=== PATIENT | female | born 1955 | race Caucasian/White ===

== ENCOUNTER 2020-01-17 07:21 | Inpatient (IN) | payer OTHER, SELFPAY ==
[2020-01-17] VITALS (7 sets, daily range): BP systolic 110–123; BP diastolic 58–89; PULSE 70–112; RESP 14–20; TEMP 36.2–37.1; O2SAT 94–98; BMI 43.1
--- NOTE | ~2020-01-17 | CT_ITS ---
EXAMINATION: CT guide absc cath placement DATE: 01/18/2020 14:06 INDICATION: Liver abscess TECHNIQUE: The procedure including the risks and benefits was discussed with the patient. Risks discu ssed included bleeding and infection. The patient understood the risks and benefits and agreed to pro ceed. The patient was confirmed to be receiving appropriate antibiotic coverage. The skin overlying the right upper quadrant was prepped and draped in usual sterile fashion. Anesthetic was administere d with 1% lidocaine subcutaneously. Conscious sedation was also provided by the department of anesthe myah. An 18-gauge trocar needle was inserted through the more anterior abscess cavity and into the mor e posterior abscess cavity utilizing CT guidance. The inner needle was removed and milliliter of callaway foul smelling purulent fluid was aspirated. A J-wire was advanced into the abscess cavity with positi oning confirmed by CT. Utilizing Seldinger technique the outer needle was exchanged over the wire for serial dilators to 12 Jamaican and a 12 Jamaican drain was placed with position confirmed by CT. The cat heter loop was formed, the pigtail tip was locked and the catheter stitched to the skin with suture. Antibiotic appointment and a sterile dressing were applied. There were no immediate complications. An additional 40 mL purulent fluid was aspirated and sent to the lab for cytology, Gram stain and aerob ic and anaerobic cultures. The catheter was then attached to suction drainage and was draining additi onal fluid at the conclusion of the procedure. The mA was adjusted to patient size and iterative daryl nstruction technique was utilized. The dose-length product was 659.41 mGy-cm. FINDINGS: CT images demonstrate the catheter within the fluid collection. 40 mL fluid was aspirated f or testing. IMPRESSION: 1. Successful CT-guided hepatic abscess drainage. 2. 40 mL fluid was sent for aerobic and anaerobic cultures. 3. The catheter will be managed by Dr. Levine. Reviewed, dictated and finalized at location A.
--- NOTE | ~2020-01-17 | US_ITS ---
EXAMINATION: US renal BI DATE: 01/25/2020 14:05 INDICATION: Left hydronephrosis. TECHNIQUE: Multiple ultrasound grayscale images of the kidneys were obtained. COMPARISON: CT abdomen and pelvis 01/24/2020, 01/21/2020 FINDINGS: The right kidney measures 11.8 x 5.1 x 6.0 cm. The left kidney measures 10.9 x 6.1 x 4.8 cm. The kidn eys demonstrate normal parenchymal echogenicity. There is mild left hydronephrosis. The bladder is no rmal. IMPRESSION: 1. Stable mild left hydronephrosis. Reviewed, dictated and finalized at location A.
--- NOTE | ~2020-01-17 | XR_ITS ---
EXAMINATION: XR chest 1V portable DATE: 01/28/2020 06:08 INDICATION: Right pleural effusion. TECHNIQUE: A single frontal view of the chest was obtained. COMPARISON: Chest single view 01/27/2020 FINDINGS: There is a moderate-sized right pleural effusion with pigtail chest tube in expected positi on. There are airspace opacities in right mid and lower lung zones and at left lung base. No pneumoth orax. The heart size is normal. Two pigtail drains overlie the liver. There are screws in proximal le ft humerus. IMPRESSION: 1. Stable moderate-sized right pleural effusion with pigtail chest tube in expected position. 2. Stable airspace opacities in right mid and lower lung zones and left lower lung zone, consistent w ith atelectasis versus pneumonia. Reviewed, dictated and finalized at location A. IMPRESSION: 1. Stable moderate-sized right pleural effusion with pigtail chest tube in expe cted position. 2. Stable airspace opacities in right mid and lower lung zones and left lower l rober zone, consistent with atelectasis versus pneumonia.
--- NOTE | ~2020-01-17 | CT_ITS ---
EXAMINATION: CT chest abdomen pelvis wo con DATE: 01/31/2020 12:05 INDICATION: Right empyema. Liver abscesses. TECHNIQUE: Computed tomography (CT) of the chest, abdomen, and pelvis was performed without intraveno us contrast. Automated exposure control and iterative reconstruction technique were employed. The dos e-length product was 1712.25 mGy-cm. COMPARISON: CT studies dated 01/25/2020 and 01/24/2020 FINDINGS: CHEST CT: Slight decrease in size of a still small to moderate loculated right pleural effusion. Chest tube and small amount of gas is seen within the posterior pocket of the effusion at the right lung base. Ther e is compressive atelectasis in the right lung predominantly along the dependent aspects of the right upper, middle and lower lobes. No evident pneumonia or pulmonary edema within the aerated portions o f the lungs. Heart size is normal. No significant change in a tiny pericardial effusion. Calcified mojica bcarinal lymph node consistent with old granulomatous disease. No pathologically enlarged thoracic ly mphadenopathy. Severe thoracic spondylosis. ABDOMEN/PELVIS CT: Again seen are a pair of hepatic abscess drains, one extending from anterior to posterior across segm ent 4A and 2 segment 8 of the liver and the second extending from posterior to anterior into segment 7 of the liver. No significant interval change in a residual small gas and fluid pocket at the cephal ad margin of the anterior drainage catheter located at the junctions of segments 4A and 8 which measu res approximately 4 x 2.7 x 2.0 cm. There is heterogeneous attenuation in segment 7 and 8 of the live r with a few small low-attenuation likely fluid pockets with intervening liver tissue versus thick in ternal septations located around the coiled tip of the more posterior percutaneous hepatic abscess dr agustin. These pockets are approximately 3.4 x 1.6 cm, 2.4 x 1.8 cm, 2.0 x 1.6 cm and 1.8 x 1.6 cm. No ne w fluid collections identified. Gallbladder, spleen, pancreas, bilateral adrenal glands and right kid marta are normal. Mild left greater nephrosis which extends to a region of phlegmonous change and gas i n the presacral space likely resulting from perforated sigmoid diverticulitis. This appears without s ignificant interval change with no development of a drainable fluid collection. No bowel obstruction. Normal appendix. Bladder and anteverted uterus are unremarkable. No free intraperitoneal gas or flui d. No pathologically enlarged abdominal or pelvic lymphadenopathy. Severe lumbar spondylosis. IMPRESSION: 1. Mild decrease in size of a small to moderate likely multiloculated right pleural effusion with sma ll amount of gas within a pocket situated around the tip of a right thoracostomy tube. 2. No interval change in position of a couple hepatic abscess drains with a few small persistent hepa tic abscess cavities which do not appear directly contact the abscess drains. 3. Persistent region of phlegmonous change and extraluminal gas in the presacral space likely related to perforated sigmoid diverticulitis. 4. Unchanged mild left hydroureteronephrosis which appears to result from at least partial obstructio n at the level of the region of phlegmonous change. Reviewed, dictated and finalized at location A. IMPRESSION: 1. Mild decrease in size of a small to moderate likely multiloculated right ple ural effusion with small amount of gas within a pocket situated around the tip of a right thoracostomy tube. 2. No interval change in position of a couple hepatic abscess drains with a few small persistent hepatic abscess cavities which do not appear directly contact the abscess drains. 3. Persistent region of phlegmonous change and extraluminal gas in the presacra l space likely related to perforated sigmoid
--- NOTE | ~2020-01-17 | XR_ITS ---
EXAMINATION: XR chest 1V portable DATE: 01/27/2020 06:37 INDICATION: Right pleural effusion. TECHNIQUE: A single frontal view of the chest was obtained. COMPARISON: Chest single view 01/26/2020 FINDINGS: There is a moderate-sized right pleural effusion. There are airspace opacities in right mid and lower lung zones and left lower lung zone. No pneumothorax. The heart size is normal. There is a right-sided pigtail chest tube in expected position. There are 2 pigtail drains in the liver. There are 2 screws in proximal left humerus. IMPRESSION: 1. Moderate-sized right pleural effusion with interval improvement with pigtail chest tube in expecte d position. 2. Stable airspace opacities in right mid and lower lung zones and left lower lung zone, consistent w ith atelectasis versus pneumonia. Reviewed, dictated and finalized at location A. IMPRESSION: 1. Moderate-sized right pleural effusion with interval improvement with pigtail chest tube in expected position. 2. Stable airspace opacities in right mid and lower lung zones and left lower l rober zone, consistent with atelectasis versus pneumonia.
--- NOTE | ~2020-01-17 | XR_ITS ---
EXAMINATION: XR chest 1V portable DATE: 01/17/2020 08:02 INDICATION: Dyspnea. TECHNIQUE: A single frontal view of the chest was obtained. COMPARISON: CT abdomen and pelvis 10/08/2017 FINDINGS: There are mild airspace opacities in right lower lung zone. No pleural effusion or pneumoth orax. The heart size is normal. There is an old healed fracture of proximal left humerus with interna l fixation. IMPRESSION: 1. Mild airspace opacities in right lower lung zone, consistent with atelectasis versus pneumonia. Reviewed, dictated and finalized at location B. IMPRESSION: 1. Mild airspace opacities in right lower lung zone, consistent with atelectasi s versus pneumonia.
--- NOTE | ~2020-01-17 | XR_ITS ---
EXAMINATION: XR chest 1V portable DATE: 01/24/2020 06:39 INDICATION: Shortness of breath. TECHNIQUE: A single frontal view of the chest was obtained. COMPARISON: Chest single view 01/17/2020, CT abdomen and pelvis 01/21/2020 FINDINGS: There is a small right pleural effusion. There are airspace opacities in right mid and lowe r lung zones and left lower lung zone. No pneumothorax. The heart size is normal. There are 2 percuta neous drains in the liver. There are 2 screws in proximal left humerus. IMPRESSION: 1. Worsened airspace opacities in right mid and lower lung zones and left lower lung zone, consistent with atelectasis versus pneumonia. 2. Worsened small right pleural effusion. Reviewed, dictated and finalized at location A.
--- NOTE | ~2020-01-17 | CT_ITS ---
EXAMINATION: CT abdomen pelvis wo con EXAM DATE: 01/24/2020 15:48 INDICATION: Diverticulitis complicated with liver abscess. TECHNIQUE: Spiral CT of the abdomen and pelvis was performed without contrast. Axial, coronal and s agittal images were reviewed. The dose-length product (DLP) for this examination was 1623.11 mGy-cm. The exposure was tailored according to patient size (auto mA exposure control), and iterative recon struction (ASIR) was used as additional dose reduction technique. Comparison is made to prior examina tion from 01/21/2020. FINDINGS: Heterogeneous liver measuring up to 7 x 8 cm region, again with a pigtail catheter entering this area from anteriorly. There is been interval insertion of another posterior approach pigtail ca theter. Suspected there are multiple loculations, septations within this region. A few small foci of gas remaining. On prior study there was small right pleural effusion. There is now moderate right ple ural effusion or empyema with loculation suspected. There is multi segmental right basilar atelectasi s. Again there is moderate sigmoid diverticulosis, with regions of gas anterior to the upper aspect of t he sacrum, suspicious for an contained air from perforated diverticulitis. No drainable abscess in th is location. The spleen, adrenal glands and pancreas are unremarkable. Gallbladder is unremarkable. No biliary ob struction. Limitations in evaluating the pelvis due to right hip replacement but the imaged portio n of the uterus appears unremarkable. The bladder is not distended or well visualized. There is no retroperitoneal or pelvic lymphadenopathy. The appendix is normal. The stomach and small bowel are unremarkable. No free intraperitoneal gas. Advanced lumbar spondylosis. IMPRESSION: 1. Development of moderate right pleural empyema or effusion with loculations. Adjacent multisegment al right basilar atelectasis. 2. Persistent sizable heterogeneous right liver lobe abscess with multiple septations. 3. Persistent findings suspicious for extraluminal gas from perforated sigmoid diverticulitis. No gr oss free intraperitoneal gas. 4. Colonic diverticulosis. Reviewed, dictated and finalized at location B. IMPRESSION: 1. Development of moderate right pleural empyema or effusion with loculations. Adjacent multisegmental right basilar atelectasis. 2. Persistent sizable heterogeneous right liver lobe abscess with multiple sep tations. 3. Persistent findings suspicious for extraluminal gas from perforated sigmoid diverticulitis. No gross free intraperitoneal gas. 4. Colonic diverticulosis.
--- NOTE | ~2020-01-17 | XR_ITS ---
EXAMINATION: XR chest 1V portable DATE: 01/26/2020 08:59 INDICATION: Right pleural effusion. TECHNIQUE: A single frontal view of the chest was obtained. COMPARISON: Chest single view 01/24/2020 FINDINGS: There is a moderate-sized right pleural effusion. There is a right-sided pigtail chest tube in expected position. There are airspace opacities at the lung bases. No pneumothorax. The heart siz e is normal. There is screw fixation of proximal left humerus. There are 2 pigtail drains in the live r. IMPRESSION: 1. Moderate-sized right pleural effusion with pigtail chest tube in expected position with worsening of the pleural effusion from 01/24/2020. 2. Airspace opacities at the lung bases, consistent with atelectasis or less likely pneumonia. Reviewed, dictated and finalized at location A. IMPRESSION: 1. Moderate-sized right pleural effusion with pigtail chest tube in expected po sition with worsening of the pleural effusion from 01/24/2020. 2. Airspace opacities at the lung bases, consistent with atelectasis or less li glenn pneumonia.
--- NOTE | ~2020-01-17 | CT_ITS ---
EXAMINATION: CT guide absc cath placement DATE: 01/21/2020 15:34 INDICATION: Hepatic abscess TECHNIQUE: The procedure including the risks and benefits was discussed with the patient. Risks discu ssed included bleeding and infection. The patient understood the risks and benefits and agreed to pro ceed. The patient was confirmed to be receiving appropriate antibiotic coverage. The skin overlying the paraspinal right flank was prepped and draped in usual sterile fashion. Anesthetic was administe red with 1% lidocaine subcutaneously. A 18-gauge trocar needle was inserted into the right hepatic l obe abscess utilizing intermittent CT guidance. The inner needle was removed and there was spontaneou s reflux of purulent appearing fluid. A J-wire was advanced into the fluid collection with positionin g confirmed by CT. Utilizing Seldinger technique the needle was removed over the wire and the tract s erially dilated to 12 Welsh and the outer portion of the tract across the paraspinal musculature dil ated to 14 Welsh. A 12 Welsh drainage catheter was then placed over the wire with position confirme d by CT. The metal stiffener and wire were removed, and the pigtail tip was locked. The catheter was stitched to the skin with suture. Antibiotic ointment and a sterile dressing were applied. There were no immediate complications. The dose-length product was 884.79 mGy-cm. 20 mL of fluid was aspirated and sent to the lab for Gram stain and culture. The catheter was then attached to suction drainage wi th an additional 200 mL of fluid drained into the bag at the conclusion of the procedure. FINDINGS: CT images demonstrate the catheter within the anterior right hepatic lobe abscess. 20 mL of pinkish-callaway purulent appearing foul-smelling fluid was aspirated and sent for Gram stain and culture s. The previously placed hepatic abscess drainage catheter seen in the more anterior and cephalad rig ht hepatic lobe. IMPRESSION: 1. Successful CT-guided right hepatic lobe abscess drainage catheter placement. 2. 20 mL fluid was sent for aerobic and anaerobic cultures. 3. The catheter will be managed by Dr. Levine. Reviewed, dictated and finalized at location A.
--- NOTE | ~2020-01-17 | CT_ITS ---
EXAMINATION: CT abdomen pelvis wo con DATE: 01/17/2020 08:24 INDICATION: Right lower quadrant abdominal pain. TECHNIQUE: Computed tomography (CT) of the abdomen and pelvis was performed without intravenous contr ast. Automated exposure control and iterative reconstruction technique were employed. The dose-length product was 1424.69 mGy-cm. COMPARISON: CT abdomen and pelvis 10/08/2017 FINDINGS: The visualized portions of the lung bases demonstrate mild atelectasis. A calcified left kristopher ng nodule and calcified paraesophageal lymph node are consistent with old granulomatous disease. No p leural effusion. The heart size is normal. No pericardial effusion. There is a small sliding hiatal h ernia. There are new clustered low-attenuation masses in the liver predominantly involving right hepa tic lobe. For example, a mass centered in segment VIII measures 6.1 x 3.7 cm. The gallbladder, spleen , pancreas, adrenal glands, and right kidney are normal. There is mild left hydronephrosis and proxim al hydroureter. There are scattered diverticula in the colon. Sigmoid colon demonstrates wall thicken ing. There are multiple fistulas in the sigmoid colon extending to presacral soft tissue. There is no drainable fluid collection. There are no dilated loops of bowel. The appendix is normal. There are n o pathologically enlarged lymph nodes. There is no free intraperitoneal fluid. There are small suprau mbilical ventral hernias containing fat. There is a right hip arthroplasty. There is severe lumbar sp ondylosis. IMPRESSION: 1. New clustered liver masses, which may be abscesses, metastatic disease, or cholangiocarcinoma. 2. Sigmoid colon wall thickening with perisigmoid soft tissue and multiple fistulas, which may be chr onic diverticulitis or malignancy. 3. Mild left hydronephrosis and proximal hydroureter secondary to the perisigmoid soft tissue. Reviewed, dictated and finalized at location B. IMPRESSION: 1. New clustered liver masses, which may be abscesses, metastatic disease, or c holangiocarcinoma. 2. Sigmoid colon wall thickening with perisigmoid soft tissue and multiple fist ulas, which may be chronic diverticulitis or malignancy. 3. Mild left hydronephrosis and proximal hydroureter secondary to the perisigmo id soft tissue.
--- NOTE | ~2020-01-17 | CT_ITS ---
EXAMINATION: CT abdomen pelvis wo con DATE: 01/21/2020 09:13 INDICATION: Hepatic abscess. Diverticulitis. TECHNIQUE: Computed tomography (CT) of the abdomen and pelvis was performed without intravenous contr ast. Automated exposure control and iterative reconstruction technique were employed. The dose-length product was 1372.97 mGy-cm. COMPARISON: None FINDINGS: Small right pleural effusion. Atelectasis at the bilateral lung bases. Heart size is normal. No peric ardial effusion. Interval placement of a percutaneous hepatic abscess drain. The drain passes through a more anterior abscess which is decreased in size from 6.1 x 4.6 x 4.1 cm to currently measuring 5. 8 x 2.1 x 2.7 cm. There are a few tiny foci of gas within this abscess cavity. The loop of the cathet er is formed within the anterior margin of a second larger more posterior abscess cavity which appear s to demonstrate some internal septations. This cavity has increased in size since the prior study cu rrently measuring 10.2 x 8.2 x 10.1 cm as previously it measured 8.2 x 7.0 x 6.5 cm. Gallbladder, spl een, pancreas, bilateral adrenal glands and right kidney are normal. Persistent mild left hydroureter onephrosis with the dilated left ureter extending to the region of phlegmonous change with multiple f oci of extraluminal gas located within the presacral space along the posterior margin of the sigmoid colon consistent with likely perforated diverticulitis. No contrast abscess in the pelvis. There is m oderate diverticulosis with sigmoid and descending colon predominance. No bowel obstruction. The deep pelvis including the partially decompressed bladder and caudal aspect of the anteverted uterus are o bscured by metallic streak artifact from a right total hip arthroplasty. No pathologically enlarged a bdominal or pelvic lymphadenopathy. Severe lumbar spondylosis and mild to moderate left hip osteoarth ritis. IMPRESSION: 1. Again seen are a pair of hepatic abscesses with interval decrease in size of the more anterior abs cess cavity through which passes a percutaneous hepatic abscess drain. The distal loop of the abscess drain is positioned at the margin of the likely multiloculated posterior abscess cavity with septati ons likely inhibiting further drainage. Would consider placement of a second percutaneous abscess warren in placed from posteriorly. 2. Likely perforated diverticulitis with region of likely retroperitoneal phlegmonous change without discrete abscess in the presacral space along the posterior margin of the sigmoid colon. Where an abs cess to develop at this location it would not be readily accessible to percutaneous drainage. 3. Persistent mild left hydroureteronephrosis likely related to the phlegmonous change associated wit h the diverticulitis. 4. Small right pleural effusion. Reviewed, dictated and finalized at location A. IMPRESSION: 1. Again seen are a pair of hepatic abscesses with interval decrease in size of the more anterior abscess cavity through which passes a percutaneous hepatic a bscess drain. The distal loop of the abscess drain is positioned at the margin of the likely multiloculated posterior abscess cavity with septations likely in hibiting further drainage. Would consider placement of a second percutaneous ab scess drain placed from posteriorly. 2. Likely perforated diverticulitis with region of likely retroperitoneal phleg monous change without discrete abscess in the presacral space along the posteri or margin of the sigmoid colon. Where an abscess to develop at this location it would not be readily accessible to percutaneous drainage. 3. Persistent mild left hydroureteronephrosis likely related to the phlegmonous change associated with the diverticulitis. 4. Small right pleural effusion.
--- NOTE | ~2020-01-17 | CT_ITS ---
EXAMINATION: CT chest tube placement w [facility] [place] DATE: 01/25/2020 15:22 INDICATION: Right pleural effusion. TECHNIQUE: The procedure including the risks, benefits, and alternatives was discussed with the patie nt. Risks discussed included bleeding and infection. The patient understood the risks and benefits an d agreed to proceed. The skin overlying the right chest was prepped and draped in usual sterile fashi on. Anesthetic was administered with 1% lidocaine subcutaneously. An 18 gauge trochar needle was ins erted into the right pleural effusion with CT guidance. The needle was exchanged over a wire for 6 Fr ench, 8 Maldivian, and 10 Maldivian dilators and then for a 10 Maldivian pigtail catheter. The catheter was st itched to the skin, and a sterile dressing was applied. Fluid was aspirated. A one-way valve was robert ched. The mA was adjusted according to patient size. Iterative reconstruction technique was employed. The dose-length product was 168.72 mGy-cm. There were no immediate complications. FINDINGS: CT images demonstrate the catheter within the right pleural effusion. 60 mL serosanguineous fluid was aspirated for testing. IMPRESSION: 1. Successful CT-guided right chest tube placement. 2. 60 mL serosanguineous fluid was sent for aerobic and anaerobic cultures. Reviewed, dictated and finalized at location A.
--- NOTE | 2020-01-17 07:32 | ECG_ITS ---
Measurements Intervals [place] Rate: 100 P: 67 NC: 143 QRS: -3 QRSD: 89 T: 42 QT: 346 QTc: 446 Interpretive Statements SINUS TACHYCARDIA CANNOT RULE OUT SEPTAL INFARCT, AGE INDETERMINATE BORDERLINE ST ABNORMALITY- ANTERIOR LEADS ABNORMAL ECG Electronically Signed On 01-17-2020 8:02:20 CDT by Afshin Ty D.O.
--- NOTE | 2020-01-17 07:34 | ED.ABDPAIN ---
HPI - Abdominal Pain General Chief Complaint: Abdominal Pain Stated Complaint: SICK HELL Time Seen by Provider: 01/17/20 07:32 Source: patient Mode of arrival: ambulatory Limitations: no limitations History of Present Illness HPI narrative: Patient is a 64-year-old female with a history of diverticulitis, hypertension, inguinal hernia repair, 4 sections, presents this morning feeling very unwell. Patient is mostly reporting right lower quadrant abdominal pain over the past several days which has been intermittent in nature. Radiation of the pain to the right flank. Patient denies fever, chills, chest pain, cough, congestion, nausea or vomiting. Patient reports she has a history of pain such as this in the past and was diagnosed with gallstones, but is has not had a cholecystectomy. She reports some hematuria several weeks ago, but no dysuria, frequency or hematuria this week. Patient is denying shortness of breath, but in the exam room, patient does appear quite dyspneic. Related Data Home Medications Medication Instructions Recorded Confirmed celecoxib mg 01/17/20 lisinopril 01/17/20 pantoprazole PO 01/17/20 Allergies Allergy/AdvReac Type Severity Reaction Status Date / Time hydrocodone Allergy Severe DIFFICULTY Verified 01/17/20 07:32 BREATHING, BEHAVIOR CHANGES latex Allergy Severe Anaphylactic Verified 01/17/20 07:32 Shock,RASH shellfish derived Allergy Severe Anaphylactic Verified 01/17/20 07:32 Shock Contrast Media Allergy Severe ANAPHYLAXIS Uncoded 08 07:32 Review of Systems Review of Systems: Narrative: CONSTITUTIONAL: Denies fever, chills, or sweats. EYES: Denies visual changes, redness, or discharge. ENT: Denies rhinorrhea, congestion, sore throat, or otalgia. CARDIOVASCULAR: Denies chest pain, palpitations, or edema. RESPIRATORY: Denies cough or dyspnea. GASTROINTESTINAL: Reports abdominal pain, denies nausea, vomiting GENITOURINARY: Denies current dysuria, reports hematuria several weeks ago, reports this has resolved SKIN: Denies rash or itching. MUSCULOSKELETAL: Reports right flank pain, denies myalgias NEUROLOGIC: Denies headache, numbness, or weakness. PMF Past Medical History Medical History Acid reflux Diverticulitis Hypertension Surgical History Surgical History H/O section H/O inguinal hernia repair H/O shoulder surgery History of bilateral knee replacement History of right hip replacement Social History Social History Gender identity (if verbalized by the patient): Female Exam Narrative: Exam Narrative: GENERAL: Awake, alert, conversant HEAD: Normocephalic, atraumatic. EYES: PERRLA and EOMI. ENT: Nares clear, no rhinorrhea or epistaxis. Mucous membranes moist. NECK: Supple. CHEST: No respiratory distress, patient is mildly dyspneic, able to speak in full sentences, no wheezing, no use of accessory muscles HEART: Tachycardic rate, sinus rhythm ABDOMEN: Obese, non distended, mildly tender in the suprapubic area, right upper quadrant, right lower quadrant, negative Sims sign, negative McBurney's point tenderness, negative psoas sign, nonrigid, nondistended, no rebound EXTREMITIES: Normal range of motion. No edema. SKIN: Warm, dry, no rash. NEURO:No focal deficits. Alert and oriented x3 Course Vital Signs Vital signs: Vital Signs Temperature 36.2 C L 01/17/20 07:22 Pulse Rate 112 H 01/17/20 07:22 Respiratory Rate 17 01/17/20 07:22 Blood Pressure 111/67 01/17/20 07:22 Pulse Oximetry 98 01/17/20 07:22 Temperature 36.2 C L 01/17/20 07:22 Pulse Rate 79 01/17/20 09:33 Respiratory Rate 17 01/17/20 09:33 Blood Pressure 114/64 01/17/20 09:33 Pulse Oximetry 96 01/17/20 09:33 MDM - Abdominal Pain MDM Narrative Medical decision
[2020-01-17] MEDS: ONDANSETRON INJ 4 MG/2 ML VIAL IV PUSH ×2 (07:52→21:21)
[2020-01-17] MEDS: MORPHINE SULFATE 4 MG/ML INJ IV PUSH (07:53)
[2020-01-17] MEDS: SODIUM CHLORIDE 0.9% IV 1,000 ML 999 ML IV CONT (07:54)
[2020-01-17 07:59] LABS: Basophils Absolute Auto 0.1 K/mm3 (0.0-0.1); Basophils Percent Auto 0.4 % (0.2-1.2); Eosinophils Percent Auto 0.1 % (0-4.4); Hematocrit 33.4 % (37.0-47.0); Hemoglobin 10.7 g/dL (12.0-15.0); Immature Granulocyte Absolute 0.35 K/mm3 (0.00-0.031); Immature Granulocyte Percent A 1.3 % (0-0.5); Lymphocytes Absolute Auto 1.21 K/mm3 (0.9-3.2); Lymphocytes Percent Auto 4.5 % (18.3-44.2); Mean Corpuscular Hemoglobin 26.7 pg (26-34); Mean Corpuscular Volume 83.3 fl (80-100); Mean Platelet Volume 10.6 fl (7.4-10.4); Monocytes Absolute Auto 1.8 K/mm3 (0.1-0.6); Monocytes Percent Auto 6.5 % (2.6-8.5); Neutrophils Absolute Auto 23.7 K/mm3 (1.3-6.7); Neutrophils Percent Auto 87.2 % (45.5-73.1); Platelet Count Result 412 k/mm3 (150-375); Red Blood Count 4.01 M/mm3 (4.2-5.4); Red Cell Distribution Width 14.6 % (11.5-14.5); White Blood Count 27.1 K/mm3 (4.5-10.0)
[2020-01-17 08:05] LABS: Add Urine Microscopic? YES; Appearance Urine Clear (Clear); Bilirubin Urine Negative (Negative); Blood Urine 1+ (Negative); Color Urine Yellow (Yellow); Glucose Urine UA 1+ mg/dL (Negative); Ketones Urine Negative (Negative); Leukocyte Esterase Ur Negative LEU/UL (Negative); Mucus Urine Heavy /lpf; Nitrate Urine Negative (Negative); Protein Urine 2+ mg/dL (Negative); Specific Grav Ur 1.019 (1.001-1.035); Squamous Epithelial Cell Urine Moderate /hpf (Few); Urobilinogen Urine Negative mg/dL (<2.0)
[2020-01-17 08:08] LABS: Alanine Aminotransferase 38 U/L (4-35); Albumin Level 3.2 g/dL (3.5-5.1); Alkaline Phosphatase 193 U/L (38-126); Anion Gap 10 mmol/L (8-16); Aspartate Amino Transferase 63 U/L (14-36); Bilirubin,Total 0.7 mg/dL (0.2-1.3); Blood Urea Nitrogen 18 mg/dL (7-17); Calcium 8.7 mg/dL (8.4-10.2); Carbon Dioxide 24 mmol/L (22-30); Chloride 97 mmol/L (98-107); Estimated CRCL calculation 70 ml/min; Estimated Glomerular Filt Rate > 60; Glucose 216 mg/dL (65-105); Lipase 15 U/L (23-300); Sodium 131 mmol/L (137-145)
[2020-01-17 08:09] LABS: INR 1.3; Prothrombin Time 15.4 Seconds (11.1-14.7)
[2020-01-17 08:10] LABS: Partial Thromboplastin Time 28.7 SECONDS (22.3-36.8)
[2020-01-17 08:19] LABS: Troponin I < 0.012 ng/mL (0.000-0.034)
[2020-01-17 08:19] LABS: Lactic Acid Reflex 1.7 mmol/L (0.7-2.1)
--- NOTE | 2020-01-17 09:56 | PM.CNGS ---
Assessment and Plan Assessment and plan (1) Diverticulitis: Code(s): K57.92 - Diverticulitis of intestine, part unspecified, without perforation or abscess without bleeding Status: Acute Assessment and Plan: will need to start broad spectrum abx, get cx c hepatic drain (2) Abscess of liver: Code(s): K75.0 - Abscess of liver Status: Acute Assessment and Plan: setup for perc drainage hepatic abscess, await cx and sensitivity History of Present Illness Consult details Consult date: 01/17/20 Reason for consult: abdominal pain Requesting physician: Rebecca Mark MD Narrative: Pt is a 64 y/o F presenting to ED c/o severe R sided abdominal pain progressively worsening over last few days. Pt reports she has had intermittent sx over last month or so but now is constant. Pt reports assoc nausea, fullness, decreased appetite, weakness. Pt denies any fevers, chills. Pt c h/o known diverticular dz. Review of Systems Constitutional: Constitutional: Denies chills, Reports fatigue, Reports lethargy and Reports weakness Eyes: Eyes: Reports no additional eye complaints ENT: Reports Normal hearing present Cardiovascular: Cardiovascular: Denies chest pain and Denies palpitations Respiratory: Respiratory: Denies dyspnea Gastrointestinal: Gastrointestinal: Reports abdominal pain, Reports bloating, Denies constipation, Reports heartburn, Denies diarrhea, Reports nausea and Denies vomiting Genitourinary: Genitourinary: Denies hematuria and Denies dysuria Musculoskeletal: Musculoskeletal: Reports no additional musculoskeletal complaints Integumentary/Breasts: Skin/Breast: Reports system reviewed and no additional complaints, except as docu Neurologic: Reports system reviewed and no additional complaints, except as documented Psychiatric: Psychiatric: Reports no additional psychiatric complaints [facility] Past Medical History Medical History Acid reflux Diverticulitis Hypertension Surgical History Surgical History H/O section H/O inguinal hernia repair H/O shoulder surgery History of bilateral knee replacement History of right hip replacement Social History Social History Gender identity (if verbalized by the patient): Female Meds Home Medications and Allergies Home Medications Medication Instructions Recorded Confirmed Type celecoxib mg 01/17/20 History lisinopril 01/17/20 History pantoprazole PO 01/17/20 History Allergies Allergy/AdvReac Type Severity Reaction Status Date / Time hydrocodone Allergy Severe DIFFICULTY Verified 01/17/20 07:32 BREATHING, BEHAVIOR CHANGES latex Allergy Severe Anaphylactic Verified 01/17/20 07:32 Shock,RASH shellfish derived Allergy Severe Anaphylactic Verified 01/17/20 07:32 Shock Contrast Media Allergy Severe ANAPHYLAXIS Uncoded 01/17/20 07:32 Vital Signs Vital Signs - 24 hr 01/17/20 07:22 01/17/20 08:52 01/17/20 09:33 Temperature 36.2 C L Pulse Rate 112 H 81 79 Respiratory Rate 17 17 17 Blood Pressure 111/67 110/78 114/64 Pulse Oximetry 98 95 96 Exam Const: General: in distress mild HENMT: Mouth: Yes moist mucous membranes Eyes: Pupils: Equal, round and reactive pupils present EOM: EOMs intact bilaterally Neck: Neck: supple and no JVD Lymphatic: lymphadenopathy not noted Resp: Auscultation: clear to auscultation bilaterally Cardio: Rate: regular rate Rhythm: regular rhythm GI: Inspection: distended GI Palp: Yes Soft to palpation and Yes Tenderness to palpation present (GI) Other: sl dist, mild TTP RUQ, minimal TTP LLQ Skin: General skin exam: normal color and no rashes or lesions noted Neuro: Motor exam (neuro): 5/5 motor strength present throughout Extrem: General: normal to inspection Psych: Menta
--- NOTE | 2020-01-17 10:58 | ADMGEN ---
This patient, Ameena Tanner, was admitted to [address] [facility] Surg Room 310-01. Patient/family oriented to hospital policies and general routines including ID bracelet, bed and alarms, visiting hours, pain management, procedures, bathroom and other care routines, personal items, smoking policy, room service/diet, and visiting hours. Valuables list has been completed. Information on how to activate the Rapid Response Team has been discussed. Patient/Family are encouraged to report perceived risks to care and to ask questions if they do not understand what they are told or what they should do.
[2020-01-17] MEDS: SODIUM CHLORIDE 0.9% IV 1,000 ML 125 ML IV CONT ×2 (12:57→21:20)
--- NOTE | 2020-01-17 16:33 | PM.IMHP ---
H&P: HPI History of Present Illness Date/Time: 01/17/20 16:33 Chief complaint: Diverticulitis with liver abscess/fistula Narrative: Ameena Tanner is a 64 year old female with no significant other than diverticulosis, past medical history presented emergency department with a complaint right-sided upper and lower abdominal patient states the pain is going on for quite some however her symptoms were getting progressively worse for last few days and today was just worse, today patient presented emergency department for further evaluation, patient denies any associated symptoms nausea or vomiting diarrhea fever or chills, denies any dysuria or frequency of urination, emergency department patient had a CT scan of the abdomen which showed:1. New clustered liver masses, which may be abscesses, metastatic disease, or cholangiocarcinoma. 2. Sigmoid colon wall thickening with perisigmoid soft tissue and multiple fistulas, which may be chronic diverticulitis or malignancy. 3. Mild left hydronephrosis and proximal hydroureter secondary to the perisigmoid soft tissue. patient was seen by general surgery and suspect patient has liver abscess recommended consult interventional radiologist to drain the abscess, patient is started on Zosyn will follow-up on culture and further recommendation to follow. Review of Systems Review of Systems: All systems reviewed & are unremarkable except as noted in HPI and below PMFSH Past Medical History Medical History Acid reflux Diverticulitis Hypertension Surgical History Surgical History H/O section H/O inguinal hernia repair H/O shoulder surgery History of bilateral knee replacement History of right hip replacement Family History Family History (Updated 01/17/20 @ 11:12 by Bandar Vaughan, JONATHAN) Father Diabetes mellitus Social History Social History Smoking status: Never smoker Alcohol intake: never Substance use: never Substance use type: does not use Gender identity (if verbalized by the patient): Female Sexual Orientation (if Verbalized by the Patient): Straight or Heterosexual Spiritual care concerns: No Meds Home Medications and Allergies Home Medications Medication Instructions Recorded Confirmed Type aspirin [Adult Low Dose Aspirin] 81 mg PO DAILY 01/17/20 01/17/20 History celecoxib 200 mg PO BID 01/17/20 01/17/20 History fluticasone propionate [Flonase 50 mcg INTRANASAL DAILY PRN 01/17/20 01/17/20 History Allergy Relief] lisinopril 10 mg PO DAILY 01/17/20 01/17/20 History loratadine [Claritin] 10 mg PO DAILY 01/17/20 01/17/20 History pantoprazole 40 mg PO DAILY 01/17/20 01/17/20 History Allergies Allergy/AdvReac Type Severity Reaction Status Date / Time hydrocodone Allergy Severe DIFFICULTY Verified 01/17/20 07:32 BREATHING, BEHAVIOR CHANGES latex Allergy Severe Anaphylactic Verified 01/17/20 07:32 Shock,RASH shellfish derived Allergy Severe Anaphylactic Verified 01/17/20 07:32 Shock Contrast Media Allergy Severe ANAPHYLAXIS Uncoded 01/17/20 07:32 Vital Signs Vital Signs - 24 hr 01/17/20 07:22 01/17/20 08:52 01/17/20 09:33 Temperature 97.2 F L Pulse Rate 112 H 81 79 Respiratory Rate 17 17 17 Blood Pressure 111/67 110/78 114/64 Pulse Oximetry 98 95 96 01/17/20 10:36 01/17/20 11:05 01/17/20 11:06 Temperature 97.1 F L Pulse Rate 77 77 70 Respiratory Rate 14 16 14 Blood Pressure 114/89 118/58 L 116/74 Pulse Oximetry 96 97 95 Exam Narrative: Exam Narrative: morbidly obese Const: General: no acute distress and uncomfortable HENMT: General nose exam: Normal nares present Eyes: General: appearance normal, both eyes and all related structures Sclera: sclerae normal Neck: Neck: supple Resp: Effort & Inspection: normal respiratory effort Au
[2020-01-18 02:44] VITALS: BP 110/55; PULSE 103; RESP 18; TEMP 37.9; O2SAT 93
[2020-01-18 03:24] VITALS: PULSE 101; TEMP 36.7
--- NOTE | 2020-01-18 05:45 | PC.NURSE ---
pt has been NPO since [place] for procedure this am
[2020-01-18 06:00] VITALS: BP 104/44; PULSE 82; RESP 20; TEMP 36.9; O2SAT 97
[2020-01-18 06:13] LABS: Basophils Absolute Auto 0.1 K/mm3 (0.0-0.1); Basophils Percent Auto 0.3 % (0.2-1.2); Eosinophils Absolute Auto 0.1 K/mm3 (0-0.3); Eosinophils Percent Auto 0.3 % (0-4.4); Hematocrit 26.9 % (37.0-47.0); Hemoglobin 8.6 g/dL (12.0-15.0); Immature Granulocyte Absolute 0.31 K/mm3 (0.00-0.031); Immature Granulocyte Percent A 1.5 % (0-0.5); Lymphocytes Percent Auto 4.3 % (18.3-44.2); Mean Corpuscular Hemoglobin 26.4 pg (26-34); Mean Corpuscular Volume 82.5 fl (80-100); Mean Platelet Volume 10.3 fl (7.4-10.4); Monocytes Absolute Auto 1.6 K/mm3 (0.1-0.6); Monocytes Percent Auto 7.6 % (2.6-8.5); Neutrophils Absolute Auto 18.1 K/mm3 (1.3-6.7); Platelet Count Result 315 k/mm3 (150-375); Red Blood Count 3.26 M/mm3 (4.2-5.4); Red Cell Distribution Width 14.6 % (11.5-14.5); White Blood Count 21.1 K/mm3 (4.5-10.0)
[2020-01-18 06:27] LABS: Alanine Aminotransferase 39 U/L (4-35); Albumin Level 2.5 g/dL (3.5-5.1); Alkaline Phosphatase 206 U/L (38-126); Anion Gap 6 mmol/L (8-16); Aspartate Amino Transferase 69 U/L (14-36); Bilirubin,Total 0.5 mg/dL (0.2-1.3); Blood Urea Nitrogen 14 mg/dL (7-17); Calcium 7.9 mg/dL (8.4-10.2); Carbon Dioxide 25 mmol/L (22-30); Chloride 99 mmol/L (98-107); Estimated CRCL calculation 78 ml/min; Estimated Glomerular Filt Rate > 60; Glucose 167 mg/dL (65-105); Potassium 3.8 mmol/L (3.4-5.0); Sodium 130 mmol/L (137-145)
[2020-01-18] MEDS: SODIUM CHLORIDE 0.9% IV 1,000 ML 125 ML IV CONT ×2 (08:53→18:26)
--- NOTE | 2020-01-18 11:30 | WPDANESEPP ---
Anes - Eval Pre Procedure Procedure: C/T Guided Drain Placement Date/Time: 01/18/20 11:30 Pre Op Diagnosis: Diverticulitis with liver abscess/fistula Patient Data Age: 64 Gender: F Height: 1.63 m Weight: 114 kg Last Vital Signs Temp 36.9 C 01/18/20 06:00 Pulse 82 01/18/20 06:00 Resp 20 01/18/20 06:00 BP 104/44 L 01/18/20 06:00 Pulse Ox 97 01/18/20 06:00 Allergies Allergy/AdvReac Type Severity Reaction Status Date / Time hydrocodone Allergy Severe DIFFICULTY Verified 01/17/20 07:32 BREATHING, BEHAVIOR CHANGES latex Allergy Severe Anaphylactic Verified 01/17/20 07:32 Shock,RASH shellfish derived Allergy Severe Anaphylactic Verified 01/17/20 07:32 Shock Contrast Media Allergy Severe ANAPHYLAXIS Uncoded 01/17/20 07:32 Home Medications Medication Instructions Recorded Confirmed Type aspirin [Adult Low Dose Aspirin] 81 mg PO DAILY 01/17/20 01/17/20 History celecoxib 200 mg PO BID 01/17/20 01/17/20 History fluticasone propionate [Flonase 50 mcg INTRANASAL DAILY PRN 01/17/20 01/17/20 History Allergy Relief] lisinopril 10 mg PO DAILY 01/17/20 01/17/20 History loratadine [Claritin] 10 mg PO DAILY 01/17/20 01/17/20 History pantoprazole 40 mg PO DAILY 01/17/20 01/17/20 History Laboratory Tests 01/18/20 01/18/20 05:34 05:34 WBC 21.1 K/mm3 H K/mm3 (4.5-10.0) RBC 3.26 M/mm3 L M/mm3 (4.2-5.4) Hgb 8.6 g/dL L g/dL (12.0-15.0) Hct 26.9 % L % (37.0-47.0) MCV 82.5 fl fl (80-100) MCH 26.4 pg pg (26-34) MCHC 32.0 g/dl g/dl (32-36) RDW 14.6 % H % (11.5-14.5) Plt Count 315 k/mm3 k/mm3 (150-375) MPV 10.3 fl fl (7.4-10.4) Immature Gran % (Auto) 1.5 % H % (0-0.5) Neut % (Auto) 86.0 % H % (45.5-73.1) Lymph % (Auto) 4.3 % L % (18.3-44.2) [place] % (Auto) 7.6 % % (2.6-8.5) Eos % (Auto) 0.3 % % (0-4.4) Baso % (Auto) 0.3 % % (0.2-1.2) Lymph # (Auto) 0.90 K/mm3 K/mm3 (0.9-3.2) [place] # (Auto) 1.6 K/mm3 H K/mm3 (0.1-0.6) Eos # (Auto) 0.1 K/mm3 K/mm3 (0-0.3) Baso # (Auto) 0.1 K/mm3 K/mm3 (0.0-0.1) Abs Immat Gran (auto) 0.31 K/mm3 H K/mm3 (0.00-0.031) Absolute Neuts (auto) 18.1 K/mm3 H K/mm3 (1.3-6.7) Absolute Nucleated RBC 0.0 K/mm3 K/mm3 (0.0-0.012) Nucleated RBC % 0.0 % % (0.0-0.2) Sodium 130 mmol/L L mmol/L (137-145) Potassium 3.8 mmol/L mmol/L (3.4-5.0) Chloride 99 mmol/L mmol/L (98-107) Carbon Dioxide 25 mmol/L mmol/L (22-30) Anion Gap 6 mmol/L L mmol/L (8-16) BUN 14 mg/dL mg/dL (7-17) Creatinine 0.80 mg/dL mg/dL (0.7-1.0) Estim Creat Clear Calc 78 ml/min ml/min Estimated GFR > 60 (59 - ) Glucose 167 mg/dL H mg/dL (65-105) Calcium 7.9 mg/dL L mg/dL (8.4-10.2) Total Bilirubin 0.5 mg/dL mg/dL (0.2-1.3) AST 69 U/L H U/L (14-36) ALT 39 U/L H U/L (4-35) Alkaline Phosphatase 206 U/L H U/L (38-126) Total Protein 6.0 g/dL L g/dL (6.3-8.2) Albumin 2.5 g/dL L g/dL (3.5-5.1) Patient hx anesthesia problems: none Family hx anesthesia problems: none PMFSH Past Medical History Medical History Acid reflux Diverticulitis Hypertension WILBRET (obstructive sleep apnea) Surgical History Surgical History H/O section H/O inguinal hernia repair H/O shoulder surgery History of bilateral knee replacement History of right hip replacement Family History Family History Father Diabetes mellitus Social History Social History Smoking status: Never smoker Alcohol intake: never Substance use: never Substance use
--- NOTE | 2020-01-18 13:32 | WPDPN ---
Objective Data Vital Signs Vital Signs: Vital Signs - 24 hr 01/17/20 22:00 01/18/20 02:44 01/18/20 03:24 Temperature 37.1 C 37.9 C H 36.7 C Pulse Rate 90 103 H 101 H Respiratory Rate 20 18 Blood Pressure 123/64 110/55 L Pulse Oximetry 94 93 01/18/20 06:00 Temperature 36.9 C Pulse Rate 82 Respiratory Rate 20 Blood Pressure 104/44 L Pulse Oximetry 97 Intake/Output Intake/Output: Intake & Output 01/15/20 01/16/20 01/17/20 01/18/20 23:59 23:59 23:59 23:59 Intake Total 2900 1950 Output Total 410 900 Balance 2490 1050 Meds/Results Medications: Active Medications Generic Name Dose Route Start Last Admin Trade Name Freq PRN Reason Stop Dose Admin Vancomycin HCl 1,750 mg in 500 mls @ 250 mls/hr 01/18/20 04:00 01/18/20 05:32 Vancomycin 1,750 Mg/D5w 500 Ml IVPB Infused Q18H VASYL Infusion Sodium Chloride 1,000 mls @ 125 mls/hr 01/17/20 10:00 01/18/20 12:07 Normal Saline Iv IV CONT Not Given .Q8H VASYL Piperacillin/Tazobactam/Dextrose 3.375 gm in 50 mls @ 100 mls/hr 01/17/20 15:00 01/18/20 09:24 Zosyn 3.375 Gm/D5w 50ml Pm IVPB Infused Q6H VASYL Infusion Morphine Sulfate 4 mg 01/17/20 09:56 Morphine Sulfate Inj IV PUSH Q2H PRN Pain Rated 7-10 Ondansetron HCl 4 mg 01/17/20 09:56 01/17/20 21:21 Zofran Inj IV PUSH 4 mg Q4H PRN Administration Nausea Radiology Results: ITS Impressions Chest X-Ray 01/17/20 08:10 IMPRESSION: 1. Mild airspace opacities in right lower lung zone, consistent with atelectasis versus pneumonia. Abdomen/Pelvis CT 01/17/20 08:27 IMPRESSION: 1. New clustered liver masses, which may be abscesses, metastatic disease, or cholangiocarcinoma. 2. Sigmoid colon wall thickening with perisigmoid soft tissue and multiple fistulas, which may be chronic diverticulitis or malignancy. 3. Mild left hydronephrosis and proximal hydroureter secondary to the perisigmoid soft tissue. Labs Labs: Laboratory Results - last 24 hr 01/18/20 01/18/20 05:34 05:34 WBC 21.1 H RBC 3.26 L Hgb 8.6 L Hct 26.9 L MCV 82.5 MCH 26.4 MCHC 32.0 RDW 14.6 H Plt Count 315 MPV 10.3 Immature Gran % (Auto) 1.5 H Neut % (Auto) 86.0 H Lymph % (Auto) 4.3 L [place] % (Auto) 7.6 Eos % (Auto) 0.3 Baso % (Auto) 0.3 Lymph # (Auto) 0.90 [place] # (Auto) 1.6 H Eos # (Auto) 0.1 Baso # (Auto) 0.1 Abs Immat Gran (auto) 0.31 H Absolute Neuts (auto) 18.1 H Absolute Nucleated RBC 0.0 Nucleated RBC % 0.0 Sodium 130 L Potassium 3.8 Chloride 99 Carbon Dioxide 25 Anion Gap 6 L BUN 14 Creatinine 0.80 Estim Creat Clear Calc 78 Estimated GFR > 60 Glucose 167 H Calcium 7.9 L Total Bilirubin 0.5 AST 69 H ALT 39 H Alkaline Phosphatase 206 H Total Protein 6.0 L Albumin 2.5 L Quality VTE Prophylaxis VTE prophylaxis: mechanical ordered
--- NOTE | 2020-01-18 13:42 | PM.IMPN ---
Progress Note: A&P Assessment and Plan (1) Abscess of liver: Code(s): K75.0 - Abscess of liver Status: Acute Assessment and Plan: Patient had a CT scan of the abdomen which showed:1. New clustered liver masses, which may be abscesses, metastatic disease, or cholangiocarcinoma. 2. Sigmoid colon wall thickening with perisigmoid soft tissue and multiple fistulas, which may be chronic diverticulitis or malignancy. 3. Mild left hydronephrosis and proximal hydroureter secondary to the perisigmoid soft tissue. patient was seen by general surgery and suspect patient has liver abscess recommended consult interventional radiologist to drain the abscess, patient is started on Zosyn and tylenol for fever. Bc and UC are pending See findings above Pt has been seen by ID and surgery due to go to IR for drain placement today. (2) Leukocytosis: Qualifiers: Leukocytosis type: unspecified Qualified Code(s): D72.829 - Elevated white blood cell count, unspecified Code(s): D72.829 - Elevated white blood cell count, unspecified Status: Acute Assessment and Plan: Most likely secondary to liver abscess no other source of infection so far. Subjective Date/time seen: 01/18/20 13:42 Interval history: Patient had a CT scan of the abdomen which showed:1. New clustered liver masses, which may be abscesses, metastatic disease, or cholangiocarcinoma. 2. Sigmoid colon wall thickening with perisigmoid soft tissue and multiple fistulas, which may be chronic diverticulitis or malignancy. 3. Mild left hydronephrosis and proximal hydroureter secondary to the perisigmoid soft tissue. patient was seen by general surgery and suspect patient has liver abscess recommended consult interventional radiologist to drain the abscess, patient is started on Zosyn and tylenol for fever. Bc and UC are pending See findings above Pt has been seen by ID and surgery due to go to IR for drain placement today Pt had mild fever yesterday and abdominal pains and feels tired. Review of Systems Review of Systems: All systems reviewed & are unremarkable except as noted in HPI and below Exam Narrative: Exam Narrative: morbidly obese Resp: Effort & Inspection: normal respiratory effort Auscultation: clear to auscultation bilaterally Cardio: Rate: regular rate Rhythm: regular rhythm GI: Auscultation: normal bowel sounds Other: patient is tender in right side of the abdomen Skin: General skin exam: normal color Neuro: Speech: normal speech Sensory Exam: normal sensation Extrem: General: normal to inspection Psych: Affect: Anxious affect present Objective Data Vital Signs Vital Signs: Vital Signs - 24 hr 01/17/20 22:00 01/18/20 02:44 01/18/20 03:24 Temperature 37.1 C 37.9 C H 36.7 C Pulse Rate 90 103 H 101 H Respiratory Rate 20 18 Blood Pressure 123/64 110/55 L Pulse Oximetry 94 93 01/18/20 06:00 Temperature 36.9 C Pulse Rate 82 Respiratory Rate 20 Blood Pressure 104/44 L Pulse Oximetry 97 Intake/Output Intake/Output: Intake & Output 01/15/20 01/16/20 01/17/20 01/18/20 23:59 23:59 23:59 23:59 Intake Total 2900 1950 Output Total 410 900 Balance 2490 1050 Meds/Results Medications: Active Medications Generic Name Dose Route Start Last Admin Trade Name Freq PRN Reason Stop Dose Admin Vancomycin HCl 1,750 mg in 500 mls @ 250 mls/hr 01/18/20 04:00 01/18/20 05:32 Vancomycin 1,750 Mg/D5w 500 Ml IVPB Infused Q18H VASYL Infusion Sodium Chloride 1,000 mls @ 125 mls/hr 01/17/20 10:00 01/18/20 12:07 Normal Saline Iv IV CONT Not Given .Q8H VASYL Piperacillin/Tazobactam/Dextrose 3.375 gm in 50 mls @ 100 mls/hr 01/17/20 15:00 01/18/20 09:24 Zosyn 3.375 Gm/D5w 50ml Pm IVPB Infused Q6H VASYL Infusion Morphine Sulfate 4 mg 01/17/20 09:56 Morphine Sulfate Inj IV PUSH Q2H PRN Pain Rated 7-10 Ondansetron HCl 4 mg 01/17/20 09:56 01/17/20 21:21 Zofran In
[2020-01-18 14:00] VITALS: BP 127/62; PULSE 76; RESP 20; TEMP 36.8; O2SAT 97
--- NOTE | 2020-01-18 14:58 | PM.PNGS ---
Progress Note: A&P Assessment and Plan (1) Diverticulitis: Code(s): K57.92 - Diverticulitis of intestine, part unspecified, without perforation or abscess without bleeding Status: Acute Assessment and Plan: Clinically improving. Percutaneous abscess drain placed today. Awaiting cultures. Continue broad-spectrum IV abx. Continue to monitor labs. (2) Abscess of liver: Code(s): K75.0 - Abscess of liver Status: Acute Assessment and Plan: See plan above. Additional Plan Discussed plan of care with Dr. Levine. Subjective Subjective Date/Time Seen: 01/18/20 14:58 Patient reports: no new complaints, feels better and pain is less Interval history: Patient feeling well today. Reports pain has improved significantly. No nausea or vomiting. No other complaints at this time. Review of Systems Review of Systems: All systems reviewed & are unremarkable except as noted in HPI and below Constitutional: Constitutional: Denies chills Exam Const: General: comfortable, no acute distress, alert and awake GI: Inspection: obesity and other (mildly distended) GI Palp: Yes Soft to palpation, Yes Tenderness to palpation present (GI) (LLQ and RUQ), No Guarding due to palpation present (GI) and No Rebound tenderness present Auscultation: Hypoactive bowel sounds present Other: perc drain in RLQ with purulent bloody drainage in tubing, on suction Skin: General skin exam: normal color Neuro: General: patient oriented x3, moves all extremities and no focal motor deficits Extrem: General: normal to inspection Psych: Mental Status: mental status grossly normal Affect: normal affect Insight: Good insight present (Psych) Judgement: Good judgement present (Psych) Objective Data Vital Signs Vital Signs: Vital Signs - 24 hr 01/17/20 22:00 01/18/20 02:44 01/18/20 03:24 Temperature 98.7 F 100.3 F H 98.0 F Pulse Rate 90 103 H 101 H Respiratory Rate 20 18 Blood Pressure 123/64 110/55 L Pulse Oximetry 94 93 01/18/20 06:00 01/18/20 14:00 Temperature 98.4 F 98.2 F Pulse Rate 82 76 Respiratory Rate 20 20 Blood Pressure 104/44 L 127/62 Pulse Oximetry 97 97 Intake/Output Intake/Output: Intake & Output 01/15/20 01/16/20 01/17/2020 23:59 23:59 23:59 23:59 Intake Total 2900 1950 Output Total 410 900 Balance 2490 1050 Meds/Results Medications: Active Medications Generic Name Dose Route Start Last Admin Trade Name Freq PRN Reason Stop Dose Admin Acetaminophen 650 mg 01/18/20 14:16 Tylenol Tablet PO Q6H PRN Mild Pain (1-3) or Fever Vancomycin HCl 1,750 mg in 500 mls @ 250 mls/hr 01/18/20 04:00 01/18/20 05:32 Vancomycin 1,750 Mg/D5w 500 Ml IVPB Infused Q18H VASYL Infusion Sodium Chloride 1,000 mls @ 125 mls/hr 01/17/20 10:00 01/18/20 12:07 Normal Saline Iv IV CONT Not Given .Q8H VASYL Piperacillin/Tazobactam/Dextrose 3.375 gm in 50 mls @ 100 mls/hr 01/17/20 15:00 01/18/20 09:24 Zosyn 3.375 Gm/D5w 50ml Pm IVPB Infused Q6H VASYL Infusion Morphine Sulfate 4 mg 01/17/20 09:56 Morphine Sulfate Inj IV PUSH Q2H PRN Pain Rated 7-10 Ondansetron HCl 4 mg 01/17/20 09:56 01/17/20 21:21 Zofran Inj IV PUSH 4 mg Q4H PRN Administration Nausea Radiology Results: ITS Impressions Chest X-Ray 01/17/20 08:10 IMPRESSION: 1. Mild airspace opacities in right lower lung zone, consistent with atelectasis versus pneumonia. Abdomen/Pelvis CT 01/17/20 08:27 IMPRESSION: 1. New clustered liver masses, which may be abscesses, metastatic disease, or cholangiocarcinoma. 2. Sigmoid colon wall thickening with perisigmoid soft tissue and multiple fistulas, which may be chronic diverticulitis or malignancy. 3. Mild left hydronephrosis and proximal hydroureter secondary to the perisigmoid soft tissue. Labs Labs: Laboratory Results - last 24 hr 01/18/20 01/18/20 05:34 05:34 WBC 21.1 H RBC 3.26 L
[2020-01-18] MEDS: ACETAMINOPHEN 325 MG TABLET 650 MG PO ×2 (15:12→21:41)
[2020-01-18 22:00] VITALS: BP 127/53; PULSE 89; RESP 16; TEMP 36.7; O2SAT 96
[2020-01-18] MEDS: ONDANSETRON INJ 4 MG/2 ML VIAL IV PUSH (23:54)
[2020-01-18] MEDS: MORPHINE SULFATE 4 MG/ML INJ IV PUSH (23:54)
[2020-01-19] MEDS: ACETAMINOPHEN 325 MG TABLET 650 MG PO ×5 (03:55→23:59)
[2020-01-19] MEDS: SODIUM CHLORIDE 0.9% IV 1,000 ML 125 ML IV CONT ×2 (03:57→14:36)
[2020-01-19 06:00] VITALS: BP 105/60; PULSE 90; RESP 20; TEMP 37.1; O2SAT 93
[2020-01-19 06:07] LABS: Basophils Percent Auto 0.2 % (0.2-1.2); Eosinophils Percent Auto 0.2 % (0-4.4); Hematocrit 25.9 % (37.0-47.0); Hemoglobin 8.2 g/dL (12.0-15.0); Immature Granulocyte Absolute 0.27 K/mm3 (0.00-0.031); Immature Granulocyte Percent A 1.5 % (0-0.5); Lymphocytes Absolute Auto 0.69 K/mm3 (0.9-3.2); Lymphocytes Percent Auto 3.7 % (18.3-44.2); Mean Corpuscular HGB Conc 31.7 g/dl (32-36); Mean Corpuscular Hemoglobin 25.9 pg (26-34); Mean Corpuscular Volume 81.7 fl (80-100); Mean Platelet Volume 10.1 fl (7.4-10.4); Monocytes Absolute Auto 1.3 K/mm3 (0.1-0.6); Monocytes Percent Auto 6.8 % (2.6-8.5); Neutrophils Absolute Auto 16.2 K/mm3 (1.3-6.7); Neutrophils Percent Auto 87.6 % (45.5-73.1); Platelet Count Result 334 k/mm3 (150-375); Red Blood Count 3.17 M/mm3 (4.2-5.4); Red Cell Distribution Width 14.8 % (11.5-14.5); White Blood Count 18.5 K/mm3 (4.5-10.0)
[2020-01-19 06:19] LABS: Alanine Aminotransferase 34 U/L (4-35); Albumin Level 2.4 g/dL (3.5-5.1); Alkaline Phosphatase 186 U/L (38-126); Anion Gap 7 mmol/L (8-16); Aspartate Amino Transferase 44 U/L (14-36); Bilirubin,Total 0.5 mg/dL (0.2-1.3); Blood Urea Nitrogen 11 mg/dL (7-17); Calcium 7.7 mg/dL (8.4-10.2); Carbon Dioxide 25 mmol/L (22-30); Chloride 100 mmol/L (98-107); Estimated CRCL calculation 88 ml/min; Estimated Glomerular Filt Rate > 60; Glucose 131 mg/dL (65-105); Potassium 3.7 mmol/L (3.4-5.0); Sodium 132 mmol/L (137-145)
[2020-01-19] MEDS: ONDANSETRON INJ 4 MG/2 ML VIAL IV PUSH (08:19)
[2020-01-19] MEDS: MORPHINE SULFATE 4 MG/ML INJ IV PUSH (08:19)
--- NOTE | 2020-01-19 11:09 | PM.PNGS ---
Progress Note: A&P Assessment and Plan (1) Abscess of liver: Code(s): K75.0 - Abscess of liver Status: Acute Assessment and Plan: clinical exam benign, cont drainage, abx per ID recs (2) Diverticulitis: Code(s): K57.92 - Diverticulitis of intestine, part unspecified, without perforation or abscess without bleeding Status: Acute Assessment and Plan: exam benign, wang low residue diet, abx Subjective Subjective Date/Time Seen: 01/19/20 11:09 feels much better, pain and discomfort nearly resolved, wang diet s issue Review of Systems Constitutional: Constitutional: Denies chills, Reports fatigue, Reports lethargy and Reports weakness Cardiovascular: Cardiovascular: Denies chest pain Respiratory: Respiratory: Denies dyspnea Gastrointestinal: Gastrointestinal: Denies abdominal pain, Denies constipation, Denies diarrhea, Denies nausea and Denies vomiting Exam Const: General: no acute distress Resp: Auscultation: clear to auscultation bilaterally Cardio: Rate: regular rate Rhythm: regular rhythm GI: Other: obese, soft, sl dist, minimal TTP RUQ Objective Data Vital Signs Vital Signs: Vital Signs - 24 hr 01/18/20 14:00 01/18/20 22:00 01/19/20 06:00 Temperature 36.8 C 36.7 C 37.1 C Pulse Rate 76 89 90 Respiratory Rate 20 16 20 Blood Pressure 127/62 127/53 L 105/60 Pulse Oximetry 97 96 93 Intake/Output Intake/Output: Intake & Output 01/16/20 01/17/20 01/18/20 01/19/20 23:59 23:59 23:59 23:59 Intake Total 2900 3020 1690 Output Total 410 1625 1110 Balance 2490 1395 580 Meds/Results Medications: Active Medications Generic Name Dose Route Start Last Admin Trade Name Freq PRN Reason Stop Dose Admin Acetaminophen 650 mg 01/19/20 09:05 Tylenol Tablet PO Q4HR PRN Mild Pain (1-3) or Fever Vancomycin HCl 1,750 mg in 500 mls @ 250 mls/hr 01/18/20 04:00 01/18/20 23:52 Vancomycin 1,750 Mg/D5w 500 Ml IVPB Infused Q18H VASYL Infusion Sodium Chloride 1,000 mls @ 125 mls/hr 01/17/20 10:00 01/19/20 03:57 Normal Saline Iv IV CONT 125 mls/hr .Q8H VASYL Administration Piperacillin/Tazobactam/Dextrose 3.375 gm in 50 mls @ 100 mls/hr 01/17/20 15:00 01/19/20 08:49 Zosyn 3.375 Gm/D5w 50ml Pm IVPB Infused Q6H VASYL Infusion Morphine Sulfate 4 mg 01/17/20 09:56 01/19/20 08:19 Morphine Sulfate Inj IV PUSH 4 mg Q2H PRN Administration Pain Rated 7-10 Ondansetron HCl 4 mg 01/17/20 09:56 01/19/20 08:19 Zofran Inj IV PUSH 4 mg Q4H PRN Administration Nausea Radiology Results: ITS Impressions Chest X-Ray 01/17/20 08:10 IMPRESSION: 1. Mild airspace opacities in right lower lung zone, consistent with atelectasis versus pneumonia. Abdomen/Pelvis CT 01/17/20 08:27 IMPRESSION: 1. New clustered liver masses, which may be abscesses, metastatic disease, or cholangiocarcinoma. 2. Sigmoid colon wall thickening with perisigmoid soft tissue and multiple fistulas, which may be chronic diverticulitis or malignancy. 3. Mild left hydronephrosis and proximal hydroureter secondary to the perisigmoid soft tissue. Catheter Placement CT 01/18/20 14:46 IMPRESSION: 1. Successful CT-guided hepatic abscess drainage. 2. 40 mL fluid was sent for aerobic and anaerobic cultures. 3. The catheter will be managed by Dr. Levine. Labs Labs: Laboratory Results - last 24 hr 01/19/20 01/19/20 05:34 05:34 WBC 18.5 H RBC 3.17 L Hgb 8.2 L Hct 25.9 L MCV 81.7 MCH 25.9 L MCHC 31.7 L RDW 14.8 H Plt Count 334 MPV 10.1 Immature Gran % (Auto) 1.5 H Neut % (Auto) 87.6 H Lymph % (Auto) 3.7 L [place] % (Auto) 6.8 Eos % (Auto) 0.2 Baso % (Auto) 0.2 Lymph # (Auto) 0.69 L [place] # (Auto) 1.3 H Eos # (Auto) 0.0 Baso # (Auto) 0.0 Abs Immat Gran (auto) 0.27 H Absolute Neuts (auto) 16.2 H Absolute Nucleated RBC 0.0 Nucleated RBC % 0.0 Sodium 132 L Potassium 3.7
[2020-01-19 14:00] VITALS: BP 120/62; PULSE 86; RESP 16; TEMP 36.9; O2SAT 93
--- NOTE | 2020-01-19 14:43 | PM.IMPN ---
Progress Note: A&P Assessment and Plan (1) Abscess of liver: Code(s): K75.0 - Abscess of liver Status: Acute Assessment and Plan: Patient had a CT scan of the abdomen which showed:1. New clustered liver masses, which may be abscesses, metastatic disease, or cholangiocarcinoma. 2. Sigmoid colon wall thickening with perisigmoid soft tissue and multiple fistulas, which may be chronic diverticulitis or malignancy. 3. Mild left hydronephrosis and proximal hydroureter secondary to the perisigmoid soft tissue. patient was seen by general surgery and suspect patient has liver abscess recommended consult interventional radiologist to drain the abscess, patient is started on Zosyn and tylenol for fever. Bc and UC are pending See findings above Pt has been seen by ID and surgery. SP drain placement yesterday. (2) Leukocytosis: Qualifiers: Leukocytosis type: unspecified Qualified Code(s): D72.829 - Elevated white blood cell count, unspecified Code(s): D72.829 - Elevated white blood cell count, unspecified Status: Acute Assessment and Plan: Most likely secondary to liver abscess no other source of infection so far. (3) Diverticulitis: Code(s): K57.92 - Diverticulitis of intestine, part unspecified, without perforation or abscess without bleeding Status: Acute Assessment and Plan: As per CT scan (4) Sepsis: Qualifiers: Sepsis acute organ dysfunction status: without acute organ dysfunction Sepsis type: sepsis due to unspecified organism Qualified Code(s): A41.9 - Sepsis, unspecified organism Code(s): A41.9 - Sepsis, unspecified organism Status: Acute Assessment and Plan: Pt is being treated for this currently. (5) Hydronephrosis: Code(s): N13.30 - Unspecified hydronephrosis Status: Acute Assessment and Plan: I will make urology consult, I think pt will benefit from rpt CT scan prior to discharge Subjective Date/time seen: 01/19/20 14:43 Interval history: Patient had a CT scan of the abdomen which showed:1. New clustered liver masses, which may be abscesses, metastatic disease, or cholangiocarcinoma. 2. Sigmoid colon wall thickening with perisigmoid soft tissue and multiple fistulas, which may be chronic diverticulitis or malignancy. 3. Mild left hydronephrosis and proximal hydroureter secondary to the perisigmoid soft tissue. Patient was seen by general surgery and suspect patient has liver abscess recommended consult interventional radiologist to drain the abscess, patient is started on Zosyn and Vancomycin and tylenol for fever. BC and UC are pending. Wcc still high Pt has been seen by ID and surgery Pt had drain inserted yesterday I had a long discussion with daughter regarding mother medical problems and progress. Review of Systems Review of Systems: Narrative: Abdominal pain, low grade fevers Exam Const: General: no acute distress and uncomfortable Resp: Effort & Inspection: normal respiratory effort Auscultation: clear to auscultation bilaterally Cardio: Rate: regular rate Rhythm: regular rhythm GI: Auscultation: normal bowel sounds Other: patient is tender in right side of the abdomen Skin: General skin exam: normal color Neuro: Speech: normal speech Sensory Exam: normal sensation Extrem: General: normal to inspection Psych: Affect: Anxious affect present Objective Data Vital Signs Vital Signs: Vital Signs - 24 hr 01/18/20 22:00 01/19/20 06:00 Temperature 36.7 C 37.1 C Pulse Rate 89 90 Respiratory Rate 16 20 Blood Pressure 127/53 L 105/60 Pulse Oximetry 96 93 Intake/Output Intake/Output: Intake & Output 01/16/20 01/17/20 01/18/20 01/19/20 23:59 23:59 23:59 23:59 Intake Total 2900 3020 2690 Output Total 410 1625 1110 Balance 2490 1395 1580 Meds/Results Medications: Active Medications Generic Name Dose Route Start Last Admin Trade Name Freq PRN Reason S
--- NOTE | 2020-01-19 15:00 | CONS_ITS ---
DATE OF CONSULTATION: 01/19/2020 REASON FOR CONSULTATION: Liver abscess. HISTORY OF PRESENT ILLNESS: The patient is a 64-year-old female who had colon abscess some 23 years ago though apparently this was not treated with any antibiotics. She had full resolution with symptomatic treatment including Citrucel. She developed pain in the abdomen again about 3 weeks before admission, located in the left lower quadrant, right lower quadrant, and radiation to the right upper quadrant and right flank. She used the same symptomatic therapy without much relief. She also had drenching sweats, though never had a fever that she is aware of and she did check on several occasions. Pain worsened and she presented to the emergency room on the . CT was abnormal. She was taken to the IR suite yesterday and underwent drainage of a foul-smelling bloody fluid collection in the liver. Drain remains in place. She has been on piperacillin tazobactam, now day 3. Consultation requested. No previous antibiotics. No rigors. She has not required any other surgical intervention to the colon or liver in the past. Her abdominal pain has improved. ALLERGIES: NONE PERTINENT. HABITS: No tobacco. No alcohol. PRESENT MEDICATIONS: As above. No immunosuppressants. PAST MEDICAL HISTORY: Right hip replacement, also bilateral knee replacements in the distant past. Previous shoulder surgery, inguinal hernia repair, . She has known WILBERT, hypertension, diverticulitis, and acid reflux. She did have a colonoscopy performed 2-3 years ago by a snack bar cashier in [place], and this was apparently normal other than diverticulosis. REVIEW OF SYSTEMS: 14-point review otherwise negative. FAMILY HISTORY: Not pertinent to present illness. SOCIAL HISTORY: She is . Works at [employer] part-time. Lives locally. No family at the bedside presently. PHYSICAL EXAMINATION: GENERAL: This is a female, who appears older than her actual age, in no acute distress. VITAL SIGNS: T-max early yesterday 37.9 otherwise afebrile, 90, 20, 93%. SKIN: Warm and dry. No rashes. NODES: No cervical adenopathy. EENT: The conjunctivae are normal. Pupils equal, round, and reactive to light. The oropharynx, oral mucosa normal. NECK: No meningismus, mass, or tenderness. LUNGS: Clear to auscultation and percussion. CARDIAC: Regular rate and rhythm without murmur or gallop. No ectopy. ABDOMEN: Morbidly obese, soft, nontender. No mass. EXTREMITIES: No clubbing, cyanosis, or edema. MUSCULOSKELETAL: No active joint inflammation, upper or lower extremities. LABORATORY DATA: Blood cultures, no growth after 2 days incubation. From the aspirate yesterday, Gram stain, many white cells, no organisms seen. Culture is pending. White blood cell count 18.5 today, hemoglobin 8.2, platelets are 334. Her white count was 27.1 on admission. Prothrombin time 15.4. She has hyponatremia on chemistries, glucose 131. AST, ALT are twice normal. INR declining. Albumin 2.4. Urinalysis multiple abnormalities, no particular suggestive of infection. RADIOLOGY: Chest x-ray on admission, right lower lung zone atelectasis. Abdomen and pelvic CT, clustered low-attenuation masses, large in the right lobe of the liver. Also calcified lung nodule, calcified lymph node, hiatal hernia, diverticulosis, wall thickening in the sigmoid colon, fistulas in the sigmoid colon, lumbar spondylosis. ASSESSMENT: 1. Liver masses, I suspect benign rather than malignant, despite her weight loss in recent years of about 95 pounds. I suspect these fluid collections are from diverticulitis via the portal circulation, less likely parasitic infection and less likely as a result of bacteremia. Usual enteric pathogens are likely.
[2020-01-19 15:45] LABS: Vancomycin Trough 9.1 ug/mL (10.0-20.0)
[2020-01-19 22:00] VITALS: BP 136/64; PULSE 106; RESP 18; TEMP 37.5; O2SAT 95
[2020-01-20] MEDS: SODIUM CHLORIDE 0.9% IV 1,000 ML 125 ML IV CONT ×3 (02:45→16:51)
[2020-01-20] MEDS: ACETAMINOPHEN 325 MG TABLET 650 MG PO ×3 (04:03→12:32)
[2020-01-20 06:00] VITALS: BP 134/60; PULSE 87; RESP 18; TEMP 37.3; O2SAT 94
[2020-01-20 06:33] LABS: Basophils Percent Auto 0.2 % (0.2-1.2); Eosinophils Absolute Auto 0.1 K/mm3 (0-0.3); Eosinophils Percent Auto 0.3 % (0-4.4); Hematocrit 28.6 % (37.0-47.0); Hemoglobin 9.1 g/dL (12.0-15.0); Immature Granulocyte Absolute 0.42 K/mm3 (0.00-0.031); Immature Granulocyte Percent A 2.1 % (0-0.5); Lymphocytes Absolute Auto 1.14 K/mm3 (0.9-3.2); Lymphocytes Percent Auto 5.6 % (18.3-44.2); Mean Corpuscular HGB Conc 31.8 g/dl (32-36); Mean Corpuscular Hemoglobin 25.8 pg (26-34); Mean Platelet Volume 9.9 fl (7.4-10.4); Monocytes Absolute Auto 1.7 K/mm3 (0.1-0.6); Monocytes Percent Auto 8.2 % (2.6-8.5); Neutrophils Percent Auto 83.6 % (45.5-73.1); Platelet Count Result 405 k/mm3 (150-375); Red Blood Count 3.53 M/mm3 (4.2-5.4); Red Cell Distribution Width 14.9 % (11.5-14.5); White Blood Count 20.3 K/mm3 (4.5-10.0)
[2020-01-20 06:45] LABS: Alanine Aminotransferase 33 U/L (4-35); Albumin Level 2.6 g/dL (3.5-5.1); Alkaline Phosphatase 230 U/L (38-126); Anion Gap 6 mmol/L (8-16); Aspartate Amino Transferase 44 U/L (14-36); Bilirubin,Total 0.7 mg/dL (0.2-1.3); Blood Urea Nitrogen 10 mg/dL (7-17); Calcium 8.1 mg/dL (8.4-10.2); Carbon Dioxide 25 mmol/L (22-30); Chloride 100 mmol/L (98-107); Estimated CRCL calculation 88 ml/min; Estimated Glomerular Filt Rate > 60; Glucose 162 mg/dL (65-105); Potassium 3.9 mmol/L (3.4-5.0); Sodium 131 mmol/L (137-145)
[2020-01-20] MEDS: ONDANSETRON INJ 4 MG/2 ML VIAL IV PUSH ×2 (08:16→12:29)
[2020-01-20] MEDS: MORPHINE SULFATE 4 MG/ML INJ IV PUSH (13:29)
--- NOTE | 2020-01-20 13:57 | PM.IMPN ---
Progress Note: A&P Assessment and Plan (1) Abscess of liver: Code(s): K75.0 - Abscess of liver Status: Acute Assessment and Plan: Patient had a CT scan of the abdomen which showed:1. New clustered liver masses, which may be abscesses, metastatic disease, or cholangiocarcinoma. 2. Sigmoid colon wall thickening with perisigmoid soft tissue and multiple fistulas, which may be chronic diverticulitis or malignancy. 3. Mild left hydronephrosis and proximal hydroureter secondary to the perisigmoid soft tissue. Pt has been seen by ID and surgery. SP drain placement yesterday. For now follow ID recommendations Zosyn only for 5 days Pt appears nauseated and complaining of abdominal pains, pt had large bilious emesis today (2) Leukocytosis: Qualifiers: Leukocytosis type: unspecified Qualified Code(s): D72.829 - Elevated white blood cell count, unspecified Code(s): D72.829 - Elevated white blood cell count, unspecified Status: Acute Assessment and Plan: Most likely secondary to liver abscess no other source of infection so far. (3) Diverticulitis: Code(s): K57.92 - Diverticulitis of intestine, part unspecified, without perforation or abscess without bleeding Status: Acute Assessment and Plan: As per CT scan (4) Sepsis: Qualifiers: Sepsis acute organ dysfunction status: without acute organ dysfunction Sepsis type: sepsis due to unspecified organism Qualified Code(s): A41.9 - Sepsis, unspecified organism Code(s): A41.9 - Sepsis, unspecified organism Status: Acute Assessment and Plan: Pt is being treated for this currently. (5) Hydronephrosis: Code(s): N13.30 - Unspecified hydronephrosis Status: Acute Assessment and Plan: I will make urology consult, I think pt will benefit from rpt CT scan prior to discharge Subjective Date/time seen: 01/20/20 13:57 Interval history: Patient had a CT scan of the abdomen which showed:1. New clustered liver masses, which may be abscesses, metastatic disease, or cholangiocarcinoma. 2. Sigmoid colon wall thickening with perisigmoid soft tissue and multiple fistulas, which may be chronic diverticulitis or malignancy. 3. Mild left hydronephrosis and proximal hydroureter secondary to the perisigmoid soft tissue. Pt has been seen by ID and surgery Pt had drain inserted yesterday I had a long discussion with daughter regarding mother medical problems and progress. For now follow ID recommendations Zosyn only for 5 days Pt appears nauseated and complaining of abdominal pains, pt had large bilious emesis today Review of Systems Review of Systems: All systems reviewed & are unremarkable except as noted in HPI and below Exam Narrative: Exam Narrative: morbidly obese Const: General: no acute distress and uncomfortable HENMT: General nose exam: Normal nares present Eyes: General: appearance normal, both eyes and all related structures Sclera: sclerae normal Neck: Neck: supple Resp: Effort & Inspection: normal respiratory effort Auscultation: clear to auscultation bilaterally Cardio: Rate: regular rate Rhythm: regular rhythm GI: Auscultation: normal bowel sounds Other: patient is tender in right side of the abdomen Skin: General skin exam: normal color Neuro: Speech: normal speech Sensory Exam: normal sensation Extrem: General: normal to inspection Psych: Affect: Anxious affect present Objective Data Vital Signs Vital Signs: Vital Signs - 24 hr 01/19/20 14:00 01/19/20 22:00 01/20/20 06:00 Temperature 36.9 C 37.5 C 37.3 C Pulse Rate 86 106 H 87 Respiratory Rate 16 18 18 Blood Pressure 120/62 136/64 134/60 Pulse Oximetry 93 95 94 Intake/Output Intake/Output: Intake & Output 01/17/20 01/18/20 01/19/20 01/20/20 23:59 23:59 23:59 23:59 Intake Total 2900 3020 5130 2050 Output Total 410 1625 1980 740 Balance 2490 1395 3150 1310 Meds/Result
[2020-01-20 14:00] VITALS: BP 137/71; PULSE 92; RESP 18; TEMP 37.1; O2SAT 94
--- NOTE | 2020-01-20 16:12 | WPDPN ---
Progress Note: A&P Assessment and Plan (1) Diverticulitis: Code(s): K57.92 - Diverticulitis of intestine, part unspecified, without perforation or abscess without bleeding Status: Acute Assessment and Plan: no lower abd pain, cont low residue diet for now, will repeat CT (2) Abscess of liver: Code(s): K75.0 - Abscess of liver Status: Acute Assessment and Plan: cont drain, abx, will repeat CT given worsening clinical picture and leukocytosis (3) Sepsis: Qualifiers: Sepsis acute organ dysfunction status: without acute organ dysfunction Sepsis type: sepsis due to unspecified organism Qualified Code(s): A41.9 - Sepsis, unspecified organism Code(s): A41.9 - Sepsis, unspecified organism Status: Acute Assessment and Plan: cont abx per ID, repeat CT Review of Systems Constitutional: Constitutional: Denies chills, Reports fatigue, Reports lethargy and Reports weakness Cardiovascular: Cardiovascular: Denies chest pain and Denies palpitations Respiratory: Respiratory: Denies dyspnea Gastrointestinal: Gastrointestinal: Reports abdominal pain, Denies constipation, Denies diarrhea, Reports nausea and Reports vomiting Exam Const: General: uncomfortable Resp: Auscultation: clear to auscultation bilaterally Cardio: Rate: regular rate Rhythm: regular rhythm GI: GI Palp: Yes Soft to palpation Other: sl dist, mod TTP RUQ Objective Data Vital Signs Vital Signs: Vital Signs - 24 hr 01/19/20 22:00 01/20/20 06:00 Temperature 37.5 C 37.3 C Pulse Rate 106 H 87 Respiratory Rate 18 18 Blood Pressure 136/64 134/60 Pulse Oximetry 95 94 Intake/Output Intake/Output: Intake & Output 01/17/20 01/18/20 01/19/20 01/20/20 23:59 23:59 23:59 23:59 Intake Total 2900 3020 5130 2050 Output Total 410 1625 1980 740 Balance 2490 1395 3150 1310 Meds/Results Medications: Active Medications Generic Name Dose Route Start Last Admin Trade Name Freq PRN Reason Stop Dose Admin Acetaminophen 650 mg 01/19/20 09:05 01/20/20 12:32 Tylenol Tablet PO 650 mg Q4HR PRN Administration Mild Pain (1-3) or Fever Sodium Chloride 1,000 mls @ 125 mls/hr 01/17/20 10:00 01/20/20 08:15 Normal Saline Iv IV CONT 125 mls/hr .Q8H VASYL Administration Piperacillin/Tazobactam/Dextrose 3.375 gm in 50 mls @ 100 mls/hr 01/17/20 15:00 01/20/20 09:15 Zosyn 3.375 Gm/D5w 50ml Pm IVPB Infused Q6H VASYL Infusion Morphine Sulfate 4 mg 01/17/20 09:56 01/20/20 13:29 Morphine Sulfate Inj IV PUSH 4 mg Q2H PRN Administration Pain Rated 7-10 Ondansetron HCl 4 mg 01/17/20 09:56 01/20/20 12:29 Zofran Inj IV PUSH 4 mg Q4H PRN Administration Nausea Tramadol HCl 50 mg 01/20/20 14:03 Ultram PO Q6H PRN Pain Rated 4-6 Radiology Results: ITS Impressions Chest X-Ray 01/17/20 08:10 IMPRESSION: 1. Mild airspace opacities in right lower lung zone, consistent with atelectasis versus pneumonia. Abdomen/Pelvis CT 01/17/20 08:27 IMPRESSION: 1. New clustered liver masses, which may be abscesses, metastatic disease, or cholangiocarcinoma. 2. Sigmoid colon wall thickening with perisigmoid soft tissue and multiple fistulas, which may be chronic diverticulitis or malignancy. 3. Mild left hydronephrosis and proximal hydroureter secondary to the perisigmoid soft tissue. Catheter Placement CT 01/18/20 14:46 IMPRESSION: 1. Successful CT-guided hepatic abscess drainage. 2. 40 mL fluid was sent for aerobic and anaerobic cultures. 3. The catheter will be managed by Dr. Levine. Labs Labs: Laboratory Results - last 24 hr 01/20/20 01/20/20 06:05 06:05 WBC 20.3 H RBC 3.53 L Hgb 9.1 L Hct 28.6 L MCV 81.0 MCH 25.8 L MCHC 31.8 L RDW 14.9 H Plt Count 405 H MPV 9.9 Immature Gran % (Auto) 2.1 H Neut % (Auto) 83.6 H Lymph % (Auto) 5.[address] [facility] % (Auto) 8.2 Eos % (Auto) 0.3 Baso
[2020-01-20] MEDS: traMADol HCL 50 MG TABLET PO (16:55)
[2020-01-20 22:00] VITALS: BP 120/55; PULSE 92; RESP 18; TEMP 36.9; O2SAT 95
[2020-01-21] MEDS: SODIUM CHLORIDE 0.9% IV 1,000 ML 125 ML IV CONT ×3 (00:11→07:59)
[2020-01-21] MEDS: traMADol HCL 50 MG TABLET PO ×3 (02:07→19:23)
[2020-01-21 03:17] LABS: Basophils Absolute Auto 0.1 K/mm3 (0.0-0.1); Basophils Percent Auto 0.3 % (0.2-1.2); Eosinophils Percent Auto 0.2 % (0-4.4); Hematocrit 27.5 % (37.0-47.0); Hemoglobin 8.6 g/dL (12.0-15.0); Immature Granulocyte Absolute 0.59 K/mm3 (0.00-0.031); Lymphocytes Absolute Auto 0.95 K/mm3 (0.9-3.2); Lymphocytes Percent Auto 4.9 % (18.3-44.2); Mean Corpuscular HGB Conc 31.3 g/dl (32-36); Mean Corpuscular Hemoglobin 26.1 pg (26-34); Mean Corpuscular Volume 83.3 fl (80-100); Mean Platelet Volume 9.9 fl (7.4-10.4); Monocytes Absolute Auto 1.5 K/mm3 (0.1-0.6); Monocytes Percent Auto 7.5 % (2.6-8.5); Neutrophils Absolute Auto 16.4 K/mm3 (1.3-6.7); Neutrophils Percent Auto 84.1 % (45.5-73.1); Platelet Count Result 403 k/mm3 (150-375); Red Cell Distribution Width 15.1 % (11.5-14.5); White Blood Count 19.5 K/mm3 (4.5-10.0)
[2020-01-21 03:27] LABS: Alanine Aminotransferase 27 U/L (4-35); Albumin Level 2.4 g/dL (3.5-5.1); Alkaline Phosphatase 196 U/L (38-126); Anion Gap 4 mmol/L (8-16); Aspartate Amino Transferase 33 U/L (14-36); Bilirubin,Total 0.6 mg/dL (0.2-1.3); Blood Urea Nitrogen 9 mg/dL (7-17); Calcium 7.9 mg/dL (8.4-10.2); Carbon Dioxide 28 mmol/L (22-30); Chloride 101 mmol/L (98-107); Estimated CRCL calculation 88 ml/min; Estimated Glomerular Filt Rate > 60; Glucose 135 mg/dL (65-105); Potassium 3.7 mmol/L (3.4-5.0); Sodium 133 mmol/L (137-145)
[2020-01-21 06:00] VITALS: BP 145/72; PULSE 93; RESP 18; TEMP 36.5; O2SAT 100
[2020-01-21 08:00] VITALS: PULSE 93; RESP 18; O2SAT 100
--- NOTE | 2020-01-21 11:14 | WPDINFPN2 ---
Progress Note: A&P Assessment and Plan (1) Abscess of liver: Code(s): K75.0 - Abscess of liver Status: Acute Assessment and Plan: 1. Liver abscess, not fully drained 2. Diverticulosis and abn sigmoid on imaging, likely diverticulitis as source of #1 3. Leukocytosis due to #1 REC PipTazo #5, continue. Will not use AmpSulbactam as there could be drug resistant (to AmpSulb while retaining susceptibility to PipTazo) gram negatives in the abscess -- no + micro so far. Will need further drainage, with length of IV therapy afterward depending on her clinical source. Subjective Date/time seen: 01/21/20 11:14 Interval history: no pain n/v Exam Narrative: Exam Narrative: afebrile Const: General: no acute distress Resp: Effort & Inspection: normal respiratory effort Auscultation: clear to auscultation bilaterally Cardio: Rate: regular rate Rhythm: regular rhythm Heart sounds: no gallops and no murmurs GI: Inspection: non-distended GI Palp: Yes Soft to palpation and No Tenderness to palpation present (GI) Objective Data Vital Signs Vital Signs: Vital Signs - 24 hr 01/20/20 14:00 01/20/20 22:00 01/21/20 06:00 Temperature 37.1 C 36.9 C 36.5 C Pulse Rate 92 92 93 Respiratory Rate 18 18 18 Blood Pressure 137/71 120/55 L 145/72 H Pulse Oximetry 94 95 100 01/21/20 08:00 Temperature Pulse Rate 93 Respiratory Rate 18 Blood Pressure Pulse Oximetry 100 Intake/Output Intake/Output: Intake & Output 01/18/20 01/19/20 01/20/20 01/21/20 23:59 23:59 23:59 23:59 Intake Total 3020 5130 4730 3600 Output Total 1625 4091 201 5703 Balance 1395 3150 3990 2597 Meds/Results Medications: Active Medications Generic Name Dose Route Start Last Admin Trade Name Freq PRN Reason Stop Dose Admin Acetaminophen 650 mg 01/19/20 09:05 01/20/20 12:32 Tylenol Tablet PO 650 mg Q4HR PRN Administration Mild Pain (1-3) or Fever Sodium Chloride 1,000 mls @ 125 mls/hr 01/17/20 10:00 01/21/20 07:59 Normal Saline Iv IV CONT 125 mls/hr .Q8H VASYL Administration Piperacillin/Tazobactam/Dextrose 3.375 gm in 50 mls @ 100 mls/hr 01/17/20 15:00 01/21/20 07:59 Zosyn 3.375 Gm/D5w 50ml Pm IVPB 100 mls/hr Q6H AVSYL Administration Morphine Sulfate 4 mg 01/17/20 09:56 01/20/20 13:29 Morphine Sulfate Inj IV PUSH 4 mg Q2H PRN Administration Pain Rated 7-10 Ondansetron HCl 4 mg 01/17/20 09:56 01/20/20 12:29 Zofran Inj IV PUSH 4 mg Q4H PRN Administration Nausea Tramadol HCl 50 mg 01/20/20 14:03 01/21/20 08:00 Ultram PO 50 mg Q6H PRN Administration Pain Rated 4-6 Radiology Results: ITS Impressions Chest X-Ray 01/17/20 08:10 IMPRESSION: 1. Mild airspace opacities in right lower lung zone, consistent with atelectasis versus pneumonia. Catheter Placement CT 01/18/20 14:46 IMPRESSION: 1. Successful CT-guided hepatic abscess drainage. 2. 40 mL fluid was sent for aerobic and anaerobic cultures. 3. The catheter will be managed by Dr. Levine. Abdomen/Pelvis CT 01/21/20 09:15 IMPRESSION: 1. Again seen are a pair of hepatic abscesses with interval decrease in size of the more anterior abscess cavity through which passes a percutaneous hepatic abscess drain. The distal loop of the abscess drain is positioned at the margin of the likely multiloculated posterior abscess cavity with septations likely inhibiting further drainage. Would consider placement of a second percutaneous abscess drain placed from posteriorly. 2. Likely perforated diverticulitis with region of likely retroperitoneal phlegmonous change without discrete abscess in the presacral space along the posterior margin of the sigmoid colon. Where an abscess to develop at this location it would not be readily accessible to percutaneous drainage. 3. Persistent mild left hydroureteronephrosis likely related to the phlegmonous change associated with the diverticulitis. 4. Small right ple
--- NOTE | 2020-01-21 11:19 | PM.PNGS ---
Progress Note: A&P Assessment and Plan (1) Abscess of liver: Code(s): K75.0 - Abscess of liver Status: Acute Assessment and Plan: I reviewed the repeat CT done this morning. Patient appears to have a septated abscess that is not completely drained. Will have repeat CT guided drain placement done today. Patient made NPO but ate a late breakfast after the CT this AM. If radiology unable to do procedure today, could feed patient and make NPO after midnight for procedure tomorrow. Continue antibiotics per ID. (2) Diverticulitis: Code(s): K57.92 - Diverticulitis of intestine, part unspecified, without perforation or abscess without bleeding Status: Acute Subjective Subjective Date/Time Seen: 01/21/20 11:19 Patient feeling a little better today. Repeat CT done this AM. Exam GI: Inspection: Pannus present and obesity GI Palp: Yes Soft to palpation, No Tenderness to palpation present (GI) and No Guarding due to palpation present (GI) Other: midline pigtail drain in place with minimal bloody output Objective Data Vital Signs Vital Signs: Vital Signs - 24 hr 01/20/20 14:00 01/20/20 22:00 01/21/20 06:00 Temperature 37.1 C 36.9 C 36.5 C Pulse Rate 92 92 93 Respiratory Rate 18 18 18 Blood Pressure 137/71 120/55 L 145/72 H Pulse Oximetry 94 95 100 01/21/20 08:00 Temperature Pulse Rate 93 Respiratory Rate 18 Blood Pressure Pulse Oximetry 100 Intake/Output Intake/Output: Intake & Output 01/18/20 01/19/20 01/20/20 01/21/20 23:59 23:59 23:59 23:59 Intake Total 3020 5130 4730 3600 Output Total 1625 3552 891 2754 Balance 1395 3150 3990 1777 Meds/Results Medications: Active Medications Generic Name Dose Route Start Last Admin Trade Name Freq PRN Reason Stop Dose Admin Acetaminophen 650 mg 01/19/20 09:05 01/20/20 12:32 Tylenol Tablet PO 650 mg Q4HR PRN Administration Mild Pain (1-3) or Fever Sodium Chloride 1,000 mls @ 125 mls/hr 01/17/20 10:00 01/21/20 07:59 Normal Saline Iv IV CONT 125 mls/hr .Q8H VASYL Administration Piperacillin/Tazobactam/Dextrose 3.375 gm in 50 mls @ 100 mls/hr 01/17/20 15:00 01/21/20 07:59 Zosyn 3.375 Gm/D5w 50ml Pm IVPB 100 mls/hr Q6H VASYL Administration Morphine Sulfate 4 mg 01/17/20 09:56 01/20/20 13:29 Morphine Sulfate Inj IV PUSH 4 mg Q2H PRN Administration Pain Rated 7-10 Ondansetron HCl 4 mg 01/17/20 09:56 01/20/20 12:29 Zofran Inj IV PUSH 4 mg Q4H PRN Administration Nausea Tramadol HCl 50 mg 01/20/20 14:03 01/21/20 08:00 Ultram PO 50 mg Q6H PRN Administration Pain Rated 4-6 Radiology Results: ITS Impressions Chest X-Ray 01/17/20 08:10 IMPRESSION: 1. Mild airspace opacities in right lower lung zone, consistent with atelectasis versus pneumonia. Catheter Placement CT 01/18/20 14:46 IMPRESSION: 1. Successful CT-guided hepatic abscess drainage. 2. 40 mL fluid was sent for aerobic and anaerobic cultures. 3. The catheter will be managed by Dr. Levine. Abdomen/Pelvis CT 01/21/20 09:15 IMPRESSION: 1. Again seen are a pair of hepatic abscesses with interval decrease in size of the more anterior abscess cavity through which passes a percutaneous hepatic abscess drain. The distal loop of the abscess drain is positioned at the margin of the likely multiloculated posterior abscess cavity with septations likely inhibiting further drainage. Would consider placement of a second percutaneous abscess drain placed from posteriorly. 2. Likely perforated diverticulitis with region of likely retroperitoneal phlegmonous change without discrete abscess in the presacral space along the posterior margin of the sigmoid colon. Where an abscess to develop at this location it would not be readily accessible to percutaneous drainage. 3. Persistent mild left hydroureteronephrosis likely related to the phlegmonous change associated with the diverticulitis. 4. Small right pl
[2020-01-21 14:00] VITALS: BP 137/76; PULSE 87; RESP 18; TEMP 36.7; O2SAT 99
--- NOTE | 2020-01-21 14:20 | PM.IMPN ---
Progress Note: A&P Assessment and Plan (1) Abscess of liver: Code(s): K75.0 - Abscess of liver Status: Acute Assessment and Plan: Patient had a CT scan of the abdomen which showed:1. New clustered liver masses, which may be abscesses, metastatic disease, or cholangiocarcinoma. 2. Sigmoid colon wall thickening with perisigmoid soft tissue and multiple fistulas, which may be chronic diverticulitis or malignancy. 3. Mild left hydronephrosis and proximal hydroureter secondary to the perisigmoid soft tissue. Pt has been seen by ID and surgery. For now follow ID recommendations Zosyn only for 5 days Pt is for procedure tomorrow (2) Leukocytosis: Qualifiers: Leukocytosis type: unspecified Qualified Code(s): D72.829 - Elevated white blood cell count, unspecified Code(s): D72.829 - Elevated white blood cell count, unspecified Status: Acute Assessment and Plan: Most likely secondary to liver abscess, diverticulitis and hydronephrosis (3) Diverticulitis: Code(s): K57.92 - Diverticulitis of intestine, part unspecified, without perforation or abscess without bleeding Status: Acute Assessment and Plan: As per CT scan (4) Sepsis: Qualifiers: Sepsis acute organ dysfunction status: without acute organ dysfunction Sepsis type: sepsis due to unspecified organism Qualified Code(s): A41.9 - Sepsis, unspecified organism Code(s): A41.9 - Sepsis, unspecified organism Status: Acute Assessment and Plan: Pt is being treated for this currently. (5) Hydronephrosis: Code(s): N13.30 - Unspecified hydronephrosis Status: Acute Assessment and Plan: I will make urology consult, for microscopic hematuria and mild hydronephrosis. Subjective Date/time seen: 01/21/20 14:20 Interval history: Patient had a CT scan of the abdomen which showed:1. New clustered liver masses, which may be abscesses, metastatic disease, or cholangiocarcinoma. 2. Sigmoid colon wall thickening with perisigmoid soft tissue and multiple fistulas, which may be chronic diverticulitis or malignancy. 3. Mild left hydronephrosis and proximal hydroureter secondary to the perisigmoid soft tissue. Pt having intermittent abdominal pains. CT today reveals hepatic abscesses, pt is npo for procedure tomorrow Review of Systems Review of Systems: ROS unobtainable: Yes other (no fever, unwell, abdminal pains and nausea ) Exam Narrative: Exam Narrative: morbidly obese Const: General: no acute distress and uncomfortable HENMT: General nose exam: Normal nares present Eyes: General: appearance normal, both eyes and all related structures Sclera: sclerae normal Neck: Neck: supple Resp: Effort & Inspection: normal respiratory effort Auscultation: clear to auscultation bilaterally Cardio: Rate: regular rate Rhythm: regular rhythm GI: Auscultation: normal bowel sounds Other: intermittent tenderness on the right side of the abdomen Skin: General skin exam: normal color Neuro: Speech: normal speech Sensory Exam: normal sensation Extrem: General: normal to inspection Psych: Affect: Anxious affect present Objective Data Vital Signs Vital Signs: Vital Signs - 24 hr 01/20/20 22:00 01/21/20 06:00 01/21/20 08:00 Temperature 36.9 C 36.5 C Pulse Rate 92 93 93 Respiratory Rate 18 18 18 Blood Pressure 120/55 L 145/72 H Pulse Oximetry 95 100 100 Intake/Output Intake/Output: Intake & Output 01/18/20 01/19/20 01/20/20 01/21/20 23:59 23:59 23:59 23:59 Intake Total 3020 5130 4730 3650 Output Total 1625 3626 609 4658 Balance 1395 3150 3990 2647 Meds/Results Medications: Active Medications Generic Name Dose Route Start Last Admin Trade Name Freq PRN Reason Stop Dose Admin Acetaminophen 650 mg 01/19/20 09:05 01/20/20 12:32 Tylenol Tablet PO 650 mg Q4HR PRN Administration Mild Pain (1-3) or Fever Sodium Chloride 1,000 ml
--- NOTE | 2020-01-21 14:39 | WPDANESEFPP ---
Anes - Eval Final PreProcedure Day of Procedure 01/21/20 14:39 Patient weight: morbidly obese Heart: regular rate and rhythm Lungs: decreased breath sounds Airway: Mallampati scale class II Neurological: alert and oriented Last oral intake: 4 hours ASA classification: IV Emergent: no Anesthetic plan: proceed Anesthesia type and monitoring: monitored anesthesia care and standard monitoring Informed Consent: The patient's anesthetic plan and its attendant risks and benefits were discussed with the patient/family/POA. Questions were solicited and answers provided to the satisfaction of the patient/family/POA.
[2020-01-21] MEDS: MORPHINE SULFATE 4 MG/ML INJ IV PUSH (16:25)
[2020-01-21] MEDS: ONDANSETRON INJ 4 MG/2 ML VIAL IV PUSH (17:12)
[2020-01-21 22:00] VITALS: BP 128/69; PULSE 119; RESP 18; TEMP 37.2; O2SAT 93
[2020-01-22] MEDS: ONDANSETRON INJ 4 MG/2 ML VIAL IV PUSH (00:07)
[2020-01-22] MEDS: SODIUM CHLORIDE 0.9% IV 1,000 ML 125 ML IV CONT ×4 (00:11→17:00)
[2020-01-22] MEDS: MORPHINE SULFATE 4 MG/ML INJ IV PUSH (00:13)
[2020-01-22 00:24] VITALS: BP 113/63; PULSE 93; O2SAT 85
[2020-01-22 00:29] VITALS: PULSE 88; O2SAT 95
[2020-01-22] MEDS: traMADol HCL 50 MG TABLET PO ×4 (02:11→21:14)
[2020-01-22 06:00] VITALS: BP 124/69; PULSE 83; RESP 18; TEMP 36.4; O2SAT 95
[2020-01-22 06:37] LABS: Basophils Absolute Auto 0.1 K/mm3 (0.0-0.1); Basophils Percent Auto 0.3 % (0.2-1.2); Eosinophils Percent Auto 0.1 % (0-4.4); Hematocrit 27.2 % (37.0-47.0); Hemoglobin 8.6 g/dL (12.0-15.0); Immature Granulocyte Absolute 0.71 K/mm3 (0.00-0.031); Immature Granulocyte Percent A 2.7 % (0-0.5); Immature Platelet Fraction Pct 2.3 % (0.9-11.2); Lymphocytes Absolute Auto 1.16 K/mm3 (0.9-3.2); Lymphocytes Percent Auto 4.4 % (18.3-44.2); Mean Corpuscular HGB Conc 31.6 g/dl (32-36); Mean Corpuscular Hemoglobin 26.5 pg (26-34); Mean Corpuscular Volume 83.7 fl (80-100); Mean Platelet Volume 10.2 fl (7.4-10.4); Monocytes Absolute Auto 1.2 K/mm3 (0.1-0.6); Monocytes Percent Auto 4.7 % (2.6-8.5); Neutrophils Absolute Auto 23.2 K/mm3 (1.3-6.7); Neutrophils Percent Auto 87.8 % (45.5-73.1); Platelet Count Result 475 k/mm3 (150-375); Red Blood Count 3.25 M/mm3 (4.2-5.4); Red Cell Distribution Width 15.4 % (11.5-14.5); White Blood Count 26.4 K/mm3 (4.5-10.0)
[2020-01-22 06:52] LABS: Alanine Aminotransferase 23 U/L (4-35); Albumin Level 2.5 g/dL (3.5-5.1); Alkaline Phosphatase 185 U/L (38-126); Anion Gap 6 mmol/L (8-16); Aspartate Amino Transferase 24 U/L (14-36); Bilirubin,Total 0.6 mg/dL (0.2-1.3); Blood Urea Nitrogen 12 mg/dL (7-17); Carbon Dioxide 26 mmol/L (22-30); Chloride 101 mmol/L (98-107); Estimated CRCL calculation 88 ml/min; Estimated Glomerular Filt Rate > 60; Glucose 143 mg/dL (65-105); Potassium 3.9 mmol/L (3.4-5.0); Sodium 133 mmol/L (137-145)
[2020-01-22] MEDS: PANTOPRAZOLE SODIUM IV 40 MG VIAL IV PUSH (09:07)
--- NOTE | 2020-01-22 09:24 | PM.PNGS ---
Progress Note: A&P Assessment and Plan (1) Diverticulitis: Code(s): K57.92 - Diverticulitis of intestine, part unspecified, without perforation or abscess without bleeding Status: Acute Assessment and Plan: Patient has CT evidence of sigmoid diverticulitis with some possible stranding in the presacral space. She also has mild dilation of the left ureter without obstruction. There was a residual portion of non-drained liver abscess which was drained yesterday afternoon. (2) Hydronephrosis: Code(s): N13.30 - Unspecified hydronephrosis Status: Acute Assessment and Plan: Mild on the left near the sigmoid colon (3) Sepsis: Qualifiers: Sepsis acute organ dysfunction status: without acute organ dysfunction Sepsis type: sepsis due to unspecified organism Qualified Code(s): A41.9 - Sepsis, unspecified organism Code(s): A41.9 - Sepsis, unspecified organism Status: Acute Assessment and Plan: Blood cultures remain negative. Will repeat blood cultures if patient spikes a fever. (4) Abscess of liver: Code(s): K75.0 - Abscess of liver Status: Acute Assessment and Plan: Residual non drained abscess was successfully drained by percutaneous means through the right lower back or flank yesterday. Following the drainage 250 cc has since come out the drain. C&S pending. Previous C&S studies have not shown a specific bacteria from the previously drained liver abscess more anteriorly. (5) Leukocytosis: Qualifiers: Leukocytosis type: unspecified Qualified Code(s): D72.829 - Elevated white blood cell count, unspecified Code(s): D72.829 - Elevated white blood cell count, unspecified Status: Acute Assessment and Plan: White count still high today will repeat CBC tomorrow and continue IV antibiotics. Appreciate ID consultation and help. Subjective Subjective Date/Time Seen: 01/22/20 09:24 Patient reports: still having pain Interval history: PATIENT HAD 2ND PERCUTANEOUS CT-GUIDED DRAIN PLACED THROUGH THE POSTERIOR RIGHT FLANK INTO A LIVER ABSCESS YESTERDAY AFTERNOON. 250 cc came out of this and another 200 came out the other drain that had previously been placed anteriorly. Drainage seems to be better after this new percutaneous drainage placement. Patient complained of some upper right quadrant and right lower chest pain. Tramadol or Tylenol seems to be covering the pain okay. Patient has not been walking in the hallway. I encouraged her to do this. Review of Systems Review of Systems: All systems reviewed & are unremarkable except as noted in HPI and below Constitutional: Constitutional: Denies chills, Reports fatigue, Reports lethargy and Reports weakness Eyes: Eyes: Reports no additional eye complaints ENT: Reports Normal hearing present Cardiovascular: Cardiovascular: Reports as per HPI and Reports chest pain (Anterior right lower chest region) Respiratory: Respiratory: Denies dyspnea Gastrointestinal: Gastrointestinal: Reports abdominal pain, Denies constipation, Reports heartburn, Denies diarrhea and Denies vomiting Genitourinary: Genitourinary: Denies hematuria and Denies dysuria Musculoskeletal: Musculoskeletal: Reports no additional musculoskeletal complaints Integumentary/Breasts: Skin/Breast: Reports system reviewed and no additional complaints, except as docu Neurologic: Reports system reviewed and no additional complaints, except as documented, Reports Normal hearing present and Reports weakness Psychiatric: Psychiatric: Reports no additional psychiatric complaints Endocrine: Endocrine: Reports fatigue and Denies palpitations Exam Const: General: comfortable, no acute distress, alert, awake, in distress mild and uncomfortable Orientation/consciousness: patient oriented x3 HENMT: Mouth: Yes moist mucous membranes Eyes: Pupils: Equal, round and reactive pupils present EOM: EOMs i
[2020-01-22 14:00] VITALS: BP 130/66; PULSE 98; RESP 18; TEMP 36.7; O2SAT 94
--- NOTE | 2020-01-22 15:14 | PM.IMPN ---
Progress Note: A&P Assessment and Plan (1) Abscess of liver: Code(s): K75.0 - Abscess of liver Status: Acute Assessment and Plan: Patient had a CT scan of the abdomen which showed:1. New clustered liver masses, which may be abscesses, metastatic disease, or cholangiocarcinoma. 2. Sigmoid colon wall thickening with perisigmoid soft tissue and multiple fistulas, which may be chronic diverticulitis or malignancy. 3. Mild left hydronephrosis and proximal hydroureter secondary to the perisigmoid soft tissue. Pt has been seen by ID and surgery. For now follow ID recommendations Zosyn only for 5 days Sp second drain placement, THROUGH THE POSTERIOR RIGHT FLANK- draining well. (2) Leukocytosis: Qualifiers: Leukocytosis type: unspecified Qualified Code(s): D72.829 - Elevated white blood cell count, unspecified Code(s): D72.829 - Elevated white blood cell count, unspecified Status: Acute Assessment and Plan: Most likely secondary to liver abscess, diverticulitis and hydronephrosis (3) Diverticulitis: Code(s): K57.92 - Diverticulitis of intestine, part unspecified, without perforation or abscess without bleeding Status: Acute Assessment and Plan: As per CT scan (4) Sepsis: Qualifiers: Sepsis acute organ dysfunction status: without acute organ dysfunction Sepsis type: sepsis due to unspecified organism Qualified Code(s): A41.9 - Sepsis, unspecified organism Code(s): A41.9 - Sepsis, unspecified organism Status: Acute Assessment and Plan: Pt is being treated for this currently. (5) Hydronephrosis: Code(s): N13.30 - Unspecified hydronephrosis Status: Acute Assessment and Plan: I will make urology consult, for microscopic hematuria and mild hydronephrosis. Subjective Date/time seen: 01/22/20 15:14 Interval history: Patient had a CT scan of the abdomen which showed:1. New clustered liver masses, which may be abscesses, metastatic disease, or cholangiocarcinoma. 2. Sigmoid colon wall thickening with perisigmoid soft tissue and multiple fistulas, which may be chronic diverticulitis or malignancy. 3. Mild left hydronephrosis and proximal hydroureter secondary to the perisigmoid soft tissue. Pt had second drain inserted THROUGH THE POSTERIOR RIGHT FLANK INTO A LIVER ABSCESS draining well. Ptseen by surgery and ID teams. Bc negative to date awaiting full culturereports. pt feels better today no fever mild ruq pain only. No nausea today. Review of Systems Review of Systems: ROS unobtainable: Yes other (no fever, mild abdminal pains but no nausea ) Exam Narrative: Exam Narrative: morbidly obese Const: General: no acute distress and uncomfortable HENMT: General nose exam: Normal nares present Eyes: General: appearance normal, both eyes and all related structures Sclera: sclerae normal Neck: Neck: supple Resp: Effort & Inspection: normal respiratory effort Auscultation: clear to auscultation bilaterally Cardio: Rate: regular rate Rhythm: regular rhythm GI: Auscultation: normal bowel sounds Other: intermittent tenderness on the right side of the abdomen THROUGH THE POSTERIOR RIGHT FLANK Skin: General skin exam: normal color Neuro: Speech: normal speech Sensory Exam: normal sensation Extrem: General: normal to inspection Psych: Affect: Anxious affect present Objective Data Vital Signs Vital Signs: Vital Signs - 24 hr 01/21/20 22:00 01/22/20 00:24 01/22/20 00:29 Temperature 37.2 C Pulse Rate 119 H 93 88 Respiratory Rate 18 Blood Pressure 128/69 113/63 Pulse Oximetry 93 85 L 95 01/22/20 06:00 01/22/20 14:00 Temperature 36.4 C 36.7 C Pulse Rate 83 98 Respiratory Rate 18 18 Blood Pressure 124/69 130/66 Pulse Oximetry 95 94 Intake/Output Intake/Output: Intake & Output 01/19/20 01/20/20 01/21/20 01/22/20 23:59 23:59 23:59 23:59 Intake Total 2611 0300 9816 6149 Output To
[2020-01-22] MEDS: polyethylene glycoL 3350 17 GM POWD.PACK PO (17:00)
[2020-01-22 17:10] LABS: Iron 16 ug/dL (37-170)
[2020-01-22 17:19] LABS: Percent Iron Saturation 9 % (20-50)
[2020-01-22 22:00] VITALS: BP 125/65; PULSE 98; RESP 18; TEMP 36.3; O2SAT 91
[2020-01-23] MEDS: traMADol HCL 50 MG TABLET PO ×4 (03:04→21:26)
[2020-01-23 06:00] VITALS: BP 134/65; PULSE 90; RESP 18; TEMP 36.7; O2SAT 90
[2020-01-23 06:29] LABS: Basophils Percent Auto 0.2 % (0.2-1.2); Eosinophils Absolute Auto 0.1 K/mm3 (0-0.3); Eosinophils Percent Auto 0.4 % (0-4.4); Hematocrit 24.5 % (37.0-47.0); Hemoglobin 7.7 g/dL (12.0-15.0); Immature Granulocyte Absolute 0.87 K/mm3 (0.00-0.031); Immature Granulocyte Percent A 4.4 % (0-0.5); Lymphocytes Absolute Auto 1.04 K/mm3 (0.9-3.2); Lymphocytes Percent Auto 5.3 % (18.3-44.2); Mean Corpuscular HGB Conc 31.4 g/dl (32-36); Mean Corpuscular Hemoglobin 25.8 pg (26-34); Mean Corpuscular Volume 81.9 fl (80-100); Mean Platelet Volume 9.2 fl (7.4-10.4); Monocytes Percent Auto 5.1 % (2.6-8.5); Neutrophils Absolute Auto 16.6 K/mm3 (1.3-6.7); Neutrophils Percent Auto 84.6 % (45.5-73.1); Platelet Count Result 445 k/mm3 (150-375); Red Blood Count 2.99 M/mm3 (4.2-5.4); Red Cell Distribution Width 15.6 % (11.5-14.5); White Blood Count 19.6 K/mm3 (4.5-10.0)
[2020-01-23 06:43] LABS: Alanine Aminotransferase 19 U/L (4-35); Albumin Level 2.4 g/dL (3.5-5.1); Alkaline Phosphatase 187 U/L (38-126); Anion Gap 4 mmol/L (8-16); Aspartate Amino Transferase 27 U/L (14-36); Bilirubin,Total 0.5 mg/dL (0.2-1.3); Blood Urea Nitrogen 14 mg/dL (7-17); Calcium 8.2 mg/dL (8.4-10.2); Carbon Dioxide 26 mmol/L (22-30); Chloride 103 mmol/L (98-107); Estimated CRCL calculation 88 ml/min; Estimated Glomerular Filt Rate > 60; Glucose 145 mg/dL (65-105); Potassium 3.7 mmol/L (3.4-5.0); Sodium 133 mmol/L (137-145)
--- NOTE | 2020-01-23 07:52 | PM.PNGS ---
Progress Note: A&P Assessment and Plan (1) Diverticulitis: Code(s): K57.92 - Diverticulitis of intestine, part unspecified, without perforation or abscess without bleeding Status: Acute Assessment and Plan: Patient has CT evidence of sigmoid diverticulitis with some possible stranding in the presacral space. She also has mild dilation of the left ureter without obstruction. There was a residual portion of non-drained liver abscess which was drained yesterday afternoon. (2) Hydronephrosis: Code(s): N13.30 - Unspecified hydronephrosis Status: Acute Assessment and Plan: Mild on the left near the sigmoid colon (3) Sepsis: Qualifiers: Sepsis acute organ dysfunction status: without acute organ dysfunction Sepsis type: sepsis due to unspecified organism Qualified Code(s): A41.9 - Sepsis, unspecified organism Code(s): A41.9 - Sepsis, unspecified organism Status: Acute Assessment and Plan: Blood cultures remain negative. Will repeat blood cultures if patient spikes a fever. Cultures from the most recent percutaneous drain placement are still pending with Gram stain showing no organisms and lots of wbc's. (4) Abscess of liver: Code(s): K75.0 - Abscess of liver Status: Acute Assessment and Plan: Residual non drained abscess was successfully drained by percutaneous means through the right lower back or flank yesterday. Following the drainage 250 cc has since come out the drain. C&S pending. Previous C&S studies have not shown a specific bacteria from the previously drained liver abscess more anteriorly. Continue presumptive/ and perc antibiotic therapy with Zosyn. (5) Leukocytosis: Qualifiers: Leukocytosis type: unspecified Qualified Code(s): D72.829 - Elevated white blood cell count, unspecified Code(s): D72.829 - Elevated white blood cell count, unspecified Status: Acute Assessment and Plan: White count still high today but down some to 19,000. will repeat CBC tomorrow and continue IV antibiotics. Appreciate ID consultation and help. (6) Anemia: Code(s): D64.9 - Anemia, unspecified Status: Acute Assessment and Plan: Unknown etiology but appears to be iron deficient. See iron studies done yesterday. I started her on ferrous sulfate 3 times a day. Okay for medicine to change this to our they think is the most efficient for to regain iron begin increasing her blood count. Hemoglobin 7.7 today. Will recheck and if gets to below 7.0 consider transfusion during this admission. I discussed this with the patient she believes that she had labs done in September of this year that she was told were all normal. This was done by her primary care physician. (7) Hypertension: Code(s): I10 - Essential (primary) hypertension Status: Acute Assessment and Plan: Continue of medicines,/per hospitalist. Subjective Subjective Date/Time Seen: 01/23/20 07:52 Patient lying in bed comfortable when I entered the room. She states her pain in her back and abdomen are improved compared to yesterday. She did have a small bowel movement this morning. She did try to walk in the hallway some yesterday but complained of foot swelling. I encouraged her to not let this inhibitor that she should continue trying to walk in the [place] but when she is laying in bed or sitting to elevate her feet. We will stop her IV fluids after this bag is done and I encouraged her to drink plenty of liquids. Also discussed with her taking p.o. iron which can cause be constipating so she needs to drink plenty of fluids and we will continue MiraLax at least once a day. Review of Systems Review of Systems: All systems reviewed & are unremarkable except as noted in HPI and below Constitutional: Constitutional: Denies chills, Reports fatigue, Reports lethargy and Reports weakness Eyes: Eyes: Reports no additi
[2020-01-23] MEDS: PANTOPRAZOLE 40 MG TABLET PO (09:01)
[2020-01-23] MEDS: SODIUM CHLORIDE 0.9% IV 1,000 ML 75 ML IV CONT (09:06)
[2020-01-23] MEDS: polyethylene glycoL 3350 17 GM POWD.PACK PO ×2 (09:08→17:05)
[2020-01-23] MEDS: FERROUS SULFATE 324 MG TABLET PO ×3 (10:55→17:05)
[2020-01-23 14:00] VITALS: BP 131/68; PULSE 99; RESP 20; TEMP 36.4; O2SAT 93
--- NOTE | 2020-01-23 16:26 | PM.IMPN ---
Progress Note: A&P Assessment and Plan (1) Abscess of liver: Code(s): K75.0 - Abscess of liver Status: Acute Assessment and Plan: Patient had a CT scan of the abdomen which showed:1. New clustered liver masses, which may be abscesses, metastatic disease, or cholangiocarcinoma. 2. Sigmoid colon wall thickening with perisigmoid soft tissue and multiple fistulas, which may be chronic diverticulitis or malignancy. 3. Mild left hydronephrosis and proximal hydroureter secondary to the perisigmoid soft tissue. Pt has been seen by ID and surgery. For now follow ID recommendations Zosyn only for 5 days Sp second drain placement, THROUGH THE POSTERIOR RIGHT FLANK- draining well. Can stop iv zosyn tomorrow Can stop iv fluids due to swelling in the ankles continue to monitor in hospital (2) Leukocytosis: Qualifiers: Leukocytosis type: unspecified Qualified Code(s): D72.829 - Elevated white blood cell count, unspecified Code(s): D72.829 - Elevated white blood cell count, unspecified Status: Acute Assessment and Plan: Most likely secondary to liver abscess, diverticulitis and hydronephrosis (3) Diverticulitis: Code(s): K57.92 - Diverticulitis of intestine, part unspecified, without perforation or abscess without bleeding Status: Acute Assessment and Plan: As per CT scan (4) Sepsis: Qualifiers: Sepsis acute organ dysfunction status: without acute organ dysfunction Sepsis type: sepsis due to unspecified organism Qualified Code(s): A41.9 - Sepsis, unspecified organism Code(s): A41.9 - Sepsis, unspecified organism Status: Resolved Assessment and Plan: Pt is being treated for this currently. (5) Hydronephrosis: Code(s): N13.30 - Unspecified hydronephrosis Status: Acute Assessment and Plan: I will make urology consult, for microscopic hematuria and mild hydronephrosis. (6) Anemia: Code(s): D64.9 - Anemia, unspecified Status: Acute Assessment and Plan: Likley iron deficiency no history of iron deficiency anaemia before Iron supplements added FOBT not ordered as pt had a recent colonscopy Subjective Date/time seen: 01/23/20 16:26 Interval history: Patient had a CT scan of the abdomen which showed:1. New clustered liver masses, which may be abscesses, metastatic disease, or cholangiocarcinoma. 2. Sigmoid colon wall thickening with perisigmoid soft tissue and multiple fistulas, which may be chronic diverticulitis or malignancy. 3. Mild left hydronephrosis and proximal hydroureter secondary to the perisigmoid soft tissue. Pt had second drain inserted THROUGH THE POSTERIOR RIGHT FLANK INTO A LIVER ABSCESS draining well. Ptseen by surgery and ID teams. Bc negative to date full report. pt feels better today no fever mild ruq pain only. No nausea today. mild ankle swelling. Review of Systems Review of Systems: All systems reviewed & are unremarkable except as noted in HPI and below Gastrointestinal: Gastrointestinal: Denies nausea and Denies vomiting Musculoskeletal: Comments: Edema of ankles Exam Narrative: Exam Narrative: morbidly obese Const: General: no acute distress and uncomfortable HENMT: General nose exam: Normal nares present Eyes: General: appearance normal, both eyes and all related structures Sclera: sclerae normal Neck: Neck: supple Resp: Effort & Inspection: normal respiratory effort Auscultation: clear to auscultation bilaterally Cardio: Rate: regular rate Rhythm: regular rhythm GI: Auscultation: normal bowel sounds Other: intermittent tenderness on the right side of the abdomen THROUGH THE POSTERIOR RIGHT FLANK Skin: General skin exam: normal color Neuro: Speech: normal speech Sensory Exam: normal sensation Extrem: General: pedal edema and other Psych: Affect: Anxious affect present Objective Data Vital Signs Vital Signs: Vital Signs - 24 hr
--- NOTE | 2020-01-23 18:20 | PC.NURSE ---
Received a call back from Dr. Pozo, regarding Dr. Weaver's consult order placed today. Dr. Pozo indicated that he didn't know why he had been consulted after the pt has been hospitalized this length of time. Asked if pt has any pain/discomfort when urinating, retention, or UTI, which she does not. Dr. Pozo stated to bladder scan pt if needed. Pt has had a urine output on this shift of 950, with no complaints of difficulty urinating or difficulties.
[2020-01-23 21:01] VITALS: O2SAT 93
[2020-01-23 22:00] VITALS: BP 132/65; PULSE 96; RESP 20; TEMP 37.1; O2SAT 94
[2020-01-24] VITALS (13 sets, daily range): BP systolic 103–138; BP diastolic 44–89; PULSE 84–154; RESP 18–22; TEMP 35.8–36.9; O2SAT 91–96
[2020-01-24] MEDS: traMADol HCL 50 MG TABLET PO ×3 (03:48→22:24)
[2020-01-24 06:35] LABS: Basophils Absolute Auto 0.1 K/mm3 (0.0-0.1); Basophils Percent Auto 0.3 % (0.2-1.2); Eosinophils Absolute Auto 0.1 K/mm3 (0-0.3); Eosinophils Percent Auto 0.3 % (0-4.4); Hematocrit 30.8 % (37.0-47.0); Hemoglobin 9.6 g/dL (12.0-15.0); Immature Granulocyte Absolute 0.91 K/mm3 (0.00-0.031); Immature Granulocyte Percent A 3.5 % (0-0.5); Lymphocytes Absolute Auto 1.91 K/mm3 (0.9-3.2); Lymphocytes Percent Auto 7.4 % (18.3-44.2); Mean Corpuscular HGB Conc 31.2 g/dl (32-36); Mean Corpuscular Hemoglobin 25.8 pg (26-34); Mean Corpuscular Volume 82.8 fl (80-100); Mean Platelet Volume 9.1 fl (7.4-10.4); Monocytes Absolute Auto 1.2 K/mm3 (0.1-0.6); Monocytes Percent Auto 4.6 % (2.6-8.5); Neutrophils Absolute Auto 21.7 K/mm3 (1.3-6.7); Neutrophils Percent Auto 83.9 % (45.5-73.1); Nucleated Red Blood Cells Perc 0.1 % (0.0-0.2); Platelet Count Result 707 k/mm3 (150-375); Red Blood Count 3.72 M/mm3 (4.2-5.4); Red Cell Distribution Width 15.8 % (11.5-14.5); White Blood Count 25.9 K/mm3 (4.5-10.0)
--- NOTE | 2020-01-24 06:40 | ECG_ITS ---
Measurements Intervals [place] Rate: 147 P: PA: 0 QRS: -11 QRSD: 92 T: 125 QT: 276 QTc: 433 Interpretive Statements ATRIAL FIBRILLATION WITH RAPID VENTRICULAR RESPONSE VOLTAGE CRITERIA FOR LVH ST-T WAVE ABNORMALITY IN HIGH LATERAL LEADS- CONSIDER ISCHEMIA ABNORMAL ECG Electronically Signed On 01-24-2020 7:09:29 CDT by Afshin Ty D.O.
[2020-01-24 06:44] LABS: Alanine Aminotransferase 27 U/L (4-35); Albumin Level 2.9 g/dL (3.5-5.1); Alkaline Phosphatase 267 U/L (38-126); Anion Gap 9 mmol/L (8-16); Aspartate Amino Transferase 36 U/L (14-36); Bilirubin,Total 0.8 mg/dL (0.2-1.3); Blood Urea Nitrogen 13 mg/dL (7-17); Calcium 8.7 mg/dL (8.4-10.2); Carbon Dioxide 26 mmol/L (22-30); Chloride 98 mmol/L (98-107); Estimated CRCL calculation 101 ml/min; Estimated Glomerular Filt Rate > 60; Glucose 177 mg/dL (65-105); Potassium 3.9 mmol/L (3.4-5.0); Sodium 133 mmol/L (137-145)
--- NOTE | 2020-01-24 07:03 | ECHO_ITS ---
Patient Info Name: Ameena Tanner Age: 64 years : 1955 Gender: Female Ht: 64 in Wt: 251 lbs BSA: 2.33 m2 HR: 95 bpm BP: 112 / 89 mmHg Heart Rhythm: Sinus Rhythm Technical Quality: Good Exam Date: 01/24/2020 10:12 AM Exam Location: [facility] Pul[facility] Patient Status: Inpatient Admit Date: 01/17/2020 Staff Ordering Physician: Maximilian Lu MD Security Sales Consultant: Major Heredia RDCS Attending Provider: Branden Talbert MD Referring Physician: Aly VELEZ; Exam Type: CA echo dop color flow w con Study Info Indications I48.0 - Paroxysmal atrial fibrillation Complete two-dimensional, color flow and Doppler transthoracic echocardiogram is performed with contrast to opacify the left ventricle and to improve the deliniation of the left ventricle endocardial borders. Contrast/Agitated Saline Contrast/Ag. Saline: Definity Amount: 2.00 ml Administered By: Bo Wood RN Existing IV Access: Yes History/Risk Factors Paroxysmal Afib; Sepsis, HTN. Summary 1. Left ventricular systolic function is normal, estimated at 55-60%. 2. There is mildly increased left ventricular wall thickness. 3. There is mild to moderate tricuspid valve regurgitation. 4. Moderate pulmonary hypertension, estimated pulmonary arterial systolic pressure is 55 mmHg. 5. There is mild mitral valve regurgitation. Left Ventricle Left ventricular chamber dimension is normal. Left ventricular systolic function is normal, estimated at 55-60%. There is mildly increased left ventricular wall thickness. Left ventricular septal wall motion is abnormal with septal motion related to bundle branch block. The left ventricular diastolic function is grade I diastolic dysfunction. Right Ventricle Right ventricular chamber dimension is normal. Right ventricular systolic function is normal. Left Atria Left atrial chamber dimension is normal. Right Atria Right atrial chamber dimension is normal. Aortic Valve The aortic valve is trileaflet. There is no aortic valve sclerosis. There is no aortic valve stenosis. There is no aortic valve regurgitation. Pulmonic Valve The pulmonic valve is normal. There is no pulmonic valve stenosis. There is no pulmonic regurgitation. Mitral Valve The mitral valve has thickened leaflets. There is no mitral valve stenosis. There is mild mitral valve regurgitation. Tricuspid Valve The tricuspid valve leaflets are normal. There is no significant tricuspid valve stenosis. There is mild to moderate tricuspid valve regurgitation. Moderate pulmonary hypertension, estimated pulmonary arterial systolic pressure is 55 mmHg. Pericardium/Pleural The pericardium appears normal. There is no pericardial effusion. Aorta The aortic root size at the sinus of Valsalva is normal. The prox ascending aorta size is normal. Left Ventricular Outflow Tract Name Value Normal LVOT 2D LVOT Diameter 2.04 cm LVOT Doppler LVOT Peak Gradient 11 mmHg LVOT Mean Gradient 6 mmHg LVOT VTI
--- NOTE | 2020-01-24 07:04 | PM.EVENT ---
Event Note Event Note Event Note: Called to assess this patient by nursing staff secondary to tachycardia. On arrival to bedside the patient denies any palpitations, chest pain, or shortness of breath. EKG was obtained which demonstrated atrial fibrillation w/ RVR. She denies any previous history of atrial fibrillation. The patient was transferred to IMU and started on Cardizem IV for rate control. TSH w/ reflex T4 and Echocadiogram. Cardiology consultation. I discussed the case at length with our daytime Hospitalist as the patient is being treated by General Surgery for a liver abscess and may not be appropriate for anticoagulation at this time.
--- NOTE | 2020-01-24 07:06 | WPDURCON ---
Assessment and Plan Assessment and plan (1) Hydronephrosis: Code(s): N13.30 - Unspecified hydronephrosis Status: Acute Assessment and Plan: Scant left hydronephrosis likely resulting from sigmoid diverticulitis. there is very minimal dilatation of left collecting system ureter and I suspect this is not clinically significant at this time. I will repeat a imaging study (ease renal ultrasound) tomorrow to see if the hydronephrosis is changed. If, at some point, she shows progression in hydronephrosis or fails to respond to treatment for her other infectious processes, we will consider a left ureteral stent placement. If this time, however, I do not believe that is clinically indicated. Urology Consult Note HPI Date Seen: 01/24/20 Requesting Physician: Branden Talbert MD Primary Care Provider: Ivan Benitez, Consult Narrative Narrative: Ameena Tanner is a 64 year old female without prior significant urological history who was admitted with both hepatic and diverticular abscesses. During the course of evaluation, on CT scans done both on 01/20 and 01/23 she has scant left hydronephrosis. This appears to result from inflammation around her diverticular inflammation/abscess. She has a prior CT scan done in 2014 that shows no hydronephrosis at that time. Patient has no prior history of urolithiasis recurring urinary tract infection or other urological problems. Review of Systems Cardiovascular: Cardiovascular: Denies chest pain, Denies lightheadedness, Denies palpitations and Denies dyspnea Respiratory: Respiratory: Denies dyspnea Gastrointestinal: Gastrointestinal: Denies diarrhea, Denies nausea and Denies vomiting Genitourinary: Genitourinary: Denies hematuria and Denies dysuria Endocrine: Endocrine: Denies palpitations FOR[facility]LY [facility] Past Medical History Medical History Acid reflux Diverticulitis Hypertension WILBERT (obstructive sleep apnea) Surgical History Surgical History H/O section H/O inguinal hernia repair H/O shoulder surgery History of bilateral knee replacement History of right hip replacement Family History Family History Father Diabetes mellitus Social History Social History Smoking status: Never smoker Alcohol intake: never Substance use: never Substance use type: does not use Gender identity (if verbalized by the patient): Female Sexual Orientation (if Verbalized by the Patient): Straight or Heterosexual Spiritual care concerns: No Meds Home Medications and Allergies Home Medications Medication Instructions Recorded Confirmed Type aspirin [Adult Low Dose Aspirin] 81 mg PO DAILY 01/17/20 01/17/20 History celecoxib 200 mg PO BID 01/17/20 01/17/20 History fluticasone propionate [Flonase 50 mcg INTRANASAL DAILY PRN 01/17/20 01/17/20 History Allergy Relief] lisinopril 10 mg PO DAILY 01/17/20 01/17/20 History loratadine [Claritin] 10 mg PO DAILY 01/17/20 01/17/20 History pantoprazole 40 mg PO DAILY 01/17/20 01/17/20 History Allergies Allergy/AdvReac Type Severity Reaction Status Date / Time hydrocodone Allergy Severe DIFFICULTY Verified 01/17/20 07:32 BREATHING, BEHAVIOR CHANGES latex Allergy Severe Anaphylactic Verified 01/17/20 07:32 Shock,RASH shellfish derived Allergy Severe Anaphylactic Verified 01/17/20 07:32 Shock Contrast Media Allergy Severe ANAPHYLAXIS Uncoded 01/17/20 07:32 Vital Signs Vital Signs - 24 hr 01/23/20 14:00 01/23/20 21:01 01/23/20 22:00 Temperature 97.6 F 98.8 F Pulse Rate 99 96 Respiratory Rate 20 20 Blood Pressure 131/68 132/65 Pulse Oximetry 93 93 94 01/24/20 06:00 01/24/20 06:24 Temperature 98.0 F Pulse Rate 130 H 138 H Respiratory Rate 18 1
[2020-01-24 07:22] LABS: Platelet Estimate Increased (Adequate)
[2020-01-24 07:23] LABS: Stomatocytes 2+ (NORMAL)
--- NOTE | 2020-01-24 07:23 | PC.NURSE ---
during vitals pt was found to have heart rate of 150-130's, dr hooker notified of v/s and orders received for stat ekg and cxr. [id number] nhung to room explains to patient her heart abnormality and plan of care. pt agreeable. imu calls @[phone] with bed assignment of 211, this rn sent sbar at that time.
--- NOTE | 2020-01-24 07:47 | PC.NURSE ---
This patient, Ameena Tanner, was received from [facility] on 01/24/20 at 0747. Personal belongings list checked and signed. Patient/family oriented to unit policies and routines
[2020-01-24] MEDS: dilTIAZem HCl INJ 25 MG/5 ML VIAL 10 MG IV PUSH (08:05)
[2020-01-24] MEDS: PANTOPRAZOLE 40 MG TABLET PO (08:07)
[2020-01-24] MEDS: FERROUS SULFATE 324 MG TABLET PO ×3 (08:07→17:27)
[2020-01-24] MEDS: ACETAMINOPHEN 325 MG TABLET 650 MG PO (08:10)
[2020-01-24] MEDS: polyethylene glycoL 3350 17 GM POWD.PACK PO ×2 (08:10→17:27)
[2020-01-24 08:20] LABS: INR 1.2; Prothrombin Time 15.1 Seconds (11.1-14.7)
[2020-01-24 08:27] LABS: Magnesium 1.8 mg/dL (1.6-2.3)
--- NOTE | 2020-01-24 08:45 | ECG_ITS ---
Measurements Intervals [place] Rate: 102 P: 50 PA: 120 QRS: -3 QRSD: 101 T: 43 QT: 323 QTc: 421 Interpretive Statements SINUS TACHYCARDIA POSSIBLE LEFT ATRIAL ENLARGEMENT BASELINE ARTIFACT- I, II, AVR, AVL, AVF, V1 ABNORMAL ECG Electronically Signed On 01-24-2020 9:55:35 CDT by Afshin Ty D.O.
--- NOTE | 2020-01-24 09:00 | WPDINFPN2 ---
Progress Note: A&P Assessment and Plan (1) Abscess of liver: Code(s): K75.0 - Abscess of liver Status: Acute Assessment and Plan: 1. Liver abscess, not fully drained 2. Diverticulosis and abn sigmoid on imaging, likely diverticulitis as source of #1 3. Leukocytosis due to #1 4. SVT 5. Mild hydronephrosis REC PipTazo #8 / 14-21 days, continue. Subjective Date/time seen: 01/24/20 09:00 Interval history: tachycardic this morning Exam Narrative: Exam Narrative: afebrile Const: General: no acute distress Resp: Effort & Inspection: normal respiratory effort Auscultation: clear to auscultation bilaterally Cardio: Rate: regular rate Rhythm: regular rhythm GI: Inspection: non-distended GI Palp: Yes Soft to palpation and No Tenderness to palpation present (GI) Skin: General skin exam: no rashes or lesions noted Objective Data Vital Signs Vital Signs: Vital Signs - 24 hr 01/23/20 14:00 01/23/20 21:01 01/23/20 22:00 Temperature 36.4 C 37.1 C Pulse Rate 99 96 Respiratory Rate 20 20 Blood Pressure 131/68 132/65 Pulse Oximetry 93 93 94 01/24/20 06:00 01/24/20 06:24 01/24/20 08:05 Temperature 36.7 C Pulse Rate 130 H 138 H 151 H Respiratory Rate 18 18 Blood Pressure 112/89 114/80 Pulse Oximetry 92 91 01/24/20 08:35 Temperature 36.1 C L Pulse Rate 154 H Respiratory Rate 20 Blood Pressure 114/80 Pulse Oximetry 96 Intake/Output Intake/Output: Intake & Output 01/21/20 01/22/20 01/23/20 01/24/20 23:59 23:59 23:59 23:59 Intake Total 3750 6060 2450 650 Output Total 3003 715 1423 1010 Balance 746 8324 1022 -360 Meds/Results Medications: Active Medications Generic Name Dose Route Start Last Admin Trade Name Freq PRN Reason Stop Dose Admin Acetaminophen 650 mg 01/19/20 09:05 01/24/20 08:10 Tylenol Tablet PO 650 mg Q4HR PRN Administration Mild Pain (1-3) or Fever Bisacodyl 10 mg 08/15/20 09:35 Dulcolax Suppository RECTAL QAM PRN Constipation Diltiazem HCl 30 mg 01/24/20 12:00 Cardizem Tab PO Q6HR VASYL Ferrous Sulfate 324 mg 01/23/20 08:00 01/24/20 08:07 Ferrous Sulfate PO 324 mg TIDWM VASYL Administration Piperacillin/Tazobactam/Dextrose 3.375 gm in 50 mls @ 100 mls/hr 01/17/20 15:00 01/24/20 08:49 Zosyn 3.375 Gm/D5w 50ml Pm IVPB 100 mls/hr Q6H VASYL Administration Diltiazem HCl 100 mg in 100 mls @ 5 mls/hr 01/24/20 07:35 01/24/20 08:05 Cardizem 100 Mg/D5w 100 Ml IV CONT 5 mg/hr .Q20H VASYL 5 mls/hr Administration Protocol 5 MG/HR Morphine Sulfate 4 mg 01/17/20 09:56 01/22/20 00:13 Morphine Sulfate Inj IV PUSH 4 mg Q2H PRN Administration Pain Rated 7-10 Ondansetron HCl 4 mg 01/17/20 09:56 01/22/20 00:07 Zofran Inj IV PUSH 4 mg Q4H PRN Administration Nausea Pantoprazole Sodium 40 mg 01/23/20 09:00 01/24/20 08:07 Protonix PO 40 mg QAM VASYL Administration Polyethylene Glycol 17 gm 01/22/20 17:00 01/24/20 08:10 Miralax PO 17 gm BID VASYL Administration Tramadol HCl 50 mg 01/20/20 14:03 01/24/20 03:48 Ultram PO 50 mg Q6H PRN Administration Pain Rated 4-6 Radiology Results: ITS Impressions Abdomen/Pelvis CT 01/21/20 09:15 IMPRESSION: 1. Again seen are a pair of hepatic abscesses with interval decrease in size of the more anterior abscess cavity through which passes a percutaneous hepatic abscess drain. The distal loop of the abscess drain is positioned at the margin of the likely multiloculated posterior abscess cavity with septations likely inhibiting further drainage. Would consider placement of a second percutaneous abscess drain placed from posteriorly. 2. Likely perforated diverticulitis with region of likely retroperitoneal phlegmonous change without discrete abscess in the presacral space along the posterior margin of the sigmoid colon. Where an abscess to develop at this location it would not be readily
[2020-01-24] MEDS: PERFLUTREN LIPID MICROSPHERES 1.5 ML VIAL DILUTED TO 10 ML TOTAL VOLUME IV PUSH (10:45)
[2020-01-24] MEDS: dilTIAZem HCL 30 MG TABLET PO ×3 (11:48→23:41)
--- NOTE | 2020-01-24 13:16 | PCDIET ---
Weekly nutritional screen. Patient is tolerating current diet with fairly good intake. Patient without c/o or weight loss. No nutritional needs at this time. Patient interested in diet information which was provided. See Nutritional Teaching note for additional details.
--- NOTE | 2020-01-24 13:29 | PM.PNGS ---
Progress Note: A&P Assessment and Plan (1) Diverticulitis: Code(s): K57.92 - Diverticulitis of intestine, part unspecified, without perforation or abscess without bleeding Status: Acute Assessment and Plan: exam benign, wang low residue diet, normal bowel fxn, still c significant leukocytosis, cont Zosyn, will repeat CT (2) Abscess of liver: Code(s): K75.0 - Abscess of liver Status: Acute Assessment and Plan: see above (3) Anemia: Code(s): D64.9 - Anemia, unspecified Status: Acute Assessment and Plan: stable Subjective Subjective Date/Time Seen: 01/24/20 13:29 feels good, reports no issues, wang diet and having normal bowel fxn Review of Systems Constitutional: Constitutional: Denies chills, Reports fatigue and Reports weakness Cardiovascular: Cardiovascular: Denies chest pain and Reports palpitations Respiratory: Respiratory: Denies dyspnea Gastrointestinal: Gastrointestinal: Denies abdominal pain, Denies constipation, Denies diarrhea, Denies nausea and Denies vomiting Exam Const: General: no acute distress Resp: Auscultation: clear to auscultation bilaterally Cardio: Rate: regular rate Rhythm: regular rhythm GI: Other: S, sl dist, NT Objective Data Vital Signs Vital Signs: Vital Signs - 24 hr 01/23/20 14:00 01/23/20 21:01 01/23/20 22:00 Temperature 36.4 C 37.1 C Pulse Rate 99 96 Respiratory Rate 20 20 Blood Pressure 131/68 132/65 Pulse Oximetry 93 93 94 01/24/20 06:00 01/24/20 06:24 01/24/20 08:00 Temperature 36.7 C Pulse Rate 130 H 138 H 143 H Respiratory Rate 18 18 Blood Pressure 112/89 Pulse Oximetry 92 91 01/24/20 08:35 01/24/20 10:12 01/24/20 11:46 Temperature 36.1 C L 35.8 C L Pulse Rate 154 H 96 94 Respiratory Rate 20 18 Blood Pressure 114/80 114/55 L Pulse Oximetry 96 96 01/24/20 12:00 Temperature Pulse Rate 92 Respiratory Rate Blood Pressure Pulse Oximetry Intake/Output Intake/Output: Intake & Output 01/21/20 01/22/20 01/23/20 01/24/20 23:59 23:59 23:59 23:59 Intake Total 3750 6022 2450 1260 Output Total 3003 717 1423 1463 Balance 745 2523 0230 -423 Meds/Results Medications: Active Medications Generic Name Dose Route Start Last Admin Trade Name Freq PRN Reason Stop Dose Admin Acetaminophen 650 mg 01/19/20 09:05 01/24/20 08:10 Tylenol Tablet PO 650 mg Q4HR PRN Administration Mild Pain (1-3) or Fever Bisacodyl 10 mg 01/22/20 09:35 Dulcolax Suppository RECTAL QAM PRN Constipation Diltiazem HCl 30 mg 01/24/20 12:00 01/24/20 11:48 Cardizem Tab PO 30 mg Q6HR VASYL Administration Ferrous Sulfate 324 mg 01/23/20 08:00 01/24/20 11:48 Ferrous Sulfate PO 324 mg TIDWM VASYL Administration Piperacillin/Tazobactam/Dextrose 3.375 gm in 50 mls @ 100 mls/hr 01/17/20 15:00 01/24/20 10:59 Zosyn 3.375 Gm/D5w 50ml Pm IVPB Infused Q6H VASYL Infusion Diltiazem HCl 100 mg in 100 mls @ 5 mls/hr 01/24/20 07:35 01/24/20 11:00 Cardizem 100 Mg/D5w 100 Ml IV CONT Not Given .Q20H VASYL Protocol 5 MG/HR Morphine Sulfate 4 mg 01/17/20 09:56 01/22/20 00:13 Morphine Sulfate Inj IV PUSH 4 mg Q2H PRN Administration Pain Rated 7-10 Ondansetron HCl 4 mg 01/17/20 09:56 01/22/20 00:07 Zofran Inj IV PUSH 4 mg Q4H PRN Administration Nausea Pantoprazole Sodium 40 mg 01/23/20 09:00 01/24/20 08:07 Protonix PO 40 mg QAM VASYL Administration Polyethylene Glycol 17 gm 01/22/20 17:00 01/24/20 08:10 Miralax PO 17 gm BID VASYL Administration Tramadol HCl 50 mg 01/20/20 14:03 01/24/20 03:48 Ultram PO 50 mg Q6H PRN Administration Pain Rated 4-6 Radiology Results: ITS Impressions Abdomen/Pelvis CT 01/21/20 09:15 IMPRESSION: 1. Again seen are a pair of hepatic abscesses with interval decrease in size of the more anterior abscess cavity through which passes a perc
--- NOTE | 2020-01-24 13:33 | PM.CNCAR ---
Assessment and Plan Assessment and plan (1) Paroxysmal atrial fibrillation: Code(s): I48.0 - Paroxysmal atrial fibrillation Status: Acute Assessment and Plan: she converted to sinus rhythm with IV Cardizem, switched then to oral Cardizem, continue with that. Echocardiogram done showed normal left ventricular systolic function but evidence of pulmonary hypertension, she does not need to be on anticoagulation for the time being, especially with possibility of needing intervention or treatment for her liver abscess. She needs to be on full-dose aspirin for the time being, and rate controlled with Cardizem (2) Abscess of liver: Code(s): K75.0 - Abscess of liver Status: Acute (3) Leukocytosis: Qualifiers: Leukocytosis type: unspecified Qualified Code(s): D72.829 - Elevated white blood cell count, unspecified Code(s): D72.829 - Elevated white blood cell count, unspecified Status: Acute (4) Hypertension: Code(s): I10 - Essential (primary) hypertension Status: Acute Assessment and Plan: seems to be better now with Cardizem continue with that along with lisinopril Additional Plan Thank you for allowing me to participate in this patient's care, I will be following up with you. Please do not hesitate to call me for any other inquiry History of Present Illness History of Present Illness Consult date/time: 01/24/20 13:33 64-year-old lady with history of hypertension, was admitted to the hospital due to abdominal pain and noted to have liver abscess, with diverticulitis. She had tachycardia with atrial fibrillation rapid ventricular response with heart rate as high as 150. Initially was started on Cardizem drip but subsequently converted to sinus rhythm and then we switched her to oral Cardizem and she feels better now. She does have history of mild shortness of breath dyspnea exertion, no palpitation no dizziness no syncope. Prior to admission she was having worsening shortness of breath and she was having occasional palpitation but no dizziness no syncope. No known history of arrhythmia according to her. She has [id number] leg swelling, but no known diagnosed congestive heart failure. Since transfer here she is slowly improved as far as shortness of breath and heart rate improved and subsequently converted to sinus rhythm, currently she is in normal sinus rhythm with rate of 90 and she is currently on Cardizem 30 every 6 hours Reason For Visit: Diverticulitis with liver abscess/fistula Review of Systems Constitutional: Constitutional: Reports difficulty sleeping, Reports fatigue and Reports lethargy Cardiovascular: Cardiovascular: Denies chest pain, Reports leg edema and Reports palpitations Gastrointestinal: Gastrointestinal: Reports abdominal pain and Reports nausea PMFSH Past Medical History Medical History Acid reflux Diverticulitis Hypertension WILBERT (obstructive sleep apnea) Surgical History Surgical History H/O section H/O inguinal hernia repair H/O shoulder surgery History of bilateral knee replacement History of right hip replacement Family History Family History Father Diabetes mellitus Social History Social History Smoking status: Never smoker Alcohol intake: never Substance use: never Substance use type: does not use Gender identity (if verbalized by the patient): Female Sexual Orientation (if Verbalized by the Patient): Straight or Heterosexual Spiritual care concerns: No Meds Home Medications and Allergies Home Medications Medication Instructions Recorded Confirmed Type aspirin [Adult Low Dose Aspirin] 81 mg PO DAILY 01/17/20 01/17/20 History celecoxib 200 mg PO BID 01/17/20 01/17/20 His
--- NOTE | 2020-01-24 14:38 | PM.IMPN ---
Progress Note: A&P Assessment and Plan (1) Abscess of liver: Code(s): K75.0 - Abscess of liver Status: Acute Assessment and Plan: 01/24/20 14:[address] scan of the abdomen which showed:1. New clustered liver masses, which may be abscesses, metastatic disease, or cholangiocarcinoma. 2. Sigmoid colon wall thickening with perisigmoid soft tissue and multiple fistulas, which may be chronic diverticulitis or malignancy. 3. Mild left hydronephrosis and proximal hydroureter secondary to the perisigmoid soft tissue. Pt has been seen by ID and surgery. For now follow ID recommendations Zosyn only for 5 days Sp second drain placement, THROUGH THE POSTERIOR RIGHT FLANK- draining well. Can stop iv zosyn tomorrow Can stop iv fluids due to swelling in the ankles continue to monitor in hospital today early this morning Patient went into AFib with RVR patient was given IV diltiazem converted to sinus rhythm seen by college athlete and started the patient on oral diltiazem 30 mg q.6 current patient denies any complaint of chest pain shortness of breath palpitation fever or chills, see denies any abdominal pain, patient is seen by surgery team suggesting CT of abdomen to further evaluate liver abscess however patient has a contrast allergy, however about 3 years ago patient had a cardiac catheterization with contrast and there was no complication for allergy, will recheck to see we can do without contrast, patient is seen by Dr. teixeira recommending to continue IV antibiotics for total of -21 days spoke with the patient's daughter and answered all questions (2) Leukocytosis: Qualifiers: Leukocytosis type: unspecified Qualified Code(s): D72.829 - Elevated white blood cell count, unspecified Code(s): D72.829 - Elevated white blood cell count, unspecified Status: Acute Assessment and Plan: Most likely secondary to liver abscess, diverticulitis and hydronephrosis (3) Diverticulitis: Code(s): K57.92 - Diverticulitis of intestine, part unspecified, without perforation or abscess without bleeding Status: Acute Assessment and Plan: As per CT scan (4) Sepsis: Qualifiers: Sepsis acute organ dysfunction status: without acute organ dysfunction Sepsis type: sepsis due to unspecified organism Qualified Code(s): A41.9 - Sepsis, unspecified organism Code(s): A41.9 - Sepsis, unspecified organism Status: Resolved Assessment and Plan: Pt is being treated for this currently. (5) Hydronephrosis: Code(s): N13.30 - Unspecified hydronephrosis Status: Acute Assessment and Plan: I will make urology consult, for microscopic hematuria and mild hydronephrosis. (6) Anemia: Code(s): D64.9 - Anemia, unspecified Status: Acute Assessment and Plan: Likley iron deficiency no history of iron deficiency anaemia before Iron supplements added FOBT not ordered as pt had a recent colonscopy Subjective Date/time seen: 01/24/20 14:[address] scan of the abdomen which showed:1. New clustered liver masses, which may be abscesses, metastatic disease, or cholangiocarcinoma. 2. Sigmoid colon wall thickening with perisigmoid soft tissue and multiple fistulas, which may be chronic diverticulitis or malignancy. 3. Mild left hydronephrosis and proximal hydroureter secondary to the perisigmoid soft tissue. Pt has been seen by ID and surgery. For now follow ID recommendations Zosyn only for 5 days Sp second drain placement, THROUGH THE POSTERIOR RIGHT FLANK- draining well. Can stop iv zosyn tomorrow Can stop iv fluids due to swelling in the ankles continue to monitor in hospital today early this morning Patient went into AFib with RVR patient was given IV diltiazem converted to sinus rhythm seen by college athlete and started the patient on oral diltiazem 30 mg q.6 current patient denies any complaint of chest pain shortness of joan
[2020-01-25] VITALS (18 sets, daily range): BP systolic 112–164; BP diastolic 60–93; PULSE 90–110; RESP 18–24; TEMP 36.1–36.8; O2SAT 93–100
[2020-01-25 05:13] LABS: Basophils Absolute Auto 0.1 K/mm3 (0.0-0.1); Basophils Percent Auto 0.3 % (0.2-1.2); Eosinophils Percent Auto 0.2 % (0-4.4); Hematocrit 27.5 % (37.0-47.0); Hemoglobin 8.7 g/dL (12.0-15.0); Immature Granulocyte Absolute 0.94 K/mm3 (0.00-0.031); Immature Granulocyte Percent A 3.9 % (0-0.5); Lymphocytes Absolute Auto 1.18 K/mm3 (0.9-3.2); Lymphocytes Percent Auto 4.8 % (18.3-44.2); Mean Corpuscular HGB Conc 31.6 g/dl (32-36); Mean Corpuscular Hemoglobin 26.3 pg (26-34); Mean Corpuscular Volume 83.1 fl (80-100); Monocytes Absolute Auto 1.6 K/mm3 (0.1-0.6); Monocytes Percent Auto 6.4 % (2.6-8.5); Neutrophils Absolute Auto 20.6 K/mm3 (1.3-6.7); Neutrophils Percent Auto 84.4 % (45.5-73.1); Platelet Count Result 585 k/mm3 (150-375); Red Blood Count 3.31 M/mm3 (4.2-5.4); Red Cell Distribution Width 15.4 % (11.5-14.5); White Blood Count 24.4 K/mm3 (4.5-10.0)
[2020-01-25 05:27] LABS: Alanine Aminotransferase 21 U/L (4-35); Albumin Level 2.7 g/dL (3.5-5.1); Alkaline Phosphatase 215 U/L (38-126); Anion Gap 6 mmol/L (8-16); Aspartate Amino Transferase 23 U/L (14-36); Bilirubin,Total 0.7 mg/dL (0.2-1.3); Blood Urea Nitrogen 11 mg/dL (7-17); Calcium 8.5 mg/dL (8.4-10.2); Carbon Dioxide 28 mmol/L (22-30); Chloride 99 mmol/L (98-107); Estimated CRCL calculation 101 ml/min; Estimated Glomerular Filt Rate > 60; Glucose 149 mg/dL (65-105); Magnesium 1.8 mg/dL (1.6-2.3); Sodium 133 mmol/L (137-145)
[2020-01-25 05:43] LABS: Hypochromasia 1+ (NORMAL); Platelet Estimate Adequate (Adequate); Stomatocytes 1+ (NORMAL)
[2020-01-25] MEDS: dilTIAZem HCL 30 MG TABLET PO (06:51)
[2020-01-25] MEDS: FERROUS SULFATE 324 MG TABLET PO ×2 (08:38→18:42)
[2020-01-25] MEDS: ACETAMINOPHEN 325 MG TABLET 650 MG PO (08:39)
[2020-01-25] MEDS: PANTOPRAZOLE 40 MG TABLET PO (08:39)
[2020-01-25] MEDS: polyethylene glycoL 3350 17 GM POWD.PACK PO ×2 (08:43→18:43)
--- NOTE | 2020-01-25 09:06 | PM.PNCARD ---
Progress Note: A&P Assessment and Plan (1) Paroxysmal atrial fibrillation: Code(s): I48.0 - Paroxysmal atrial fibrillation Status: Acute Assessment and Plan: Likely due to underlying infection with liver abscess. she converted to sinus rhythm/sinus tachycardia Continue Cardizem. Will switch to long acting 180 mg daily Echocardiogram done showed normal left ventricular systolic function but evidence of pulmonary hypertension, Will discuss AC in outpatient settings. Currently she is s/p drain placement for liver abscess. Continue ASA (2) Abscess of liver: Code(s): K75.0 - Abscess of liver Status: Acute (3) Leukocytosis: Qualifiers: Leukocytosis type: unspecified Qualified Code(s): D72.829 - Elevated white blood cell count, unspecified Code(s): D72.829 - Elevated white blood cell count, unspecified Status: Acute (4) Hypertension: Code(s): I10 - Essential (primary) hypertension Status: Acute Assessment and Plan: seems to be better now with Cardizem continue with that along with lisinopril Additional Plan Thank you for allowing me to participate in this patient's care, I will be following up with you. Please do not hesitate to call me for any other inquiry Subjective Date/time seen: 01/25/20 09:06 S/p percutaneous drains for liver abscess. Denies chest pain or edema. Her legs are swollen which is unusual for her HR overnight ~90-100. Up to 110 this am when she got to the bathroom. All in sinus tachycardia. no recurrence of afib Review of Systems Constitutional: Constitutional: Reports difficulty sleeping, Reports fatigue and Reports lethargy Cardiovascular: Cardiovascular: Denies chest pain, Reports leg edema and Reports palpitations Gastrointestinal: Gastrointestinal: Reports abdominal pain and Reports nausea Endocrine: Endocrine: Reports fatigue and Reports palpitations Exam Narrative: Exam Narrative: Awake alert oriented x3 not in acute distress Neck is supple no obvious JVD, no carotid bruit Chest: Good air entry bilaterally, lungs are clear to auscultation and percussion bilaterally Cardiovascular: Regular rate and rhythm, 2/6 systolic murmur noted left sternal border Abdomen: Soft nontender bowel sounds positive Extremities: +1 edema has good pulses distally bilaterally Objective Data Vital Signs Vital Signs: Vital Signs - 24 hr 01/24/20 10:12 01/24/20 11:46 01/24/20 12:00 Temperature 35.8 C L Pulse Rate 96 94 92 Respiratory Rate 18 Blood Pressure 114/55 L Pulse Oximetry 96 01/24/20 14:12 01/24/20 16:00 01/24/20 16:51 Temperature 36.7 C Pulse Rate 87 97 101 H Respiratory Rate 20 Blood Pressure 138/60 Pulse Oximetry 93 01/24/20 18:39 01/24/20 20:00 01/25/20 00:00 Temperature 36.9 C 36.8 C Pulse Rate 108 H 84 99 Respiratory Rate 22 H Blood Pressure 103/44 L 133/84 Pulse Oximetry 91 97 01/25/20 08:37 Temperature 36.1 C L Pulse Rate 97 Respiratory Rate 20 Blood Pressure 141/81 H Pulse Oximetry 99 Intake/Output Intake/Output: Intake & Output 01/22/20 01/23/20 01/24/20 01/25/20 23:59 23:59 23:59 23:59 Intake Total 6060 2450 2150 200 Output Total 715 1423 1561 1350 Balance 5345 1027 589 -1150 Meds/Results Medications: Active Medications Generic Name Dose Route Start Last Admin Trade Name Freq PRN Reason Stop Dose Admin Acetaminophen 650 mg 01/19/20 09:05 01/25/20 08:39 Tylenol Tablet PO 650 mg Q4HR PRN Administration Mild Pain (1-3) or Fever Bisacodyl 10 mg 01/22/20 09:35 Dulcolax Suppository RECTAL QAM PRN Constipation Diltiazem HCl 30 mg 01/24/20 12:00 01/25/20 06:51 Cardizem Tab PO 30 mg Q6HR VASYL Administration Ferrous Sulfate 324 mg 01/23/20 08:00 01/25/20 08:38 Ferrous Sulfate PO 324 mg TIDWM VASYL Administration Piperacillin/Tazobactam/Dextrose 3.375 gm in 50 mls @ 100 mls/hr 01/17/20 15:00 0
[2020-01-25] MEDS: dilTIAZem HCL CD 180 MG CAP.ER.24H PO (11:13)
--- NOTE | 2020-01-25 12:05 | PM.PNGS ---
Progress Note: A&P Assessment and Plan (1) Empyema lung: Code(s): J86.9 - Pyothorax without fistula Status: Acute Assessment and Plan: will setup for IR drainage, cont abx (2) Abscess of liver: Code(s): K75.0 - Abscess of liver Status: Acute Assessment and Plan: adequately draining, cont abx per ID (3) Diverticulitis: Code(s): K57.92 - Diverticulitis of intestine, part unspecified, without perforation or abscess without bleeding Status: Acute Assessment and Plan: exam benign, cont abx Subjective Subjective Date/Time Seen: 01/25/20 12:05 feels much better, some R sided pain c deep inspiration, wang diet, +bowel fxn Review of Systems Constitutional: Constitutional: Reports fatigue and Reports weakness Cardiovascular: Cardiovascular: Denies chest pain Respiratory: Respiratory: Reports dyspnea on exertion Gastrointestinal: Gastrointestinal: Denies abdominal pain, Denies constipation, Denies diarrhea, Denies nausea and Denies vomiting Exam Const: General: no acute distress Resp: Auscultation: diminished lung sounds Cardio: Rate: regular rate Rhythm: regular rhythm GI: Other: S, sl dist, NT Objective Data Vital Signs Vital Signs: Vital Signs - 24 hr 01/24/20 14:12 01/24/20 16:00 01/24/20 16:51 Temperature 36.7 C Pulse Rate 87 97 101 H Respiratory Rate 20 Blood Pressure 138/60 Pulse Oximetry 93 01/24/20 18:39 01/24/20 20:00 01/24/20 22:00 Temperature 36.9 C Pulse Rate 108 H 95 98 Respiratory Rate 22 H Blood Pressure 103/44 L Pulse Oximetry 91 01/25/20 00:00 01/25/20 02:00 01/25/20 04:00 Temperature 36.8 C Pulse Rate 95 93 93 Respiratory Rate Blood Pressure 133/84 Pulse Oximetry 97 01/25/20 06:00 01/25/20 08:37 Temperature 36.1 C L Pulse Rate 97 97 Respiratory Rate 20 Blood Pressure 141/81 H Pulse Oximetry 99 Intake/Output Intake/Output: Intake & Output 01/22/20 01/23/20 01/24/20 01/25/20 23:59 23:59 23:59 23:59 Intake Total 6060 2450 2150 680 Output Total 715 1423 1561 1350 Balance 53 0285 508 -211 Meds/Results Medications: Active Medications Generic Name Dose Route Start Last Admin Trade Name Freq PRN Reason Stop Dose Admin Acetaminophen 650 mg 01/19/20 09:05 01/25/20 08:39 Tylenol Tablet PO 650 mg Q4HR PRN Administration Mild Pain (1-3) or Fever Bisacodyl 10 mg 01/22/20 09:35 Dulcolax Suppository RECTAL QAM PRN Constipation Diltiazem HCl 180 mg 01/25/20 10:00 01/25/20 11:13 Cardizem Cd PO 180 mg QAM VASYL Administration Ferrous Sulfate 324 mg 01/23/20 08:00 01/25/20 08:38 Ferrous Sulfate PO 324 mg TIDWM VASYL Administration Piperacillin/Tazobactam/Dextrose 3.375 gm in 50 mls @ 100 mls/hr 01/17/20 15:00 01/25/20 10:45 Zosyn 3.375 Gm/D5w 50ml Pm IVPB 100 mls/hr Q6H VASYL Administration Morphine Sulfate 4 mg 01/17/20 09:56 01/22/20 00:13 Morphine Sulfate Inj IV PUSH 4 mg Q2H PRN Administration Pain Rated 7-10 Ondansetron HCl 4 mg 01/17/20 09:56 01/22/20 00:07 Zofran Inj IV PUSH 4 mg Q4H PRN Administration Nausea Pantoprazole Sodium 40 mg 01/23/20 09:00 01/25/20 08:39 Protonix PO 40 mg QAM VASYL Administration Polyethylene Glycol 17 gm 01/22/20 17:00 01/25/20 08:43 Miralax PO 17 gm BID VASYL Administration Tramadol HCl 50 mg 01/20/20 14:03 01/24/20 22:24 Ultram PO 50 mg Q6H PRN Administration Pain Rated 4-6 Radiology Results: ITS Impressions Catheter Placement CT 01/21/20 16:00 IMPRESSION: 1. Successful CT-guided right hepatic lobe abscess drainage catheter placement. 2. 20 mL fluid was sent for aerobic and anaerobic cultures. 3. The catheter will be managed by Dr. Levine. Chest X-Ray 01/24/20 06:41 IMPRESSION: 1. Worsened airspace opacities in right mid and lower lung zones and left lower lung zone, consistent with atel
[2020-01-25] MEDS: traMADol HCL 50 MG TABLET PO ×2 (12:28→18:41)
--- NOTE | 2020-01-25 12:44 | WPDINFPN2 ---
Progress Note: A&P Assessment and Plan (1) Abscess of liver: Code(s): K75.0 - Abscess of liver Status: Acute Assessment and Plan: 1. Liver abscess, [address] Fusobacterium isolated, beta lactamase negative 2. Diverticulosis and abn sigmoid on imaging, likely diverticulitis as source of #1 3. Leukocytosis due to #1, still high 4. SVT 5. Mild hydronephrosis REC PipTazo #9 / 21 days, continue. Subjective Date/time seen: 01/25/20 12:44 Interval history: no cp abd pain dyspnea Exam Narrative: Exam Narrative: afebrile Const: General: no acute distress Resp: Effort & Inspection: normal respiratory effort Auscultation: clear to auscultation bilaterally Cardio: Rate: regular rate Rhythm: regular rhythm Heart sounds: no murmurs GI: Inspection: distended GI Palp: Yes Soft to palpation, No Tenderness to palpation present (GI) and No Guarding due to palpation present (GI) Objective Data Vital Signs Vital Signs: Vital Signs - 24 hr 01/24/20 14:12 01/24/20 16:00 01/24/20 16:51 Temperature 36.7 C Pulse Rate 87 97 101 H Respiratory Rate 20 Blood Pressure 138/60 Pulse Oximetry 93 01/24/20 18:39 01/24/20 20:00 01/24/20 22:00 Temperature 36.9 C Pulse Rate 108 H 95 98 Respiratory Rate 22 H Blood Pressure 103/44 L Pulse Oximetry 91 01/25/20 00:00 01/25/20 02:00 01/25/20 04:00 Temperature 36.8 C Pulse Rate 95 93 93 Respiratory Rate Blood Pressure 133/84 Pulse Oximetry 97 01/25/20 06:00 01/25/20 08:37 Temperature 36.1 C L Pulse Rate 97 97 Respiratory Rate 20 Blood Pressure 141/81 H Pulse Oximetry 99 Intake/Output Intake/Output: Intake & Output 01/22/20 01/23/20 01/24/20 01/25/20 23:59 23:59 23:59 23:59 Intake Total 6060 2450 2150 730 Output Total 715 1423 1561 1350 Balance 5345 1026 133 -041 Meds/Results Medications: Active Medications Generic Name Dose Route Start Last Admin Trade Name Freq PRN Reason Stop Dose Admin Acetaminophen 650 mg 01/19/20 09:05 01/25/20 08:39 Tylenol Tablet PO 650 mg Q4HR PRN Administration Mild Pain (1-3) or Fever Bisacodyl 10 mg 01/22/20 09:35 Dulcolax Suppository RECTAL QAM PRN Constipation Diltiazem HCl 180 mg 01/25/20 10:00 01/25/20 11:13 Cardizem Cd PO 180 mg QAM VASYL Administration Ferrous Sulfate 324 mg 01/23/20 08:00 01/25/20 08:38 Ferrous Sulfate PO 324 mg TIDWM VASYL Administration Piperacillin/Tazobactam/Dextrose 3.375 gm in 50 mls @ 100 mls/hr 01/17/20 15:00 01/25/20 11:15 Zosyn 3.375 Gm/D5w 50ml Pm IVPB Infused Q6H VASYL Infusion Morphine Sulfate 4 mg 01/17/20 09:56 01/22/20 00:13 Morphine Sulfate Inj IV PUSH 4 mg Q2H PRN Administration Pain Rated 7-10 Ondansetron HCl 4 mg 01/17/20 09:56 01/22/20 00:07 Zofran Inj IV PUSH 4 mg Q4H PRN Administration Nausea Pantoprazole Sodium 40 mg 01/23/20 09:00 01/25/20 08:39 Protonix PO 40 mg QAM VASYL Administration Polyethylene Glycol 17 gm 01/22/20 17:00 01/25/20 08:43 Miralax PO 17 gm BID VASYL Administration Tramadol HCl 50 mg 01/20/20 14:03 01/25/20 12:28 Ultram PO 50 mg Q6H PRN Administration Pain Rated 4-6 Radiology Results: ITS Impressions Catheter Placement CT 01/21/20 16:00 IMPRESSION: 1. Successful CT-guided right hepatic lobe abscess drainage catheter placement. 2. 20 mL fluid was sent for aerobic and anaerobic cultures. 3. The catheter will be managed by Dr. Levine. Chest X-Ray 01/24/20 06:41 IMPRESSION: 1. Worsened airspace opacities in right mid and lower lung zones and left lower lung zone, consistent with atelectasis versus pneumonia. 2. Worsened small right pleural effusion. Abdomen/Pelvis CT 01/24/20 16:01 IMPRESSION: 1. Development of moderate right pleural empyema or effusion with loculations. Adjacent multisegmental right basilar atelectasis. 2. Persistent sizable
--- NOTE | 2020-01-25 14:53 | PC.NURSE ---
1415- To CT dept for CT guided right chest tube placement
--- NOTE | 2020-01-25 15:20 | PM.IMPN ---
Progress Note: A&P Assessment and Plan (1) Abscess of liver: Code(s): K75.0 - Abscess of liver Status: Acute Assessment and Plan: 01/24/20 14:[address] scan of the abdomen which showed:1. New clustered liver masses, which may be abscesses, metastatic disease, or cholangiocarcinoma. 2. Sigmoid colon wall thickening with perisigmoid soft tissue and multiple fistulas, which may be chronic diverticulitis or malignancy. 3. Mild left hydronephrosis and proximal hydroureter secondary to the perisigmoid soft tissue. Pt has been seen by ID and surgery. For now follow ID recommendations Zosyn only for 5 days Sp second drain placement, THROUGH THE POSTERIOR RIGHT FLANK- draining well. Can stop iv zosyn tomorrow Can stop iv fluids due to swelling in the ankles continue to monitor in hospital 01/25/20 15:20 today early this morning Patient went into AFib with RVR patient was given IV diltiazem converted to sinus rhythm seen by high lift operator and started the patient on oral diltiazem 30 mg q.6 current patient denies any complaint of chest pain shortness of breath palpitation fever or chills, see denies any abdominal pain, patient is seen by surgery team suggesting CT of abdomen to further evaluate liver abscess however patient has a contrast allergy, however about 3 years ago patient had a cardiac catheterization with contrast and there was no complication for allergy, will recheck to see we can do without contrast, patient is seen by Dr. teixeira recommending to continue IV antibiotics for total of -21 days on 01/[address] scan which showed; 1. Development of moderate right pleural empyema or effusion with loculations. Adjacent multisegmental right basilar atelectasis. 2. Persistent sizable heterogeneous right liver lobe abscess with multiple septations. 3. Persistent findings suspicious for extraluminal gas from perforated sigmoid diverticulitis. No gross free intraperitoneal gas. 4. Colonic diverticulosis. patient with moderate right pleural empyema patient is seen by surgery team recommending chest tube to drain the empyema and monitor. patient appears clinically stayed denies any chest pain palpitation abdominal pain nausea or vomiting fever or chills, she did have a BM today (2) Leukocytosis: Qualifiers: Leukocytosis type: unspecified Qualified Code(s): D72.829 - Elevated white blood cell count, unspecified Code(s): D72.829 - Elevated white blood cell count, unspecified Status: Acute Assessment and Plan: Most likely secondary to liver abscess, diverticulitis and hydronephrosis (3) Diverticulitis: Code(s): K57.92 - Diverticulitis of intestine, part unspecified, without perforation or abscess without bleeding Status: Acute Assessment and Plan: As per CT scan (4) Sepsis: Qualifiers: Sepsis acute organ dysfunction status: without acute organ dysfunction Sepsis type: sepsis due to unspecified organism Qualified Code(s): A41.9 - Sepsis, unspecified organism Code(s): A41.9 - Sepsis, unspecified organism Status: Resolved Assessment and Plan: Pt is being treated for this currently. (5) Hydronephrosis: Code(s): N13.30 - Unspecified hydronephrosis Status: Acute Assessment and Plan: I will make urology consult, for microscopic hematuria and mild hydronephrosis. (6) Anemia: Code(s): D64.9 - Anemia, unspecified Status: Acute Assessment and Plan: Likley iron deficiency no history of iron deficiency anaemia before Iron supplements added FOBT not ordered as pt had a recent colonscopy (7) Empyema lung: Code(s): J86.9 - Pyothorax without fistula Status: Acute Assessment and Plan: plan is above (8) Paroxysmal atrial fibrillation: Code(s): I48.0 - Paroxysmal atrial fibrillation Status: Acute Assessment and Plan: patient had brief atri
--- NOTE | 2020-01-25 17:23 | WPDUROPN2 ---
Progress Note: A&P Assessment and Plan (1) Hydronephrosis: Code(s): N13.30 - Unspecified hydronephrosis Status: Acute Assessment and Plan: Left hydronephrosis is minimal and looks slightly less pronounced on CT-scan done yesterday afternoon and renal u/s done today. I've wrestled with idea of stent placement but, given very minimal nature of hydro. with normal u/a and jason renal function, don't feel it's currently indicated. Will continue to follow. Subjective Subjective Date/Time Seen: 01/25/20 17:23 Left hydronephrosis - no complaints of flank pain or voiding symptoms. Review of Systems Cardiovascular: Cardiovascular: Denies chest pain, Denies lightheadedness, Denies palpitations and Denies dyspnea Respiratory: Respiratory: Denies dyspnea Gastrointestinal: Gastrointestinal: Denies diarrhea, Denies nausea and Denies vomiting Genitourinary: Genitourinary: Denies hematuria and Denies dysuria Endocrine: Endocrine: Denies palpitations Exam Const: General: no acute distress Resp: Effort & Inspection: normal respiratory effort GI: Inspection: non-distended GI Palp: No abdominal tenderness and No Guarding due to palpation present (GI) Auscultation: normal bowel sounds Objective Data Vital Signs Vital Signs: Vital Signs - 24 hr 01/24/20 18:39 01/24/20 20:00 01/24/20 22:00 Temperature 98.5 F Pulse Rate 108 H 95 98 Respiratory Rate 22 H Blood Pressure 103/44 L Pulse Oximetry 91 01/25/20 00:00 01/25/20 02:00 01/25/20 04:00 Temperature 98.2 F Pulse Rate 95 93 93 Respiratory Rate Blood Pressure 133/84 Pulse Oximetry 97 01/25/20 06:00 01/25/20 08:00 01/25/20 08:37 Temperature 96.9 F L Pulse Rate 97 93 97 Respiratory Rate 20 Blood Pressure 141/81 H Pulse Oximetry 99 01/25/20 10:00 01/25/20 12:00 01/25/20 13:19 Temperature 97.4 F L Pulse Rate 93 92 92 Respiratory Rate 24 H Blood Pressure 136/61 Pulse Oximetry 100 01/25/20 14:00 01/25/20 15:27 01/25/20 15:28 Temperature Pulse Rate 110 H 101 H 92 Respiratory Rate 19 18 Blood Pressure 164/93 H 158/88 H Pulse Oximetry 93 94 01/25/20 17:12 Temperature 97.4 F L Pulse Rate 99 Respiratory Rate 20 Blood Pressure 112/89 Pulse Oximetry 97 Intake/Output Intake/Output: Intake & Output 01/22/20 01/23/20 01/24/20 01/25/20 23:59 23:59 23:59 23:59 Intake Total 6060 2450 2150 1590 Output Total 715 1423 1561 1750 Balance 5345 1027 589 -160 Meds/Results Medications: Active Medications Generic Name Dose Route Start Last Admin Trade Name Freq PRN Reason Stop Dose Admin Acetaminophen 650 mg 01/19/20 09:05 01/25/20 08:39 Tylenol Tablet PO 650 mg Q4HR PRN Administration Mild Pain (1-3) or Fever Bisacodyl 10 mg 01/22/20 09:35 Dulcolax Suppository RECTAL QAM PRN Constipation Diltiazem HCl 180 mg 01/25/20 10:00 01/25/20 11:13 Cardizem Cd PO 180 mg QAM VASYL Administration Ferrous Sulfate 324 mg 01/23/20 08:00 01/25/20 14:18 Ferrous Sulfate PO Not Given TIDWM VASYL Piperacillin/Tazobactam/Dextrose 3.375 gm in 50 mls @ 100 mls/hr 01/17/20 15:00 01/25/20 15:51 Zosyn 3.375 Gm/D5w 50ml Pm IVPB 100 mls/hr Q6H VASYL Administration Morphine Sulfate 4 mg 01/17/20 09:56 01/22/20 00:13 Morphine Sulfate Inj IV PUSH 4 mg Q2H PRN Administration Pain Rated 7-10 Ondansetron HCl 4 mg 01/17/20 09:56 01/22/20 00:07 Zofran Inj IV PUSH 4 mg Q4H PRN Administration Nausea Pantoprazole Sodium 40 mg 01/23/20 09:00 01/25/20 08:39 Protonix PO 40 mg QAM VASYL Administration Polyethylene Glycol 17 gm 01/22/20 17:00 01/25/20 08:43 Miralax PO 17 gm BID VASYL Administration Tramadol HCl 50 mg 01/20/20 14:03 01/25/20 12:28 Ultram PO 50 mg Q6H PRN Administration Pain Rated 4-6 Radiology Results: ITS Impressions Catheter Placement CT 01/21/20 16:00 IMPRESSION
[2020-01-26] VITALS (18 sets, daily range): BP systolic 129–171; BP diastolic 59–84; PULSE 82–152; RESP 20–22; TEMP 36.2–37; O2SAT 93–98
[2020-01-26] MEDS: traMADol HCL 50 MG TABLET PO ×2 (00:46→23:47)
[2020-01-26 04:53] LABS: Basophils Absolute Auto 0.1 K/mm3 (0.0-0.1); Basophils Percent Auto 0.2 % (0.2-1.2); Eosinophils Absolute Auto 0.1 K/mm3 (0-0.3); Eosinophils Percent Auto 0.2 % (0-4.4); Hematocrit 29.6 % (37.0-47.0); Hemoglobin 9.3 g/dL (12.0-15.0); Immature Granulocyte Absolute 0.52 K/mm3 (0.00-0.031); Immature Granulocyte Percent A 2.1 % (0-0.5); Lymphocytes Absolute Auto 1.32 K/mm3 (0.9-3.2); Lymphocytes Percent Auto 5.2 % (18.3-44.2); Mean Corpuscular HGB Conc 31.4 g/dl (32-36); Mean Corpuscular Hemoglobin 25.8 pg (26-34); Mean Platelet Volume 8.9 fl (7.4-10.4); Monocytes Absolute Auto 1.6 K/mm3 (0.1-0.6); Monocytes Percent Auto 6.2 % (2.6-8.5); Neutrophils Absolute Auto 21.7 K/mm3 (1.3-6.7); Neutrophils Percent Auto 86.1 % (45.5-73.1); Platelet Count Result 666 k/mm3 (150-375); Red Blood Count 3.61 M/mm3 (4.2-5.4); Red Cell Distribution Width 15.8 % (11.5-14.5); White Blood Count 25.3 K/mm3 (4.5-10.0)
[2020-01-26 05:09] LABS: Alanine Aminotransferase 17 U/L (4-35); Albumin Level 2.9 g/dL (3.5-5.1); Alkaline Phosphatase 204 U/L (38-126); Anion Gap 8 mmol/L (8-16); Aspartate Amino Transferase 21 U/L (14-36); Bilirubin,Total 0.8 mg/dL (0.2-1.3); Blood Urea Nitrogen 9 mg/dL (7-17); Calcium 8.6 mg/dL (8.4-10.2); Carbon Dioxide 29 mmol/L (22-30); Chloride 95 mmol/L (98-107); Estimated CRCL calculation 111 ml/min; Estimated Glomerular Filt Rate > 60; Glucose 151 mg/dL (65-105); Potassium 4.2 mmol/L (3.4-5.0); Sodium 132 mmol/L (137-145)
[2020-01-26] MEDS: PANTOPRAZOLE 40 MG TABLET PO (08:39)
[2020-01-26] MEDS: dilTIAZem HCL CD 180 MG CAP.ER.24H PO (08:40)
[2020-01-26] MEDS: FERROUS SULFATE 324 MG TABLET PO ×2 (08:40→17:17)
--- NOTE | 2020-01-26 09:49 | PM.PNCARD ---
Progress Note: A&P Assessment and Plan (1) Paroxysmal atrial fibrillation: Code(s): I48.0 - Paroxysmal atrial fibrillation Status: Acute Assessment and Plan: A fib with RVR likely due to underlying infection she converted to sinus rhythm but now back in A fib since 9:00 am this morning with HR ~130-140 She just received Cardizem 180. Will give 5 mg of IV metoprolol and start 25 mg PO daily Echocardiogram showed normal left ventricular systolic function but evidence of pulmonary hypertension, Will discuss AC in outpatient settings. Currently she is s/p drain placement for liver abscess. Continue ASA (2) Abscess of liver: Code(s): K75.0 - Abscess of liver Status: Acute (3) Leukocytosis: Qualifiers: Leukocytosis type: unspecified Qualified Code(s): D72.829 - Elevated white blood cell count, unspecified Code(s): D72.829 - Elevated white blood cell count, unspecified Status: Acute (4) Hypertension: Code(s): I10 - Essential (primary) hypertension Status: Acute Assessment and Plan: On Lisinopril at home. Now started on Cardizem and Metoprolol. Will monitor. Additional Plan Thank you for allowing me to participate in this patient's care, I will be following up with you. Please do not hesitate to call me for any other inquiry Subjective Date/time seen: 01/26/20 09:49 She went back in A fib around 9:00 am with HR ~130-140. She feels okay . Denies chest pain, shortness of breath, palpitations or dizziness. Review of Systems Constitutional: Constitutional: Reports difficulty sleeping, Reports fatigue and Reports lethargy Cardiovascular: Cardiovascular: Denies chest pain, Reports leg edema and Reports palpitations Gastrointestinal: Gastrointestinal: Reports abdominal pain and Reports nausea Endocrine: Endocrine: Reports fatigue and Reports palpitations Exam Narrative: Exam Narrative: Awake alert oriented x3 not in acute distress Neck is supple no obvious JVD, no carotid bruit Chest: Good air entry bilaterally, lungs are clear to auscultation and percussion bilaterally Cardiovascular: Regular rate and rhythm, 2/6 systolic murmur noted left sternal border Abdomen: Soft nontender bowel sounds positive Extremities: +1 edema has good pulses distally bilaterally Objective Data Vital Signs Vital Signs: Vital Signs - 24 hr 01/25/20 10:00 01/25/20 12:00 01/25/20 13:19 Temperature 36.3 C L Pulse Rate 93 92 92 Respiratory Rate 24 H Blood Pressure 136/61 Pulse Oximetry 100 01/25/20 14:00 01/25/20 15:27 01/25/20 15:28 Temperature Pulse Rate 110 H 101 H 92 Respiratory Rate 19 18 Blood Pressure 164/93 H 158/88 H Pulse Oximetry 93 94 01/25/20 16:00 01/25/20 17:12 01/25/20 19:59 Temperature 36.3 C L 36.7 C Pulse Rate 99 99 90 Respiratory Rate 20 20 Blood Pressure 112/89 133/60 Pulse Oximetry 97 96 01/25/20 20:00 01/25/20 22:00 01/25/20 23:35 Temperature 36.7 C Pulse Rate 90 96 107 H Respiratory Rate 20 20 Blood Pressure 155/82 H Pulse Oximetry 96 97 01/26/20 00:00 01/26/20 02:00 01/26/20 04:00 Temperature 36.7 C Pulse Rate 102 H 104 H 105 H Respiratory Rate 20 20 Blood Pressure 171/84 H Pulse Oximetry 97 97 01/26/20 06:00 01/26/20 08:34 Temperature 36.2 C L Pulse Rate 88 101 H Respiratory Rate 20 Blood Pressure 142/72 H Pulse Oximetry 93 Intake/Output Intake/Output: Intake & Output 01/23/20 01/24/20 01/25/20 01/26/20 23:59 23:59 23:59 23:59 Intake Total 2450 2150 1690 350 Output Total 1423 1561 2520 740 Balance [facility]7 589 -830 -390 Meds/Results Medications: Active Medications Generic Name Dose Route Start Last Admin Trade Name Freq PRN Reason Stop Dose Admin Acetaminophen 650 mg 01/19/20 09:05 01/25/20 08:39 Tylenol Tablet PO 650 mg Q4HR PRN Administration Mild Pain (1-3) or Fever Bisacodyl 10 mg 01/22/20 09:35 Dulcolax Suppository REC
[2020-01-26] MEDS: METOPROLOL TARTRATE INJ 5 MG/5 ML VIAL IV PUSH (10:39)
[2020-01-26] MEDS: METOPROLOL SUCCINATE EXT REL 25 MG TABCR PO (10:40)
[2020-01-26] MEDS: ACETAMINOPHEN 325 MG TABLET 650 MG PO ×3 (10:47→21:17)
--- NOTE | 2020-01-26 11:06 | WPDINFPN2 ---
Progress Note: A&P Assessment and Plan (1) Abscess of liver: Code(s): K75.0 - Abscess of liver Status: Acute Assessment and Plan: 1. Liver abscess, [address] Fusobacterium isolated, beta lactamase negative 2. Diverticulosis and abn sigmoid on imaging, likely diverticulitis as source of #1 3. Pleural effusion, drained 4. Leukocytosis due to #1, #2 and perhaps #3, still high, due to incomplete source control 5. SVT 6. Mild hydronephrosis REC PipTazo #10 / 21 days, continue. Will need repeat imaging in the coming days to investigate for undrained infected fluid. F/U on pleural fluid results, no gram stain yet available Subjective Date/time seen: 01/26/20 11:06 Interval history: loose bms no true diarrhea Exam Narrative: Exam Narrative: afebrile Const: General: no acute distress Resp: Effort & Inspection: normal respiratory effort Auscultation: clear to auscultation bilaterally Cardio: Rate: regular rate Rhythm: regular rhythm Heart sounds: no murmurs GI: Inspection: distended GI Palp: Yes Soft to palpation, No Tenderness to palpation present (GI) and No Guarding due to palpation present (GI) Skin: General skin exam: normal color and no rashes or lesions noted Objective Data Vital Signs Vital Signs: Vital Signs - 24 hr 01/25/20 12:00 01/25/20 13:19 01/25/20 14:00 Temperature 36.3 C L Pulse Rate 92 92 110 H Respiratory Rate 24 H Blood Pressure 136/61 Pulse Oximetry 100 01/25/20 15:27 01/25/20 15:28 01/25/20 16:00 Temperature Pulse Rate 101 H 92 99 Respiratory Rate 19 18 Blood Pressure 164/93 H 158/88 H Pulse Oximetry 93 94 01/25/20 17:12 01/25/20 19:59 01/25/20 20:00 Temperature 36.3 C L 36.7 C Pulse Rate 99 90 90 Respiratory Rate 20 20 20 Blood Pressure 112/89 133/60 Pulse Oximetry 97 96 96 01/25/20 22:00 01/25/20 23:35 01/26/20 00:00 Temperature 36.7 C Pulse Rate 96 107 H 102 H Respiratory Rate 20 20 Blood Pressure 155/82 H Pulse Oximetry 97 97 01/26/20 02:00 01/26/20 04:00 01/26/20 06:00 Temperature 36.7 C Pulse Rate 104 H 105 H 88 Respiratory Rate 20 Blood Pressure 171/84 H Pulse Oximetry 97 01/26/20 08:34 01/26/20 10:39 01/26/20 10:40 Temperature 36.2 C L Pulse Rate 101 H 152 H 152 H Respiratory Rate 20 Blood Pressure 142/72 H Pulse Oximetry 93 Intake/Output Intake/Output: Intake & Output 01/23/20 01/24/20 01/25/20 01/26/20 23:59 23:59 23:59 23:59 Intake Total 2450 2150 1690 760 Output Total 1423 1561 2520 740 Balance 1027 589 -830 20 Meds/Results Medications: Active Medications Generic Name Dose Route Start Last Admin Trade Name Freq PRN Reason Stop Dose Admin Acetaminophen 650 mg 01/19/20 09:05 01/26/20 10:47 Tylenol Tablet PO 650 mg Q4HR PRN Administration Mild Pain (1-3) or Fever Bisacodyl 10 mg 01/22/20 09:35 Dulcolax Suppository RECTAL QAM PRN Constipation Diltiazem HCl 180 mg 01/25/20 10:00 01/26/20 08:40 Cardizem Cd PO 180 mg QAM VASYL Administration Ferrous Sulfate 324 mg 01/23/20 08:00 01/26/20 08:40 Ferrous Sulfate PO 324 mg TIDWM VASYL Administration Piperacillin/Tazobactam/Dextrose 3.375 gm in 50 mls @ 100 mls/hr 01/17/20 15:00 01/26/20 09:09 Zosyn 3.375 Gm/D5w 50ml Pm IVPB Infused Q6H VASYL Infusion Metoprolol Succinate 25 mg 01/26/20 10:10 01/26/20 10:40 Toprol Xl PO 25 mg QAM VASYL Administration Morphine Sulfate 4 mg 01/17/20 09:56 01/22/20 00:13 Morphine Sulfate Inj IV PUSH 4 mg Q2H PRN Administration Pain Rated 7-10 Ondansetron HCl 4 mg 01/17/20 09:56 01/22/20 00:07 Zofran Inj IV PUSH 4 mg Q4H PRN Administration Nausea Pantoprazole Sodium 40 mg 01/23/20 09:00 01/26/20 08:39 Protonix PO 40 mg QAM VASYL Administration Polyethylene Glycol 17 gm 01/22/20 17:00 01/26/20 10:34 Miralax PO Not Given BID VASYL Tramadol HCl 50 mg
--- NOTE | 2020-01-26 11:36 | PM.PNGS ---
Progress Note: A&P Assessment and Plan (1) Empyema lung: Code(s): J86.9 - Pyothorax without fistula Status: Acute Assessment and Plan: Pigtail drain in chest placed to -20cm H2O suction this AM after reviewing CXR. Will see if this helps drainage, may consider increasing suction if necessary. Will repeat CXR in AM. Continue IV antibiotics per ID (2) Abscess of liver: Code(s): K75.0 - Abscess of liver Status: Acute Assessment and Plan: Monitor drain output, removal of drains once having minimal output and WBC and other signs of infection are improved (3) Diverticulitis: Code(s): K57.92 - Diverticulitis of intestine, part unspecified, without perforation or abscess without bleeding Status: Acute (4) Leukocytosis: Qualifiers: Leukocytosis type: unspecified Qualified Code(s): D72.829 - Elevated white blood cell count, unspecified Code(s): D72.829 - Elevated white blood cell count, unspecified Status: Acute Subjective Subjective Date/Time Seen: 01/26/20 11:36 Patient feeling ok. No fevers. No abdominal pain. Breathing is stable. CXR this AM was done with Pleurovac to water seal. Exam Resp: Effort & Inspection: normal respiratory effort Auscultation: clear to auscultation bilaterally Other: Right chest tube in place with mostly serous drainage GI: Inspection: Pannus present and obesity GI Palp: No Tenderness to palpation present (GI) and No Guarding due to palpation present (GI) Other: Pigtail drains in place, scant bloody purulent drainage. Objective Data Vital Signs Vital Signs: Vital Signs - 24 hr 01/25/20 12:00 01/25/20 13:19 01/25/20 14:00 Temperature 36.3 C L Pulse Rate 92 92 110 H Respiratory Rate 24 H Blood Pressure 136/61 Pulse Oximetry 100 01/25/20 15:27 01/25/20 15:28 01/25/20 16:00 Temperature Pulse Rate 101 H 92 99 Respiratory Rate 19 18 Blood Pressure 164/93 H 158/88 H Pulse Oximetry 93 94 01/25/20 17:12 01/25/20 19:59 01/25/20 20:00 Temperature 36.3 C L 36.7 C Pulse Rate 99 90 90 Respiratory Rate 20 20 20 Blood Pressure 112/89 133/60 Pulse Oximetry 97 96 96 01/25/20 22:00 01/25/20 23:35 01/26/20 00:00 Temperature 36.7 C Pulse Rate 96 107 H 102 H Respiratory Rate 20 20 Blood Pressure 155/82 H Pulse Oximetry 97 97 01/26/20 02:00 01/26/20 04:00 01/26/20 06:00 Temperature 36.7 C Pulse Rate 104 H 105 H 88 Respiratory Rate 20 Blood Pressure 171/84 H Pulse Oximetry 97 01/26/20 08:34 01/26/20 10:39 01/26/20 10:40 Temperature 36.2 C L Pulse Rate 101 H 152 H 152 H Respiratory Rate 20 Blood Pressure 142/72 H Pulse Oximetry 93 Intake/Output Intake/Output: Intake & Output 01/23/20 01/24/20 01/25/20 01/26/20 23:59 23:59 23:59 23:59 Intake Total 2450 2150 1690 760 Output Total 1423 1561 2520 740 Balance 1027 589 -830 20 Meds/Results Medications: Active Medications Generic Name Dose Route Start Last Admin Trade Name Freq PRN Reason Stop Dose Admin Acetaminophen 650 mg 01/19/20 09:05 01/26/20 10:47 Tylenol Tablet PO 650 mg Q4HR PRN Administration Mild Pain (1-3) or Fever Bisacodyl 10 mg 01/22/20 09:35 Dulcolax Suppository RECTAL QAM PRN Constipation Diltiazem HCl 180 mg 01/25/20 10:00 01/26/20 08:40 Cardizem Cd PO 180 mg QAM VASYL Administration Ferrous Sulfate 324 mg 01/23/20 08:00 01/26/20 08:40 Ferrous Sulfate PO 324 mg TIDWM VASYL Administration Piperacillin/Tazobactam/Dextrose 3.375 gm in 50 mls @ 100 mls/hr 01/17/20 15:00 01/26/20 09:09 Zosyn 3.375 Gm/D5w 50ml Pm IVPB Infused Q6H VASYL Infusion Metoprolol Succinate 25 mg 01/26/20 10:10 01/26/20 10:40 Toprol Xl PO 25 mg QAM VASYL Administration Morphine Sulfate 4 mg 01/17/20 09:56 01/22/20 00:13 Morphine Sulfate Inj IV PUSH 4 mg Q2H PRN Administration Pain Rated 7-10 Ondansetron HCl 4 mg
--- NOTE | 2020-01-26 16:28 | PM.IMPN ---
Progress Note: A&P Assessment and Plan (1) Abscess of liver: Code(s): K75.0 - Abscess of liver Status: Acute Assessment and Plan: 01/24/20 14:[address] scan of the abdomen which showed:1. New clustered liver masses, which may be abscesses, metastatic disease, or cholangiocarcinoma. 2. Sigmoid colon wall thickening with perisigmoid soft tissue and multiple fistulas, which may be chronic diverticulitis or malignancy. 3. Mild left hydronephrosis and proximal hydroureter secondary to the perisigmoid soft tissue. Pt has been seen by ID and surgery. For now follow ID recommendations Zosyn only for 5 days Sp second drain placement, THROUGH THE POSTERIOR RIGHT FLANK- draining well. Can stop iv zosyn tomorrow Can stop iv fluids due to swelling in the ankles continue to monitor in hospital 01/26/20 16:28 today early this morning Patient went into AFib with RVR patient was given IV diltiazem converted to sinus rhythm seen by bulk system operator and started the patient on oral diltiazem 30 mg q.6 current patient denies any complaint of chest pain shortness of breath palpitation fever or chills, see denies any abdominal pain, patient is seen by surgery team suggesting CT of abdomen to further evaluate liver abscess however patient has a contrast allergy, however about 3 years ago patient had a cardiac catheterization with contrast and there was no complication for allergy, will recheck to see we can do without contrast, patient is seen by Dr. teixeira recommending to continue IV antibiotics for total of 14-21 days on 01/[address] scan which showed; 1. Development of moderate right pleural empyema or effusion with loculations. Adjacent multisegmental right basilar atelectasis. 2. Persistent sizable heterogeneous right liver lobe abscess with multiple septations. 3. Persistent findings suspicious for extraluminal gas from perforated sigmoid diverticulitis. No gross free intraperitoneal gas. 4. Colonic diverticulosis. patient with moderate right pleural empyema patient was seen by surgery team recommending chest tube to drain the empyema, will need repeat chest x-ray to monitor drainage. patient appears clinically stable denies any chest pain palpitation abdominal pain nausea or vomiting fever or chills, patient is having was BM, patient seen by Dr. teixeira further recommendation to follow (2) Leukocytosis: Qualifiers: Leukocytosis type: unspecified Qualified Code(s): D72.829 - Elevated white blood cell count, unspecified Code(s): D72.829 - Elevated white blood cell count, unspecified Status: Acute Assessment and Plan: Most likely secondary to liver abscess, diverticulitis and hydronephrosis (3) Diverticulitis: Code(s): K57.92 - Diverticulitis of intestine, part unspecified, without perforation or abscess without bleeding Status: Acute Assessment and Plan: As per CT scan (4) Sepsis: Qualifiers: Sepsis acute organ dysfunction status: without acute organ dysfunction Sepsis type: sepsis due to unspecified organism Qualified Code(s): A41.9 - Sepsis, unspecified organism Code(s): A41.9 - Sepsis, unspecified organism Status: Resolved Assessment and Plan: Pt is being treated for this currently. (5) Hydronephrosis: Code(s): N13.30 - Unspecified hydronephrosis Status: Acute Assessment and Plan: I will make urology consult, for microscopic hematuria and mild hydronephrosis. (6) Anemia: Code(s): D64.9 - Anemia, unspecified Status: Acute Assessment and Plan: [place] iron deficiency no history of iron deficiency anaemia before Iron supplements added FOBT not ordered as pt had a recent colonscopy (7) Empyema lung: Code(s): J86.9 - Pyothorax without fistula Status: Acute Assessment and Plan: plan is above (8) Paroxysmal atrial fibrillation: Code(s): I48.0
[2020-01-26] MEDS: polyethylene glycoL 3350 17 GM POWD.PACK PO (17:21)
[2020-01-27] VITALS (19 sets, daily range): BP systolic 120–153; BP diastolic 57–99; PULSE 83–124; RESP 18–24; TEMP 36.2–37.1; O2SAT 94–97
[2020-01-27] MEDS: ACETAMINOPHEN 325 MG TABLET 650 MG PO ×2 (03:57→09:37)
[2020-01-27 05:35] LABS: Basophils Percent Auto 0.2 % (0.2-1.2); Eosinophils Absolute Auto 0.1 K/mm3 (0-0.3); Eosinophils Percent Auto 0.3 % (0-4.4); Hematocrit 26.2 % (37.0-47.0); Hemoglobin 8.2 g/dL (12.0-15.0); Immature Granulocyte Absolute 0.25 K/mm3 (0.00-0.031); Immature Granulocyte Percent A 1.4 % (0-0.5); Lymphocytes Percent Auto 5.6 % (18.3-44.2); Mean Corpuscular HGB Conc 31.3 g/dl (32-36); Mean Corpuscular Volume 83.2 fl (80-100); Mean Platelet Volume 9.2 fl (7.4-10.4); Monocytes Absolute Auto 1.2 K/mm3 (0.1-0.6); Monocytes Percent Auto 6.9 % (2.6-8.5); Neutrophils Absolute Auto 15.4 K/mm3 (1.3-6.7); Neutrophils Percent Auto 85.6 % (45.5-73.1); Platelet Count Result 575 k/mm3 (150-375); Red Blood Count 3.15 M/mm3 (4.2-5.4); Red Cell Distribution Width 16.2 % (11.5-14.5); White Blood Count 17.9 K/mm3 (4.5-10.0)
[2020-01-27 05:46] LABS: Alanine Aminotransferase 13 U/L (4-35); Albumin Level 2.5 g/dL (3.5-5.1); Alkaline Phosphatase 152 U/L (38-126); Anion Gap 7 mmol/L (8-16); Aspartate Amino Transferase 15 U/L (14-36); Bilirubin,Total 0.7 mg/dL (0.2-1.3); Blood Urea Nitrogen 10 mg/dL (7-17); Calcium 8.1 mg/dL (8.4-10.2); Carbon Dioxide 31 mmol/L (22-30); Chloride 97 mmol/L (98-107); Estimated CRCL calculation 96 ml/min; Estimated Glomerular Filt Rate > 60; Glucose 138 mg/dL (65-105); Potassium 3.5 mmol/L (3.4-5.0); Sodium 135 mmol/L (137-145)
--- NOTE | 2020-01-27 06:41 | PC.NURSE ---
01/26/: 0600: PATIENT WAS UP AND DOWN TO COMMODE CONSTANTLY DURING THE NIGHT. WAS UNSURE IF THAT AFFECTED THE SUCTION OR IF THERE IS AN ACTUAL PROBLEM WITH THE SUCTION. WILL HAVE IT CHECKED OUT.
--- NOTE | 2020-01-27 09:20 | PM.PNCARD ---
Progress Note: A&P Assessment and Plan (1) Paroxysmal atrial fibrillation: Code(s): I48.0 - Paroxysmal atrial fibrillation Status: Acute Assessment and Plan: 64 y/o female with h/o HTN, morbid obesity who is seen in cardiac consultation for A fib with RVR in the setting of underlying infection (liver abscess s/p drain placement) she converted to sinus rhythm/sinus tachycardia Continue Cardizem 180 mg daily. Also started on Metoprolol 25 mg daily. Echocardiogram showed normal left ventricular systolic function but evidence of pulmonary hypertension, Will discuss AC in outpatient settings. Currently she is s/p drain placement for liver abscess. Continue ASA (2) Abscess of liver: Code(s): K75.0 - Abscess of liver Status: Acute (3) Leukocytosis: Qualifiers: Leukocytosis type: unspecified Qualified Code(s): D72.829 - Elevated white blood cell count, unspecified Code(s): D72.829 - Elevated white blood cell count, unspecified Status: Acute (4) Hypertension: Code(s): I10 - Essential (primary) hypertension Status: Acute Assessment and Plan: On Lisinopril at home. Now started on Cardizem and Metoprolol. Will monitor. Additional Plan Thank you for allowing me to participate in this patient's care, I will be following up with you. Please do not hesitate to call me for any other inquiry Subjective Date/time seen: 01/27/20 09:20 She feels better. Denies chest pain or dyspnea HR well controlled overall. HR currently 110 in sinus tachycardia after she just got up to use the bathroom. Otherwise HR ~90-100 Review of Systems Constitutional: Constitutional: Reports difficulty sleeping, Reports fatigue and Reports lethargy Cardiovascular: Cardiovascular: Denies chest pain, Reports leg edema and Reports palpitations Gastrointestinal: Gastrointestinal: Reports abdominal pain and Reports nausea Endocrine: Endocrine: Reports fatigue and Reports palpitations Exam Narrative: Exam Narrative: Awake alert oriented x3 not in acute distress Neck is supple no obvious JVD, no carotid bruit Chest: Good air entry bilaterally, lungs are clear to auscultation and percussion bilaterally Cardiovascular: Regular rate and rhythm, 2/6 systolic murmur noted left sternal border Abdomen: Soft nontender bowel sounds positive Extremities: +1 edema has good pulses distally bilaterally Objective Data Vital Signs Vital Signs: Vital Signs - 24 hr 01/26/20 10:00 01/26/20 10:39 01/26/20 10:40 Temperature Pulse Rate 135 H 152 H 152 H Respiratory Rate Blood Pressure Pulse Oximetry 01/26/20 12:00 01/26/20 12:13 01/26/20 14:00 Temperature 36.6 C Pulse Rate 98 96 82 Respiratory Rate 22 H Blood Pressure 133/63 Pulse Oximetry 96 01/26/20 16:00 01/26/20 16:20 01/26/20 18:00 Temperature 36.6 C Pulse Rate 93 84 93 Respiratory Rate 20 Blood Pressure 129/59 L Pulse Oximetry 98 01/26/20 19:03 01/26/20 20:00 01/26/20 22:00 Temperature 37.0 C Pulse Rate 94 93 93 Respiratory Rate 20 20 Blood Pressure 145/79 H Pulse Oximetry 95 95 01/27/20 00:00 01/27/20 00:06 01/27/20 02:00 Temperature 36.8 C Pulse Rate 83 85 94 Respiratory Rate 18 18 Blood Pressure 135/63 Pulse Oximetry 94 94 01/27/20 03:54 01/27/20 04:00 01/27/20 06:00 Temperature 36.6 C Pulse Rate 99 99 98 Respiratory Rate 20 20 Blood Pressure 147/91 H Pulse Oximetry 97 97 01/27/20 08:20 Temperature 36.2 C L Pulse Rate 100 Respiratory Rate 22 H Blood Pressure 153/99 H Pulse Oximetry 96 Intake/Output Intake/Output: Intake & Output 01/24/20 01/25/20 01/26/20 01/27/20 23:59 23:59 23:59 23:59 Intake Total 2150 1690 1580 375 Output Total 1561 2520 1360 2065 Balance 589 -014 220 169 Meds/Results Medications: Active Medications Generic Name Dose Route Start Last Admin Trade Name Freq PRN Reason Stop Dose Admin Acetaminop
[2020-01-27] MEDS: dilTIAZem HCL CD 180 MG CAP.ER.24H PO (09:37)
[2020-01-27] MEDS: FERROUS SULFATE 324 MG TABLET PO ×2 (09:37→14:51)
[2020-01-27] MEDS: PANTOPRAZOLE 40 MG TABLET PO (09:37)
--- NOTE | 2020-01-27 13:51 | PM.PNGS ---
Progress Note: A&P Assessment and Plan (1) Empyema lung: Code(s): J86.9 - Pyothorax without fistula Status: Acute Assessment and Plan: clinically improving, will recheck CXR in am, cont CT to sxn for now, cont abx (2) Abscess of liver: Code(s): K75.0 - Abscess of liver Status: Acute Assessment and Plan: cont drains, abx, WBC improving (3) Diverticulitis: Code(s): K57.92 - Diverticulitis of intestine, part unspecified, without perforation or abscess without bleeding Status: Acute Assessment and Plan: cont abx, exam benign Subjective Subjective Date/Time Seen: 01/27/20 13:51 feels good, no acute issues, reports no abd pain, no SOB Review of Systems Constitutional: Constitutional: Denies chills, Reports fatigue, Reports lethargy and Reports weakness Cardiovascular: Cardiovascular: Denies chest pain and Denies palpitations Respiratory: Respiratory: Denies cough, Denies dyspnea, Reports dyspnea on exertion and Denies wheezing Gastrointestinal: Gastrointestinal: Denies abdominal pain, Denies bloating, Denies constipation, Denies diarrhea, Denies nausea and Denies vomiting Exam Const: General: no acute distress Resp: Auscultation: diminished lung sounds Other: R chest tube c some serous drainage Cardio: Rate: tachycardic GI: Other: S, sl dist, isidro TTP, drain x 2 in RUQ draining serous fluid Objective Data Vital Signs Vital Signs: Vital Signs - 24 hr 01/26/20 14:00 01/26/20 16:00 01/26/20 16:20 Temperature 36.6 C Pulse Rate 82 93 84 Respiratory Rate 20 Blood Pressure 129/59 L Pulse Oximetry 98 01/26/20 18:00 01/26/20 19:03 01/26/20 20:00 Temperature 37.0 C Pulse Rate 93 94 93 Respiratory Rate 20 20 Blood Pressure 145/79 H Pulse Oximetry 95 95 01/26/20 22:00 01/27/20 00:00 01/27/20 00:06 Temperature 36.8 C Pulse Rate 93 83 85 Respiratory Rate 18 18 Blood Pressure 135/63 Pulse Oximetry 94 94 01/27/20 02:00 01/27/20 03:54 01/27/20 04:00 Temperature 36.6 C Pulse Rate 94 99 99 Respiratory Rate 20 20 Blood Pressure 147/91 H Pulse Oximetry 97 97 01/27/20 06:00 01/27/20 08:00 01/27/20 08:20 Temperature 36.2 C L Pulse Rate 98 115 H 100 Respiratory Rate 22 H Blood Pressure 153/99 H Pulse Oximetry 96 01/27/20 10:00 01/27/20 12:00 01/27/20 12:09 Temperature 36.7 C Pulse Rate 100 103 H 96 Respiratory Rate 22 H Blood Pressure 152/85 H Pulse Oximetry 95 Intake/Output Intake/Output: Intake & Output 01/24/20 01/25/20 01/26/20 01/27/20 23:59 23:59 23:59 23:59 Intake Total 2150 1690 1580 1265 Output Total 1561 2520 1360 2415 Balance 589 -830 220 -1150 Meds/Results Medications: Active Medications Generic Name Dose Route Start Last Admin Trade Name Freq PRN Reason Stop Dose Admin Acetaminophen 650 mg 01/19/20 09:05 01/27/20 09:37 Tylenol Tablet PO 650 mg Q4HR PRN Administration Mild Pain (1-3) or Fever Bisacodyl 10 mg 01/22/20 09:35 Dulcolax Suppository RECTAL QAM PRN Constipation Diltiazem HCl 180 mg 01/25/20 10:00 01/27/20 09:37 Cardizem Cd PO 180 mg QAM VASYL Administration Ferrous Sulfate 324 mg 01/23/20 08:00 01/27/20 09:37 Ferrous Sulfate PO 324 mg TIDWM VASYL Administration Piperacillin/Tazobactam/Dextrose 3.375 gm in 50 mls @ 100 mls/hr 01/17/20 15:00 01/27/20 12:58 Zosyn 3.375 Gm/D5w 50ml Pm IVPB Infused Q6H VASYL Infusion Metoprolol Succinate 25 mg 01/27/20 18:00 Toprol Xl PO QPM VASYL Ondansetron HCl 4 mg 01/17/20 09:56 01/22/20 00:07 Zofran Inj IV PUSH 4 mg Q4H PRN Administration Nausea Pantoprazole Sodium 40 mg 01/23/20 09:00 01/27/20 09:37 Protonix PO 40 mg QAM VASYL Administration Polyethylene Glycol 17 gm 01/22/20 17:00 01/27/20 09:38 Miralax PO Not Given BID VASYL Tramadol HCl 50 mg 01/20/20 14:03 01/26/20 23:47 Ultram PO 50 mg
--- NOTE | 2020-01-27 13:59 | WPDINFPN2 ---
Progress Note: A&P Assessment and Plan (1) Abscess of liver: Code(s): K75.0 - Abscess of liver Status: Acute Assessment and Plan: 1. Liver abscess, [address] Fusobacterium isolated, beta lactamase negative 2. Diverticulosis and abn sigmoid on imaging, likely diverticulitis as source of #1 3. Pleural effusion, drained, culture and smear without viable bacteria. CXR stable 4. Leukocytosis due to #1, #2 and perhaps #3, somewhat better though not resolved 5. SVT 6. Mild hydronephrosis REC PipTazo #11 / days, continue. Will need repeat imaging in the coming days to investigate for undrained infected fluid. Ok discharge planning, e.g., SNF or swing bed. Will f/u periodically Subjective Date/time seen: 01/27/20 13:59 Interval history: no new complaints Exam Narrative: Exam Narrative: afebrile Const: General: no acute distress Resp: Effort & Inspection: normal respiratory effort Auscultation: clear to auscultation bilaterally Cardio: Rate: regular rate Rhythm: regular rhythm Heart sounds: no gallops and no murmurs GI: Inspection: non-distended GI Palp: Yes Soft to palpation and No Tenderness to palpation present (GI) Other: 2 abd drains, one pleural drain, all with minimal to scant brown thin fluid Objective Data Vital Signs Vital Signs: Vital Signs - 24 hr 01/26/20 14:00 01/26/20 16:00 01/26/20 16:20 Temperature 36.6 C Pulse Rate 82 93 84 Respiratory Rate 20 Blood Pressure 129/59 L Pulse Oximetry 98 01/26/20 18:00 01/26/20 19:03 01/26/20 20:00 Temperature 37.0 C Pulse Rate 93 94 93 Respiratory Rate 20 20 Blood Pressure 145/79 H Pulse Oximetry 95 95 01/26/20 22:00 01/27/20 00:00 01/27/20 00:06 Temperature 36.8 C Pulse Rate 93 83 85 Respiratory Rate 18 18 Blood Pressure 135/63 Pulse Oximetry 94 94 01/27/20 02:00 01/27/20 03:54 01/27/20 04:00 Temperature 36.6 C Pulse Rate 94 99 99 Respiratory Rate 20 20 Blood Pressure 147/91 H Pulse Oximetry 97 97 01/27/20 06:00 01/27/20 08:00 01/27/20 08:20 Temperature 36.2 C L Pulse Rate 98 115 H 100 Respiratory Rate 22 H Blood Pressure 153/99 H Pulse Oximetry 96 01/27/20 10:00 01/27/20 12:00 01/27/20 12:09 Temperature 36.7 C Pulse Rate 100 103 H 96 Respiratory Rate 22 H Blood Pressure 152/85 H Pulse Oximetry 95 Intake/Output Intake/Output: Intake & Output 01/24/20 01/25/20 01/26/20 01/27/20 23:59 23:59 23:59 23:59 Intake Total 2150 1690 1580 1265 Output Total 1561 2520 1360 2415 Balance 589 -830 220 -1150 Meds/Results Medications: Active Medications Generic Name Dose Route Start Last Admin Trade Name Freq PRN Reason Stop Dose Admin Acetaminophen 650 mg 01/19/20 09:05 01/27/20 09:37 Tylenol Tablet PO 650 mg Q4HR PRN Administration Mild Pain (1-3) or Fever Bisacodyl 10 mg 01/22/20 09:35 Dulcolax Suppository RECTAL QAM PRN Constipation Diltiazem HCl 180 mg 01/25/20 10:00 01/27/20 09:37 Cardizem Cd PO 180 mg QAM VASYL Administration Ferrous Sulfate 324 mg 01/23/20 08:00 01/27/20 09:37 Ferrous Sulfate PO 324 mg TIDWM VASYL Administration Piperacillin/Tazobactam/Dextrose 3.375 gm in 50 mls @ 100 mls/hr 01/17/20 15:00 01/27/20 12:58 Zosyn 3.375 Gm/D5w 50ml Pm IVPB Infused Q6H VASYL Infusion Metoprolol Succinate 25 mg 01/27/20 18:00 Toprol Xl PO QPM VASYL Ondansetron HCl 4 mg 01/17/20 09:56 01/22/20 00:07 Zofran Inj IV PUSH 4 mg Q4H PRN Administration Nausea Pantoprazole Sodium 40 mg 01/23/20 09:00 01/27/20 09:37 Protonix PO 40 mg QAM VASYL Administration Polyethylene Glycol 17 gm 01/22/20 17:00 01/27/20 09:38 Miralax PO Not Given BID VASYL Tramadol HCl 50 mg 01/20/20 14:03 01/26/20 23:47 Ultram PO 50 mg Q6H PRN Administration Pain Rated 4-6 Radiology Results: ITS Impressions Catheter Placement CT 01/21/20 16:00 I
--- NOTE | 2020-01-27 17:47 | PM.IMPN ---
Progress Note: A&P Assessment and Plan (1) Abscess of liver: Code(s): K75.0 - Abscess of liver Status: Acute Assessment and Plan: 01/27/20 17:[address] scan of the abdomen which showed:1. New clustered liver masses, which may be abscesses, metastatic disease, or cholangiocarcinoma. 2. Sigmoid colon wall thickening with perisigmoid soft tissue and multiple fistulas, which may be chronic diverticulitis or malignancy. 3. Mild left hydronephrosis and proximal hydroureter secondary to the perisigmoid soft tissue. Pt has been seen by ID and surgery. For now follow ID recommendations Zosyn only for 5 days Sp second drain placement, THROUGH THE POSTERIOR RIGHT FLANK- draining well. Can stop iv zosyn tomorrow Can stop iv fluids due to swelling in the ankles continue to monitor in hospital today early this morning Patient went into AFib with RVR patient was given IV diltiazem converted to sinus rhythm seen by executive steward and started the patient on oral diltiazem 30 mg q.6 current patient denies any complaint of chest pain shortness of breath palpitation fever or chills, see denies any abdominal pain, patient is seen by surgery team suggesting CT of abdomen to further evaluate liver abscess however patient has a contrast allergy, however about 3 years ago patient had a cardiac catheterization with contrast and there was no complication for allergy, will recheck to see we can do without contrast, patient is seen by Dr. teixeira recommending to continue IV antibiotics for total of 14-21 days on 01/[address] scan which showed; 1. Development of moderate right pleural empyema or effusion with loculations. Adjacent multisegmental right basilar atelectasis. 2. Persistent sizable heterogeneous right liver lobe abscess with multiple septations. 3. Persistent findings suspicious for extraluminal gas from perforated sigmoid diverticulitis. No gross free intraperitoneal gas. 4. Colonic diverticulosis. patient with moderate right pleural empyema patient was seen by surgery team recommending chest tube to drain the empyema, will need repeat chest x-ray to monitor drainage. patient white counts are trending down, patient appears clinically stable denies any chest pain palpitation abdominal pain nausea or vomiting fever or chills, patient is having was BM, patient seen by Dr. teixeira further recommendation to follow, will repeat chest x-ray tomorrow to assess for the pleural effusion drainage and eventually will need CT scan of abdomen to assess for liver abscess improvement, seen by Dr. teixeira patient may be able to transfer to SNF will require IV antibiotic 04/29 days. (2) Leukocytosis: Qualifiers: Leukocytosis type: unspecified Qualified Code(s): D72.829 - Elevated white blood cell count, unspecified Code(s): D72.829 - Elevated white blood cell count, unspecified Status: Acute Assessment and Plan: Most likely secondary to liver abscess, diverticulitis and hydronephrosis (3) Diverticulitis: Code(s): K57.92 - Diverticulitis of intestine, part unspecified, without perforation or abscess without bleeding Status: Acute Assessment and Plan: As per CT scan (4) Sepsis: Qualifiers: Sepsis acute organ dysfunction status: without acute organ dysfunction Sepsis type: sepsis due to unspecified organism Qualified Code(s): A41.9 - Sepsis, unspecified organism Code(s): A41.9 - Sepsis, unspecified organism Status: Resolved Assessment and Plan: Pt is being treated for this currently. (5) Hydronephrosis: Code(s): N13.30 - Unspecified hydronephrosis Status: Acute Assessment and Plan: I will make urology consult, for microscopic hematuria and mild hydronephrosis. (6) Anemia: Code(s): D64.9 - Anemia, unspecified Status: Acute Assessment and Plan: Fredy iron deficiency no history of iron deficiency
[2020-01-27] MEDS: METOPROLOL SUCCINATE EXT REL 25 MG TABCR PO (18:52)
[2020-01-27] MEDS: traMADol HCL 50 MG TABLET PO (21:21)
[2020-01-28] VITALS (14 sets, daily range): BP systolic 127–147; BP diastolic 62–94; PULSE 76–98; RESP 12–20; TEMP 35.7–37.2; O2SAT 93–96
[2020-01-28 04:53] LABS: Basophils Percent Auto 0.3 % (0.2-1.2); Eosinophils Percent Auto 0.3 % (0-4.4); Hematocrit 25.9 % (37.0-47.0); Immature Granulocyte Absolute 0.18 K/mm3 (0.00-0.031); Immature Granulocyte Percent A 1.2 % (0-0.5); Lymphocytes Absolute Auto 0.98 K/mm3 (0.9-3.2); Lymphocytes Percent Auto 6.7 % (18.3-44.2); Mean Corpuscular HGB Conc 30.9 g/dl (32-36); Mean Corpuscular Hemoglobin 25.8 pg (26-34); Mean Corpuscular Volume 83.5 fl (80-100); Monocytes Absolute Auto 1.2 K/mm3 (0.1-0.6); Monocytes Percent Auto 8.3 % (2.6-8.5); Neutrophils Absolute Auto 12.1 K/mm3 (1.3-6.7); Neutrophils Percent Auto 83.2 % (45.5-73.1); Platelet Count Result 598 k/mm3 (150-375); Red Cell Distribution Width 16.4 % (11.5-14.5); White Blood Count 14.5 K/mm3 (4.5-10.0)
[2020-01-28 05:07] LABS: Alanine Aminotransferase 12 U/L (4-35); Albumin Level 2.5 g/dL (3.5-5.1); Alkaline Phosphatase 129 U/L (38-126); Anion Gap 6 mmol/L (8-16); Aspartate Amino Transferase 16 U/L (14-36); Bilirubin,Total 0.5 mg/dL (0.2-1.3); Blood Urea Nitrogen 9 mg/dL (7-17); Carbon Dioxide 33 mmol/L (22-30); Chloride 96 mmol/L (98-107); Estimated CRCL calculation 113 ml/min; Estimated Glomerular Filt Rate > 60; Glucose 135 mg/dL (65-105); Potassium 3.7 mmol/L (3.4-5.0); Sodium 135 mmol/L (137-145)
--- NOTE | 2020-01-28 07:12 | WPDUROPN2 ---
Progress Note: A&P Assessment and Plan (1) Hydronephrosis: Code(s): N13.30 - Unspecified hydronephrosis Status: Acute Assessment and Plan: Left hydronephrosis is minimal and looks slightly less pronounced on CT-scan done yesterday afternoon and renal u/s done today. I've wrestled with idea of stent placement but, given very minimal nature of hydro. with normal u/a and jason renal function, don't feel it's currently indicated. Will continue to follow. 01/28/2020 Improving - afebrile and leukocytosis resolving. Given negative urine cx., normal renal function, overall clinical improvement and minimal nature of left hydronephrosis I have no plans to place a ureteral stent at this time. Subjective Subjective Date/Time Seen: 01/28/20 07:12 No c/o flank pain Review of Systems Cardiovascular: Cardiovascular: Denies chest pain, Denies lightheadedness, Denies palpitations and Denies dyspnea Respiratory: Respiratory: Denies dyspnea Gastrointestinal: Gastrointestinal: Denies diarrhea, Denies nausea and Denies vomiting Genitourinary: Genitourinary: Denies hematuria and Denies dysuria Endocrine: Endocrine: Denies palpitations Exam Const: General: no acute distress Resp: Effort & Inspection: normal respiratory effort GI: Inspection: non-distended GI Palp: No abdominal tenderness and No Guarding due to palpation present (GI) Auscultation: normal bowel sounds Objective Data Vital Signs Vital Signs: Vital Signs - 24 hr 01/27/20 08:00 01/27/20 08:20 01/27/20 10:00 Temperature 97.2 F L Pulse Rate 115 H 100 100 Respiratory Rate 22 H Blood Pressure 153/99 H Pulse Oximetry 96 01/27/20 12:00 01/27/20 12:09 01/27/20 14:00 Temperature 98.1 F Pulse Rate 103 H 96 99 Respiratory Rate 22 H Blood Pressure 152/85 H Pulse Oximetry 95 01/27/20 16:00 01/27/20 16:36 01/27/20 18:00 Temperature 98.8 F Pulse Rate 96 100 113 H Respiratory Rate 24 H Blood Pressure 153/98 H Pulse Oximetry 96 01/27/20 18:52 01/27/20 19:33 01/27/20 20:00 Temperature 97.8 F Pulse Rate 113 H 109 H 109 H Respiratory Rate 20 20 Blood Pressure 120/57 L Pulse Oximetry 94 94 01/27/20 22:00 01/28/20 00:00 01/28/20 02:00 Temperature 97.6 F Pulse Rate 94 98 89 Respiratory Rate 20 Blood Pressure 147/94 H Pulse Oximetry 95 01/28/20 04:00 01/28/20 06:00 Temperature 97.7 F Pulse Rate 86 96 Respiratory Rate 18 Blood Pressure 134/62 Pulse Oximetry 94 Intake/Output Intake/Output: Intake & Output 01/25/20 01/26/20 01/27/20 01/28/20 23:59 23:59 23:59 23:59 Intake Total 1690 1580 1845 650 Output Total 2520 1360 2665 2050 Balance -830 220 -820 -1400 Meds/Results Medications: Active Medications Generic Name Dose Route Start Last Admin Trade Name Freq PRN Reason Stop Dose Admin Acetaminophen 650 mg 01/19/20 09:05 01/27/20 09:37 Tylenol Tablet PO 650 mg Q4HR PRN Administration Mild Pain (1-3) or Fever Bisacodyl 10 mg 01/22/20 09:35 Dulcolax Suppository RECTAL QAM PRN Constipation Diltiazem HCl 180 mg 01/25/20 10:00 01/27/20 09:37 Cardizem Cd PO 180 mg QAM VASYL Administration Ferrous Sulfate 324 mg 01/23/20 08:00 01/27/20 16:42 Ferrous Sulfate PO Not Given TIDWM VASYL Piperacillin/Tazobactam/Dextrose 3.375 gm in 50 mls @ 100 mls/hr 01/17/20 15:00 01/28/20 03:50 Zosyn 3.375 Gm/D5w 50ml Pm IVPB 02/06/20 15:01 Infused Q6H VASYL Infusion Metoprolol Succinate 25 mg 01/27/20 18:00 01/27/20 18:52 Toprol Xl PO 25 mg QPM VASYL Administration Ondansetron HCl 4 mg 01/17/20 09:56 01/22/20 00:07 Zofran Inj IV PUSH 4 mg Q4H PRN Administration Nausea Pantoprazole Sodium 40 mg 01/23/20 09:00 01/27/20 09:37 Protonix PO 40 mg QAM VASYL Administration Polyethylene Glycol 17 gm 01/22/20 17:00 01/27/20 16:42 Miralax PO Not Given BID VASYL Tramadol HCl 50 mg 0
--- NOTE | 2020-01-28 08:07 | PM.PNCARD ---
Progress Note: A&P Assessment and Plan (1) Paroxysmal atrial fibrillation: Code(s): I48.0 - Paroxysmal atrial fibrillation Status: Acute Assessment and Plan: 64 y/o female with h/o HTN, morbid obesity who is seen in cardiac consultation for A fib with RVR in the setting of underlying infection (liver abscess s/p drain placement) she converted to sinus rhythm/sinus tachycardia Continue Cardizem 180 Qam and Metoprolol 25 Qpm Echocardiogram showed normal left ventricular systolic function but evidence of pulmonary hypertension, Will discuss AC in outpatient settings. Currently she is s/p drain placement for liver abscess. Continue ASA (2) Acute diastolic (congestive) heart failure: Code(s): I50.31 - Acute diastolic (congestive) heart failure Status: Acute Assessment and Plan: She developed lower ext edema. She received IV fluids earlier. She most likely has diastolic dysfunction. Also echo showed mild pulmonary HTN probably from undiagnosed sleep apnea Will start lasix. May give IV dose today. (3) Hypertension: Code(s): I10 - Essential (primary) hypertension Status: Acute Assessment and Plan: On Lisinopril at home. Now started on Cardizem and Metoprolol. Will monitor. (4) Abscess of liver: Code(s): K75.0 - Abscess of liver Status: Acute Additional Plan Thank you for allowing me to participate in this patient's care, I will be following up with you. Please do not hesitate to call me for any other inquiry Subjective Date/time seen: 01/28/20 08:07 No overnight events. Remains in sinus rhythm, HR now ~80-90 Review of Systems Constitutional: Constitutional: Reports difficulty sleeping, Reports fatigue and Reports lethargy Cardiovascular: Cardiovascular: Denies chest pain, Reports leg edema and Reports palpitations Gastrointestinal: Gastrointestinal: Reports abdominal pain and Reports nausea Endocrine: Endocrine: Reports fatigue and Reports palpitations Exam Narrative: Exam Narrative: Awake alert oriented x3 not in acute distress Neck is supple no obvious JVD, no carotid bruit Chest: Good air entry bilaterally, lungs are clear to auscultation and percussion bilaterally Cardiovascular: Regular rate and rhythm, 2/6 systolic murmur noted left sternal border Abdomen: Soft nontender bowel sounds positive Extremities: +1 edema has good pulses distally bilaterally Objective Data Vital Signs Vital Signs: Vital Signs - 24 hr 01/27/20 08:20 01/27/20 10:00 01/27/20 12:00 Temperature 36.2 C L Pulse Rate 100 100 103 H Respiratory Rate 22 H Blood Pressure 153/99 H Pulse Oximetry 96 01/27/20 12:09 01/27/20 14:00 01/27/20 16:00 Temperature 36.7 C Pulse Rate 96 99 96 Respiratory Rate 22 H Blood Pressure 152/85 H Pulse Oximetry 95 01/27/20 16:36 01/27/20 18:00 01/27/20 18:52 Temperature 37.1 C Pulse Rate 100 113 H 113 H Respiratory Rate 24 H Blood Pressure 153/98 H Pulse Oximetry 96 01/27/20 19:33 01/27/20 20:00 01/27/20 22:00 Temperature 36.6 C Pulse Rate 109 H 109 H 94 Respiratory Rate 20 20 Blood Pressure 120/57 L Pulse Oximetry 94 94 01/28/20 00:00 01/28/20 02:00 01/28/20 04:00 Temperature 36.4 C 36.5 C Pulse Rate 98 89 86 Respiratory Rate 20 18 Blood Pressure 147/94 H 134/62 Pulse Oximetry 95 94 01/28/20 06:00 Temperature Pulse Rate 96 Respiratory Rate Blood Pressure Pulse Oximetry Intake/Output Intake/Output: Intake & Output 01/25/20 01/26/20 01/27/20 01/28/20 23:59 23:59 23:59 23:59 Intake Total 1690 1580 1845 650 Output Total 2520 1360 2665 2050 Balance -830 220 -820 -1400 Meds/Results Medications: Active Medications Generic Name Dose Route Start Last Admin Trade Name Addisonq PRN Reason Stop Dose Admin Acetaminophen 650 mg 01/19/20 09:05 01/27/20 09:37 Tylenol Tablet PO 650 mg Q4HR PRN Administration Mild Pain (1-3) or Fever Bis
[2020-01-28] MEDS: dilTIAZem HCL CD 180 MG CAP.ER.24H PO (09:06)
[2020-01-28] MEDS: FERROUS SULFATE 324 MG TABLET PO ×3 (09:06→17:15)
[2020-01-28] MEDS: PANTOPRAZOLE 40 MG TABLET PO (09:06)
[2020-01-28] MEDS: ACETAMINOPHEN 325 MG TABLET 650 MG PO ×2 (09:07→15:03)
[2020-01-28] MEDS: FUROSEMIDE INJ 40 MG/4 ML VIAL IV PUSH (09:07)
--- NOTE | 2020-01-28 10:55 | PM.PNGS ---
Progress Note: A&P Assessment and Plan (1) Empyema lung: Code(s): J86.9 - Pyothorax without fistula Status: Acute Assessment and Plan: cont CT to sxn, good drainage, cont abx, plan to reassess c poss CT on Friday (2) Abscess of liver: Code(s): K75.0 - Abscess of liver Status: Acute Assessment and Plan: good drainage, cont abx, plan to reassess early next wk (3) Diverticulitis: Code(s): K57.92 - Diverticulitis of intestine, part unspecified, without perforation or abscess without bleeding Status: Acute Assessment and Plan: cont abx, wang diet and exam benign Subjective Subjective Date/Time Seen: 01/28/20 10:55 feels much improved, almost back to baseline, no abd pain except drain sites, no SOB Review of Systems Constitutional: Constitutional: Denies chills, Reports fatigue, Reports lethargy and Reports weakness Respiratory: Respiratory: Denies cough, Denies dyspnea, Denies dyspnea on exertion and Denies wheezing Gastrointestinal: Gastrointestinal: Denies abdominal pain, Denies bloating, Denies constipation, Denies diarrhea, Denies nausea and Denies vomiting Exam Const: General: no acute distress Resp: Auscultation: diminished lung sounds Other: R CT c mod serous output Cardio: Rate: regular rate Rhythm: regular rhythm GI: Other: S, sl dist, isidro TTP, drains c minimal serous output Objective Data Vital Signs Vital Signs: Vital Signs - 24 hr 01/27/20 12:00 01/27/20 12:09 01/27/20 14:00 Temperature 36.7 C Pulse Rate 103 H 96 99 Respiratory Rate 22 H Blood Pressure 152/85 H Pulse Oximetry 95 01/27/20 16:00 01/27/20 16:36 01/27/20 18:00 Temperature 37.1 C Pulse Rate 96 100 113 H Respiratory Rate 24 H Blood Pressure 153/98 H Pulse Oximetry 96 01/27/20 18:52 01/27/20 19:33 01/27/20 20:00 Temperature 36.6 C Pulse Rate 113 H 109 H 109 H Respiratory Rate 20 20 Blood Pressure 120/57 L Pulse Oximetry 94 94 01/27/20 22:00 01/28/20 00:00 01/28/20 02:00 Temperature 36.4 C Pulse Rate 94 98 89 Respiratory Rate 20 Blood Pressure 147/94 H Pulse Oximetry 95 01/28/20 04:00 01/28/20 06:00 01/28/20 08:00 Temperature 36.5 C Pulse Rate 86 96 79 Respiratory Rate 18 Blood Pressure 134/62 Pulse Oximetry 94 01/28/20 08:12 01/28/20 10:00 Temperature 36.6 C Pulse Rate 94 97 Respiratory Rate 12 Blood Pressure 131/62 Pulse Oximetry 93 Intake/Output Intake/Output: Intake & Output 01/25/20 01/26/20 01/27/20 01/28/20 23:59 23:59 23:59 23:59 Intake Total 1690 1580 1845 650 Output Total 2520 1360 2665 3050 Balance -830 220 -820 -2400 Meds/Results Medications: Active Medications Generic Name Dose Route Start Last Admin Trade Name Freq PRN Reason Stop Dose Admin Acetaminophen 650 mg 01/19/20 09:05 01/28/20 09:07 Tylenol Tablet PO 650 mg Q4HR PRN Administration Mild Pain (1-3) or Fever Bisacodyl 10 mg 01/22/20 09:35 Dulcolax Suppository RECTAL QAM PRN Constipation Diltiazem HCl 180 mg 01/25/20 10:00 01/28/20 09:06 Cardizem Cd PO 180 mg QAM VASYL Administration Ferrous Sulfate 324 mg 01/23/20 08:00 01/28/20 09:06 Ferrous Sulfate PO 324 mg TIDWM VASYL Administration Piperacillin/Tazobactam/Dextrose 3.375 gm in 50 mls @ 100 mls/hr 01/17/20 15:00 01/28/20 09:07 Zosyn 3.375 Gm/D5w 50ml Pm IVPB 02/06/20 15:01 100 mls/hr Q6H VASYL Administration Metoprolol Succinate 25 mg 01/27/20 18:00 01/27/20 18:52 Toprol Xl PO 25 mg QPM VASYL Administration Ondansetron HCl 4 mg 01/17/20 09:56 01/22/20 00:07 Zofran Inj IV PUSH 4 mg Q4H PRN Administration Nausea Pantoprazole Sodium 40 mg 01/23/20 09:00 01/28/20 09:06 Protonix PO 40 mg QAM VASYL Administration Polyethylene Glycol 17 gm 01/22/20 17:00 01/28/20 09:07 Miralax PO Not Given BID VASYL Tramadol HCl 50 mg 01/20/20 14:03 01/27/20 21:21
--- NOTE | 2020-01-28 12:40 | PC.NURSE ---
This patient, Ameena Tanner, was received from IMU on 01/28/20 at 1241. Personal belongings list checked and signed. Patient/family oriented to unit policies and routines
--- NOTE | 2020-01-28 12:42 | PC.NURSE ---
This patient, Ameena Tanner, was transferred to [facility] on 01/28/20 at 1242. Personal belongings sent with patient. Belongings list checked and signed with receiving. Report given to JONATHAN Smith. Appropriate documentation sent with patient.
--- NOTE | 2020-01-28 15:10 | PM.IMPN ---
Progress Note: A&P Assessment and Plan (1) Abscess of liver: Code(s): K75.0 - Abscess of liver Status: Acute Assessment and Plan: 01/28/20 15:[address] scan of the abdomen which showed:1. New clustered liver masses, which may be abscesses, metastatic disease, or cholangiocarcinoma. 2. Sigmoid colon wall thickening with perisigmoid soft tissue and multiple fistulas, which may be chronic diverticulitis or malignancy. 3. Mild left hydronephrosis and proximal hydroureter secondary to the perisigmoid soft tissue. Pt has been seen by ID and surgery. For now follow ID recommendations Zosyn only for 5 days Sp second drain placement, THROUGH THE POSTERIOR RIGHT FLANK- draining well. Can stop iv zosyn tomorrow Can stop iv fluids due to swelling in the ankles continue to monitor in hospital today early this morning Patient went into AFib with RVR patient was given IV diltiazem converted to sinus rhythm seen by laundry aide and started the patient on oral diltiazem 30 mg q.6 current patient denies any complaint of chest pain shortness of breath palpitation fever or chills, see denies any abdominal pain, patient is seen by surgery team suggesting CT of abdomen to further evaluate liver abscess however patient has a contrast allergy, however about 3 years ago patient had a cardiac catheterization with contrast and there was no complication for allergy, will recheck to see we can do without contrast, patient is seen by Dr. teixeira recommending to continue IV antibiotics for total of -21 days on 01/[address] scan which showed; 1. Development of moderate right pleural empyema or effusion with loculations. Adjacent multisegmental right basilar atelectasis. 2. Persistent sizable heterogeneous right liver lobe abscess with multiple septations. 3. Persistent findings suspicious for extraluminal gas from perforated sigmoid diverticulitis. No gross free intraperitoneal gas. 4. Colonic diverticulosis. patient with moderate right pleural empyema patient was seen by surgery team recommending chest tube to drain the empyema, will need repeat chest x-ray to monitor drainage. patient white counts are trending down, patient appears clinically stable denies any chest pain palpitation abdominal pain nausea or vomiting fever or chills, patient is having was BM, patient seen by Dr. teixeira further recommendation to follow, repeat chest x-ray showed stable pleural effusion, white counts are trending, improved drainage, heart rate is stable, seen by surgery seen by laundry aide, will transfer patient out of IMU, will continue present management with IV antibiotic, plan to discharge possibly on Friday to home to continue IV antibiotics, coordinator will arrange for IV antibiotics with home health (2) Leukocytosis: Qualifiers: Leukocytosis type: unspecified Qualified Code(s): D72.829 - Elevated white blood cell count, unspecified Code(s): D72.829 - Elevated white blood cell count, unspecified Status: Acute Assessment and Plan: Most likely secondary to liver abscess, diverticulitis and hydronephrosis (3) Diverticulitis: Code(s): K57.92 - Diverticulitis of intestine, part unspecified, without perforation or abscess without bleeding Status: Acute Assessment and Plan: As per CT scan (4) Sepsis: Qualifiers: Sepsis acute organ dysfunction status: without acute organ dysfunction Sepsis type: sepsis due to unspecified organism Qualified Code(s): A41.9 - Sepsis, unspecified organism Code(s): A41.9 - Sepsis, unspecified organism Status: Resolved Assessment and Plan: Pt is being treated for this currently. (5) Hydronephrosis: Code(s): N13.30 - Unspecified hydronephrosis Status: Acute Assessment and Plan: I will make urology consult, for microscopic hematuria and mild hydronephrosis. (6) Anemia: Code(s): D
[2020-01-28] MEDS: METOPROLOL SUCCINATE EXT REL 25 MG TABCR PO (17:15)
[2020-01-28] MEDS: polyethylene glycoL 3350 17 GM POWD.PACK PO (22:05)
[2020-01-28] MEDS: traMADol HCL 50 MG TABLET PO (23:01)
[2020-01-29] VITALS (10 sets, daily range): BP systolic 123–130; BP diastolic 60–71; PULSE 82–98; RESP 18–20; TEMP 36.7–37.2; O2SAT 92–94
[2020-01-29 06:27] LABS: Basophils Percent Auto 0.2 % (0.2-1.2); Eosinophils Absolute Auto 0.1 K/mm3 (0-0.3); Eosinophils Percent Auto 0.4 % (0-4.4); Hematocrit 26.8 % (37.0-47.0); Hemoglobin 8.3 g/dL (12.0-15.0); Immature Granulocyte Absolute 0.09 K/mm3 (0.00-0.031); Immature Granulocyte Percent A 0.7 % (0-0.5); Lymphocytes Percent Auto 8.3 % (18.3-44.2); Mean Corpuscular Hemoglobin 25.7 pg (26-34); Mean Platelet Volume 8.9 fl (7.4-10.4); Monocytes Absolute Auto 1.1 K/mm3 (0.1-0.6); Monocytes Percent Auto 8.4 % (2.6-8.5); Neutrophils Absolute Auto 10.9 K/mm3 (1.3-6.7); Platelet Count Result 572 k/mm3 (150-375); Red Blood Count 3.23 M/mm3 (4.2-5.4); Red Cell Distribution Width 16.2 % (11.5-14.5); White Blood Count 13.3 K/mm3 (4.5-10.0)
[2020-01-29 06:58] LABS: Alanine Aminotransferase 12 U/L (4-35); Albumin Level 2.6 g/dL (3.5-5.1); Alkaline Phosphatase 130 U/L (38-126); Anion Gap 4 mmol/L (8-16); Aspartate Amino Transferase 17 U/L (14-36); Bilirubin,Total 0.6 mg/dL (0.2-1.3); Blood Urea Nitrogen 8 mg/dL (7-17); Carbon Dioxide 35 mmol/L (22-30); Chloride 94 mmol/L (98-107); Estimated CRCL calculation 113 ml/min; Estimated Glomerular Filt Rate > 60; Glucose 128 mg/dL (65-105); Potassium 3.6 mmol/L (3.4-5.0); Sodium 133 mmol/L (137-145)
[2020-01-29] MEDS: POTASSIUM CHLORIDE 20 MEQ TABLET 40 MEQ PO (09:03)
[2020-01-29] MEDS: PANTOPRAZOLE 40 MG TABLET PO (09:04)
[2020-01-29] MEDS: FERROUS SULFATE 324 MG TABLET PO ×3 (09:04→17:57)
[2020-01-29] MEDS: dilTIAZem HCL CD 180 MG CAP.ER.24H PO (09:04)
--- NOTE | 2020-01-29 09:07 | PM.PNGS ---
Progress Note: A&P Assessment and Plan (1) Empyema lung: Code(s): J86.9 - Pyothorax without fistula Status: Acute Assessment and Plan: s/p drain, cont drain to sxn, repeat imaging on Friday (2) Abscess of liver: Code(s): K75.0 - Abscess of liver Status: Acute Assessment and Plan: s/p perc drain x 2, cont abx, repeat imaging on Friday (3) Diverticulitis: Code(s): K57.92 - Diverticulitis of intestine, part unspecified, without perforation or abscess without bleeding Status: Acute Assessment and Plan: cont abx, exam benign Subjective Subjective Date/Time Seen: 01/29/20 09:07 feels good, wang diet, minimal pain Review of Systems Constitutional: Constitutional: Denies body ache(s), Denies chills, Reports fatigue, Reports lethargy and Reports weakness Cardiovascular: Cardiovascular: Denies chest pain and Denies palpitations Respiratory: Respiratory: Denies cough, Denies dyspnea and Denies dyspnea on exertion Gastrointestinal: Gastrointestinal: Reports abdominal pain, Denies constipation, Denies diarrhea, Denies nausea and Denies vomiting Exam Const: General: comfortable and no acute distress Resp: Auscultation: clear to auscultation bilaterally Other: R CT c mod serous output Cardio: Rate: regular rate Rhythm: regular rhythm GI: Other: soft, sl dist, isidro TTP, RUQ drains x 2 c minimal serous output Objective Data Vital Signs Vital Signs: Vital Signs - 24 hr 01/28/20 10:00 01/28/20 12:00 01/28/20 12:50 Temperature 35.7 C L 37.2 C Pulse Rate 97 88 91 Respiratory Rate 12 20 Blood Pressure 138/70 144/75 H Pulse Oximetry 96 96 01/28/20 14:00 01/28/20 16:00 01/28/20 17:15 Temperature 36.6 C Pulse Rate 95 76 91 Respiratory Rate 20 Blood Pressure 143/69 H Pulse Oximetry 94 01/28/20 20:00 01/28/20 22:00 01/29/20 00:00 Temperature 36.9 C Pulse Rate 95 88 96 Respiratory Rate 20 Blood Pressure 127/92 H Pulse Oximetry 96 01/29/20 04:00 01/29/20 06:00 Temperature 37.2 C Pulse Rate 82 91 Respiratory Rate 20 Blood Pressure 127/60 Pulse Oximetry 93 Intake/Output Intake/Output: Intake & Output 01/26/20 01/27/20 01/28/20 01/29/20 23:59 23:59 23:59 23:59 Intake Total 1580 1845 2140 800 Output Total 1360 2665 6050 1400 Balance 220 -820 -3910 -600 Meds/Results Medications: Active Medications Generic Name Dose Route Start Last Admin Trade Name Freq PRN Reason Stop Dose Admin Acetaminophen 650 mg 01/19/20 09:05 01/28/20 15:03 Tylenol Tablet PO 650 mg Q4HR PRN Administration Mild Pain (1-3) or Fever Bisacodyl 10 mg 01/22/20 09:35 Dulcolax Suppository RECTAL QAM PRN Constipation Diltiazem HCl 180 mg 01/25/20 10:00 01/28/20 09:06 Cardizem Cd PO 180 mg QAM VASYL Administration Ferrous Sulfate 324 mg 01/23/20 08:00 01/28/20 17:15 Ferrous Sulfate PO 324 mg TIDWM VASYL Administration Piperacillin/Tazobactam/Dextrose 3.375 gm in 50 mls @ 100 mls/hr 01/17/20 15:00 01/29/20 07:25 Zosyn 3.375 Gm/D5w 50ml Pm IVPB 02/06/20 15:01 Infused Q6H VASYL Infusion Metoprolol Succinate 25 mg 01/27/20 18:00 01/28/20 17:15 Toprol Xl PO 25 mg QPM VASYL Administration Ondansetron HCl 4 mg 01/17/20 09:56 01/22/20 00:07 Zofran Inj IV PUSH 4 mg Q4H PRN Administration Nausea Pantoprazole Sodium 40 mg 01/23/20 09:00 01/28/20 09:06 Protonix PO 40 mg QAM VASYL Administration Polyethylene Glycol 17 gm 01/28/20 21:00 01/28/20 22:05 Miralax PO 17 gm Q12HR VASYL Administration Tramadol HCl 50 mg 01/20/20 14:03 01/28/20 23:01 Ultram PO 50 mg Q6H PRN Administration Pain Rated 4-6 Radiology Results: ITS Impressions Catheter Placement CT 01/21/20 16:00 IMPRESSION: 1. Successful CT-guided right hepatic lobe abscess drainage catheter placement. 2. 20 mL fluid was sent for aerobic and anaerobic cultures. 3. Th
[2020-01-29] MEDS: polyethylene glycoL 3350 17 GM POWD.PACK PO (12:47)
--- NOTE | 2020-01-29 14:11 | PM.PNCARD ---
Progress Note: A&P Assessment and Plan (1) Paroxysmal atrial fibrillation: Code(s): I48.0 - Paroxysmal atrial fibrillation Status: Acute Assessment and Plan: 64 y/o female with h/o HTN, morbid obesity who is seen in cardiac consultation for A fib with RVR in the setting of underlying infection (liver abscess s/p drain placement) she converted to sinus rhythm/sinus tachycardia Continue Cardizem 180 Qam and Metoprolol 25 Qpm Echocardiogram showed normal left ventricular systolic function but evidence of pulmonary hypertension, Will discuss AC in outpatient settings. Currently she is s/p drain placement for liver abscess. Continue ASA (2) Acute diastolic (congestive) heart failure: Code(s): I50.31 - Acute diastolic (congestive) heart failure Status: Acute Assessment and Plan: She developed lower ext edema. She received IV fluids earlier. She most likely has diastolic dysfunction. Also echo showed mild pulmonary HTN probably from undiagnosed sleep apnea Will start Lasix 40 mg daily (3) Hypertension: Code(s): I10 - Essential (primary) hypertension Status: Acute Assessment and Plan: On Lisinopril at home. Now started on Cardizem and Metoprolol. Will monitor. (4) Abscess of liver: Code(s): K75.0 - Abscess of liver Status: Acute Additional Plan Thank you for allowing me to participate in this patient's care, I will be following up with you. Please do not hesitate to call me for any other inquiry Subjective Date/time seen: 01/29/20 14:11 Feels good. Afebrile. Denies chest pain or dyspnea Review of Systems Constitutional: Constitutional: Reports difficulty sleeping, Reports fatigue and Reports lethargy Cardiovascular: Cardiovascular: Denies chest pain, Reports leg edema and Reports palpitations Gastrointestinal: Gastrointestinal: Reports abdominal pain and Reports nausea Endocrine: Endocrine: Reports fatigue and Reports palpitations Exam Narrative: Exam Narrative: Awake alert oriented x3 not in acute distress Neck is supple no obvious JVD, no carotid bruit Chest: Good air entry bilaterally, lungs are clear to auscultation and percussion bilaterally Cardiovascular: Regular rate and rhythm, 2/6 systolic murmur noted left sternal border Abdomen: Soft nontender bowel sounds positive Extremities: +1 edema has good pulses distally bilaterally Objective Data Vital Signs Vital Signs: Vital Signs - 24 hr 01/28/20 16:00 01/28/20 17:15 01/28/20 20:00 Temperature Pulse Rate 76 91 95 Respiratory Rate Blood Pressure Pulse Oximetry 01/28/20 22:00 01/29/20 00:00 01/29/20 04:00 Temperature 36.9 C Pulse Rate 88 96 82 Respiratory Rate 20 Blood Pressure 127/92 H Pulse Oximetry 96 01/29/20 06:00 01/29/20 08:00 01/29/20 12:00 Temperature 37.2 C Pulse Rate 91 84 84 Respiratory Rate 20 Blood Pressure 127/60 Pulse Oximetry 93 Intake/Output Intake/Output: Intake & Output 01/26/20 01/27/20 01/28/20 01/29/20 23:59 23:59 23:59 23:59 Intake Total 1580 1845 2140 1400 Output Total 1360 2665 6050 1400 Balance 220 -820 -3910 0 Meds/Results Medications: Active Medications Generic Name Dose Route Start Last Admin Trade Name Freq PRN Reason Stop Dose Admin Acetaminophen 650 mg 01/19/20 09:05 01/28/20 15:03 Tylenol Tablet PO 650 mg Q4HR PRN Administration Mild Pain (1-3) or Fever Bisacodyl 10 mg 01/22/20 09:35 Dulcolax Suppository RECTAL QAM PRN Constipation Diltiazem HCl 180 mg 01/25/20 10:00 01/29/20 09:04 Cardizem Cd PO 180 mg QAM VASYL Administration Ferrous Sulfate 324 mg 01/23/20 08:00 01/29/20 09:04 Ferrous Sulfate PO 324 mg TIDWM VASYL Administration Piperacillin/Tazobactam/Dextrose 3.375 gm in 50 mls @ 100 mls/hr 01/17/20 15:00 01/29/20 09:04 Zosyn 3.375 Gm/D5w 50ml Pm IVPB 02/06/20 15:01 100 mls/hr Q6H VASYL Administration Metop
--- NOTE | 2020-01-29 14:21 | PM.IMPN ---
Progress Note: A&P Assessment and Plan (1) Abscess of liver: Code(s): K75.0 - Abscess of liver Status: Acute Assessment and Plan: 01/29/20 14:[address] scan of the abdomen which showed:1. New clustered liver masses, which may be abscesses, metastatic disease, or cholangiocarcinoma. 2. Sigmoid colon wall thickening with perisigmoid soft tissue and multiple fistulas, which may be chronic diverticulitis or malignancy. 3. Mild left hydronephrosis and proximal hydroureter secondary to the perisigmoid soft tissue. Pt has been seen by ID and surgery. For now follow ID recommendations Zosyn only for 5 days Sp second drain placement, THROUGH THE POSTERIOR RIGHT FLANK- draining well. Can stop iv zosyn tomorrow Can stop iv fluids due to swelling in the ankles continue to monitor in hospital today early this morning Patient went into AFib with RVR patient was given IV diltiazem converted to sinus rhythm seen by forensic anthropologist and started the patient on oral diltiazem 30 mg q.6 current patient denies any complaint of chest pain shortness of breath palpitation fever or chills, see denies any abdominal pain, patient is seen by surgery team suggesting CT of abdomen to further evaluate liver abscess however patient has a contrast allergy, however about 3 years ago patient had a cardiac catheterization with contrast and there was no complication for allergy, will recheck to see we can do without contrast, patient is seen by Dr. teixeira recommending to continue IV antibiotics for total of -21 days on 01/[address] scan which showed; 1. Development of moderate right pleural empyema or effusion with loculations. Adjacent multisegmental right basilar atelectasis. 2. Persistent sizable heterogeneous right liver lobe abscess with multiple septations. 3. Persistent findings suspicious for extraluminal gas from perforated sigmoid diverticulitis. No gross free intraperitoneal gas. 4. Colonic diverticulosis. patient with moderate right pleural empyema patient was seen by surgery team recommending chest tube to drain the empyema, will need repeat chest x-ray to monitor drainage. patient white counts are trending down, patient appears clinically stable denies any chest pain palpitation abdominal pain nausea or vomiting fever or chills, patient is having was BM, patient seen by Dr. teixeira further recommendation to follow, repeat chest x-ray on 01/27 showed stable pleural effusion, white counts are trending down to 13 today compare to 27 when she arrived on 01/16 , has improved drainage, heart rate is stable, seen by surgery, seen by forensic anthropologist, today patient is out of IMU now on medical floor, , will continue present management with IV antibiotic, plan to discharge possibly on Friday to home to continue IV antibiotics, animal care specialist will arrange for IV antibiotics with home health (2) Leukocytosis: Qualifiers: Leukocytosis type: unspecified Qualified Code(s): D72.829 - Elevated white blood cell count, unspecified Code(s): D72.829 - Elevated white blood cell count, unspecified Status: Acute Assessment and Plan: Most likely secondary to liver abscess, diverticulitis and hydronephrosis (3) Diverticulitis: Code(s): K57.92 - Diverticulitis of intestine, part unspecified, without perforation or abscess without bleeding Status: Acute Assessment and Plan: As per CT scan (4) Sepsis: Qualifiers: Sepsis acute organ dysfunction status: without acute organ dysfunction Sepsis type: sepsis due to unspecified organism Qualified Code(s): A41.9 - Sepsis, unspecified organism Code(s): A41.9 - Sepsis, unspecified organism Status: Resolved Assessment and Plan: Pt is being treated for this currently. (5) Hydronephrosis: Code(s): N13.30 - Unspecified hydronephrosis Status: Acute Assessment and Plan: I will make urolog
[2020-01-29] MEDS: FUROSEMIDE 20 MG TABLET PO (15:47)
[2020-01-29] MEDS: METOPROLOL SUCCINATE EXT REL 25 MG TABCR PO (17:58)
[2020-01-30] VITALS (10 sets, daily range): BP systolic 139–159; BP diastolic 67–80; PULSE 83–107; RESP 20; TEMP 36.6–37.2; O2SAT 94–98
[2020-01-30 06:33] LABS: Basophils Percent Auto 0.3 % (0.2-1.2); Eosinophils Absolute Auto 0.1 K/mm3 (0-0.3); Eosinophils Percent Auto 0.4 % (0-4.4); Hematocrit 26.5 % (37.0-47.0); Hemoglobin 8.3 g/dL (12.0-15.0); Immature Granulocyte Absolute 0.09 K/mm3 (0.00-0.031); Immature Granulocyte Percent A 0.7 % (0-0.5); Lymphocytes Absolute Auto 1.26 K/mm3 (0.9-3.2); Lymphocytes Percent Auto 10.5 % (18.3-44.2); Mean Corpuscular HGB Conc 31.3 g/dl (32-36); Mean Corpuscular Hemoglobin 25.5 pg (26-34); Mean Corpuscular Volume 81.3 fl (80-100); Mean Platelet Volume 8.8 fl (7.4-10.4); Monocytes Absolute Auto 1.1 K/mm3 (0.1-0.6); Monocytes Percent Auto 8.8 % (2.6-8.5); Neutrophils Absolute Auto 9.5 K/mm3 (1.3-6.7); Neutrophils Percent Auto 79.3 % (45.5-73.1); Platelet Count Result 533 k/mm3 (150-375); Red Blood Count 3.26 M/mm3 (4.2-5.4); Red Cell Distribution Width 16.1 % (11.5-14.5)
[2020-01-30 07:09] LABS: Alanine Aminotransferase 11 U/L (4-35); Albumin Level 2.8 g/dL (3.5-5.1); Alkaline Phosphatase 132 U/L (38-126); Anion Gap 4 mmol/L (8-16); Aspartate Amino Transferase 19 U/L (14-36); Bilirubin,Total 0.6 mg/dL (0.2-1.3); Blood Urea Nitrogen 7 mg/dL (7-17); Calcium 8.5 mg/dL (8.4-10.2); Carbon Dioxide 31 mmol/L (22-30); Chloride 96 mmol/L (98-107); Estimated CRCL calculation 105 ml/min; Estimated Glomerular Filt Rate > 60; Glucose 130 mg/dL (65-105); Potassium 3.6 mmol/L (3.4-5.0); Sodium 131 mmol/L (137-145)
[2020-01-30] MEDS: POTASSIUM CHLORIDE 20 MEQ TABLET 40 MEQ PO (08:35)
[2020-01-30] MEDS: FERROUS SULFATE 324 MG TABLET PO ×3 (08:36→17:47)
[2020-01-30] MEDS: FUROSEMIDE 20 MG TABLET PO (08:36)
[2020-01-30] MEDS: PANTOPRAZOLE 40 MG TABLET PO (08:36)
[2020-01-30] MEDS: dilTIAZem HCL CD 180 MG CAP.ER.24H PO (08:37)
--- NOTE | 2020-01-30 09:40 | PM.PNGS ---
Progress Note: A&P Assessment and Plan (1) Empyema lung: Code(s): J86.9 - Pyothorax without fistula Status: Acute Assessment and Plan: will place CT to water seal, recheck CT in am (2) Abscess of liver: Code(s): K75.0 - Abscess of liver Status: Acute Assessment and Plan: cont drains, abx, recheck CT in am (3) Diverticulitis: Code(s): K57.92 - Diverticulitis of intestine, part unspecified, without perforation or abscess without bleeding Status: Acute Assessment and Plan: exam benign, wang diet, +bowel fxn, cont abx per ID Subjective Subjective Date/Time Seen: 01/30/20 09:40 feels good, no c/o, wants to go home Review of Systems Constitutional: Constitutional: Denies chills, Reports fatigue, Reports lethargy and Reports weakness Cardiovascular: Cardiovascular: Denies chest pain Respiratory: Respiratory: Denies cough, Denies dyspnea and Reports dyspnea on exertion Gastrointestinal: Gastrointestinal: Denies abdominal pain, Denies constipation, Denies diarrhea, Denies nausea and Denies vomiting Exam Const: General: no acute distress Resp: Auscultation: clear to auscultation bilaterally and diminished lung sounds Other: R CT c minimal serous output Cardio: Rate: regular rate Rhythm: regular rhythm GI: Other: S, sl dist, minimal TTP RUQ, drains c minimal serous output Objective Data Vital Signs Vital Signs: Vital Signs - 24 hr 01/29/20 12:00 01/29/20 14:00 01/29/20 16:00 Temperature 36.7 C Pulse Rate 84 84 90 Respiratory Rate 18 Blood Pressure 123/71 Pulse Oximetry 92 01/29/20 17:58 01/29/20 20:00 01/29/20 22:00 Temperature 37.0 C Pulse Rate 90 98 87 Respiratory Rate 18 Blood Pressure 130/60 Pulse Oximetry 94 01/30/20 00:00 01/30/20 04:00 01/30/20 06:00 Temperature 36.6 C Pulse Rate 84 95 95 Respiratory Rate 20 Blood Pressure 139/80 Pulse Oximetry 96 Intake/Output Intake/Output: Intake & Output 01/27/20 01/28/20 01/29/20 01/30/20 23:59 23:59 23:59 23:59 Intake Total 0839 2354 6860 450 Output Total 2824 6083 1400 500 Balance -820 -3910 1110 -50 Meds/Results Medications: Active Medications Generic Name Dose Route Start Last Admin Trade Name Freq PRN Reason Stop Dose Admin Acetaminophen 650 mg 01/19/20 09:05 01/28/20 15:03 Tylenol Tablet PO 650 mg Q4HR PRN Administration Mild Pain (1-3) or Fever Bisacodyl 10 mg 01/22/20 09:35 Dulcolax Suppository RECTAL QAM PRN Constipation Diltiazem HCl 180 mg 01/25/20 10:00 01/30/20 08:37 Cardizem Cd PO 180 mg QAM VASYL Administration Ferrous Sulfate 324 mg 01/23/20 08:00 01/30/20 08:36 Ferrous Sulfate PO 324 mg TIDWM VASYL Administration Furosemide 20 mg 01/29/20 14:15 01/30/20 08:36 Lasix Tablet PO 20 mg DAILY VASYL Administration Piperacillin/Tazobactam/Dextrose 3.375 gm in 50 mls @ 100 mls/hr 01/17/20 15:00 01/30/20 08:38 Zosyn 3.375 Gm/D5w 50ml Pm IVPB 02/06/20 15:01 100 mls/hr Q6H VASYL Administration Metoprolol Succinate 25 mg 01/27/20 18:00 01/29/20 17:58 Toprol Xl PO 25 mg QPM VASYL Administration Ondansetron HCl 4 mg 01/17/20 09:56 01/22/20 00:07 Zofran Inj IV PUSH 4 mg Q4H PRN Administration Nausea Pantoprazole Sodium 40 mg 01/23/20 09:00 01/30/20 08:36 Protonix PO 40 mg QAM VASYL Administration Polyethylene Glycol 17 gm 01/28/20 21:00 01/30/20 08:35 Miralax PO Not Given Q12HR VASYL Tramadol HCl 50 mg 01/20/20 14:03 01/28/20 23:01 Ultram PO 50 mg Q6H PRN Administration Pain Rated 4-6 Radiology Results: ITS Impressions Catheter Placement CT 01/21/20 16:00 IMPRESSION: 1. Successful CT-guided right hepatic lobe abscess drainage catheter placement. 2. 20 mL fluid was sent for aerobic and anaerobic cultures. 3. The catheter will be managed by Dr. Levine. Abdomen/Pelvis CT 01/24/20 16:01 ANJELICA
--- NOTE | 2020-01-30 16:03 | PM.IMPN ---
Progress Note: A&P Assessment and Plan (1) Abscess of liver: Code(s): K75.0 - Abscess of liver Status: Acute Assessment and Plan: 01/30/20 16:[address] scan of the abdomen which showed:1. New clustered liver masses, which may be abscesses, metastatic disease, or cholangiocarcinoma. 2. Sigmoid colon wall thickening with perisigmoid soft tissue and multiple fistulas, which may be chronic diverticulitis or malignancy. 3. Mild left hydronephrosis and proximal hydroureter secondary to the perisigmoid soft tissue. Pt has been seen by ID and surgery. For now follow ID recommendations Zosyn only for 5 days Sp second drain placement, THROUGH THE POSTERIOR RIGHT FLANK- draining well. Can stop iv zosyn tomorrow Can stop iv fluids due to swelling in the ankles continue to monitor in hospital today early this morning Patient went into AFib with RVR patient was given IV diltiazem converted to sinus rhythm seen by holter scanning technician and started the patient on oral diltiazem 30 mg q.6 current patient denies any complaint of chest pain shortness of breath palpitation fever or chills, see denies any abdominal pain, patient is seen by surgery team suggesting CT of abdomen to further evaluate liver abscess however patient has a contrast allergy, however about 3 years ago patient had a cardiac catheterization with contrast and there was no complication for allergy, will recheck to see we can do without contrast, patient is seen by Dr. teixeira recommending to continue IV antibiotics for total of -21 days on 01/[address] scan which showed; 1. Development of moderate right pleural empyema or effusion with loculations. Adjacent multisegmental right basilar atelectasis. 2. Persistent sizable heterogeneous right liver lobe abscess with multiple septations. 3. Persistent findings suspicious for extraluminal gas from perforated sigmoid diverticulitis. No gross free intraperitoneal gas. 4. Colonic diverticulosis. patient with moderate right pleural empyema patient was seen by surgery team recommending chest tube to drain the empyema, will need repeat chest x-ray to monitor drainage. patient white counts are trending down, patient appears clinically stable denies any chest pain palpitation abdominal pain nausea or vomiting fever or chills, patient is having was BM, patient seen by Dr. teixeira further recommendation to follow, repeat chest x-ray on 01/27 showed stable pleural effusion, white counts are trending down to 12 on 01/29 compare to 27 when she arrived on 01/16 , has improved drainage, heart rate is stable, seen by surgery, seen by holter scanning technician, today patient is out of IMU now on medical floor, , will continue present management with IV antibiotic, plan to discharge possibly on Friday to home to continue IV antibiotics, behavioral health care coordinator will arrange for IV antibiotics with home health today patient has no new complaints it was seen by surgery team will repeat CT scan tomorrow and further recommendation to follow (2) Leukocytosis: Qualifiers: Leukocytosis type: unspecified Qualified Code(s): D72.829 - Elevated white blood cell count, unspecified Code(s): D72.829 - Elevated white blood cell count, unspecified Status: Acute Assessment and Plan: Most likely secondary to liver abscess, diverticulitis and hydronephrosis (3) Diverticulitis: Code(s): K57.92 - Diverticulitis of intestine, part unspecified, without perforation or abscess without bleeding Status: Acute Assessment and Plan: As per CT scan (4) Sepsis: Qualifiers: Sepsis acute organ dysfunction status: without acute organ dysfunction Sepsis type: sepsis due to unspecified organism Qualified Code(s): A41.9 - Sepsis, unspecified organism Code(s): A41.9 - Sepsis, unspecified organism Status: Resolved Assessment and Plan: Pt is being treated for this currently. (5) [place]
[2020-01-30] MEDS: METOPROLOL SUCCINATE EXT REL 25 MG TABCR PO (17:47)
[2020-01-31] VITALS: PULSE 86
[2020-01-31 04:12] VITALS: PULSE 80
[2020-01-31 06:00] VITALS: BP 155/80; PULSE 95; RESP 20; TEMP 36.8; O2SAT 95
[2020-01-31 06:46] LABS: Red Blood Count 3.39 M/mm3 (4.2-5.4)
[2020-01-31 06:47] LABS: Basophils Percent Auto 0.4 % (0.2-1.2); Eosinophils Absolute Auto 0.1 K/mm3 (0-0.3); Eosinophils Percent Auto 0.7 % (0-4.4); Hematocrit 28.1 % (37.0-47.0); Hemoglobin 8.7 g/dL (12.0-15.0); Immature Granulocyte Absolute 0.07 K/mm3 (0.00-0.031); Immature Granulocyte Percent A 0.7 % (0-0.5); Lymphocytes Absolute Auto 1.03 K/mm3 (0.9-3.2); Lymphocytes Percent Auto 10.3 % (18.3-44.2); Mean Corpuscular Hemoglobin 25.7 pg (26-34); Mean Corpuscular Volume 82.9 fl (80-100); Mean Platelet Volume 8.8 fl (7.4-10.4); Monocytes Percent Auto 10.4 % (2.6-8.5); Neutrophils Absolute Auto 7.7 K/mm3 (1.3-6.7); Neutrophils Percent Auto 77.5 % (45.5-73.1); Platelet Count Result 498 k/mm3 (150-375); Red Cell Distribution Width 16.6 % (11.5-14.5)
[2020-01-31 07:04] LABS: Alanine Aminotransferase 12 U/L (4-35); Albumin Level 2.9 g/dL (3.5-5.1); Alkaline Phosphatase 127 U/L (38-126); Anion Gap 7 mmol/L (8-16); Aspartate Amino Transferase 21 U/L (14-36); Bilirubin,Total 0.6 mg/dL (0.2-1.3); Blood Urea Nitrogen 10 mg/dL (7-17); Calcium 8.4 mg/dL (8.4-10.2); Carbon Dioxide 30 mmol/L (22-30); Chloride 97 mmol/L (98-107); Estimated CRCL calculation 105 ml/min; Estimated Glomerular Filt Rate > 60; Glucose 129 mg/dL (65-105); Potassium 3.8 mmol/L (3.4-5.0); Sodium 134 mmol/L (137-145)
[2020-01-31 08:00] VITALS: PULSE 85
[2020-01-31] MEDS: FERROUS SULFATE 324 MG TABLET PO ×2 (08:07→12:21)
[2020-01-31] MEDS: FUROSEMIDE 20 MG TABLET PO (08:07)
[2020-01-31] MEDS: PANTOPRAZOLE 40 MG TABLET PO (08:07)
[2020-01-31] MEDS: dilTIAZem HCL CD 180 MG CAP.ER.24H PO (08:07)
--- NOTE | 2020-01-31 10:51 | PCNWS ---
Weekly nutritional screen. Patient is tolerating current diet with adequate intake. No weight loss reported. No nutritional needs at this time.
--- NOTE | 2020-01-31 11:50 | PM.PNGS ---
Progress Note: A&P Assessment and Plan (1) Empyema lung: Code(s): J86.9 - Pyothorax without fistula Status: Acute Assessment and Plan: will check CT chest and poss remove tube if collection adequately drained, cont abx per ID (2) Abscess of liver: Code(s): K75.0 - Abscess of liver Status: Acute Assessment and Plan: see above (3) Diverticulitis: Code(s): K57.92 - Diverticulitis of intestine, part unspecified, without perforation or abscess without bleeding Status: Acute Assessment and Plan: exam benign, cont abx per ID, home soon Subjective Subjective Date/Time Seen: 01/31/20 11:50 feels good, no c/o Review of Systems Constitutional: Constitutional: Reports fatigue and Denies weakness Cardiovascular: Cardiovascular: Reports no additional cardiovascular complaints Respiratory: Respiratory: Reports no additional respiratory complaints Gastrointestinal: Gastrointestinal: Denies abdominal pain, Denies constipation, Denies diarrhea, Denies nausea and Denies vomiting Exam Const: General: no acute distress Resp: Auscultation: clear to auscultation bilaterally Other: CT c minimal output, no leak, water seal Cardio: Rate: regular rate Rhythm: regular rhythm GI: Other: S, sl dist, NT, drains c minimal output Objective Data Vital Signs Vital Signs: Vital Signs - 24 hr 01/30/20 12:00 01/30/20 14:00 01/30/20 16:00 Temperature 36.7 C Pulse Rate 90 107 H 98 Respiratory Rate 20 Blood Pressure 159/74 H Pulse Oximetry 98 01/30/20 17:47 01/30/20 20:00 01/30/20 22:00 Temperature 37.2 C Pulse Rate 98 96 92 Respiratory Rate 20 Blood Pressure 145/67 H Pulse Oximetry 94 01/31/20 00:00 01/31/20 04:12 01/31/20 06:00 Temperature 36.8 C Pulse Rate 86 80 95 Respiratory Rate 20 Blood Pressure 155/80 H Pulse Oximetry 95 01/31/20 08:00 Temperature Pulse Rate 85 Respiratory Rate Blood Pressure Pulse Oximetry Intake/Output Intake/Output: Intake & Output 01/28/20 01/29/20 01/30/20 01/31/20 23:59 23:59 23:59 23:59 Intake Total 2140 2510 2830 850 Output Total 6050 1400 1200 2100 Balance -3910 1110 1630 -1250 Meds/Results Medications: Active Medications Generic Name Dose Route Start Last Admin Trade Name Freq PRN Reason Stop Dose Admin Acetaminophen 650 mg 01/19/20 09:05 01/28/20 15:03 Tylenol Tablet PO 650 mg Q4HR PRN Administration Mild Pain (1-3) or Fever Bisacodyl 10 mg 01/22/20 09:35 Dulcolax Suppository RECTAL QAM PRN Constipation Diltiazem HCl 180 mg 01/25/20 10:00 01/31/20 08:07 Cardizem Cd PO 180 mg QAM VASYL Administration Ferrous Sulfate 324 mg 01/23/20 08:00 01/31/20 08:07 Ferrous Sulfate PO 324 mg TIDWM VASYL Administration Furosemide 20 mg 01/29/20 14:15 01/31/20 08:07 Lasix Tablet PO 20 mg DAILY VASYL Administration Piperacillin/Tazobactam/Dextrose 3.375 gm in 50 mls @ 100 mls/hr 01/17/20 15:00 01/31/20 08:06 Zosyn 3.375 Gm/D5w 50ml Pm IVPB 02/06/20 15:01 100 mls/hr Q6H VASYL Administration Metoprolol Succinate 25 mg 01/27/20 18:00 01/30/20 17:47 Toprol Xl PO 25 mg QPM VASYL Administration Ondansetron HCl 4 mg 01/17/20 09:56 01/22/20 00:07 Zofran Inj IV PUSH 4 mg Q4H PRN Administration Nausea Pantoprazole Sodium 40 mg 01/23/20 09:00 01/31/20 08:07 Protonix PO 40 mg QAM VASYL Administration Polyethylene Glycol 17 gm 01/28/20 21:00 01/31/20 08:07 Miralax PO Not Given Q12HR VASYL Tramadol HCl 50 mg 01/20/20 14:03 01/28/20 23:01 Ultram PO 50 mg Q6H PRN Administration Pain Rated 4-6 Radiology Results: ITS Impressions Catheter Placement CT 01/21/20 16:00 IMPRESSION: 1. Successful CT-guided right hepatic lobe abscess drainage catheter placement. 2. 20 mL fluid was sent for aerobic and anaerobic cultures. 3. The catheter will be managed by Dr. Levine.
[2020-01-31 12:00] VITALS: PULSE 106
[2020-01-31] MEDS: ACETAMINOPHEN 325 MG TABLET 650 MG PO (12:37)
--- NOTE | 2020-01-31 12:41 | PC.NURSE ---
Dr. Levine removed patients chest tube and 2 abdominal drains today at 1230. Bandaids placed on exit sites.
--- NOTE | 2020-01-31 13:22 | PM.PNCARD ---
Progress Note: A&P Assessment and Plan (1) Paroxysmal atrial fibrillation: Code(s): I48.0 - Paroxysmal atrial fibrillation Status: Acute Assessment and Plan: 64 y/o female with h/o HTN, morbid obesity who is seen in cardiac consultation for A fib with RVR in the setting of underlying infection (liver abscess s/p drain placement) she converted to sinus rhythm/sinus rhythm rate is well controlled now Continue Cardizem 180 Qam and Metoprolol 25 Qpm Echocardiogram showed normal left ventricular systolic function but evidence of pulmonary hypertension, Will discuss AC in outpatient settings. Currently she is s/p drain placement for liver abscess. Continue ASA (2) Acute diastolic (congestive) heart failure: Code(s): I50.31 - Acute diastolic (congestive) heart failure Status: Acute Assessment and Plan: She developed lower ext edema. She received IV fluids earlier. She most likely has diastolic dysfunction. Also echo showed mild pulmonary HTN probably from undiagnosed sleep apnea (3) Hypertension: Code(s): I10 - Essential (primary) hypertension Status: Acute Assessment and Plan: On Lisinopril at home. Now started on Cardizem and Metoprolol. Will monitor. (4) Abscess of liver: Code(s): K75.0 - Abscess of liver Status: Acute Additional Plan she seems to be stable from cardiac standpoint it is okay to remove telemetry, discharge planning per others Subjective Date/time seen: 01/31/20 13:22 she feels well today, she is able to eat now, no chest pain no significant shortness of breath and no palpitation Exam Narrative: Exam Narrative: Awake alert oriented x3 not in acute distress Neck is supple no obvious JVD, no carotid bruit Chest: Good air entry bilaterally, lungs are clear to auscultation and percussion bilaterally Cardiovascular: Regular rate and rhythm, 2/6 systolic murmur noted left sternal border Abdomen: Soft nontender bowel sounds positive Extremities: +1 edema has good pulses distally bilaterally Objective Data Vital Signs Vital Signs: Vital Signs - 24 hr 01/30/20 14:00 01/30/20 16:00 01/30/20 17:47 Temperature 36.7 C Pulse Rate 107 H 98 98 Respiratory Rate 20 Blood Pressure 159/74 H Pulse Oximetry 98 01/30/20 20:00 01/30/20 22:00 08/24/20 00:00 Temperature 37.2 C Pulse Rate 96 92 86 Respiratory Rate 20 Blood Pressure 145/67 H Pulse Oximetry 94 01/31/20 04:12 01/31/20 06:00 01/31/20 08:00 Temperature 36.8 C Pulse Rate 80 95 85 Respiratory Rate 20 Blood Pressure 155/80 H Pulse Oximetry 95 Intake/Output Intake/Output: Intake & Output 01/28/20 01/29/20 01/30/20 01/31/20 23:59 23:59 23:59 23:59 Intake Total 2140 2510 2830 1330 Output Total 6050 1400 1200 2100 Balance -3910 1110 1630 -770 Meds/Results Medications: Active Medications Generic Name Dose Route Start Last Admin Trade Name Freq PRN Reason Stop Dose Admin Acetaminophen 650 mg 01/19/20 09:05 01/31/20 12:37 Tylenol Tablet PO 650 mg Q4HR PRN Administration Mild Pain (1-3) or Fever Bisacodyl 10 mg 01/22/20 09:35 Dulcolax Suppository RECTAL QAM PRN Constipation Diltiazem HCl 180 mg 01/25/20 10:00 01/31/20 08:07 Cardizem Cd PO 180 mg QAM VASYL Administration Ferrous Sulfate 324 mg 01/23/20 08:00 01/31/20 12:21 Ferrous Sulfate PO 324 mg TIDWM VASYL Administration Furosemide 20 mg 01/29/20 14:15 01/31/20 08:07 Lasix Tablet PO 20 mg DAILY VASYL Administration Piperacillin/Tazobactam/Dextrose 3.375 gm in 50 mls @ 100 mls/hr 01/17/20 15:00 01/31/20 08:06 Zosyn 3.375 Gm/D5w 50ml Pm IVPB 02/06/20 15:01 100 mls/hr Q6H VASYL Administration Metoprolol Succinate 25 mg 01/27/20 18:00 01/30/20 17:47 Toprol Xl PO 25 mg QPM VASYL Administration Ondansetron HCl 4 mg 01/17/20 09:56 01/22/20 00:07 Zofran Inj IV PUSH 4 mg Q4H PRN Administration
[2020-01-31 14:00] VITALS: BP 115/88; PULSE 105; RESP 16; TEMP 36.7; O2SAT 95
--- NOTE | 2020-01-31 16:25 | PM.IMPN ---
Progress Note: A&P Assessment and Plan (1) Abscess of liver: Code(s): K75.0 - Abscess of liver Status: Acute Assessment and Plan: 01/31/20 16:[address] scan of the abdomen which showed:1. New clustered liver masses, which may be abscesses, metastatic disease, or cholangiocarcinoma. 2. Sigmoid colon wall thickening with perisigmoid soft tissue and multiple fistulas, which may be chronic diverticulitis or malignancy. 3. Mild left hydronephrosis and proximal hydroureter secondary to the perisigmoid soft tissue. Pt has been seen by ID and surgery. For now follow ID recommendations Zosyn only for 5 days Sp second drain placement, THROUGH THE POSTERIOR RIGHT FLANK- draining well. Can stop iv zosyn tomorrow Can stop iv fluids due to swelling in the ankles continue to monitor in hospital today early this morning Patient went into AFib with RVR patient was given IV diltiazem converted to sinus rhythm seen by vacuum kettle cook and started the patient on oral diltiazem 30 mg q.6 current patient denies any complaint of chest pain shortness of breath palpitation fever or chills, see denies any abdominal pain, patient is seen by surgery team suggesting CT of abdomen to further evaluate liver abscess however patient has a contrast allergy, however about 3 years ago patient had a cardiac catheterization with contrast and there was no complication for allergy, will recheck to see we can do without contrast, patient is seen by Dr. lerner recommending to continue IV antibiotics for total of -21 days on 01/[address] scan which showed; 1. Development of moderate right pleural empyema or effusion with loculations. Adjacent multisegmental right basilar atelectasis. 2. Persistent sizable heterogeneous right liver lobe abscess with multiple septations. 3. Persistent findings suspicious for extraluminal gas from perforated sigmoid diverticulitis. No gross free intraperitoneal gas. 4. Colonic diverticulosis. patient with moderate right pleural empyema patient was seen by surgery team recommending chest tube to drain the empyema, will need repeat chest x-ray to monitor drainage. patient white counts are trending down, patient appears clinically stable denies any chest pain palpitation abdominal pain nausea or vomiting fever or chills, patient is having was BM, patient seen by Dr. lerner further recommendation to follow, repeat chest x-ray on 01/27 showed stable pleural effusion, white counts are trending down to 12 on 01/29 compare to 27 when she arrived on 01/16 , has improved drainage, heart rate is stable, seen by surgery, seen by vacuum kettle cook, today patient is out of IMU now on medical floor, , will continue present management with IV antibiotic, plan to discharge possibly on Friday to home to continue IV antibiotics, small animal caretaker will arrange for IV antibiotics with home health today patient has no new complaints patient had a CT scan of the abdomen does show persistent absent no patient is clinically stable has no fever and her white counts are trending down close to normal, patient is seen by surgery team recommending to continue present management and will follow recommendations from Dr. Lerner for the discharge planning. (2) Leukocytosis: Qualifiers: Leukocytosis type: unspecified Qualified Code(s): D72.829 - Elevated white blood cell count, unspecified Code(s): D72.829 - Elevated white blood cell count, unspecified Status: Acute Assessment and Plan: Most likely secondary to liver abscess, diverticulitis and hydronephrosis (3) Diverticulitis: Code(s): K57.92 - Diverticulitis of intestine, part unspecified, without perforation or abscess without bleeding Status: Acute Assessment and Plan: As per CT scan (4) Sepsis: Qualifiers: Sepsis acute organ dysfunction status: without acute organ dysfunction Sepsis type: sepsis due to unspecif
--- NOTE | 2020-01-31 17:16 | PM.DS ---
DS: Admitting Diagnosis Admitting Diagnosis Admitting Diagnosis: Diverticulitis with liver abscess/fistula DS: Discharge Diagnosis Discharge Diagnosis (1) Abscess of liver: Code(s): K75.0 - Abscess of liver Status: Acute Assessment and Plan: 01/31/20 16:[address] scan of the abdomen which showed:1. New clustered liver masses, which may be abscesses, metastatic disease, or cholangiocarcinoma. 2. Sigmoid colon wall thickening with perisigmoid soft tissue and multiple fistulas, which may be chronic diverticulitis or malignancy. 3. Mild left hydronephrosis and proximal hydroureter secondary to the perisigmoid soft tissue. Pt has been seen by ID and surgery. For now follow ID recommendations Zosyn only for 5 days Sp second drain placement, THROUGH THE POSTERIOR RIGHT FLANK- draining well. Can stop iv zosyn tomorrow Can stop iv fluids due to swelling in the ankles continue to monitor in hospital today early this morning Patient went into AFib with RVR patient was given IV diltiazem converted to sinus rhythm seen by tubular stock glass bulb machine former and started the patient on oral diltiazem 30 mg q.6 current patient denies any complaint of chest pain shortness of breath palpitation fever or chills, see denies any abdominal pain, patient is seen by surgery team suggesting CT of abdomen to further evaluate liver abscess however patient has a contrast allergy, however about 3 years ago patient had a cardiac catheterization with contrast and there was no complication for allergy, will recheck to see we can do without contrast, patient is seen by Dr. lerner recommending to continue IV antibiotics for total of -21 days on 01/[address] scan which showed; 1. Development of moderate right pleural empyema or effusion with loculations. Adjacent multisegmental right basilar atelectasis. 2. Persistent sizable heterogeneous right liver lobe abscess with multiple septations. 3. Persistent findings suspicious for extraluminal gas from perforated sigmoid diverticulitis. No gross free intraperitoneal gas. 4. Colonic diverticulosis. patient with moderate right pleural empyema patient was seen by surgery team recommending chest tube to drain the empyema, will need repeat chest x-ray to monitor drainage. patient white counts are trending down, patient appears clinically stable denies any chest pain palpitation abdominal pain nausea or vomiting fever or chills, patient is having was BM, patient seen by Dr. lerner further recommendation to follow, repeat chest x-ray on 01/27 showed stable pleural effusion, white counts are trending down to 12 on 01/29 compare to when she arrived on 01/16 , has improved drainage, heart rate is stable, seen by surgery, seen by tubular stock glass bulb machine former, today patient is out of IMU now on medical floor, , will continue present management with IV antibiotic, plan to discharge possibly on Friday to home to continue IV antibiotics, child care associate will arrange for IV antibiotics with home health today patient has no new complaints patient had a CT scan of the abdomen does show persistent absent no patient is clinically stable has no fever and her white counts are trending down close to normal, patient is seen by surgery team recommending to continue present management and will follow recommendations from Dr. Lerner for the discharge planning. (2) Leukocytosis: Qualifiers: Leukocytosis type: unspecified Qualified Code(s): D72.829 - Elevated white blood cell count, unspecified Code(s): D72.829 - Elevated white blood cell count, unspecified Status: Acute Assessment and Plan: Most likely secondary to liver abscess, diverticulitis and hydronephrosis (3) Diverticulitis: Code(s): K57.92 - Diverticulitis of intestine, part unspecified, without perforation or abscess without bleeding Status: Acute Assessment and Plan: As per CT scan (4) Sepsis: Qualifier
== END 2020-01-31 18:10 | disposition home health service (06) | DRG 871 ==
LOC: ANHED 09:40 → ANH3MEDSUR 10:50 → ANHIMU 01-24 07:59 → ANH3MEDSUR 01-28 12:12
PROVIDERS: Family Medicine; Admitting Provider Family Medicine; Emergency Provider Emergency Medicine; PCP Internal Medicine Geriatric Medicine; Visit Provider Family Medicine
DX: A41.9 Sepsis, unspecified organism (principal); I50.31 Acute diastolic (congestive) heart failure; K75.0 Abscess of liver; J86.9 Pyothorax without fistula; K57.20 Diverticulitis of large intestine with perforation and abscess without bleeding; Z68.42 Body mass index [BMI] 45.0-49.9, adult; N13.39 Other hydronephrosis; I47.1 Supraventricular tachycardia; E66.01 Morbid (severe) obesity due to excess calories; I48.0 Paroxysmal atrial fibrillation; D50.9 Iron deficiency anemia, unspecified; K21.9 Gastro-esophageal reflux disease without esophagitis; D72.829 Elevated white blood cell count, unspecified; G47.33 Obstructive sleep apnea (adult) (pediatric); I11.0 Hypertensive heart disease with heart failure; Z96.653 Presence of artificial knee joint, bilateral; Z96.641 Presence of right artificial hip joint; I27.29 Other secondary pulmonary hypertension
CPT/HCPCS: 32550; 36415; 36569; 51701; 71045; 71250; 74176; 75989; 76775; 80053; 80202; 81001; 82728; 83540; 83550; 83605; 83690; 83735; 84443; 84484; 85025; 85055; 85610; 85730; 87040; 87070; 87075; 87076; 87086; 87185; 87205; 88104; 88108; 88305; 93005; 96361; 96365; 96367; 96375; 99285; A9270; C1729; C1751; C1769; C8929; C9113; G0378; J0131; J1940; J2250; J2270; J2405; J2543; J3010; J3370; J7030; Q9957

== ENCOUNTER → 2020-03-16 07:59 | Outpatient (CLI) | payer OTHER, SELFPAY ==
--- NOTE | ~2020-03-16 | US_ITS ---
EXAMINATION: US right upper quadrant EXAM DATE: 03/16/2020 08:24 INDICATION: Abscess of liver, history of drainage. Follow-up. TECHNIQUE: Multiple grayscale and Doppler images of the abdomen right upper quadrant were obtained (b y a technologist who performed the scan) and subsequently reviewed. Correlation is made to prior CT e xamination from 01/31/2020. FINDINGS: The pancreatic head and body are normal in appearance. The pancreatic tail is not visualized. The l iver has normal echogenicity and contour. There are no focal liver lesions identified. No liver flui d collections, cysts or evidence of residual abscess. There is no evidence of intrahepatic biliary du ct dilation. Portal venous flow was seen in the hepatopedal, normal direction and has normal Doppler waveform. No right-sided hydronephrosis. Common bile duct measures 3 mm, which is normal. The gallbladder wall is normal in thickness, with ex pected amount of distention. No sonographic evidence of pericholecystic fluid. There is no cholelit hiases. Technologist performing exam reports patient did not demonstrate sonographic Sims's sign. Please note that this sign is less reliable in patients who have received pain medication. IMPRESSION: No evidence of residual hepatic abscess. Normal exam. Reviewed, dictated and finalized at location B.
== END ==
PROVIDERS: PCP Internal Medicine Geriatric Medicine; Visit Provider Internal Medicine Infectious Disease
DX: K75.0 Abscess of liver (principal)
CPT/HCPCS: 76705

== ENCOUNTER 2020-03-18 08:03 | Emergency (ER) | payer OTHER, SELFPAY ==
--- NOTE | ~2020-03-18 | XR_ITS ---
XR shoulder RT min 2V 03/18/2020 09:14 Indication: Right shoulder pain after recent trauma Procedure: 6 views right shoulder Comparison: No prior studies for comparison. Findings: There is polyarticular osteoarthritis. Osteopenia. No acute fracture or traumatic malalignm ent. No significant soft tissue abnormality. Impression: 1: No acute fracture. Reviewed, dictated and finalized at location A. Impression: 1: No acute fracture.
--- NOTE | ~2020-03-18 | XR_ITS ---
[[id number] ] INDICATION: Right rib pain after recent trauma TECHNIQUE: Frontal projection of the upper right ribs, frontal projection of the lower right ribs, ob lique projection of all the right ribs, frontal inspiratory chest x-ray for interpretation. FINDINGS: There are no displaced rib fractures identified. There are no soft tissue abnormality see n. There is small right pleural effusion. There is atelectasis of the right mid and lower lung. IMPRESSION: 1:No displaced rib fractures. Reviewed, dictated and finalized at location A.
[2020-03-18 08:10] VITALS: BP 152/73; PULSE 86; RESP 24; TEMP 36.2; O2SAT 99
--- NOTE | 2020-03-18 08:58 | ED.GENADULT ---
HPI - General Adult General Chief complaint: Chest Pain Stated complaint: work comp Time Seen by Provider: 03/18/20 08:06 Source: patient Mode of arrival: ambulatory Limitations: no limitations History of Present Illness HPI narrative: Patient presents for evaluation of right-sided rib pain and right shoulder pain. 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 Yesterday she was attempting to assist a customer retrieve a cart. In the process of doing so the cart hit her in the right anterolateral ribs. Since that time she has had some pain in the affected area, as well as some right shoulder pain. At rest she reports minimal pain. However with movement pain in the right ribs increases to a level of 8 out of 10 in severity, without descriptive quality. She states that shoulder pain is 7 out of 10 in severity without descriptive quality. She has some mild shortness of breath. Of note she was hospitalized in January of this year for diverticulitis and subsequent liver abscess formation. She has been doing well since her hospital discharge. She has not taken anything for her pain. She simply wants to ensure that she does not have any broken ribs . Related Data Home Medications Medication Instructions Recorded Confirmed celecoxib 200 mg PO BID 01/17/20 02/10/20 fluticasone propionate [Flonase 50 mcg INTRANASAL DAILY PRN 01/17/20 02/10/20 Allergy Relief] lisinopril 10 mg PO DAILY 01/17/20 02/10/20 loratadine [Claritin] 10 mg PO DAILY 01/17/20 02/10/20 pantoprazole 40 mg PO DAILY 01/17/20 02/10/20 aspirin 325 mg PO DAILY 03/18/20 03/18/20 magnesium PO 03/18/20 Allergies Allergy/AdvReac Type Severity Reaction Status Date / Time hydrocodone Allergy Severe DIFFICULTY Verified 02/09/20 09:04 BREATHING, BEHAVIOR CHANGES latex Allergy Severe Anaphylactic Verified 02/09/20 09:04 Shock,RASH shellfish derived Allergy Severe Anaphylactic Verified 02/09/20 09:04 Shock Contrast Media Allergy Severe ANAPHYLAXIS Uncoded 01/17/20 07:32 Review of Systems Review of Systems: Narrative: CONSTITUTIONAL: Denies fever, chills, or sweats. EYES: Denies visual changes, redness, or discharge. ENT: Denies rhinorrhea, congestion, sore throat, or otalgia. CARDIOVASCULAR: Denies chest pain, palpitations, or edema. RESPIRATORY: Denies cough or dyspnea. Reports mild shortness of breath. GASTROINTESTINAL: Denies abdominal pain, nausea, vomiting, or diarrhea. GENITOURINARY: Denies dysuria or hematuria. SKIN: Denies rash or itching. MUSCULOSKELETAL: Denies back pain. Reports right anterolateral rib pain and right shoulder pain NEUROLOGIC: Denies headache, numbness, dizziness, or weakness. PSYCHIATRIC: Denies anxiety or depression. [facility] Past Medical History Medical History Abscess of liver Acid reflux Acute diastolic (congestive) heart failure Anemia Diverticulitis Empyema lung Hydronephrosis Hypertension Morbid obesity with BMI of 40.0-44.9, adult WILBERT (obstructive sleep apnea) Paroxysmal atrial fibrillation Sepsis Surgical History Surgical History H/O section H/O inguinal hernia repair H/O shoulder surgery History of bilateral knee replacement History of right hip replacement Family History Family History Father Diabetes mellitus Social History Social History Smoking status: Never smoker Alcohol intake: never Substance use: never Substance use type: does not use Living arrangements: with family Occupation/Education: occupation Additional occupation/education comments: works at [employer] as a [employer] Gender identity (if verbalized by the patient): Female Sexual Orientation (if Verbalized by the Patient): Straight or Heterosexual Spiritual care concerns
== END 2020-03-18 10:06 | disposition home or self-care (01) ==
PROVIDERS: Emergency Provider Nurse Practitioner; PCP Internal Medicine Geriatric Medicine
DX: S20.211A Contusion of right front wall of thorax, initial encounter (principal); W22.8XXA Striking against or struck by other objects, initial encounter; S46.911A Strain of unspecified muscle, fascia and tendon at shoulder and upper arm level, right arm, initial encounter; Z96.653 Presence of artificial knee joint, bilateral; Z96.641 Presence of right artificial hip joint; K21.9 Gastro-esophageal reflux disease without esophagitis; I10 Essential (primary) hypertension; G47.33 Obstructive sleep apnea (adult) (pediatric); I48.0 Paroxysmal atrial fibrillation; E66.01 Morbid (severe) obesity due to excess calories; Z68.41 Body mass index [BMI] 40.0-44.9, adult
CPT/HCPCS: 71101; 73030; 99214; G0463

== ENCOUNTER 2020-04-21 12:52 | Inpatient (IN) | payer OTHER, SELFPAY ==
[2020-04-21] VITALS (7 sets, daily range): BP systolic 115–164; BP diastolic 56–81; PULSE 72–105; RESP 16–20; TEMP 36.8–37; O2SAT 99–100; BMI 40.5
--- NOTE | ~2020-04-21 | US_ITS ---
EXAMINATION: US right upper quadrant DATE: 04/24/2020 09:03 INDICATION: Right upper quadrant abdominal pain. TECHNIQUE: Multiple grayscale and Doppler ultrasound images of the abdomen were obtained. COMPARISON: Ultrasound 03/16/2020, CT abdomen 04/21/2020, 01/27/2020 FINDINGS: The visualized portions of the head of the pancreas are normal. There is a 4.0 cm hypoechoi c mass in the liver near the gallbladder. The gallbladder is normal in size. No gallstones. Gallbladd er wall thickening is noted. There was no sonographic Sims sign. There is normal flow in main britney l vein. IMPRESSION: 1. 4.0 cm liver mass, new from 01/27/2020, most likely phlegmon or early abscess. Despite the proximit y to the gallbladder, this finding is likely secondary to the perisigmoid infection seen by CT rather than acute cholecystitis. 2. Gallbladder wall thickening, which may be secondary to liver disease, interstitial edema, or chron ic cholecystitis. Reviewed, dictated and finalized at location A. TENANCE WORKER IMPRESSION: 1. 4.0 cm liver mass, new from 01/27/2020, most likely phlegmon or early abscess . Despite the proximity to the gallbladder, this finding is likely secondary to the perisigmoid infection seen by CT rather than acute cholecystitis. 2. Gallbladder wall thickening, which may be secondary to liver disease, inters titial edema, or chronic cholecystitis.
--- NOTE | ~2020-04-21 | CT_ITS ---
EXAMINATION: CT abdomen pelvis wo con DATE: 04/21/2020 15:58 INDICATION: Abdominal pain. TECHNIQUE: Computed tomography (CT) of the abdomen and pelvis was performed without intravenous contr ast. Automated exposure control and iterative reconstruction technique were employed. The dose-length product was 1205.10 mGy-cm. COMPARISON: CT abdomen and pelvis 01/31/2020 FINDINGS: The visualized portions of the lung bases demonstrate mild atelectasis. Right-sided pleural thickening is noted, likely benign. No pleural effusion. The heart size is normal. No pericardial ef fusion. There are small ill-defined low-attenuation masses in right hepatic lobe measuring up to 2.4 x 1.6 cm where there were abscesses on the prior CT, consistent with infection/scarring. Calcificatio ns in the spleen are consistent with old granulomatous disease. The gallbladder, pancreas, and adrena l glands are normal. There is mild bilateral hydronephrosis and hydroureter. There is a presacral mas s measuring 5.3 x 4.6 cm with central gas. There are fistulas to the sigmoid colon. There are scatter ed diverticula in the colon. There are no dilated loops of bowel. The appendix is normal. There are n o pathologically enlarged lymph nodes. There is no free intraperitoneal fluid. There is a total right hip arthroplasty. There is severe thoracolumbar spondylosis. IMPRESSION: 1. Chronic sigmoid diverticulitis with fistulas and phlegmon in the presacral region. No drainable fl uid collection. 2. Mild bilateral hydronephrosis and hydroureter secondary to the chronic sigmoid diverticulitis and fistulas. 3. Small low-attenuation masses in the liver where there were abscesses on the prior CT, consistent w ith infection/scarring. Reviewed, dictated and finalized at location A. ICAL SECRETARY IMPRESSION: 1. Chronic sigmoid diverticulitis with fistulas and phlegmon in the presacral r egion. No drainable fluid collection. 2. Mild bilateral hydronephrosis and hydroureter secondary to the chronic sigmo id diverticulitis and fistulas. 3. Small low-attenuation masses in the liver where there were abscesses on the prior CT, consistent with infection/scarring.
[2020-04-21 13:40] LABS: Basophils Percent Auto 0.4 % (0.2-1.2); Eosinophils Absolute Auto 0.1 K/mm3 (0-0.3); Eosinophils Percent Auto 1.1 % (0-4.4); Hematocrit 32.5 % (37.0-47.0); Hemoglobin 10.2 g/dL (12.0-15.0); Immature Granulocyte Absolute 0.05 K/mm3 (0.00-0.031); Immature Granulocyte Percent A 0.5 % (0-0.5); Lymphocytes Percent Auto 13.9 % (18.3-44.2); Mean Corpuscular HGB Conc 31.4 g/dl (32-36); Mean Corpuscular Hemoglobin 25.7 pg (26-34); Mean Corpuscular Volume 81.9 fl (80-100); Mean Platelet Volume 9.4 fl (7.4-10.4); Monocytes Absolute Auto 0.9 K/mm3 (0.1-0.6); Monocytes Percent Auto 8.1 % (2.6-8.5); Neutrophils Absolute Auto 8.2 K/mm3 (1.3-6.7); Platelet Count Result 361 k/mm3 (150-375); Red Blood Count 3.97 M/mm3 (4.2-5.4); Red Cell Distribution Width 15.6 % (11.5-14.5); White Blood Count 10.8 K/mm3 (4.5-10.0)
[2020-04-21 13:43] LABS: Add Urine Microscopic? YES; Appearance Urine Clear (Clear); Bilirubin Urine Negative (Negative); Blood Urine Negative (Negative); Color Urine Straw (Yellow); Glucose Urine UA Negative (Negative); Ketones Urine Negative (Negative); Leukocyte Esterase Ur Negative LEU/UL (Negative); Nitrate Urine Negative (Negative); Protein Urine Negative (Negative); RBC Urine 0-2 /hpf (0-2); Specific Grav Ur 1.014 (1.001-1.035); Urobilinogen Urine Negative mg/dL (<2.0); WBC Urine 0-3 /hpf
[2020-04-21 13:50] LABS: Prothrombin Time 13.7 Seconds (11.1-14.7)
[2020-04-21 13:51] LABS: Partial Thromboplastin Time 29.2 SECONDS (22.3-36.8)
[2020-04-21 14:36] LABS: Alanine Aminotransferase 9 U/L (4-35); Alkaline Phosphatase 112 U/L (38-126); Anion Gap 10 mmol/L (8-16); Aspartate Amino Transferase 20 U/L (14-36); Bilirubin,Total 0.3 mg/dL (0.2-1.3); Blood Urea Nitrogen 21 mg/dL (7-17); Calcium 9.4 mg/dL (8.4-10.2); Carbon Dioxide 27 mmol/L (22-30); Chloride 98 mmol/L (98-107); Estimated CRCL calculation 68 ml/min; Estimated Glomerular Filt Rate > 60; Glucose 109 mg/dL (65-105); Lipase 31 U/L (23-300); Potassium 4.1 mmol/L (3.4-5.0); Sodium 135 mmol/L (137-145)
--- NOTE | 2020-04-21 15:13 | ED.GIBLEED ---
HPI - GI Bleed General Chief complaint: GI Bleed Stated complaint: GI BLEED Time Seen by Provider: 04/21/20 15:10 Source: patient Mode of arrival: ambulatory Limitations: no limitations History of Present Illness HPI Narrative: Patient is a 64-year-old female with a history of diverticulitis, hospitalization in January 2020 for sepsis, multiple abscesses in the liver secondary to diverticulitis, who presented for evaluation of left lower quadrant abdominal pain, dark/tarry stools. Patient reports in the past she had been on iron for anemia. Patient is reporting dull, aching left lower quadrant abdominal pain. She was seen yesterday in her primary care physician's office and had a stool sample which was guaiac positive. Patient had blood work drawn, and all this occurred at [facility], but states that since her pain worsened from yesterday and he she had been hospitalized at this facility recently, she decided to come back here for evaluation. She reports low-grade fever and chills. She denies cough or shortness of breath. She denies diarrhea or constipation, denies chest pain. Patient have been taking a daily aspirin, she has since discontinued that. Related Data Home Medications Medication Instructions Recorded Confirmed celecoxib 200 mg PO BID 01/17/20 04/13/20 fluticasone propionate [Flonase 50 mcg INTRANASAL DAILY PRN 01/17/20 04/13/20 Allergy Relief] lisinopril 10 mg PO DAILY 01/17/20 04/13/20 loratadine [Claritin] 10 mg PO DAILY 01/17/20 04/13/20 pantoprazole 40 mg PO DAILY 01/17/20 04/13/20 aspirin 325 mg PO DAILY 03/18/20 04/13/20 magnesium PO 03/18/20 04/13/20 Allergies Allergy/AdvReac Type Severity Reaction Status Date / Time hydrocodone Allergy Severe DIFFICULTY Verified 02/09/20 09:04 BREATHING, BEHAVIOR CHANGES latex Allergy Severe Anaphylactic Verified 02/09/20 09:04 Shock,RASH shellfish derived Allergy Severe Anaphylactic Verified 02/09/20 09:04 Shock Contrast Media Allergy Severe ANAPHYLAXIS Uncoded 01/17/20 07:32 Review of Systems Review of Systems: Narrative: CONSTITUTIONAL: Reports subjective fever and chills. EYES: Denies visual changes, redness, or discharge. ENT: Denies rhinorrhea, congestion, sore throat, or otalgia. CARDIOVASCULAR: Denies chest pain, palpitations, or edema. RESPIRATORY: Denies cough or dyspnea. GASTROINTESTINAL: Reports left-sided abdominal pain, nausea without vomiting, reports dark and tarry stools GENITOURINARY: Denies dysuria or hematuria. SKIN: Denies rash or itching. MUSCULOSKELETAL: Denies back pain, joint pain, or myalgia. NEUROLOGIC: Denies headache, numbness, or weakness. [facility] Past Medical History Medical History Abscess of liver Acid reflux Acute diastolic (congestive) heart failure Anemia BMI 40.0-44.9, adult Cardiac arrhythmia Diverticulitis Empyema lung Hydronephrosis Hypertension Morbid obesity with BMI of 40.0-44.9, adult WILBERT (obstructive sleep apnea) Paroxysmal atrial fibrillation Sepsis Surgical History Surgical History H/O section H/O inguinal hernia repair H/O knee surgery H/O shoulder surgery History of bilateral knee replacement History of hip surgery History of right hip replacement Family History Family History Father Diabetes mellitus Social History Social History Smoking status: Never smoker Alcohol intake: never Substance use: never Substance use type: does not use Additional occupation/education comments: works at [employer] as a [employer] Gender identity (if verbalized by the patient): Female Spiritual care concerns: No Exam Narrative: Exam Narrative: GENERAL: Awake, alert, conversant HEAD: Normocephalic, atraumatic. EYES: PERRLA and EOMI. ENT: N
[2020-04-21] MEDS: SODIUM CHLORIDE 0.9% IV 1,000 ML 999 ML IV CONT (16:14)
[2020-04-21] MEDS: ONDANSETRON INJ 4 MG/2 ML VIAL IV PUSH ×2 (16:15→21:43)
--- NOTE | 2020-04-21 18:14 | PC.NURSE ---
This patient, Ameena Tanner, was admitted to [facility] Surg Room 303-01 on 04/21/2020 @ 1813. Patient/family oriented to hospital policies and general routines including ID bracelet, bed and alarms, visiting hours, pain management, procedures, bathroom and other care routines, personal items, smoking policy, room service/diet, and visiting hours. Information on how to activate the Rapid Response Team has been discussed. Patient/Family are encouraged to report perceived risks to care and to ask questions if they do not understand what they are told or what they should do.
--- NOTE | 2020-04-21 21:00 | PM.IMHP ---
H&P: HPI History of Present Illness Date/Time: 04/21/20 21:00 Chief complaint: Dark stools and abdominal pain. Narrative: Ameena Tanner is a 64-year-old female with history of diverticulitis, GERD, and paroxysmal atrial fibrillation on 540 mg of aspirin daily who presented to the emergency department earlier today via private vehicle for evaluation of dark stools and abdominal pain. she saw her primary care provider a couple of days ago for a routine follow-up appointment at that time she mentioned having intermittent dark stools. Her stool was reportedly Hemoccult-positive at that time and she was given a referral to see a power system operator in [place]. Sometime last evening she developed abdominal pain, mainly in the right upper and middle quadrant which she describes as dull and aching in nature however it will become sharp and stabbing with movement. It seems to be worse with movement, palpation, and occasionally deep inspiration. It is somewhat better when she is not moving or after she passes gas. Tylenol has also helped take the edge off. The pain is somewhat similar to when she was hospitalized in January 2020 with diverticulitis and concurrent liver abscesses and empyema requiring percutaneous drainage and chest tube respectively. She is on iron and goes on to say that on occasion she will notice dark stools. She has not taken Pepto-Bismol. She does note being started on aspirin 540 mg daily sometime in February for stroke prophylaxis due to paroxysmal atrial fibrillation. She denies fever, chills, sweats, hematemesis, and hematochezia. She has no known history of peptic ulcers, pancreatitis, or gallbladder disease. She has not had any significant symptoms with regards to her GERD as long as she takes her Protonix. Review of Systems Review of Systems: Narrative: Twelve systems were reviewed with pertinent positives and negatives as per HPI. She has had some chills but no fever or sweats. She has lost about 50 lb in the last year. Her appetite has been okay and she denies nausea and vomiting. No exertional chest pain or shortness of breath. She denies pleuritic pain and palpitations. No lower extremity edema, calf pain, or tenderness. No history of venous thromboembolism. She denies dysuria and hematuria. Except as documented, all other systems were reviewed and are negative. [facility] Past Medical History Medical History (Updated 04/22/20 @ 00:30 by Yamila Sloan PA-C) Abscess of liver (~01/2020) Related to sigmoid diverticulitis, requiring percutaneous drainage. Acute diastolic (congestive) heart failure Anemia Diverticulitis (~01/2020) Empyema lung (~01/2020) Gastroesophageal reflux disease Hypertension Obstructive sleep apnea Osteoarthritis Paroxysmal atrial fibrillation Surgical History Surgical History (Updated 04/22/20 @ 00:30 by Yamila Sloan PA-C) History of bilateral knee arthroplasty History of bilateral knee replacement History of section History of hernia repair History of hip surgery History of right hip replacement History of shoulder surgery History of total right hip arthroplasty Family History Family History Father Diabetes mellitus Social History Social History (Updated 04/22/20 @ 00:31 by Yamila Sloan PA-C) Social History: Surrogate decision maker: Raymond Gomez and Mariel Rubina, daughters. Code status: Full code. Smoking status: Never smoker Alcohol intake: current Substance use: never Additional living arrangements comments: Lives in [place] with her . 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 Gender identity (if verbalized by the patient): Female Spiritual care concerns: No Meds Home Medications and Allergies Home Medications Medication Instructions Recorded Confirmed Type celecoxib 200 mg PO BID 01/16
[2020-04-21] MEDS: SODIUM CHLORIDE 0.9% IV 1,000 ML 125 ML IV CONT (21:43)
[2020-04-22 06:00] VITALS: BP 140/69; PULSE 92; RESP 20; TEMP 36.7; O2SAT 93
[2020-04-22 06:21] LABS: Basophils Percent Auto 0.2 % (0.2-1.2); Eosinophils Absolute Auto 0.1 K/mm3 (0-0.3); Hematocrit 31.6 % (37.0-47.0); Immature Granulocyte Absolute 0.05 K/mm3 (0.00-0.031); Immature Granulocyte Percent A 0.5 % (0-0.5); Lymphocytes Absolute Auto 0.42 K/mm3 (0.9-3.2); Lymphocytes Percent Auto 4.1 % (18.3-44.2); Mean Corpuscular HGB Conc 31.6 g/dl (32-36); Mean Corpuscular Hemoglobin 25.4 pg (26-34); Mean Corpuscular Volume 80.4 fl (80-100); Mean Platelet Volume 9.5 fl (7.4-10.4); Monocytes Absolute Auto 0.8 K/mm3 (0.1-0.6); Monocytes Percent Auto 7.3 % (2.6-8.5); Neutrophils Percent Auto 86.9 % (45.5-73.1); Platelet Count Result 333 k/mm3 (150-375); Red Blood Count 3.93 M/mm3 (4.2-5.4); Red Cell Distribution Width 15.5 % (11.5-14.5); White Blood Count 10.3 K/mm3 (4.5-10.0)
[2020-04-22 06:59] LABS: Alanine Aminotransferase 7 U/L (4-35); Albumin Level 3.2 g/dL (3.5-5.1); Alkaline Phosphatase 93 U/L (38-126); Anion Gap 6 mmol/L (8-16); Aspartate Amino Transferase 17 U/L (14-36); Bilirubin,Total 0.5 mg/dL (0.2-1.3); Blood Urea Nitrogen 15 mg/dL (7-17); Calcium 8.6 mg/dL (8.4-10.2); Carbon Dioxide 28 mmol/L (22-30); Chloride 101 mmol/L (98-107); Estimated CRCL calculation 67 ml/min; Estimated Glomerular Filt Rate > 60; Glucose 115 mg/dL (65-105); Potassium 4.1 mmol/L (3.4-5.0); Sodium 135 mmol/L (137-145)
[2020-04-22] MEDS: PANTOPRAZOLE SODIUM IV 40 MG VIAL IV PUSH ×2 (09:03→22:49)
[2020-04-22] MEDS: CHOLECALCIFEROL 1,000 UNITS TABLET 5000 UNITS PO (09:03)
[2020-04-22] MEDS: dilTIAZem HCL CD 180 MG CAP.ER.24H PO (09:03)
[2020-04-22] MEDS: lisinopriL 10 MG TABLET PO (09:03)
[2020-04-22] MEDS: LORATADINE 10 MG TABLET PO (09:03)
[2020-04-22] MEDS: MAGNESIUM OXIDE 400 MG TABLET PO (09:03)
--- NOTE | 2020-04-22 09:19 | PM.CNGS ---
Assessment and Plan Assessment and plan (1) RUQ pain: Code(s): R10.11 - Right upper quadrant pain Status: Acute Assessment and Plan: Patient presents with findings on the CT of chronic sigmoid diverticulitis and Heme+ stool. She has been placed on IV Zosyn. GI has been consulted for further workup. CT does not show any free air or recurrent drainable abscess. She does not have any signs that would require emergent surgical intervention at this time. Continue antibiotics and advance diet per Hospitalist/GI. Will follow for any changes. (2) Diverticulitis large intestine: Code(s): K57.32 - Diverticulitis of large intestine without perforation or abscess without bleeding Status: Acute (3) Heme + stool: Code(s): R19.5 - Other fecal abnormalities Status: Acute (4) BMI 40.0-44.9, adult: Code(s): Z68.41 - Body mass index [BMI]40.0-44.9, adult Status: Acute History of Present Illness Consult details Consult date: 04/22/20 Reason for consult: other (Diverticulitis) Narrative: This is a 64 yo woman who presents with recurrent diverticulitis. She has been complaining of right upper quadrant pain for the past several days. She denies any LLQ pain. She has a hx of complicated diverticulitis with liver abscess and empyema that was treated several months ago. She denies any current fevers. She was having dark black stools over the past few days which concerned her for blood in her stool. Her PCP noted +stool occult blood test. She has been on Celebrex and Aspirin. Review of Systems Review of Systems: All systems reviewed & are unremarkable except as noted in HPI and below Eyes: Eyes: Denies change in vision ENT: Denies hearing loss, Denies neck pain and Denies sore throat Cardiovascular: Cardiovascular: Denies chest pain and Denies dyspnea Respiratory: Respiratory: Denies cough, Denies dyspnea and Denies wheezing Gastrointestinal: Gastrointestinal: Reports as per HPI Genitourinary: Genitourinary: Denies hematuria and Denies dysuria Musculoskeletal: Musculoskeletal: Denies arthralgias, Denies joint swelling and Denies neck pain Allergic/Immunologic: Allergic/Immunologic: Denies wheezing PMFSH Past Medical History Medical History Abscess of liver (~01/2020) Related to sigmoid diverticulitis, requiring percutaneous drainage. Acute diastolic (congestive) heart failure Anemia Diverticulitis (~01/2020) Empyema lung (~01/2020) Gastroesophageal reflux disease Hypertension Obstructive sleep apnea Osteoarthritis Paroxysmal atrial fibrillation Surgical History Surgical History History of bilateral knee arthroplasty History of bilateral knee replacement History of section History of hernia repair History of hip surgery History of right hip replacement History of shoulder surgery History of total right hip arthroplasty Family History Family History Father Diabetes mellitus Social History Social History Social History: Surrogate decision maker: Raymond Gomez and Mariel Rubina, daughters. Code status: Full code. Smoking status: Never smoker Alcohol intake: current Substance use: never Additional living arrangements comments: Lives in [place] with her . 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 Gender identity (if verbalized by the patient): Female Spiritual care concerns: No Meds Home Medications and Allergies Home Medications Medication Instructions Recorded Confirmed Type celecoxib 200 mg PO BID 01/17/20 04/21/20 History lisinopril 10 mg PO DAILY 01/17/20 04/21/20 History loratadine [Claritin] 10 mg PO DAILY 01/17/20
--- NOTE | 2020-04-22 10:27 | WPDGICN ---
Assessment and Plan Assessment and plan (1) Dark stools: Code(s): R19.5 - Other fecal abnormalities Status: Acute Assessment and Plan: possible melena but hb stable, she says that her doctor increased her aspirin which is now on hold. Will proceed with egd on Friday, occult blood in stool also could be due to chronic diverticulitis (2) Abdominal pain: Code(s): R10.9 - Unspecified abdominal pain Status: Acute Assessment and Plan: with complicated chronic diverticulitis, no abscess to drain and she has chronic changes. Her most recent colonoscopy about 4 years ago by me at [facility] (will request records), no need to repeat another one now. (3) Diverticulitis large intestine: Code(s): K57.32 - Diverticulitis of large intestine without perforation or abscess without bleeding Status: Acute Assessment and Plan: on iv antibiotics, ok to advance to low fiber (4) Gastroesophageal reflux disease: Code(s): K21.9 - Gastro-esophageal reflux disease without esophagitis Status: Acute Assessment and Plan: on ppi bid (5) Abnormal computed tomography of abdomen and pelvis: Code(s): R93.5 - Abnormal findings on diagnostic imaging of other abdominal regions, including retroperitoneum Status: Acute (6) Heme + stool: Code(s): R19.5 - Other fecal abnormalities Status: Acute GI Consult Note Consult date/time: 04/22/20 10:27 Reason for consult: chronic diverticulitis, blood in stools HPI: Ameena Tanner is a 64 year old female with history of recurrent diverticulitis and most recent hospitalization with complicated diverticulitis with liver abscess with multiple septations that required IR drainage and iv antibiotics on January/2020, treated medically otherwise and follow-up as outpatient by surgery. Last time I met her was about 4 years ago when I performed her colonoscopy as outpatient at [facility] (patient remembers it was difficult because diverticulosis)- do not have report, also had previous colonoscopies by Dr Tran. She completed antibiotics more than 2 months ago, took iron until last month and also her doctor increased her aspirin to full dose recently. She has been using protonix for few years because GERD (had EGD many years ago). She has mild chronic abdominal lower pain, denies fever. Noted last 2-3 days with black tarry stool, no nausea or vomiting. She went to see her doctor who found occult blood in stools and admitted here. CT scan showed chronic sigmoid diverticulitis with fistulas and phlegmon in the presacral region. No drainable fluid collection. Mild bilateral hydronephrosis and hydroureter secondary to the chronic sigmoid diverticulitis and fistulas (as previously) and small low-attenuation masses in the liver where there were abscesses on the prior CT, consistent with infection/scarring. Hb 10 (it was 8.5 on January), MCV 80. Aspirin and celebrex discontinued and now on protonix bid. She is doing well otherwise. Review of Systems Constitutional: Constitutional: Denies chills Eyes: Eyes: Denies blurry vision ENT: Reports Normal hearing present Cardiovascular: Cardiovascular: Denies chest pain Respiratory: Respiratory: Denies cough Gastrointestinal: Gastrointestinal: Reports abdominal pain and Reports melena Genitourinary: Genitourinary: Denies dysuria Musculoskeletal: Musculoskeletal: Denies neck pain Neurologic: Denies headache(s) Psychiatric: Psychiatric: Denies confusion Endocrine: Endocrine: Denies change in body appearance Hematologic/Lymphatic: Hematologic/Lymphatic: Denies easy bruising [facility] Past Medical History Medical History Abscess of liver (~01/2020) Related to sigmoid diverticulitis, requiring percutaneous drainage. Acute diastolic (congestive) heart failure Anemia Diverticulitis (~01/2020) Empyema lung (~01/2020) Gastroesophageal reflux disease Hyperte
[2020-04-22] MEDS: polyethylene glycoL 3350 17 GM POWD.PACK PO (10:53)
[2020-04-22 14:00] VITALS: BP 127/68; PULSE 100; RESP 20; TEMP 37.1; O2SAT 98
--- NOTE | 2020-04-22 14:36 | PM.IMPN ---
Progress Note: A&P Assessment and Plan (1) Abdominal pain: Code(s): R10.9 - Unspecified abdominal pain Status: Acute Assessment and Plan: She presented with right upper quadrant abdominal pain. She has a complicated history of diverticulitis and liver abscess But there is no evidence of drainable abscess on CT. General surgery and gastroenterology is following. Recommendations are appreciated. no surgical indication at this time. Continue IV Zosyn at this time Full liquid diet. Advance as tolerated. Analgesics and antiemetics as needed (2) Heme + stool: Code(s): R19.5 - Other fecal abnormalities Status: Acute Assessment and Plan: Patient has been having dark tarry stools for 3-4 days. IFOB positive. She has been taking Celebrex and aspirin, therefore gastritis or peptic ulcer disease is likely. May be secondary to diverticulitis. No episodes of melena today. GI is following and recommendations are appreciated plan for EGD on Friday continue IV Protonix b.i.d. aspirin and Celebrex on hold (3) Abnormal computed tomography of abdomen and pelvis: Code(s): R93.5 - Abnormal findings on diagnostic imaging of other abdominal regions, including retroperitoneum Status: Acute Assessment and Plan: CT a/p showed chronic sigmoid diverticulitis with fistulas and phlegmon in the presacral region with no drainable fluid collection. Also showed mild bilateral hydronephrosis and hydroureter secondary to chronic sigmoid diverticulitis and fistulas. Small low-attenuation masses in the liver from prior abscesses. She had prolonged hospitalization in January for treatment of diverticulitis and liver abscess. General surgery and gastroenterology following. Plan as above. (4) Gastroesophageal reflux disease: Code(s): K21.9 - Gastro-esophageal reflux disease without esophagitis Status: Acute Assessment and Plan: Asymptomatic at this time. Continue IV Protonix (5) Paroxysmal atrial fibrillation: Code(s): I48.0 - Paroxysmal atrial fibrillation Status: Acute Assessment and Plan: Rate is controlled. She is on full-dose aspirin, recently increased by PCP from baby aspirin. Not on long-term anticoagulation, presumably due to fall risk. aspirin is on hold continue metoprolol and Cardizem (6) Hypertension: Code(s): I10 - Essential (primary) hypertension Status: Acute Assessment and Plan: Blood pressure evaluated today and is stable at 140/69. Continue metoprolol, lisinopril, and Cardizem monitor blood pressure daily (7) Anemia: Code(s): D64.9 - Anemia, unspecified Status: Acute Assessment and Plan: H&H mildly low but actually improved from baseline. Vital signs stable. Monitor H&H closely. Transfuse as needed. Subjective Date/time seen: 04/22/20 14:36 Interval history: Date of service: 04/22/2020 Ameena Tanner is a 64-year-old female with a history of diverticulitis, liver abscess, lung empyema, HTN, WILBERT, paroxysmal atrial fibrillation who is seen in follow-up for dark stools and RUQ pain. She is feeling well at this time. Her pain has improved significantly. She is comfortable at rest but reports 6/10 pain with sitting up or moving. She feels bloated. She has not had any further episodes of melena. She denies hematochezia, hematemesis, or coffee-ground emesis. She has been eating well. Denies nausea, vomiting, fever, chills, dizziness, lightheadedness, shortness of breath, chest pain, or palpitations. No urinary symptoms. Review of Systems Review of Systems: All systems reviewed & are unremarkable except as noted in HPI and below Exam Narrative: Exam Narrative: Ms. Tanner is an obese, well-appearing 64-year-old female who is lying supine in bed. she appears comfortable and is in NARD. HR, 92, BP 140/69, RR 20, T 98.1?, 93% on ro
[2020-04-22 20:00] VITALS: O2SAT 100
--- NOTE | 2020-04-22 20:45 | PC.NURSE ---
Rounded on patient. Patient wants to shower. Instructed she can. We will have to cover her Iv site. In understanding.
[2020-04-22 22:00] VITALS: BP 142/57; PULSE 88; RESP 20; TEMP 37.1; O2SAT 100
[2020-04-22] MEDS: MELATONIN 5 MG TABLET PO (22:46)
[2020-04-22 22:49] VITALS: PULSE 84
[2020-04-22] MEDS: METOPROLOL SUCCINATE EXT REL 25 MG TABCR PO (22:49)
[2020-04-22] MEDS: ACETAMINOPHEN 325 MG TABLET 650 MG (23:30)
[2020-04-23 06:00] VITALS: BP 121/60; PULSE 72; RESP 16; TEMP 36.4; O2SAT 97
[2020-04-23 06:41] LABS: Hematocrit 29.8 % (37.0-47.0); Hemoglobin 9.3 g/dL (12.0-15.0); Mean Corpuscular HGB Conc 31.2 g/dl (32-36); Mean Corpuscular Hemoglobin 25.3 pg (26-34); Mean Platelet Volume 9.5 fl (7.4-10.4); Platelet Count Result 320 k/mm3 (150-375); Red Blood Count 3.68 M/mm3 (4.2-5.4); Red Cell Distribution Width 15.5 % (11.5-14.5); White Blood Count 8.8 K/mm3 (4.5-10.0)
[2020-04-23 06:54] LABS: Anion Gap 5 mmol/L (8-16); Blood Urea Nitrogen 13 mg/dL (7-17); Calcium 8.9 mg/dL (8.4-10.2); Carbon Dioxide 32 mmol/L (22-30); Chloride 100 mmol/L (98-107); Estimated CRCL calculation 61 ml/min; Estimated Glomerular Filt Rate 56; Glucose 121 mg/dL (65-105); Potassium 4.1 mmol/L (3.4-5.0); Sodium 137 mmol/L (137-145)
[2020-04-23 09:02] VITALS: O2SAT 95
[2020-04-23] MEDS: lisinopriL 10 MG TABLET PO (09:47)
[2020-04-23] MEDS: LORATADINE 10 MG TABLET PO (09:47)
[2020-04-23] MEDS: dilTIAZem HCL CD 180 MG CAP.ER.24H PO (09:47)
[2020-04-23] MEDS: CHOLECALCIFEROL 1,000 UNITS TABLET 5000 UNITS PO (09:47)
[2020-04-23] MEDS: MAGNESIUM OXIDE 400 MG TABLET PO (09:47)
[2020-04-23] MEDS: polyethylene glycoL 3350 17 GM POWD.PACK PO (09:48)
[2020-04-23] MEDS: PANTOPRAZOLE SODIUM IV 40 MG VIAL IV PUSH ×2 (09:48→20:24)
[2020-04-23] MEDS: ACETAMINOPHEN 325 MG TABLET 650 MG PO ×2 (09:51→17:40)
--- NOTE | 2020-04-23 11:47 | WPDGIPROGNO ---
Progress Note: A&P Assessment and Plan (1) Diverticulitis large intestine: Code(s): K57.32 - Diverticulitis of large intestine without perforation or abscess without bleeding Status: Acute Assessment and Plan: chronic diverticulitis with phlegmon and fistulas, in this setting colonoscopy is not indicated (pending report of colonoscopy from 4 years ago). Surgery is on board, continue with iv antibiotics. She is having more pain this morning. (2) Abdominal pain: Code(s): R10.9 - Unspecified abdominal pain Status: Acute Assessment and Plan: abnormal CT findings can explain pain. (3) Dark stools: Code(s): R19.5 - Other fecal abnormalities Status: Acute Assessment and Plan: egd tomorrow to make sure that she does not have upper gib (holding aspirin now). If normal then occult blood in stools could be also from active diverticulitis (4) Abnormal computed tomography of abdomen and pelvis: Code(s): R93.5 - Abnormal findings on diagnostic imaging of other abdominal regions, including retroperitoneum Status: Acute (5) Hydronephrosis: Code(s): N13.30 - Unspecified hydronephrosis Status: Acute (6) Morbid obesity with BMI of 40.0-44.9, adult: Code(s): E66.01 - Morbid (severe) obesity due to excess calories; Z68.41 - Body mass index [BMI]40.0-44.9, adult Status: Acute (7) Heme + stool: Code(s): R19.5 - Other fecal abnormalities Status: Acute Subjective Date/time seen: 04/23/20 11:47 Interval history: she had a BM earlier today (I saw it, brown stool without blood). Earlier this morning had severe pain in rlq and almost passed out because of pain, now better but still uncomfortable. Tolerating liquid diet. Review of Systems Review of Systems: All systems reviewed & are unremarkable except as noted in HPI and below Exam Const: General: alert; No acute distress Orientation/consciousness: patient oriented x3 Limitations: no limitations HENMT: Head: normocephalic and atraumatic Ears: hearing grossly normal bilaterally General nose exam: Normal external nose present and Normal nares present Mouth: Yes Normal oral and palatal mucosa present and Yes moist mucous membranes Eyes: General: appearance normal, both eyes and all related structures Conjunctivae: conjunctivae normal Sclera: sclerae normal Pupils: Equal, round and reactive pupils present EOM: EOMs intact bilaterally Neck: Neck: normal visual inspection, full ROM, no lymphadenopathy, supple and no JVD Lymphatic: no lymphadenopathy noted Chest: Chest palpation & inspection: normal inspection of the chest Resp: Effort & Inspection: normal respiratory effort and able to speak in complete sentences Auscultation: clear to auscultation bilaterally Percussion: percussion normal Cardio: Jugular venous distension: no JVD Rate: regular rate Rhythm: regular rhythm Heart sounds: S1 normal heart sound present and S2 normal heart sound present Peripheral pulses: Peripheral pulses 2+ throughout GI: Inspection: normal to inspection GI Palp: Yes Soft to palpation, Yes Tenderness to palpation present (GI) (RLQ, no rebound), No Guarding due to palpation present (GI), No Hernia present and No Rebound tenderness present Percussion: Yes normal to percussion Auscultation: normal bowel sounds : General: Yes no CVA tenderness Back/Spine/Pelvis: Back: no CVA tenderness Skin: General skin exam: normal color and dry skin Neuro: General: patient oriented x3, moves all extremities, no focal motor deficits and CN's II-XI intact bilaterally Cranial nerves: Yes Equal, round and reactive pupils present Speech: normal speech Motor exam (neuro): Normal motor muscle tone present throughout Extrem: General: normal to inspection and capillary refill normal Psych: Mental Status: mental status grossly normal Objective Data Vital Signs Vital Signs: Vital Signs - 24 hr 04/22/20 14:00
--- NOTE | 2020-04-23 12:41 | PM.IMPN ---
Progress Note: A&P Assessment and Plan (1) Sigmoid diverticulitis: Code(s): K57.32 - Diverticulitis of large intestine without perforation or abscess without bleeding Status: Acute Assessment and Plan: CT a/p showed chronic sigmoid diverticulitis with fistulas and phlegmon in the presacral region with no drainable fluid collection. Also showed mild bilateral hydronephrosis and hydroureter secondary to chronic sigmoid diverticulitis and fistulas. She had prolonged hospitalization in January for treatment of diverticulitis along with liver abscess. She is complaining of abdominal pain, likely related to chronic diverticulitis. Pain is in RLQ today. General surgery and gastroenterology is following. Recommendations are appreciated. no surgical indication at this time. Continue IV Zosyn at this time. She was on nursing home IV Zosyn for 21 days in January-February 2020. Will consider consult to Infectious Disease for antibiotic recommendations regarding chronic diverticulitis prior to discharge. Full liquid diet. Continue to advance as tolerated. Analgesics and antiemetics as needed (2) Heme + stool: Code(s): R19.5 - Other fecal abnormalities Status: Acute Assessment and Plan: Patient has been having dark tarry stools for 3-4 days. IFOB positive. She has been taking Celebrex and aspirin, therefore gastritis or peptic ulcer disease is likely. May be secondary to ongoing diverticulitis. No episodes of melena today. GI is following and recommendations are appreciated plan for EGD tomorrow continue IV Protonix b.i.d. aspirin and Celebrex on hold. Celebrex will need to be discontinued. (3) Gastroesophageal reflux disease: Code(s): K21.9 - Gastro-esophageal reflux disease without esophagitis Status: Acute Assessment and Plan: Asymptomatic at this time. Continue IV Protonix (4) Paroxysmal atrial fibrillation: Code(s): I48.0 - Paroxysmal atrial fibrillation Status: Acute Assessment and Plan: Rate is controlled. She is on full-dose aspirin, recently increased by PCP from baby aspirin. Not on long-term anticoagulation, presumably due to fall risk. aspirin is on hold continue metoprolol and Cardizem (5) Hypertension: Code(s): I10 - Essential (primary) hypertension Status: Acute Assessment and Plan: Blood pressure evaluated today and is stable at 140/69. Continue metoprolol, lisinopril, and Cardizem monitor blood pressure daily (6) Anemia: Code(s): D64.9 - Anemia, unspecified Status: Acute Assessment and Plan: H&H mildly low but actually improved from baseline. Vital signs stable. Monitor H&H closely. Transfuse as needed. Subjective Date/time seen: 04/23/20 12:41 Interval history: Date of service: 04/23/2020 Ameena Tanner is a 64-year-old female with a history of diverticulitis, liver abscess, lung empyema, HTN, WILBERT, paroxysmal atrial fibrillation who is seen in follow-up for dark stools and RUQ pain. She has chronic diverticulitis. She had a regular bowel movement today with no bleeding that was brown in color. She is having increased abdominal pain today that is concentrated more in the RLQ. She rated it as 9/10 this morning but has now improved to 6/10. She is tolerating full liquids. She is passing gas. She denies nausea, vomiting, dizziness, lightheadedness, fever, chills, shortness of breath, cough, chest pain, or palpitations. Review of Systems Review of Systems: All systems reviewed & are unremarkable except as noted in HPI and below Exam Narrative: Exam Narrative: Ms. Tanner is an obese, well-appearing 64-year-old female who is lying supine in bed. she appears comfortable and is in NARD. HR, 92, BP 140/69, RR 20, T 98.1?, 93% on room air Neuro: awake, alert and oriented x4, speech clear, no focal neuro deficits noted HEENMT: normocephalic, atraumatic, EOMI
[2020-04-23 14:00] VITALS: BP 120/58; PULSE 80; RESP 20; TEMP 36.4; O2SAT 98
[2020-04-23 20:24] VITALS: PULSE 82
[2020-04-23] MEDS: MELATONIN 5 MG TABLET PO (20:24)
[2020-04-23] MEDS: METOPROLOL SUCCINATE EXT REL 25 MG TABCR PO (20:24)
[2020-04-23 22:00] VITALS: BP 127/71; PULSE 77; RESP 18; TEMP 36.6; O2SAT 95
[2020-04-24] VITALS (9 sets, daily range): BP systolic 115–148; BP diastolic 54–70; PULSE 72–85; RESP 16–20; TEMP 36.6–37.2; O2SAT 96–100
[2020-04-24 06:52] LABS: Hematocrit 31.9 % (37.0-47.0); Hemoglobin 9.8 g/dL (12.0-15.0); Mean Corpuscular HGB Conc 30.7 g/dl (32-36); Mean Corpuscular Hemoglobin 25.1 pg (26-34); Mean Corpuscular Volume 81.8 fl (80-100); Mean Platelet Volume 9.2 fl (7.4-10.4); Platelet Count Result 327 k/mm3 (150-375); Red Cell Distribution Width 15.7 % (11.5-14.5); White Blood Count 7.6 K/mm3 (4.5-10.0)
[2020-04-24 07:10] LABS: Anion Gap 6 mmol/L (8-16); Blood Urea Nitrogen 10 mg/dL (7-17); Carbon Dioxide 31 mmol/L (22-30); Chloride 100 mmol/L (98-107); Estimated CRCL calculation 65 ml/min; Estimated Glomerular Filt Rate > 60; Glucose 120 mg/dL (65-105); Potassium 4.2 mmol/L (3.4-5.0); Sodium 137 mmol/L (137-145)
[2020-04-24] MEDS: PANTOPRAZOLE SODIUM IV 40 MG VIAL IV PUSH (08:35)
--- NOTE | 2020-04-24 09:45 | PC.NURSE ---
To GI Lab per wheelchair, IV 22 LH. Report given to GI lab.
[2020-04-24] MEDS: LACTATED RINGERS 1,000 ML 150 ML IV CONT (10:17)
--- NOTE | 2020-04-24 10:38 | WPDANESEPPF ---
Anes - Initial Pre Proc Eval Procedure: Operation Date: 04/24/20 12:30 Proposed Procedures p Esophagogastroduodenoscopy - Raman Lobato MD Date/Time: 04/24/20 10:38 Surgeon: Cierra Childs PA-C Pre Op Diagnosis: Dark stools and abdominal pain. Patient Data Age: 64 Gender: F Height: 5 ft 4 in Weight: 101.4 kg Last Vital Signs Temp 97.8 F 04/24/20 05:39 Pulse 75 04/24/20 10:15 Resp 18 04/24/20 10:15 BP 148/69 H 04/24/20 10:15 Pulse Ox 97 04/24/20 10:15 Allergies Allergy/AdvReac Type Severity Reaction Status Date / Time hydrocodone Allergy Severe DIFFICULTY Verified 04/24/20 10:14 BREATHING, BEHAVIOR CHANGES Iodinated Contrast Media Allergy Severe Anaphylaxis Verified 04/24/20 10:14 latex Allergy Severe Anaphylactic Verified 04/24/20 10:14 Shock,RASH shellfish derived Allergy Severe Anaphylactic Verified 04/24/20 10:14 Shock Contrast Media Allergy Severe ANAPHYLAXIS Uncoded 04/24/20 10:14 Home Medications Medication Instructions Recorded Confirmed Type celecoxib 200 mg PO BID 01/17/20 04/21/20 History lisinopril 10 mg PO DAILY 01/17/20 04/21/20 History loratadine [Claritin] 10 mg PO DAILY 01/17/20 04/21/20 History pantoprazole 40 mg PO DAILY 01/17/20 04/21/20 History diltiazem HCl 180 mg PO QAM #30 cap 01/31/20 04/21/20 Rx acetaminophen [Acetaminophen Extra 1,000 mg PO Q6H PRN 04/21/20 04/21/20 History Strength] cholecalciferol (vitamin D3) 125 mcg PO DAILY 04/21/20 04/21/20 History magnesium oxide 400 mg PO DAILY 04/21/20 04/21/20 History melatonin 5 mg PO HS 04/21/20 04/21/20 History metoprolol succinate [Toprol XL] 25 mg PO HS 04/21/20 04/21/20 History polyethylene glycol 3350 [Miralax] 17 g PO DAILY PRN 04/21/20 04/21/20 History aspirin 325 mg PO DAILY 04/22/20 04/22/20 History Laboratory Tests 04/24/20 04/24/20 06:32 06:32 WBC 7.6 K/mm3 K/mm3 (4.5-10.0) RBC 3.90 M/mm3 L M/mm3 (4.2-5.4) Hgb 9.8 g/dL L g/dL (12.0-15.0) Hct 31.9 % L % (37.0-47.0) MCV 81.8 fl fl (80-100) MCH 25.1 pg L pg (26-34) MCHC 30.7 g/dl L g/dl (32-36) RDW 15.7 % H % (11.5-14.5) Plt Count 327 k/mm3 k/mm3 (150-375) MPV 9.2 fl fl (7.4-10.4) Sodium 137 mmol/L mmol/L (137-145) Potassium 4.2 mmol/L mmol/L (3.4-5.0) Chloride 100 mmol/L mmol/L (98-107) Carbon Dioxide 31 mmol/L H mmol/L (22-30) Anion Gap 6 mmol/L L mmol/L (8-16) BUN 10 mg/dL mg/dL (7-17) Creatinine 0.90 mg/dL mg/dL (0.7-1.0) Estim Creat Clear Calc 65 ml/min ml/min Estimated GFR > 60 (59 - ) Glucose 120 mg/dL H mg/dL (65-105) Calcium 9.0 mg/dL mg/dL (8.4-10.2) Patient hx anesthesia problems: none Family hx anesthesia problems: none [facility] Past Medical History Medical History (Updated 04/23/20 @ 14:41 by Cierra hCilds PA-C) Abscess of liver (~01/2020) Related to sigmoid diverticulitis, requiring percutaneous drainage. Acute diastolic (congestive) heart failure Anemia Dark stools Diverticulitis (~01/2020) Empyema lung (~01/2020) Gastroesophageal reflux disease Hypertension Obstructive sleep apnea Osteoarthritis Paroxysmal atrial fibrillation Surgical History Surgical History History of bilateral knee arthroplasty History of bilateral knee replacement History of section History of hernia repair History of hip surgery History of right hip replacement History of shoulder surgery History of total right hip arthroplasty Family History Family History Father Diabetes mellitus Social History Social History Social History: Surrogate decision maker: Raymond Gomez and Mariel Rubina, daughters. Code status: Full code.
--- NOTE | 2020-04-24 12:45 | PC.NURSE ---
Returned from GI Lab.
[2020-04-24] MEDS: ACETAMINOPHEN 325 MG TABLET 650 MG PO (12:58)
[2020-04-24] MEDS: CHOLECALCIFEROL 1,000 UNITS TABLET 5000 UNITS PO (12:59)
[2020-04-24] MEDS: LORATADINE 10 MG TABLET PO (12:59)
[2020-04-24] MEDS: MAGNESIUM OXIDE 400 MG TABLET PO (12:59)
[2020-04-24] MEDS: dilTIAZem HCL CD 180 MG CAP.ER.24H PO (12:59)
[2020-04-24] MEDS: lisinopriL 10 MG TABLET PO (12:59)
[2020-04-24] MEDS: polyethylene glycoL 3350 17 GM POWD.PACK PO (13:03)
--- NOTE | 2020-04-24 14:14 | PM.IMPN ---
Progress Note: A&P Assessment and Plan (1) Sigmoid diverticulitis: Code(s): K57.32 - Diverticulitis of large intestine without perforation or abscess without bleeding Status: Acute Assessment and Plan: CT a/p showed chronic sigmoid diverticulitis with fistulas and phlegmon in the presacral region with no drainable fluid collection. Also showed mild bilateral hydronephrosis and hydroureter secondary to chronic sigmoid diverticulitis and fistulas. She had prolonged hospitalization in January for treatment of diverticulitis along with liver abscess in which she completed 21 days of IV Zosyn. She is complaining of abdominal pain, likely related to chronic diverticulitis. Pain is in RLQ today. General surgery and gastroenterology following. Recommendations are appreciated. No surgical indication at this time. Continue IV Zosyn. Consult placed to Infectious Disease for antibiotic recommendations regarding chronic diverticulitis with abnormal findings of fistula and phlegmon. Recommendations are appreciated. Full liquid diet. Continue to advance as tolerated. Analgesics and antiemetics as needed (2) Liver mass: Code(s): R16.0 - Hepatomegaly, not elsewhere classified Status: Acute Assessment and Plan: Right upper quadrant ultrasound performed today showed 4 cm liver mass new from January 2020, felt to be early abscess secondary to sigmoid diverticulitis. No drainable fluid collection noted at this time. I reviewed results with Dr. Adam (radiology). appreciate GI, ID, and surgery input as noted above continue IV Zosyn at this time (3) Abdominal pain: Code(s): R10.9 - Unspecified abdominal pain Status: Acute Assessment and Plan: She presented with complaints of RUQ pain, that is now concentrated in the right lower quadrant. Initially felt to be secondary to diverticulitis. She had an EGD today with no acute findings. Suspect pain is secondary to liver mass noted on RUQ US today. See above. Analgesics as needed for pain (4) Heme + stool: Code(s): R19.5 - Other fecal abnormalities Status: Acute Assessment and Plan: Patient had been having dark tarry stools for 3-4 days prior to presentation. IFOB positive. She had been taking Celebrex and aspirin, therefore gastritis or peptic ulcer disease initially suspected. she had an EGD today by Dr. Landa which showed no acute findings and no evidence of upper GI bleeding. Occult blood is felt to be secondary to chronic diverticulitis. Transition to oral Protonix 40 mg daily aspirin and Celebrex on hold. (5) Gastroesophageal reflux disease: Code(s): K21.9 - Gastro-esophageal reflux disease without esophagitis Status: Acute Assessment and Plan: Asymptomatic at this time. Continue IV Protonix (6) Paroxysmal atrial fibrillation: Code(s): I48.0 - Paroxysmal atrial fibrillation Status: Acute Assessment and Plan: Rate is controlled. She is on full-dose aspirin, recently increased by PCP from baby aspirin. Not on long-term anticoagulation, presumably due to fall risk. aspirin is on hold continue metoprolol and Cardizem (7) Hypertension: Code(s): I10 - Essential (primary) hypertension Status: Acute Assessment and Plan: Blood pressure evaluated today and is stable at 140/69. Continue metoprolol, lisinopril, and Cardizem monitor blood pressure daily (8) Anemia: Code(s): D64.9 - Anemia, unspecified Status: Acute Assessment and Plan: H&H mildly low but actually improved from baseline. Vital signs stable. Monitor H&H closely. Transfuse as needed. Subjective Date/time seen: 04/24/20 14:14 Interval history: Date of service: 04/24/2020 Ameena Tanner is a 64-year-old female with a history of diverticulitis complicated by liver abscess, lung empyema, HTN, WILBERT, paroxysmal atrial
--- NOTE | 2020-04-24 14:38 | WPDINFPN2 ---
Progress Note: A&P Assessment and Plan (1) Sigmoid diverticulitis: Code(s): K57.32 - Diverticulitis of large intestine without perforation or abscess without bleeding Status: Acute Assessment and Plan: 1. Chronic diverticulitis 2. Recurrent (after clinical and ultrasound cure) liver abscess REC [facility] #5. I think that she needs colon resection/phlegmon evacuation/liver abscess drainage -- patient will discuss with Dr. Whelan. Subjective Date/time seen: 04/24/20 14:38 Objective Data Vital Signs Vital Signs: Vital Signs - 24 hr 04/23/20 20:24 04/23/20 22:00 04/24/20 05:39 Temperature 36.6 C 36.6 C Pulse Rate 82 77 72 Respiratory Rate 18 20 Blood Pressure 127/71 127/69 Pulse Oximetry 95 97 04/24/20 10:15 04/24/20 12:09 04/24/20 12:19 Temperature Pulse Rate 75 77 76 Respiratory Rate 18 20 18 Blood Pressure 148/69 H 115/54 L 138/67 Pulse Oximetry 97 99 100 04/24/20 12:29 Temperature Pulse Rate 80 Respiratory Rate 20 Blood Pressure 148/60 H Pulse Oximetry 100 Intake/Output Intake/Output: Intake & Output 04/21/20 04/22/20 04/23/20 04/24/20 23:59 23:59 23:59 23:59 Intake Total 1250 3510 2310 600 Output Total 2900 2275 1500 Balance 1250 610 35 -900 Meds/Results Medications: Active Medications Generic Name Dose Route Start Last Admin Trade Name Freq PRN Reason Stop Dose Admin Acetaminophen 650 mg 04/22/20 22:42 04/24/20 12:58 Acetaminophen 325 Mg Tablet PO 650 mg Q6H PRN Administration Mild Pain (1-3) or Fever Diltiazem HCl 180 mg 04/22/20 09:00 04/24/20 12:59 Diltiazem Hcl Cd 180 Mg Cap.Er.24h PO 180 mg QAM VASYL Administration Piperacillin/Tazobactam/Dextrose 3.375 gm in 50 mls @ 100 mls/hr 04/21/20 22:00 04/24/20 12:53 Zosyn 3.375 Gm/D5w 50ml Pm IVPB Not Given Q6H VASYL Lisinopril 10 mg 04/22/20 09:00 04/24/20 12:59 Lisinopril 10 Mg Tablet PO 10 mg DAILY VASYL Administration Loratadine 10 mg 04/22/20 09:00 04/24/20 12:59 Loratadine 10 Mg Tablet PO 10 mg DAILY VASYL Administration Magnesium Oxide 400 mg 04/22/20 09:00 04/24/20 12:59 Magnesium Oxide 400 Mg Tablet PO 400 mg DAILY VASYL Administration Melatonin 5 mg 04/22/20 21:00 04/23/20 20:24 Melatonin 5 Mg Tablet PO 5 mg HS VASYL Administration Metoprolol Succinate 25 mg 04/22/20 21:00 04/23/20 20:24 Metoprolol Succinate Ext Rel 25 Mg Tabcr PO 25 mg HS VASYL Administration Ondansetron HCl 4 mg 04/21/20 16:55 04/21/20 21:43 Ondansetron Inj 4 Mg/2 Ml Vial IV PUSH 4 mg Q4H PRN Administration Nausea Pantoprazole Sodium 40 mg 04/25/20 09:00 Pantoprazole 40 Mg Tablet PO QAM VASYL Polyethylene Glycol 17 gm 04/22/20 09:20 04/24/20 13:03 Polyethylene Glycol 3350 17 Gm Powd.Pack PO 17 gm QAM VASYL Administration Vitamin D 5,000 units 04/22/20 09:00 04/24/20 12:59 Cholecalciferol 1,000 Units Tablet PO 5,000 units DAILY VASYL Administration Radiology Results: ITS Impressions Abdomen/Pelvis CT 04/21/20 16:00 IMPRESSION: 1. Chronic sigmoid diverticulitis with fistulas and phlegmon in the presacral region. No drainable fluid collection. 2. Mild bilateral hydronephrosis and hydroureter secondary to the chronic sigmoid diverticulitis and fistulas. 3. Small low-attenuation masses in the liver where there were abscesses on the prior CT, consistent with infection/scarring. Upper Quadrant Ultrasound 04/24/20 09:04 IMPRESSION: 1. 4.0 cm liver mass, new from 01/27/2020, most likely phlegmon or early abscess. Despite the proximity to the gallbladder, this finding is likely secondary to the perisigmoid infection seen by CT rather than acute cholecystitis. 2. Gallbladder wall thickening, which may be secondary to liver disease, interstitial edema, or chronic cholecystitis. Labs Labs: Laboratory Results - last 24 hr 04/24/20 04/24/20 06:32 06:32 WBC 7.6 RBC 3.90 L Hgb 9.8 L
--- NOTE | 2020-04-24 19:39 | CONS_ITS ---
DATE OF CONSULTATION: 04/24/2020 REASON FOR CONSULTATION: Diverticulitis. HISTORY OF PRESENT ILLNESS: Ms. Tanner is a 64-year-old female known to me from January. At that time, she had liver abscess, which was drained percutaneously, due to acute diverticulitis and same chronic diverticulosis. The patient had at least 2 episodes in the last 30 years of diverticulitis previously. She was given IV antibiotics. Followup with me in the office and had ultrasound in early March, which showed no hepatic fluid collections nor subphrenic nor subhepatic. She has been on no antibiotics in the interim, but presented back to the hospital on the April 21 with medial right lower quadrant pain and left lower quadrant pain. Also had guaiac-positive stools and temperature into the 37 range. She was started on piperacillin tazobactam and consultation requested today. She had upper endoscopy performed today, which was normal and did not reveal a source of the GI hemorrhage. The patient has also noted constipation and excess gas, both relieved with passage of stool. MEDICATIONS: List reviewed. No immunosuppressants. ALLERGIES: NONE PERTINENT. HABITS: No tobacco. No alcohol. PAST MEDICAL HISTORY: Right total hip arthroplasty, shoulder surgery, ventral hernia repair, endometriosis with no hysterectomy with widespread peritoneal debridement of the same, allowing her to have 2 more children, had bilateral knee arthroplasties, PAF, osteoarthritis, WILBERT, hypertension, GERD, and diastolic heart failure. REVIEW OF SYSTEMS: 14-point review otherwise negative. FAMILY HISTORY: Not pertinent to her present illness. SOCIAL HISTORY: Retired, but works part-time as planned on short-term disability once again. She has several children and her 2 daughters were able to assist her with home IV antibiotics if needed, similar to January. Several family members with Coronavirus, but the patient had no contact with them of concern. PHYSICAL EXAMINATION: GENERAL: This is a female, who appears her actual age. No acute distress. VITAL SIGNS: Afebrile since arrival, 148/60, 80, 20, 100% on room air. SKIN: No rashes. Warm and dry. Few ecchymoses. NODES: No cervical adenopathy. EENT: Conjunctivae are normal. The oropharynx, oral mucosa normal. Pupils equal, round, reactive to light. Mucous membranes well hydrated. NECK: No masses, thyromegaly, asymmetry, meningismus. LUNGS: Clear to auscultation and percussion. CARDIAC: Regular rate and rhythm. No murmur, gallop, or rub. Pulses are 2+. ABDOMEN: Obese, nondistended. No masses. No organomegaly. EXTREMITIES: Trace ankle edema. No evidence of cellulitis. NEUROLOGIC: Awake, alert, oriented, appropriate. Normal muscle tone. LABORATORY DATA: Previous wound culture with fusobacterium. Previous blood cultures, no growth final. White count was 10.3 on the 14th, 10.8 on the 13th, now at 7.6, hemoglobin 9.8, platelets are 327. Earlier differential showed a mild left shift. Chemistry panels with minimal hyperglycemia at 120, albumin 3.2, otherwise liver function tests normal. Urinalysis normal. RADIOLOGY: Abdomen and pelvic CT and right upper quadrant ultrasound show chronic sigmoid diverticulitis fistula, phlegmon, hydronephrosis, small low-attenuation masses in the liver. Her right upper quadrant ultrasound compared to 03/16/2020, showed a new onset of a 4 cm liver mass, gallbladder wall thickening. ASSESSMENT: 1. Chronic sigmoid diverticulitis with fistula and phlegmon, ongoing infection suspected due to the fistula and chronic inflammation of the wall of the sigmoid. 2. Recurrent liver fluid collection, I suspect abscess, human resources hr representative of new infection given that she had clinical and ultrasound cure of her prior
[2020-04-24] MEDS: MELATONIN 5 MG TABLET PO (22:05)
[2020-04-24] MEDS: METOPROLOL SUCCINATE EXT REL 25 MG TABCR PO (22:05)
[2020-04-25] MEDS: ACETAMINOPHEN 325 MG TABLET 650 MG PO ×3 (01:16→16:27)
[2020-04-25 06:00] VITALS: BP 137/67; PULSE 74; RESP 18; TEMP 36.9; O2SAT 97
[2020-04-25 06:20] LABS: Basophils Percent Auto 0.2 % (0.2-1.2); Eosinophils Absolute Auto 0.3 K/mm3 (0-0.3); Eosinophils Percent Auto 3.5 % (0-4.4); Hematocrit 31.5 % (37.0-47.0); Hemoglobin 9.7 g/dL (12.0-15.0); Immature Granulocyte Absolute 0.03 K/mm3 (0.00-0.031); Immature Granulocyte Percent A 0.4 % (0-0.5); Lymphocytes Absolute Auto 1.06 K/mm3 (0.9-3.2); Lymphocytes Percent Auto 12.5 % (18.3-44.2); Mean Corpuscular HGB Conc 30.8 g/dl (32-36); Mean Corpuscular Hemoglobin 24.6 pg (26-34); Mean Corpuscular Volume 79.7 fl (80-100); Mean Platelet Volume 9.6 fl (7.4-10.4); Monocytes Absolute Auto 0.8 K/mm3 (0.1-0.6); Monocytes Percent Auto 9.7 % (2.6-8.5); Neutrophils Absolute Auto 6.3 K/mm3 (1.3-6.7); Neutrophils Percent Auto 73.7 % (45.5-73.1); Platelet Count Result 348 k/mm3 (150-375); Red Blood Count 3.95 M/mm3 (4.2-5.4); Red Cell Distribution Width 15.5 % (11.5-14.5); White Blood Count 8.5 K/mm3 (4.5-10.0)
[2020-04-25 06:43] LABS: Anion Gap 9 mmol/L (8-16); Blood Urea Nitrogen 12 mg/dL (7-17); Calcium 9.1 mg/dL (8.4-10.2); Carbon Dioxide 27 mmol/L (22-30); Chloride 99 mmol/L (98-107); Estimated CRCL calculation 76 ml/min; Estimated Glomerular Filt Rate > 60; Glucose 131 mg/dL (65-105); Potassium 4.2 mmol/L (3.4-5.0); Sodium 135 mmol/L (137-145)
[2020-04-25] MEDS: lisinopriL 10 MG TABLET PO (08:26)
[2020-04-25] MEDS: dilTIAZem HCL CD 180 MG CAP.ER.24H PO (08:26)
[2020-04-25] MEDS: CHOLECALCIFEROL 1,000 UNITS TABLET 5000 UNITS PO (08:26)
[2020-04-25] MEDS: polyethylene glycoL 3350 17 GM POWD.PACK PO (08:27)
[2020-04-25] MEDS: PANTOPRAZOLE 40 MG TABLET PO (08:27)
[2020-04-25] MEDS: LORATADINE 10 MG TABLET PO (08:27)
[2020-04-25] MEDS: MAGNESIUM OXIDE 400 MG TABLET PO (08:27)
--- NOTE | 2020-04-25 12:25 | PM.IMPN ---
Subjective Date/time seen: 04/25/20 12:25 Review of Systems Review of Systems: All systems reviewed & are unremarkable except as noted in HPI and below Objective Data Vital Signs Vital Signs: Vital Signs - 24 hr 04/24/20 12:29 04/24/20 14:00 04/24/20 20:00 Temperature 98.9 F Pulse Rate 80 84 80 Respiratory Rate 20 16 20 Blood Pressure 148/60 H 130/70 Pulse Oximetry 100 96 97 04/24/20 22:00 04/24/20 22:05 04/25/20 06:00 Temperature 98.7 F 98.4 F Pulse Rate 85 80 74 Respiratory Rate 20 18 Blood Pressure 146/68 H 137/67 Pulse Oximetry 97 97 Intake/Output Intake/Output: Intake & Output 04/22/20 04/23/20 04/24/20 04/25/20 23:59 23:59 23:59 23:59 Intake Total 3510 2310 2180 690 Output Total 2900 2275 2750 1000 Balance 610 31 -315 -260 Meds/Results Medications: Active Medications Generic Name Dose Route Start Last Admin Trade Name Freq PRN Reason Stop Dose Admin Acetaminophen 650 mg 04/22/20 22:42 04/25/20 08:26 Acetaminophen 325 Mg Tablet PO 650 mg Q6H PRN Administration Mild Pain (1-3) or Fever Diltiazem HCl 180 mg 04/22/20 09:00 04/25/20 08:26 Diltiazem Hcl Cd 180 Mg Cap.Er.24h PO 180 mg QAM VASYL Administration Piperacillin/Tazobactam/Dextrose 3.375 gm in 50 mls @ 100 mls/hr 04/21/20 22:00 04/25/20 11:01 Zosyn 3.375 Gm/D5w 50ml Pm IVPB Infused Q6H VASYL Infusion Lisinopril 10 mg 04/22/20 09:00 04/25/20 08:26 Lisinopril 10 Mg Tablet PO 10 mg DAILY VASYL Administration Loratadine 10 mg 04/22/20 09:00 04/25/20 08:27 Loratadine 10 Mg Tablet PO 10 mg DAILY VASYL Administration Magnesium Oxide 400 mg 04/22/20 09:00 04/25/20 08:27 Magnesium Oxide 400 Mg Tablet PO 400 mg DAILY VASYL Administration Melatonin 5 mg 04/22/20 21:00 04/24/20 22:05 Melatonin 5 Mg Tablet PO 5 mg HS VASYL Administration Metoprolol Succinate 25 mg 04/22/20 21:00 04/24/20 22:05 Metoprolol Succinate Ext Rel 25 Mg Tabcr PO 25 mg HS VASYL Administration Ondansetron HCl 4 mg 04/21/20 16:55 04/21/20 21:43 Ondansetron Inj 4 Mg/2 Ml Vial IV PUSH 4 mg Q4H PRN Administration Nausea Pantoprazole Sodium 40 mg 04/25/20 21:00 Pantoprazole 40 Mg Tablet PO Q12H VASYL Polyethylene Glycol 17 gm 04/22/20 09:20 04/25/20 08:27 Polyethylene Glycol 3350 17 Gm Powd.Pack PO 17 gm QAM VASYL Administration Vitamin D 5,000 units 04/22/20 09:00 04/25/20 08:26 Cholecalciferol 1,000 Units Tablet PO 5,000 units DAILY VASYL Administration Radiology Results: ITS Impressions Abdomen/Pelvis CT 04/21/20 16:00 IMPRESSION: 1. Chronic sigmoid diverticulitis with fistulas and phlegmon in the presacral region. No drainable fluid collection. 2. Mild bilateral hydronephrosis and hydroureter secondary to the chronic sigmoid diverticulitis and fistulas. 3. Small low-attenuation masses in the liver where there were abscesses on the prior CT, consistent with infection/scarring. Upper Quadrant Ultrasound 04/24/20 09:04 IMPRESSION: 1. 4.0 cm liver mass, new from 01/27/2020, most likely phlegmon or early abscess. Despite the proximity to the gallbladder, this finding is likely secondary to the perisigmoid infection seen by CT rather than acute cholecystitis. 2. Gallbladder wall thickening, which may be secondary to liver disease, interstitial edema, or chronic cholecystitis. Labs Labs: Laboratory Results - last 24 hr 04/25/20 04/25/20 05:28 05:28 WBC 8.5 RBC 3.95 L Hgb 9.7 L Hct 31.5 L MCV 79.7 L MCH 24.6 L MCHC 30.8 L RDW 15.5 H Plt Count 348 MPV 9.6 Immature Gran % (Auto) 0.4 Neut % (Auto) 73.7 H Lymph % (Auto) 12.5 L [place] % (Auto) 9.7 H Eos % (Auto) 3.5 Baso % (Auto) 0.2 Lymph # (Auto) 1.06 [place] # (Auto) 0.8 H Eos # (Auto) 0.3 Baso # (Auto) 0.0 Abs Immat Gran (auto) 0.03 Absolute Neuts (auto) 6.3 Absolute Nucleated RBC 0.0 Nucleated RBC % 0.0 Sodium
--- NOTE | 2020-04-25 13:34 | PM.PNGS ---
Progress Note: A&P Assessment and Plan (1) Diverticulitis large intestine: Code(s): K57.32 - Diverticulitis of large intestine without perforation or abscess without bleeding Status: Acute Assessment and Plan: Patient continues to clinically improve. Her WBC count is normal and she is afebrile. Still not having any LLQ pain. Her RUQ pain has improved. Abdominal ultrasound noting an area of either phlegmon or early abscess on the liver. It is difficult to tell if this area would be amenable to drainage and the patient is clinically improving, so we will defer any attempt to drain this area at this time. ID was consulted and recommendations noted. It is okay from a surgical standpoint to discharge the patient when okay with all other services. Continue antibiotics and we would recommend a 14-day course of oral antibiotics after discharge, such as Levaquin and Flagyl or Augmentin and Flagyl. Dr. Levine will see the patient in follow-up in 2 weeks and we will get a repeat CT scan of the abd/pelvis to see how she is progressing. If she continues to improve, then we can plan for an elective sigmoidectomy when she is seen as an outpatient. I discussed the plan with the patient and answered all questions. (2) RUQ pain: Code(s): R10.11 - Right upper quadrant pain Status: Acute (3) Heme + stool: Code(s): R19.5 - Other fecal abnormalities Status: Acute (4) BMI 40.0-44.9, adult: Code(s): Z68.41 - Body mass index [BMI]40.0-44.9, adult Status: Acute Additional Plan Discussed the plan of care with Dr. Whelan. Subjective Subjective Date/Time Seen: 04/25/20 10:44 Patient reports: no new complaints, feels better, tolerating a regular diet, flatus and bowel movement Interval history: Patient seen this morning and feeling great. She reports minimal RUQ abdominal pain at times today, which is much improved. Tolerating a diet without nausea, vomiting, or bloating. Bowels are moving. No other complaints at this time. Review of Systems Review of Systems: All systems reviewed & are unremarkable except as noted in HPI and below Constitutional: Constitutional: Reports no additional constitutional complaints, Denies chills and Denies fever(s) Gastrointestinal: Gastrointestinal: Reports as per HPI and Reports no additional gastrointestinal complaints Exam Const: General: alert; No acute distress Orientation/consciousness: patient oriented x3 GI: Inspection: normal to inspection and non-distended GI Palp: Yes Soft to palpation, Yes Tenderness to palpation present (GI) (very mild RUQ), No Guarding due to palpation present (GI) and No Rebound tenderness present Auscultation: normal bowel sounds Neuro: General: moves all extremities and no focal motor deficits Extrem: General: normal to inspection Psych: Appearance: grossly normal Mental Status: mental status grossly normal Insight: Good insight present (Psych) Judgement: Good judgement present (Psych) Objective Data Vital Signs Vital Signs: Vital Signs - 24 hr 04/24/20 14:00 04/24/20 20:00 04/24/20 22:00 Temperature 98.9 F 98.7 F Pulse Rate 84 80 85 Respiratory Rate 16 20 20 Blood Pressure 130/70 146/68 H Pulse Oximetry 96 97 97 04/24/20 22:05 04/25/20 06:00 Temperature 98.4 F Pulse Rate 80 74 Respiratory Rate 18 Blood Pressure 137/67 Pulse Oximetry 97 Intake/Output Intake/Output: Intake & Output 04/22/20 04/23/20 04/24/20 04/25/20 23:59 23:59 23:59 23:59 Intake Total 3510 2310 2180 690 Output Total 2900 2275 2750 1000 Balance 610 36 -745 -973 Meds/Results Medications: Active Medications Generic Name Dose Route Start Last Admin Trade Name Freq PRN Reason Stop Dose Admin Acetaminophen 650 mg 04/22/20 22:42 04/25/20 08:26 Acetaminophen 325 Mg Tablet PO 650 mg Q6H PRN Administration Mild Pain (1-3) or Fever Diltiazem HCl 180 mg 04/22/20 09:00 04/25/20 08:26 Diltiazem Hcl Cd 18
[2020-04-25 14:00] VITALS: BP 132/69; PULSE 81; RESP 16; TEMP 36.6; O2SAT 98
[2020-04-25] MEDS: FLUCONAZOLE 150 MG TABLET PO (14:10)
--- NOTE | 2020-04-25 15:28 | PM.DS ---
DS: Admitting Diagnosis Admitting Diagnosis Admitting Diagnosis: Dark stools and abdominal pain. DS: Discharge Diagnosis Discharge Diagnosis (1) Sigmoid diverticulitis: Code(s): K57.32 - Diverticulitis of large intestine without perforation or abscess without bleeding Status: Acute Assessment and Plan: Discharge Summary (Date of service 04/25/20): Mrs. Tanner is a 64 y.o. female with PMH significant for complicated diverticulitis, GERD, and paroxysmal atrial fibrillation who presented to the emergency department for the evaluation of dark stools and abdominal pain 04/21/20. CT abdomen/pelvis demonstrated chronic sigmoid diverticulitis with fistulas and phlegmon in the presacral region with no drainable fluid collection. Also showed mild bilateral hydronephrosis and hydroureter secondary to chronic sigmoid diverticulitis and fistulas. She had prolonged hospitalization in January for treatment of diverticulitis along with liver abscess in which she completed 21 days of IV Zosyn. General surgery and GI were consulted. RUQ US was ordered and demonstrated 4.0cm liver mass, new from 01/27/2020 and likely phlegmon or early abscess. Gallbladder wall thickening was also present. Infectious disease was consulted given RUQ US findings and recommended IV zosyn. The findings were discussed with general surgery who recommended she continue antibiotics and have repeat CT abd/pelvis in 2 weeks with definitive management including elective sigmoidectomy outpatient. Arrangements were made for long-term IV antibiotics under the direction of infectious disease until she is able to undergo surgical intervention. She was felt stable for discharge from a GI, general surgery, and infectious disease standpoint. Her pain was much better and she was tolerating her diet well. She requested to go home and she was discharged in hemodynamically stable condition 04/25/20. (2) Liver mass: Code(s): R16.0 - Hepatomegaly, not elsewhere classified Status: Acute Assessment and Plan: Right upper quadrant ultrasound performed today showed 4 cm liver mass new from January 2020, felt to be early abscess secondary to sigmoid diverticulitis. No drainable fluid collection noted at this time. Infectious disease was consulted and general surgery was also on the case. She will likely require surgical intervention and general surgery has recommended repeat CT abd/pelvis in 2 weeks with elective sigmoidectomy as outpatient. She will continue IV zosyn in the interim per infectious disease. (3) Heme + stool: Code(s): R19.5 - Other fecal abnormalities Status: Acute Assessment and Plan: Patient had been having dark tarry stools for 3-4 days prior to presentation. IFOB positive. She had been taking Celebrex and aspirin, therefore gastritis or peptic ulcer disease initially suspected. She had an EGD today by Dr. Landa which showed no acute findings and no evidence of upper GI bleeding. Occult blood is felt to be secondary to chronic diverticulitis. BID protonix was continued at discharge and ASA was resumed. Celebrex was discontinued. She will need to monitor closely for any recurrent bleeding. This had subsided at discharge. (4) Gastroesophageal reflux disease: Code(s): K21.9 - Gastro-esophageal reflux disease without esophagitis Status: Acute Assessment and Plan: Asymptomatic at this time. Protonix was continued. (5) Paroxysmal atrial fibrillation: Code(s): I48.0 - Paroxysmal atrial fibrillation Status: Acute Assessment and Plan: Rate is controlled. She is on full-dose aspirin, recently increased by PCP from baby aspirin. Not on long-term anticoagulation, presumably due to fall risk. Aspirin was resumed at discharge. (6) Hypertension: Code(s): I10 - Essential (primary) hypertension Status: Acute Assessment and Plan: Blood pressures are reasonably controlled.
--- NOTE | 2020-04-25 15:29 | WPDGIPROGNO ---
Progress Note: A&P Assessment and Plan (1) Diverticulitis large intestine: Code(s): K57.32 - Diverticulitis of large intestine without perforation or abscess without bleeding Status: Acute Assessment and Plan: complicated with fistula and phlegmon, ID on board for antibiotic recommendations pain today is almost gone, feeling better and tolerating diet she will follow-up with surgery as outpatient in 2-3 weeks and get new CT scan for definitive management to see if may need surgery no objections to discharge by gi standpoint with surgery follow-up (2) Heme + stool: Code(s): R19.5 - Other fecal abnormalities Status: Acute Assessment and Plan: egd was normal, probably from chronic diverticulitis (3) Abdominal pain: Code(s): R10.9 - Unspecified abdominal pain Status: Acute Assessment and Plan: improved today, on antibiotics (4) Gastroesophageal reflux disease: Code(s): K21.9 - Gastro-esophageal reflux disease without esophagitis Status: Acute Assessment and Plan: egd normal, on ppi at home Subjective Date/time seen: 04/25/20 15:29 Interval history: pain today is better, also had a BM without blood Review of Systems Review of Systems: All systems reviewed & are unremarkable except as noted in HPI and below Exam Const: General: no acute distress and alert; No acute distress Orientation/consciousness: patient oriented x3 HENMT: General nose exam: Normal nares present Eyes: General: appearance normal, both eyes and all related structures Neck: Neck: supple Resp: Auscultation: clear to auscultation bilaterally Cardio: Rate: regular rate GI: Inspection: normal to inspection and non-distended GI Palp: Yes Soft to palpation, Yes Tenderness to palpation present (GI) (very mild RUQ), No Guarding due to palpation present (GI) and No Rebound tenderness present Auscultation: normal bowel sounds Skin: General skin exam: normal color Neuro: General: moves all extremities and no focal motor deficits Speech: normal speech Extrem: General: normal to inspection Psych: Appearance: grossly normal Mental Status: mental status grossly normal Insight: Good insight present (Psych) Judgement: Good judgement present (Psych) Objective Data Vital Signs Vital Signs: Vital Signs - 24 hr 04/24/20 20:00 04/24/20 22:00 04/24/20 22:05 Temperature 98.7 F Pulse Rate 80 85 80 Respiratory Rate 20 20 Blood Pressure 146/68 H Pulse Oximetry 97 97 04/25/20 06:00 04/25/20 14:00 Temperature 98.4 F 97.9 F Pulse Rate 74 81 Respiratory Rate 18 16 Blood Pressure 137/67 132/69 Pulse Oximetry 97 98 Intake/Output Intake/Output: Intake & Output 04/22/20 04/23/20 04/24/20 04/25/20 23:59 23:59 23:59 23:59 Intake Total 3510 2310 2180 930 Output Total 2900 2275 2750 1000 Balance 610 35 -570 -70 Meds/Results Medications: Active Medications Generic Name Dose Route Start Last Admin Trade Name Freq PRN Reason Stop Dose Admin Acetaminophen 650 mg 04/22/20 22:42 04/25/20 08:26 Acetaminophen 325 Mg Tablet PO 650 mg Q6H PRN Administration Mild Pain (1-3) or Fever Diltiazem HCl 180 mg 04/22/20 09:00 04/25/20 08:26 Diltiazem Hcl Cd 180 Mg Cap.Er.24h PO 180 mg QAM VASYL Administration Piperacillin/Tazobactam/Dextrose 3.375 gm in 50 mls @ 100 mls/hr 04/21/20 22:00 04/25/20 11:01 Zosyn 3.375 Gm/D5w 50ml Pm IVPB Infused Q6H VASYL Infusion Lisinopril 10 mg 04/22/20 09:00 04/25/20 08:26 Lisinopril 10 Mg Tablet PO 10 mg DAILY VASYL Administration Loratadine 10 mg 04/22/20 09:00 04/25/20 08:27 Loratadine 10 Mg Tablet PO 10 mg DAILY VASYL Administration Magnesium Oxide 400 mg 04/22/20 09:00 04/25/20 08:27 Magnesium Oxide 400 Mg Tablet PO 400 mg DAILY VASYL Administration Melatonin 5 mg 04/22/20 21:00 04/24/20 22:05 Melatonin 5 Mg Tablet PO 5 mg HS VASYL Administration Metoprolo
[2020-04-25] MEDS: LIDOCAINE HCL 1% PF INJ 5 ML VIAL INFILTRATE (15:40)
== END 2020-04-25 17:14 | disposition home health service (06) | DRG 377 ==
LOC: ANHED 17:00 → ANH3MEDSUR 17:43
PROVIDERS: Internal Medicine Gastroenterology; Physician Assistant; Admitting Provider Student in an Organized Health Care Education/Training Program; Emergency Provider Emergency Medicine; PCP Internal Medicine Geriatric Medicine; Visit Provider Physician Assistant
PROC: 0DJ08ZZ Inspection of Upper Intestinal Tract, Via Natural or Artificial Opening Endoscopic (ICD-10-PCS; CPT 43235; principal; 2020-04-24 12:30)
DX: K57.21 Diverticulitis of large intestine with perforation and abscess with bleeding (principal); K75.0 Abscess of liver; Z68.41 Body mass index [BMI] 40.0-44.9, adult; N13.30 Unspecified hydronephrosis; D64.9 Anemia, unspecified; K21.9 Gastro-esophageal reflux disease without esophagitis; E66.01 Morbid (severe) obesity due to excess calories; G47.33 Obstructive sleep apnea (adult) (pediatric); I10 Essential (primary) hypertension; I48.91 Unspecified atrial fibrillation; E11.65 Type 2 diabetes mellitus with hyperglycemia
CPT/HCPCS: 36415; 36569; 74176; 76705; 80048; 80053; 81001; 83690; 85025; 85027; 85610; 85730; 86850; 86900; 86901; 87040; 96361; 96365; 96366; 96367; 96375; 96376; 99285; A9270; C1751; C9113; G0378; J0131; J2405; J2543; J2704; J7030; J7120

== ENCOUNTER 2020-05-13 18:11 | Emergency (ER) | payer OTHER, SELFPAY ==
[2020-05-13 18:16] VITALS: BP 159/71; PULSE 86; RESP 18; TEMP 36; O2SAT 97
--- NOTE | 2020-05-13 18:53 | ED.GENADULT ---
HPI - General Adult General Chief complaint: Skin/Abscess/Foreign Body Stated complaint: Pick line maybe infected Time Seen by Provider: 05/13/20 18:25 Source: patient Mode of arrival: ambulatory Limitations: no limitations History of Present Illness HPI narrative: Patient is a 64-year-old female who presents for evaluation of right arm pain patient notes that she has a PICC line in the right arm for a recent infection for liver abscesses after a complicated diverticulitis managed by infectious disease Dr. Ashley patient is currently not using the PICC line and not on antibiotics patient notes mild pain at the AC joint of the right arm where there is slight swelling and she has had irritation at this location since having an IV which has been for the last couple of weeks while she was in the hospital. Patient notes that she noticed slight redness and crusted appearance around the insertion site of the PICC line but denies other redness or swelling. Patient notes that she had some chills last night but denies fever or other complaints. Patient on arrival per private vehicle in no distress. Patient also notes negative COVID-19 test and states that she has been having slight irritation of the throat since for the last 4 to 5 days Related Data Home Medications Medication Instructions Recorded Confirmed lisinopril 10 mg PO DAILY 01/17/20 04/21/20 loratadine [Claritin] 10 mg PO DAILY 01/17/20 04/21/20 acetaminophen [Acetaminophen Extra 1,000 mg PO Q6H PRN 04/21/20 04/21/20 Strength] cholecalciferol (vitamin D3) 125 mcg PO DAILY 04/21/20 04/21/20 magnesium oxide 400 mg PO DAILY 04/21/20 04/21/20 melatonin 5 mg PO HS 04/21/20 04/21/20 metoprolol succinate [Toprol XL] 25 mg PO HS 04/21/20 04/21/20 polyethylene glycol 3350 [Miralax] 17 g PO DAILY PRN 04/21/20 04/21/20 aspirin 325 mg PO DAILY 04/22/20 04/22/20 Allergies Allergy/AdvReac Type Severity Reaction Status Date / Time hydrocodone Allergy Severe DIFFICULTY Verified 04/24/20 10:14 BREATHING, BEHAVIOR CHANGES Iodinated Contrast Media Allergy Severe Anaphylaxis Verified 04/24/20 10:14 latex Allergy Severe Anaphylactic Verified 11/16/20 10:14 Shock,RASH shellfish derived Allergy Severe Anaphylactic Verified 04/24/20 10:14 Shock Contrast Media Allergy Severe ANAPHYLAXIS Uncoded 04/24/20 10:14 Review of Systems Review of Systems: All systems reviewed & are unremarkable except as noted in HPI and below PMFSH Past Medical History Medical History Abscess of liver (~01/2020) Related to sigmoid diverticulitis, requiring percutaneous drainage. Acute diastolic (congestive) heart failure Anemia Dark stools Diverticulitis (~01/2020) Empyema lung (~01/2020) Gastroesophageal reflux disease Hypertension Obstructive sleep apnea Osteoarthritis Paroxysmal atrial fibrillation Surgical History Surgical History History of bilateral knee arthroplasty History of bilateral knee replacement History of section History of hernia repair History of hip surgery History of right hip replacement History of shoulder surgery History of total right hip arthroplasty Family History Family History Father Diabetes mellitus Social History Social History Social History: Surrogate decision maker: Raymond Gomez and Mariel Cespedes, daughters. Code status: Full code. Smoking status: Never smoker Alcohol intake: current Substance use: never Additional living arrangements comments: Lives in [place] with her . 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 Gender identity (if verbalized by the patient): Female Spiritual care concerns: No Exam N
[2020-05-13 19:01] LABS: Basophils Percent Auto 0.6 % (0.2-1.2); Eosinophils Absolute Auto 0.1 K/mm3 (0-0.3); Immature Granulocyte Absolute 0.03 K/mm3 (0.00-0.031); Immature Granulocyte Percent A 0.4 % (0-0.5); Lymphocytes Absolute Auto 1.68 K/mm3 (0.9-3.2); Lymphocytes Percent Auto 23.7 % (18.3-44.2); Mean Corpuscular HGB Conc 31.3 g/dl (32-36); Mean Corpuscular Hemoglobin 25.4 pg (26-34); Mean Corpuscular Volume 81.4 fl (80-100); Mean Platelet Volume 9.4 fl (7.4-10.4); Monocytes Absolute Auto 0.7 K/mm3 (0.1-0.6); Monocytes Percent Auto 9.4 % (2.6-8.5); Neutrophils Absolute Auto 4.5 K/mm3 (1.3-6.7); Neutrophils Percent Auto 63.9 % (45.5-73.1); Platelet Count Result 361 k/mm3 (150-375); Red Blood Count 3.93 M/mm3 (4.2-5.4); Red Cell Distribution Width 16.1 % (11.5-14.5); White Blood Count 7.1 K/mm3 (4.5-10.0)
[2020-05-13 19:14] LABS: Alanine Aminotransferase 10 U/L (4-35); Alkaline Phosphatase 116 U/L (38-126); Anion Gap 7 mmol/L (8-16); Aspartate Amino Transferase 21 U/L (14-36); Bilirubin,Total 0.3 mg/dL (0.2-1.3); Blood Urea Nitrogen 23 mg/dL (7-17); Calcium 9.5 mg/dL (8.4-10.2); Carbon Dioxide 30 mmol/L (22-30); Chloride 100 mmol/L (98-107); Estimated CRCL calculation 52 ml/min; Estimated Glomerular Filt Rate 45; Glucose 124 mg/dL (65-105); Potassium 4.4 mmol/L (3.4-5.0); Sodium 137 mmol/L (137-145)
[2020-05-13] MEDS: SODIUM CHLORIDE 0.9% IV 1,000 ML 999 ML IV CONT (19:40)
[2020-05-13] MEDS: AMOXICILLIN 500 MG CAPSULE PO (20:53)
== END 2020-05-13 21:05 | disposition home or self-care (01) ==
PROVIDERS: Emergency Medicine Emergency Medical Services; Emergency Provider Emergency Medicine
DX: M79.601 Pain in right arm (principal); J02.0 Streptococcal pharyngitis; I50.31 Acute diastolic (congestive) heart failure; K21.9 Gastro-esophageal reflux disease without esophagitis; G47.33 Obstructive sleep apnea (adult) (pediatric); M19.90 Unspecified osteoarthritis, unspecified site; I48.0 Paroxysmal atrial fibrillation; D64.9 Anemia, unspecified; Z96.653 Presence of artificial knee joint, bilateral; Z96.641 Presence of right artificial hip joint
CPT/HCPCS: 36415; 80053; 85025; 87880; 96360; 99283; A9270; J7030

== ENCOUNTER 2020-05-14 07:21 | Outpatient (CLI) | payer OTHER, SELFPAY ==
--- NOTE | ~2020-05-14 | US_ITS ---
EXAMINATION: US venous doppler UE RT DATE: 05/14/2020 08:10 INDICATION: Right arm pain and swelling TECHNIQUE: Nelson scale images with and without compression and Doppler images of the right upper extre mity veins were obtained. COMPARISON: None. FINDINGS: The right internal jugular vein, subclavian vein, axillary vein, brachial veins, basilic vein, cephal ic vein, radial vein, and ulnar vein are patent.] IMPRESSION: 1. Patent right upper extremity veins. No evidence of deep venous thrombosis. Reviewed, dictated and finalized at location [facility]. 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
== END 2020-05-14 07:22 | disposition home or self-care (01) ==
PROVIDERS: PCP Internal Medicine Geriatric Medicine; Visit Provider Emergency Medicine
DX: M25.521 Pain in right elbow (principal); M79.89 Other specified soft tissue disorders
CPT/HCPCS: 93971

== ENCOUNTER → 2020-05-15 10:36 | Outpatient (CLI) | payer OTHER, SELFPAY ==
--- NOTE | ~2020-05-15 | CT_ITS ---
EXAMINATION: CT abdomen pelvis wo con DATE: 05/15/2020 11:05 INDICATION: Diverticulitis of the colon. History of liver abscesses. TECHNIQUE: Computed tomography (CT) of the abdomen and pelvis was performed without intravenous contr ast. Automated exposure control and iterative reconstruction technique were employed. Exam dose: 983 .93 mGy-cm total exam DLP. COMPARISON: 04/21/[address] abdomen pelvis 04/24/2020 right upper quadrant abdominal ultrasound 01/31/2020 CT chest abdomen pelvis 10/08/2017 CT abdomen pelvis FINDINGS: No pericardial or pleural effusion. There is mild discoid atelectasis or scarring at the kristopher ng bases. There is an approximately 3 cm ill-defined area of diminished attenuation of the medial segment of th e left hepatic lobe anterior to the gallbladder, which may represent some focal inflammatory change ( phlegmon) or scarring. No drainable fluid collection is evident. The liver is otherwise unremarkable. The gallbladder is present. No bile duct or pancreatic duct dilatation. No pancreatic mass lesion or calcification. Splenic size is within normal range. Normal morphology of the adrenal glands. Normal caliber of the abdominal aorta. No intraperitoneal or retroperitoneal or pelvic mass lesion or adenopathy or ascites is evident. There is a prominent amount of fecal material within the colon. No bowel obstruction or intraperitone al free air is detected. Again noted is mild bilateral hydroureteronephrosis, stable since 04/24/2020. No significant change of presacral soft tissue thickening and gas collections since 04/21/2020. The pelvic structures are not optimally visualized due to extensive streak artifact from a right hip prosthesis. There is severe degenerative disc disease throughout the lower thoracic and lumbar spine. There is prominent degenerative change at the apophyseal joints with associated grade 1 anterolisthes is at L4-5. IMPRESSION: No significant change since 04/21/2020 Reviewed, dictated and finalized at [facility]. Reviewed, dictated and finalized at location A. 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
== END ==
PROVIDERS: PCP Internal Medicine Geriatric Medicine; Visit Provider Surgery
DX: K57.32 Diverticulitis of large intestine without perforation or abscess without bleeding (principal); M47.815 Spondylosis without myelopathy or radiculopathy, thoracolumbar region; J98.11 Atelectasis
CPT/HCPCS: 74176

== ENCOUNTER 2020-05-29 15:25 | Outpatient (CLI) | payer OTHER, SELFPAY | END 2020-05-29 15:26 | disposition home or self-care (01) | LOC: ANHSURGERY 15:28 | PROVIDERS: PCP Internal Medicine Geriatric Medicine; Visit Provider Surgery | DX: Z01.818 Encounter for other preprocedural examination (principal); K57.32 Diverticulitis of large intestine without perforation or abscess without bleeding | CPT/HCPCS: 36415; 86850; 86900; 86901 ==

== ENCOUNTER 2020-06-03 01:28 | Outpatient (CLI) | payer OTHER, SELFPAY ==
[2020-06-03 19:31] LABS: SARS-CoV-2 RNA PCR Negative
== END 2020-06-03 01:29 | disposition home or self-care (01) ==
LOC: ANHCOVIDDT 01:28
PROVIDERS: PCP Internal Medicine Geriatric Medicine; Visit Provider Surgery
DX: Z01.812 Encounter for preprocedural laboratory examination (principal); Z11.59 Encounter for screening for other viral diseases
CPT/HCPCS: 87635; C9803; U0003

== ENCOUNTER 2020-06-05 10:45 | Inpatient (IN) | payer OTHER, SELFPAY ==
[2020-05-29 14:43] VITALS: BP 146/72; PULSE 78; RESP 20; TEMP 37.4; O2SAT 95; BMI 40.8
--- NOTE | 2020-06-01 16:10 | WPDANESEPPF ---
Anes - Initial Pre Proc Eval Procedure: Operation Date: 06/05/20 07:30 Proposed Procedures p Hand-Assisted Laparoscopic Sigmoidectomy - Eli Levine MD Date/Time: 06/01/20 16:10 Surgeon: Eli Levine MD Pre Op Diagnosis: perforated diverticulitis Patient Data Age: 64 Gender: F Height: 1.63 m Weight: 107.9 kg Last Vital Signs Temp 37.4 C 05/29/20 14:43 Pulse 78 05/29/20 14:43 Resp 20 05/29/20 14:43 BP 146/72 H 05/29/20 14:43 Pulse Ox 95 05/29/20 14:43 Allergies Allergy/AdvReac Type Severity Reaction Status Date / Time hydrocodone Allergy Severe DIFFICULTY Verified 05/29/20 14:28 BREATHING, BEHAVIOR CHANGES Iodinated Contrast Media Allergy Severe Anaphylaxis Verified 05/29/20 14:28 latex Allergy Severe Anaphylactic Verified 05/29/20 14:28 Shock,RASH shellfish derived Allergy Severe Anaphylactic Verified 05/29/20 14:28 Shock Contrast Media Allergy Severe ANAPHYLAXIS Uncoded 05/29/20 14:28 Home Medications Medication Instructions Recorded Confirmed Type lisinopril 10 mg PO DAILY 01/17/20 05/29/20 History loratadine [Claritin] 10 mg PO DAILY 01/17/20 05/29/20 History diltiazem HCl 180 mg PO QAM #30 cap 01/31/20 05/29/20 Rx acetaminophen [Acetaminophen Extra 1,000 mg PO Q6H PRN 04/21/20 05/29/20 History Strength] cholecalciferol (vitamin D3) 125 mcg PO DAILY 04/21/20 05/29/20 History magnesium oxide 400 mg PO DAILY 04/21/20 05/29/20 History melatonin 5 mg PO HS PRN 04/21/20 05/29/20 History metoprolol succinate [Toprol XL] 25 mg PO HS 04/21/20 05/29/20 History pantoprazole 40 mg PO BID #0 tablet 04/25/20 05/29/20 Rx erythromycin 250 mg tablet 250 mg PO .COMPLEX #6 tablet 05/18/20 05/29/20 Rx neomycin 500 mg tablet 500 mg PO .COMPLEX #6 tablet 05/18/20 05/29/20 Rx ascorbic acid (vitamin C) [Vitamin 500 mg PO DAILY 05/29/20 05/29/20 History C] fluticasone furoate 1 spray INTRANASAL DAILY 05/29/20 05/29/20 History polyethylene glycol 3350 [Miralax] 17 g PO DAILY PRN 05/29/20 05/29/20 History psyllium seed (sugar) [Fiber 1 tbsp PO BID 05/29/20 05/29/20 History Supplement] sodium chloride [Nasal Mist] 1 spray INTRANASAL ONCE PRN 05/29/20 05/29/20 History Other Studies: Summary 1. Left ventricular systolic function is normal, estimated at 55-60%. 2. There is mildly increased left ventricular wall thickness. 3. There is mild to moderate tricuspid valve regurgitation. 4. Moderate pulmonary hypertension, estimated pulmonary arterial systolic pressure is 55 mmHg. 5. There is mild mitral valve regurgitation. Patient hx anesthesia problems: none Family hx anesthesia problems: none [facility] Past Medical History Medical History (Updated 06/05/20 @ 07:16 by Devon Curry MD) Abscess of liver (~01/2020) Related to sigmoid diverticulitis, requiring percutaneous drainage. Acute diastolic (congestive) heart failure Anemia Dark stools Diverticulitis (~01/2020) Diverticulitis large intestine Diverticulitis large intestine Empyema lung (~01/2020) Gastroesophageal reflux disease Hypertension Liver mass Morbid obesity with BMI of 40.0-44.9, adult Obstructive sleep apnea Osteoarthritis Paroxysmal atrial fibrillation Pulmonary HTN Surgical History Surgical History History of bilateral knee arthroplasty History of bilateral knee replacement History of section History of hernia repair With mesh performed in approximately 1991 History of hip surgery History of right hip replacement History of shoulder surgery History of total right hip arthroplasty Family History Family History Father Diabetes mellitus Social History Social History Social History: Surrogate decision maker: Raymond Gomez and Mariel Rubina, daughters. Code status: Full code. Smoking status: Never
--- NOTE | 2020-06-04 14:15 | WPDANESEPP ---
Anes - Eval Pre Procedure Procedure: Operation Date: 06/05/20 07:30 Proposed Procedures p Hand-Assisted Laparoscopic Sigmoidectomy - Eli Levine MD Date/Time: 06/04/20 14:15 Pre Op Diagnosis: perforated diverticulitis Patient Data Age: 64 Gender: F Height: 1.63 m Weight: 107.9 kg Last Vital Signs Temp 37.4 C 05/29/20 14:43 Pulse 78 05/29/20 14:43 Resp 20 05/29/20 14:43 BP 146/72 H 05/29/20 14:43 Pulse Ox 95 05/29/20 14:43 Allergies Allergy/AdvReac Type Severity Reaction Status Date / Time hydrocodone Allergy Severe DIFFICULTY Verified 05/29/20 14:28 BREATHING, BEHAVIOR CHANGES Iodinated Contrast Media Allergy Severe Anaphylaxis Verified 05/29/20 14:28 latex Allergy Severe Anaphylactic Verified 05/29/20 14:28 Shock,RASH shellfish derived Allergy Severe Anaphylactic Verified 05/29/20 14:28 Shock Contrast Media Allergy Severe ANAPHYLAXIS Uncoded 05/29/20 14:28 Home Medications Medication Instructions Recorded Confirmed Type lisinopril 10 mg PO DAILY 01/17/20 05/29/20 History loratadine [Claritin] 10 mg PO DAILY 01/17/20 05/29/20 History diltiazem HCl 180 mg PO QAM #30 cap 01/31/20 05/29/20 Rx acetaminophen [Acetaminophen Extra 1,000 mg PO Q6H PRN 04/21/20 05/29/20 History Strength] cholecalciferol (vitamin D3) 125 mcg PO DAILY 04/21/20 05/29/20 History magnesium oxide 400 mg PO DAILY 04/21/20 05/29/20 History melatonin 5 mg PO HS PRN 04/21/20 05/29/20 History metoprolol succinate [Toprol XL] 25 mg PO HS 04/21/20 05/29/20 History pantoprazole 40 mg PO BID #0 tablet 04/25/20 05/29/20 Rx erythromycin 250 mg tablet 250 mg PO .COMPLEX #6 tablet 05/18/20 05/29/20 Rx neomycin 500 mg tablet 500 mg PO .COMPLEX #6 tablet 05/18/20 05/29/20 Rx ascorbic acid (vitamin C) [Vitamin 500 mg PO DAILY 05/29/20 05/29/20 History C] fluticasone furoate 1 spray INTRANASAL DAILY 05/29/20 05/29/20 History polyethylene glycol 3350 [Miralax] 17 g PO DAILY PRN 05/29/20 05/29/20 History psyllium seed (sugar) [Fiber 1 tbsp PO BID 05/29/20 05/29/20 History Supplement] sodium chloride [Nasal Mist] 1 spray INTRANASAL ONCE PRN 05/29/20 05/29/20 History Patient hx anesthesia problems: none Family hx anesthesia problems: none [facility] Past Medical History Medical History Abscess of liver (~01/2020) Related to sigmoid diverticulitis, requiring percutaneous drainage. Acute diastolic (congestive) heart failure Anemia Dark stools Diverticulitis (~01/2020) Diverticulitis large intestine Diverticulitis large intestine Empyema lung (~01/2020) Gastroesophageal reflux disease Hypertension Liver mass Morbid obesity with BMI of 40.0-44.9, adult Obstructive sleep apnea Osteoarthritis Paroxysmal atrial fibrillation Surgical History Surgical History History of bilateral knee arthroplasty History of bilateral knee replacement History of section History of hernia repair With mesh performed in approximately 1991 History of hip surgery History of right hip replacement History of shoulder surgery History of total right hip arthroplasty Family History Family History Father Diabetes mellitus Social History Social History Social History: Surrogate decision maker: Raymond Gomez and Mariel Cespedes, daughters. Code status: Full code. Smoking status: Never smoker Second hand tobacco smoke exposure: No Alcohol intake: current Substance use: never Additional living arrangements comments: Lives in [place] with her . 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 Gender identity (if verbalized by the patient): Female Spiritual care concerns: No Exam Day of Procedure 05/10
[2020-06-05] VITALS (16 sets, daily range): BP systolic 106–141; BP diastolic 51–87; PULSE 58–80; RESP 14–22; TEMP 36.1–36.9; O2SAT 98–100; BMI 40.5
[2020-06-05] MEDS: ACETAMINOPHEN 500 MG TABLET 1000 MG PO (07:02)
[2020-06-05] MEDS: ALVIMOPAN 12 MG CAPSULE PO (07:02)
[2020-06-05] MEDS: KETOROLAC 15 MG/ML VIAL (*BKC) IV PUSH (07:02)
[2020-06-05] MEDS: LACTATED RINGERS 1,000 ML 30 ML IV CONT ×2 (07:03→10:50)
--- NOTE | 2020-06-05 07:25 | WPDHPUPDATE1 ---
History and Physical Update Update Date/Time: 06/05/20 07:25 History and Physical has been reviewed, including an updated exam of the patient. There are NO changes in the patient's condition. Risks, benefits, and alternatives have been discussed and questions answered. Patient agrees to proceed with procedure.
[2020-06-05] MEDS: ceFAZolin 2 GM/D5W 50 ML 2 GM/50 ML BAG IVPB (07:44)
[2020-06-05] MEDS: BUPIVACAINE/EPINEPHRINE 0.25% 10 ML VIAL 30 ML INFILTRATE (08:25)
--- NOTE | 2020-06-05 08:56 | SUR.OPER ---
Patient with Betadine allergy verified in pre op per Mikel Alexis RN/ Dr Levine aware. Rectal irrigation done with a catheter tip syringe with IV NS 400ml total. Cear yellowish return with scattered small fecal pieces. Perineal area prep Hibiclens due to Betadine allergy/full NS rinse Dr Levine aware. Perineal area prior to prep discolored with increased pinkness. Lunsford silicone due to latex allergy.
--- NOTE | 2020-06-05 09:23 | SUR.OPER ---
Dr Pacheco in OR [id number].
--- NOTE | 2020-06-05 09:42 | SUR.OPER ---
Dr Pacheco out of [id number]
--- NOTE | 2020-06-05 10:57 | SUR.OPER ---
EBL 800ml
--- NOTE | 2020-06-05 11:05 | P.OP_ITS ---
Procedure Note - Detailed Date of procedure: 06/05/20 Pre-op diagnosis: perforated diverticulitis Post-op diagnosis: same Procedure performed: Attempted hand assisted sigmoid colectomy, extensive lysis of adhesions, creation of end descending colostomy Description of procedure: The patient was taken to the operating room placed the supine position. After adequate induction general anesthesia, the patient was prepped and draped in the normal sterile fashion. A time-out was then done to verify the patient's identity, as well as the procedure being performed. Began by making a incision in the periumbilical region for the hand port site. This was taken down into the peritoneal cavity. Of note, the patient had a previous ventral hernia repair and we did have to enter the abdomen through some previously placed mesh. Once into the abdominal cavity, I was able to take down some adhesions to the anterior abdominal wall in order to place the hand port site. The hand port was then placed and the abdomen was insufflated. I then placed a further 5 mm port in the right mid abdomen and a 12 mm in the right lower quadrant. I began by taking down some adhesions to the anterior midline using the LigaSure device. Once achieved, I was able to locate the sigmoid colon. It was noted that the proximal and mid sigmoid colon was unremarkable. Upon examining the distal sigmoid colon, it was noted this area was very inflamed and friable. The distal sigmoid colon was densely adhered to the left lateral sidewall as well as the uterus anteriorly. There was also noted to be a loop of small intestine adhesed to this area. Using very careful dissection I was able to largely free this area up. As noted, the tissue was very friable and some steady oozing was noted during the dissection. I then began dissecting around the upper rectum and again this tissue was noted to be very inflamed and friable. At this point, I was unable to find a point to do a distal transection and anastomosis. I then obtained an intraoperative consultation with Dr. Pacheco. After some discussion, he agreed that there was no distal area to anastomose to. Given the large amount of friability and bleeding, it was decided to proceed with diverting colostomy. I gained control of the bleeding using the LigaSure device as well as packing. I then identified an area in the mid sigmoid colon that was unremarkable. The sigmoid colon was then transected at this point using a echelon 60 stapler. I then prepared the proximal end for colostomy by taking down the lateral attachments of the left colon. I had noted adequate length of the colon for colostomy. At this point I rechecked the area in the pelvis and no bleeding was noted. I then went ahead and left a 19 Tamazight drain in the pelvis coming out through the low right lower quadrant port site. I then made a colostomy site in the left lower quadrant. Once created, I brought the transected mid sigmoid colon through this site. The abdomen was then desufflated ports were removed. I closed the hand port site with a 0 loop PDS suture. All incisions were closed with skin tangela. I then matured the colostomy using interrupted 3 0 Vicryl sutures. Ostomy supplies and sterile dressings were placed. Patient tolerated the procedure well and was extubated in the operating room. She will be transferred to the recovery room in stable condition. Implants: none Anesthesia: GETA Surgeon: Eli Levine MD Estimated blood loss (mL): 800 Drains: Yes Packing: No Pathology: none sent Complications: No immediate complications Condition: stable Disposition: PACU Findings: very inflamed and friable distal sigmoid colon and upper rectum
[2020-06-05] MEDS: fentaNYL CITRATE INJ (*CRX) 100 MCG/2 ML VIAL 25 MCG IV PUSH ×2 (11:32→11:56)
--- NOTE | 2020-06-05 11:45 | SUR.PHASEI ---
Called and discussed poor urine output with Dr Devon Curry, said to finish current ivf bag.
--- NOTE | 2020-06-05 13:06 | ADMGEN ---
This patient, Ameena Tanner, was admitted to Medical Room 243-01. Patient/family oriented to hospital policies and general routines including ID bracelet, bed and alarms, visiting hours, pain management, procedures, bathroom and other care routines, personal items, smoking policy, room service/diet, and visiting hours. Information on how to activate the Rapid Response Team has been discussed. Patient/Family are encouraged to report perceived risks to care and to ask questions if they do not understand what they are told or what they should do.
[2020-06-05] MEDS: LACTATED RINGERS 1,000 ML 100 ML IV CONT ×2 (13:25→23:49)
--- NOTE | 2020-06-05 13:30 | PC.NURSE ---
Patient c/o pain to abdomen 12/16. Called Dr. Levine's office to request pain medication (patient has prn po Tylenol ordered). Awaiting call back.
[2020-06-05] MEDS: ONDANSETRON INJ 4 MG/2 ML VIAL IV PUSH ×2 (13:45→17:48)
[2020-06-05] MEDS: GABAPENTIN 300 MG CAPSULE 600 MG PO (14:58)
--- NOTE | 2020-06-05 15:00 | PC.NURSE ---
Patient has been sleeping, resting quietly after IV Ofirmev given. Received call from Dr. Levine and orders for IVP Morphine prn. Discussed with patient and she states Morphine makes her have difficulty breathing . Called Dr. Levine's office and left message regarding same. Awaiting further orders.
[2020-06-05] MEDS: PREGABALIN (*CRX) 75 MG CAPSULE 150 MG PO (16:33)
[2020-06-05] MEDS: traMADol HCL (*CRX) 50 MG TABLET PO (16:34)
[2020-06-05] MEDS: METOPROLOL SUCCINATE EXT REL 25 MG TABCR PO (20:32)
[2020-06-05] MEDS: PANTOPRAZOLE 40 MG TABLET PO (20:32)
[2020-06-06] VITALS (9 sets, daily range): BP systolic 100–128; BP diastolic 50–74; PULSE 71–92; RESP 15–20; TEMP 36.1–36.8; O2SAT 87–98
[2020-06-06] MEDS: traMADol HCL (*CRX) 50 MG TABLET PO (01:01)
[2020-06-06] MEDS: MELATONIN 5 MG TABLET PO (01:01)
[2020-06-06] MEDS: PREGABALIN (*CRX) 75 MG CAPSULE 150 MG PO (04:23)
[2020-06-06 05:21] LABS: Basophils Percent Auto 0.2 % (0.2-1.2); Hematocrit 24.8 % (37.0-47.0); Hemoglobin 7.7 g/dL (12.0-15.0); Immature Granulocyte Absolute 0.04 K/mm3 (0.00-0.031); Immature Granulocyte Percent A 0.4 % (0-0.5); Lymphocytes Absolute Auto 1.19 K/mm3 (0.9-3.2); Mean Corpuscular Hemoglobin 24.8 pg (26-34); Mean Platelet Volume 9.8 fl (7.4-10.4); Monocytes Absolute Auto 1.1 K/mm3 (0.1-0.6); Monocytes Percent Auto 11.1 % (2.6-8.5); Neutrophils Absolute Auto 7.5 K/mm3 (1.3-6.7); Neutrophils Percent Auto 76.3 % (45.5-73.1); Platelet Count Result 281 k/mm3 (150-375); Red Cell Distribution Width 16.6 % (11.5-14.5); White Blood Count 9.9 K/mm3 (4.5-10.0)
[2020-06-06 05:28] LABS: Anion Gap 4 mmol/L (8-16); Blood Urea Nitrogen 18 mg/dL (7-17); Calcium 8.2 mg/dL (8.4-10.2); Carbon Dioxide 27 mmol/L (22-30); Chloride 99 mmol/L (98-107); Estimated CRCL calculation 62 ml/min; Estimated Glomerular Filt Rate 56; Glucose 145 mg/dL (65-105); Potassium 4.3 mmol/L (3.4-5.0); Sodium 130 mmol/L (137-145)
--- NOTE | 2020-06-06 07:59 | WPDANESPN ---
Anes - Prog Note Post-Op Date/Time: 06/06/20 07:59 Cardiovascular status: normal Respiratory status: normal Airway patency: baseline Mental status: baseline Post-Op hydration status: normal Vital Signs: Last Vital Signs Temp 36.3 C L 06/06/20 04:43 Pulse 71 06/06/20 04:43 Resp 18 06/06/20 04:43 BP 100/50 L 06/06/20 04:43 Pulse Ox 95 06/06/20 04:43 Pain Score (VAS): no complaints I/O: Intake & Output 06/05/20 06/05/20 06/06/20 15:59 23:59 07:59 Intake Total 1150 1470 640 Output Total 440 415 570 Balance 710 1055 70 Laboratory Tests 06/06/20 04:49 06/06/20 04:49 06/06/20 06/06/20 04:49 04:49 WBC 9.9 RBC 3.10 L Hgb 7.7 L Hct 24.8 L MCV 80.0 MCH 24.8 L MCHC 31.0 L RDW 16.6 H Plt Count 281 MPV 9.8 Immature Gran % (Auto) 0.4 Neut % (Auto) 76.3 H Lymph % (Auto) 12.0 L Morrow % (Auto) 11.1 H Eos % (Auto) 0.0 Baso % (Auto) 0.2 Lymph # (Auto) 1.19 Morrow # (Auto) 1.1 H Eos # (Auto) 0.0 Baso # (Auto) 0.0 Abs Immat Gran (auto) 0.04 H Absolute Neuts (auto) 7.5 H Absolute Nucleated RBC 0.0 Nucleated RBC % 0.0 Sodium 130 L Potassium 4.3 Chloride 99 Carbon Dioxide 27 Anion Gap 4 L BUN 18 H Creatinine 1.00 Estim Creat Clear Calc 62 Estimated GFR 56 L Glucose 145 H Calcium 8.2 L Post-procedural complaints: none Patient Feedback: Patient satisfied with anesthetic care.
[2020-06-06] MEDS: LACTATED RINGERS 1,000 ML 100 ML IV CONT (09:03)
[2020-06-06] MEDS: MAGNESIUM OXIDE 400 MG TABLET PO (09:06)
[2020-06-06] MEDS: dilTIAZem HCL CD 180 MG CAP.ER.24H PO (09:06)
[2020-06-06] MEDS: LORATADINE 10 MG TABLET PO (09:06)
[2020-06-06] MEDS: lisinopriL 10 MG TABLET PO (09:06)
[2020-06-06] MEDS: ASCORBIC ACID 500 MG TABLET PO (09:06)
[2020-06-06] MEDS: PANTOPRAZOLE 40 MG TABLET PO ×2 (09:06→20:11)
[2020-06-06] MEDS: CHOLECALCIFEROL 1,000 UNITS TABLET 5000 UNITS PO (09:06)
[2020-06-06] MEDS: ALVIMOPAN 12 MG CAPSULE PO ×2 (10:48→20:11)
[2020-06-06] MEDS: SODIUM CHLORIDE 0.9% IV 1,000 ML 100 ML IV CONT ×2 (10:49→21:42)
--- NOTE | 2020-06-06 12:15 | PM.PNGS ---
Progress Note: A&P Assessment and Plan (1) Diverticulitis large intestine: Qualifiers: Diverticulitis bleeding: without bleeding Diverticulitis complication: with perforation and without abscess Qualified Code(s): K57.20 - Diverticulitis of large intestine with perforation and abscess without bleeding Code(s): K57.32 - Diverticulitis of large intestine without perforation or abscess without bleeding Status: Acute Assessment and Plan: POD#1 and doing well. Await bowel function to return, continue clear liquids. Wound care consulted for ostomy care/education. Hgb 7.7 this morning, hemodynamically stable, good urine output, no evidence of ongoing bleeding. Continue to monitor and repeat labs in the am. Continue JHON drain to bulb suction. Remove Lunsford catheter today. Some confusion following surgery, but improving and oriented on my exam this morning. Pain seems to be well controlled with oral analgesics. Encouraged increased ambulation/activity and IS use. (2) Hyponatremia: Code(s): E87.1 - Hypo-osmolality and hyponatremia Status: Acute Assessment and Plan: Sodium 130. Reviewing her labs, she was hyponatremic and on the low end of normal in January and April. Continue IV fluids today until patient has better oral intake. Trend labs, repeat in the am. (3) Anemia: Code(s): D64.9 - Anemia, unspecified Status: Acute Assessment and Plan: Hgb 7.7 this morning, there was about 800 cc blood loss during surgery. She is hemodynamically stable and has good urine output. Will follow H/H and transfuse as needed. (4) Paroxysmal atrial fibrillation: Code(s): I48.0 - Paroxysmal atrial fibrillation Status: Acute Assessment and Plan: Regular rate and rhythm on exam. Home meds (diltiazem and metoprolol) continued. Continue to monitor. (5) Hypertension: Qualifiers: Hypertension type: essential hypertension Qualified Code(s): I10 - Essential (primary) hypertension Code(s): I10 - Essential (primary) hypertension Status: Acute (6) Pulmonary HTN: Code(s): I27.20 - Pulmonary hypertension, unspecified Status: Acute Additional Plan Discussed plan of care with Dr. Levine. Subjective Subjective Date/Time Seen: 06/06/20 12:15 Post Op day: 1 Patient reports: tolerating liquids well Interval history: Patient seen this morning and reports some confusion overnight and drowsiness, but improving this morning. She reports slight nausea yesterday after surgery, but this has since subsided. No nausea or vomiting today. Reports some abdominal pain but tolerable and controlled with the Tramadol. No other complaints. No colostomy output. Per the nurse, her abdominal dressings were changed overnight due to saturated dressings with serosanguineous drainage. Review of Systems Review of Systems: All systems reviewed & are unremarkable except as noted in HPI and below Constitutional: Constitutional: Reports as per HPI, Reports no additional constitutional complaints, Denies chills and Denies fever(s) Cardiovascular: Cardiovascular: Reports no additional cardiovascular complaints, Denies chest pain, Denies leg edema and Denies dyspnea Respiratory: Respiratory: Reports no additional respiratory complaints, Denies cough and Denies dyspnea Gastrointestinal: Gastrointestinal: Reports as per HPI and Reports no additional gastrointestinal complaints Neurologic: Reports system reviewed and no additional complaints, except as documented, Denies Abnormal speech present, Denies confusion and Denies focal weakness Psychiatric: Psychiatric: Reports confusion (not confused this morning) Exam Const: General: comfortable, no acute distress, alert and awake Orientation/consciousness: patient oriented x3 Resp: Effort & Inspection: normal respiratory effort Auscultation: clear to auscultation bilaterally Cardio: Rate: regular rate Rhythm: regular rhythm
--- NOTE | 2020-06-06 14:58 | PCRCNOTE ---
pt reports she does not wan to wear a cpap while here
[2020-06-06] MEDS: METOPROLOL SUCCINATE EXT REL 25 MG TABCR PO (20:12)
[2020-06-06] MEDS: ONDANSETRON INJ 4 MG/2 ML VIAL IV PUSH (21:44)
[2020-06-07] VITALS (10 sets, daily range): BP systolic 122–134; BP diastolic 52–62; PULSE 80–93; RESP 16–18; TEMP 36.6–37.6; O2SAT 92–95
[2020-06-07 05:40] LABS: Hemoglobin 7.8 g/dL (12.0-15.0); Mean Corpuscular HGB Conc 31.2 g/dl (32-36); Mean Corpuscular Hemoglobin 24.7 pg (26-34); Mean Corpuscular Volume 79.1 fl (80-100); Mean Platelet Volume 9.8 fl (7.4-10.4); Platelet Count Result 304 k/mm3 (150-375); Red Blood Count 3.16 M/mm3 (4.2-5.4); Red Cell Distribution Width 16.3 % (11.5-14.5); White Blood Count 11.9 K/mm3 (4.5-10.0)
[2020-06-07 05:56] LABS: Anion Gap 4 mmol/L (8-16); Blood Urea Nitrogen 16 mg/dL (7-17); Calcium 8.4 mg/dL (8.4-10.2); Carbon Dioxide 28 mmol/L (22-30); Chloride 99 mmol/L (98-107); Estimated CRCL calculation 76 ml/min; Estimated Glomerular Filt Rate > 60; Glucose 148 mg/dL (65-105); Potassium 4.1 mmol/L (3.4-5.0); Sodium 131 mmol/L (137-145)
[2020-06-07] MEDS: SODIUM CHLORIDE 0.9% IV 1,000 ML 100 ML IV CONT ×2 (08:05→19:09)
[2020-06-07] MEDS: ALVIMOPAN 12 MG CAPSULE PO ×2 (08:05→20:27)
[2020-06-07] MEDS: ASCORBIC ACID 500 MG TABLET PO (08:06)
[2020-06-07] MEDS: CHOLECALCIFEROL 1,000 UNITS TABLET 5000 UNITS PO (08:06)
[2020-06-07] MEDS: PANTOPRAZOLE 40 MG TABLET PO ×2 (08:06→20:26)
[2020-06-07] MEDS: lisinopriL 10 MG TABLET PO (08:06)
[2020-06-07] MEDS: dilTIAZem HCL CD 180 MG CAP.ER.24H PO (08:06)
[2020-06-07] MEDS: MAGNESIUM OXIDE 400 MG TABLET PO (08:06)
[2020-06-07] MEDS: LORATADINE 10 MG TABLET PO (08:06)
[2020-06-07] MEDS: traMADol HCL (*CRX) 50 MG TABLET PO ×2 (08:07→20:24)
[2020-06-07] MEDS: IBUPROFEN 600 MG TABLET PO (10:33)
--- NOTE | 2020-06-07 14:49 | PM.PNGS ---
Progress Note: A&P Assessment and Plan (1) Sigmoid diverticulitis: Code(s): K57.32 - Diverticulitis of large intestine without perforation or abscess without bleeding Status: Acute Assessment and Plan: await ostomy output, NPO for now, supportive care c IVF, antiemetics, encourage OOB/IS Subjective Subjective Date/Time Seen: 06/07/20 14:49 Pt c some N/V this am. Also c/o bloating, belching. Pt reports abd tenderness better. Review of Systems Review of Systems: All systems reviewed & are unremarkable except as noted in HPI and below Exam Const: General: cooperative, alert, awake and acute distress mild Resp: Effort & Inspection: normal respiratory effort Auscultation: clear to auscultation bilaterally Cardio: Rate: regular rate Rhythm: regular rhythm GI: Inspection: normal to inspection, distended and incision GI Palp: Yes Soft to palpation, Yes Tenderness to palpation present (GI) and No Guarding due to palpation present (GI) Other: soft, mod dist, isidro TTP, incisions C/D/I, ostomy viable Objective Data Vital Signs Vital Signs: Vital Signs - 24 hr 06/06/20 20:12 06/06/20 22:00 06/07/20 02:00 Temperature 36.8 C 36.8 C Pulse Rate 80 92 93 Respiratory Rate 16 18 Blood Pressure 117/50 L 134/56 L Pulse Oximetry 95 94 06/07/20 06:00 06/07/20 08:05 06/07/20 10:00 Temperature 37.6 C 36.9 C Pulse Rate 91 86 Respiratory Rate 16 16 Blood Pressure 133/52 L 125/54 L Pulse Oximetry 92 94 93 06/07/20 11:30 06/07/20 11:47 06/07/20 14:00 Temperature 37.1 C 36.7 C Pulse Rate 82 Respiratory Rate 16 Blood Pressure 125/54 L Pulse Oximetry 92 95 Intake/Output Intake/Output: Intake & Output 06/04/20 06/05/20 06/06/20 06/07/20 23:59 23:59 23:59 23:59 Intake Total 2620 4209 1300 Output Total 855 650 940 Balance 1765 8762 360 Meds/Results Medications: Active Medications Generic Name Dose Route Start Last Admin Trade Name Freq PRN Reason Stop Dose Admin Acetaminophen 500 mg 06/05/20 10:58 Acetaminophen 500 Mg Tablet PO Q6H PRN Mild Pain (1-3) or Fever Alvimopan 12 mg 06/06/20 10:58 06/07/20 08:05 Alvimopan 12 Mg Capsule PO 06/12/20 21:01 12 mg Q12HR VASYL Administration Ascorbic Acid 500 mg 06/06/20 09:00 06/07/20 08:06 Ascorbic Acid 500 Mg Tablet PO 500 mg DAILY VASYL Administration Diltiazem HCl 180 mg 06/06/20 09:00 06/07/20 08:06 Diltiazem Hcl Cd 180 Mg Cap.Er.24h PO 180 mg QAM VASYL Administration Sodium Chloride 1,000 mls @ 100 mls/hr 06/06/20 09:35 06/07/20 08:05 Normal Saline Iv IV CONT 100 mls/hr .Q10H VASYL Administration Ibuprofen 600 mg 06/05/20 16:10 06/07/20 10:33 Ibuprofen 600 Mg Tablet PO 600 mg Q6H PRN Administration Cramping Lisinopril 10 mg 06/06/20 09:00 06/07/20 08:06 Lisinopril 10 Mg Tablet PO 10 mg DAILY VASYL Administration Loratadine 10 mg 06/06/20 09:00 06/07/20 08:06 Loratadine 10 Mg Tablet PO 10 mg DAILY VASYL Administration Magnesium Oxide 400 mg 06/06/20 09:00 06/07/20 08:06 Magnesium Oxide 400 Mg Tablet PO 400 mg DAILY VASYL Administration Melatonin 5 mg 06/05/20 12:48 06/06/20 01:01 Melatonin 5 Mg Tablet PO 5 mg HS PRN Administration Sleep Metoprolol Succinate 25 mg 06/05/20 21:00 06/06/20 20:12 Metoprolol Succinate Ext Rel 25 Mg Tabcr PO 25 mg HS VASYL Administration Naloxone HCl 0.1 mg 06/05/20 10:58 Naloxone Hcl 0.4 Mg/Ml Vial IV PUSH Q2M PRN Opiate Reversal Ondansetron HCl 4 mg 06/05/20 10:58 06/06/20 21:44 Ondansetron Inj 4 Mg/2 Ml Vial IV PUSH 4 mg Q4H PRN Administration Nausea And Vomiting Pantoprazole Sodium 40 mg 06/05/20 21:00 06/07/20 08:06 Pantoprazole 40 Mg Tablet PO 40 mg Q12HR VASYL Administration Promethazine HCl 12.5 mg 06/07/20 10:42 Promethazine Hcl 25 Mg/Ml Ampul IV PUSH Q4H PRN Nausea And Vomiting Sodium Chloride 1 sp
[2020-06-07] MEDS: METOPROLOL SUCCINATE EXT REL 25 MG TABCR PO (20:27)
[2020-06-08] VITALS (9 sets, daily range): BP systolic 122–151; BP diastolic 55–70; PULSE 79–89; RESP 16–18; TEMP 36.6–36.9; O2SAT 92–99
[2020-06-08] MEDS: IBUPROFEN 600 MG TABLET PO ×2 (02:05→10:15)
[2020-06-08] MEDS: SODIUM CHLORIDE 0.9% IV 1,000 ML 100 ML IV CONT (05:17)
[2020-06-08 05:53] LABS: Hematocrit 21.8 % (37.0-47.0); Mean Corpuscular HGB Conc 31.2 g/dl (32-36); Mean Corpuscular Hemoglobin 24.9 pg (26-34); Mean Corpuscular Volume 79.9 fl (80-100); Mean Platelet Volume 9.6 fl (7.4-10.4); Platelet Count Result 238 k/mm3 (150-375); Red Blood Count 2.73 M/mm3 (4.2-5.4); Red Cell Distribution Width 16.2 % (11.5-14.5); White Blood Count 8.5 K/mm3 (4.5-10.0)
[2020-06-08 06:00] LABS: Hemoglobin 6.8 g/dL (12.0-15.0)
[2020-06-08 06:06] LABS: Anion Gap 5 mmol/L (8-16); Blood Urea Nitrogen 13 mg/dL (7-17); Calcium 8.4 mg/dL (8.4-10.2); Carbon Dioxide 28 mmol/L (22-30); Chloride 101 mmol/L (98-107); Estimated CRCL calculation 87 ml/min; Estimated Glomerular Filt Rate > 60; Glucose 119 mg/dL (65-105); Potassium 4.1 mmol/L (3.4-5.0); Sodium 134 mmol/L (137-145)
--- NOTE | 2020-06-08 08:28 | PM.PNGS ---
Progress Note: A&P Assessment and Plan (1) Sigmoid diverticulitis: Code(s): K57.32 - Diverticulitis of large intestine without perforation or abscess without bleeding Status: Acute Assessment and Plan: improved, will transfuse 1 u PRBC and recheck H/H later today, clears and ADAT, pt anxious to go home, encourage OOB/IS Subjective Subjective Date/Time Seen: 06/08/20 08:28 pt feels much better today, + ostomy output Review of Systems Review of Systems: All systems reviewed & are unremarkable except as noted in HPI and below Exam Const: General: cooperative, comfortable and no acute distress Resp: Effort & Inspection: normal respiratory effort Auscultation: clear to auscultation bilaterally Cardio: Rate: regular rate Rhythm: regular rhythm GI: Inspection: normal to inspection, distended and incision GI Palp: Yes abdominal tenderness, Yes Soft to palpation, No Guarding due to palpation present (GI) and No Rigid due to palpation Other: ostomy - + fxn, viable Objective Data Vital Signs Vital Signs: Vital Signs - 24 hr 06/07/20 10:00 06/07/20 11:30 06/07/20 11:47 Temperature 36.9 C 37.1 C Pulse Rate 86 Respiratory Rate 16 Blood Pressure 125/54 L Pulse Oximetry 93 92 06/07/20 14:00 06/07/20 18:00 06/07/20 20:27 Temperature 36.7 C 36.6 C Pulse Rate 82 84 80 Respiratory Rate 16 16 Blood Pressure 125/54 L 122/62 Pulse Oximetry 95 95 06/07/20 20:37 06/08/20 02:00 06/08/20 05:27 Temperature 36.9 C 36.9 C 36.9 C Pulse Rate 82 79 81 Respiratory Rate 16 16 18 Blood Pressure 126/59 L 122/55 L 131/59 L Pulse Oximetry 94 93 92 Intake/Output Intake/Output: Intake & Output 06/05/20 06/06/20 06/07/20 06/08/20 23:59 23:59 23:59 23:59 Intake Total 2620 4209 2300 1020 Output Total 855 650 995 70 Balance 1765 1834 1305 950 Meds/Results Medications: Active Medications Generic Name Dose Route Start Last Admin Trade Name Freq PRN Reason Stop Dose Admin Acetaminophen 500 mg 06/05/20 10:58 Acetaminophen 500 Mg Tablet PO Q6H PRN Mild Pain (1-3) or Fever Alvimopan 12 mg 06/06/20 10:58 06/07/20 20:27 Alvimopan 12 Mg Capsule PO 06/12/20 21:01 12 mg Q12HR VASYL Administration Ascorbic Acid 500 mg 06/06/20 09:00 06/07/20 08:06 Ascorbic Acid 500 Mg Tablet PO 500 mg DAILY VASYL Administration Diltiazem HCl 180 mg 06/06/20 09:00 06/07/20 08:06 Diltiazem Hcl Cd 180 Mg Cap.Er.24h PO 180 mg QAM VASYL Administration Sodium Chloride 1,000 mls @ 100 mls/hr 06/06/20 09:35 06/08/20 05:17 Normal Saline Iv IV CONT 100 mls/hr .Q10H VASYL Administration Sodium Chloride 250 mls @ 30 mls/hr 06/08/20 07:35 Normal Saline Iv IV CONT 06/08/20 15:54 .Q8H20M STA Ibuprofen 600 mg 06/05/20 16:10 06/08/20 02:05 Ibuprofen 600 Mg Tablet PO 600 mg Q6H PRN Administration Cramping Lisinopril 10 mg 06/06/20 09:00 06/07/20 08:06 Lisinopril 10 Mg Tablet PO 10 mg DAILY VASYL Administration Loratadine 10 mg 06/06/20 09:00 06/07/20 08:06 Loratadine 10 Mg Tablet PO 10 mg DAILY VASYL Administration Magnesium Oxide 400 mg 06/06/20 09:00 06/07/20 08:06 Magnesium Oxide 400 Mg Tablet PO 400 mg DAILY VASYL Administration Melatonin 5 mg 06/05/20 12:48 06/06/20 01:01 Melatonin 5 Mg Tablet PO 5 mg HS PRN Administration Sleep Metoprolol Succinate 25 mg 06/05/20 21:00 06/07/20 20:27 Metoprolol Succinate Ext Rel 25 Mg Tabcr PO 25 mg HS VASYL Administration Naloxone HCl 0.1 mg 06/05/20 10:58 Naloxone Hcl 0.4 Mg/Ml Vial IV PUSH Q2M PRN Opiate Reversal Ondansetron HCl 4 mg 06/05/20 10:58 06/06/20 21:44 Ondansetron Inj 4 Mg/2 Ml Vial IV PUSH 4 mg Q4H PRN Administration Nausea And Vomiting Pantoprazole Sodium 40 mg 06/05/20 21:00 06/07/20 20:26 Pantoprazole 40 Mg Tablet PO 40 mg Q12HR VASYL Administration Promethazine HCl 12.5 mg 06/07/20 10:42
[2020-06-08] MEDS: ALVIMOPAN 12 MG CAPSULE PO (09:41)
[2020-06-08] MEDS: PANTOPRAZOLE 40 MG TABLET PO (09:43)
[2020-06-08] MEDS: lisinopriL 10 MG TABLET PO (09:43)
[2020-06-08] MEDS: dilTIAZem HCL CD 180 MG CAP.ER.24H PO (09:43)
--- NOTE | 2020-06-08 10:00 | PC.NURSE ---
Patient states she is hoping to go home after her 1700 HH today. Patient's daughter Raymond on speaker phone in room. Discussed possible discharge with daughter and with patient. Daughter had multiple questions and concerns regarding discharge, including ostomy care, home health arrangements, followup appointments, etc. Discussed concerns with daughter and explained to her that patient would be seen by ostomy nurse for teaching later today and also with care associate for home care arrangements prior to discharge. Daughter requested a call from ostomy nurse and care associate to further discuss. Called Elba in wound care and notified her of patient and daughter's concerns. She states she will do ostomy teaching around 1400 and will follow up with daughter. Discussed concerns with Kasandra CASTILLO care associate and she states [facility] health is set up for patient and first visit will be June 13. Kasandra states she will call patient's daughter to update her on plans. Relayed all information to patient.
[2020-06-08] MEDS: SODIUM CHLORIDE 0.9% IV 250 ML 30 ML IV CONT (10:46)
[2020-06-08] MEDS: CHOLECALCIFEROL 1,000 UNITS TABLET 5000 UNITS PO (11:47)
[2020-06-08] MEDS: ASCORBIC ACID 500 MG TABLET PO (11:47)
[2020-06-08] MEDS: MAGNESIUM OXIDE 400 MG TABLET PO (11:47)
--- NOTE | 2020-06-08 12:26 | PCDIET ---
Nutrition Follow-Up Complete: Suboptimal oral intake related to colectomy as evidenced by clear liquid diet. Patient to meet estimated nutritional needs. Goal: Goal not met. Continue goal. Pt current nutrition is Full liquids+ Ensure Surgery Nutrition recommendation: agree (pt would also like to continue to get Ensure clear) Last recorded weight is 112 kg, up from assessed wt of 107.2kg Bowel Motility: + ostomy output Labs Reviewed: Na 134, Glucose 119 Meds Noted: Protonix, Normal Saline, Vitamin D, Vitamin C, Zofran, Mag oxide, melatonin Additional Notes: Pt eating 100% of clears. Now advanced to full liquids. A little pain with intake so she backed off. Small intakes encouraged. Pt would like Ensure clear in addition to ensure surgery so we will send one a day. One serving of Ensure Clear provides 200 kcal, 7 g protein, and is a good source of 19 essential vitamins and minerals. Recommend advancing diet as tolerated to low fiber. Following every five days for diet advancement and adequate intake.
--- NOTE | 2020-06-08 15:00 | PC.NURSE ---
Spoke with Kasandra care transition coordinator again regarding potential discharge. She states FridayJune 13 is the soonest patient can be seen by home health nurses. Referrals were made to multiple agencies but [facility] health could see her the soonest. Aletha ostomy nurse met with patient and provided teaching with daughter on facetime also. Aletha states she will send supplies to the floor for patient to take home with her. Daughter has been called by care transition coordinator and is aware of discharge plan.
[2020-06-08] MEDS: traMADol HCL (*CRX) 50 MG TABLET PO (15:48)
[2020-06-08 17:02] LABS: Hematocrit 27.6 % (37.0-47.0); Hemoglobin 8.9 g/dL (12.0-15.0)
--- NOTE | 2020-06-08 18:47 | PC.NURSE ---
Demonstrated JOHN drain care and dressing change. Supplies sent home with patient. Patient also verbalizes understanding of colostomy care and all supplies sent home with patient.
--- NOTE | 2020-06-14 10:32 | PM.DS ---
DS: Admitting Diagnosis Admitting Diagnosis Admitting Diagnosis: diverticulitis with abscess DS: Discharge Diagnosis Discharge Diagnosis (1) Diverticulitis: Code(s): K57.92 - Diverticulitis of intestine, part unspecified, without perforation or abscess without bleeding Status: Acute Assessment and Plan: s/p diverting colostomy, cont drain (2) Anemia: Code(s): D64.9 - Anemia, unspecified Status: Acute Assessment and Plan: resolved, likely postsurgical, given 1 u PRBC (3) Morbid obesity with BMI of 40.0-44.9, adult: Code(s): E66.01 - Morbid (severe) obesity due to excess calories; Z68.41 - Body mass index [BMI]40.0-44.9, adult Status: Acute Assessment and Plan: dietary and lifestyle modifications DS: Summary Hospital Course Reason for hospitalization: sigmoid diverticulitis with abscess Hospital Course: Patient is a 64-year-old female well known to my service. Patient has been admitted multiple times with diverticulitis and abscess. The patient has been on multiple courses of antibiotics. At this point, the patient was set up for possible sigmoid colectomy. The patient was taken to the operating room on 06/05 and diverting colostomy was done. Please see full operative report for details of that procedure. Postoperatively, the patient did well and was transferred to the floor. Over the next few days, the patient reports her pain significantly improved. The patient was able to ambulate without issue. On the day prior to her discharge, her colostomy began to function and she was able to have tolerate a soft diet. Of note, the patient was noted to be anemic likely postsurgical in nature and she was transfused 1 unit. The patient will be discharged on 06/08 with instructions to follow in 1 week. Status at Discharge Functional status at discharge: independent ambulation Overall status at discharge: patient is progressing back to baseline Time Spent with Patient Time attestation: Total time spent providing and/or coordinating discharge services: Time spent: Less than 30 minutes Exam Const: General: cooperative, comfortable and no acute distress Resp: Effort & Inspection: normal respiratory effort Auscultation: clear to auscultation bilaterally Cardio: Rate: regular rate Rhythm: regular rhythm GI: Inspection: normal to inspection, Abdominal wall edema, distended and incision GI Palp: Yes Soft to palpation and Yes Tenderness to palpation present (GI) Other: ostomy c good fxn, incision healing well, JOHN c s/s output Discharge Plan Discharge Attending physician on discharge: Eli Levine Consulting providers: Kayce Rodrigues Discharging Clinician: Eli Levine Patient Disposition: Home Health Service Activity: may shower and no straining Diet: as tolerated Wound Care Instructions: change dressing daily and incision open to air Discharge Instructions: Per Care Coordination: [facility] RN/PT/OT Evaluation & Treatment. RN Please fax Discharge summary to [phone] and call when patient leaves. [phone] Levine's office on Friday [phone] - to arrange follow up appointment Patient Instructions: Colostomy Care (DC), Colectomy (DC) Stand Alone Forms: General Discharge Information Follow-up/Referrals: Eli Levine MD [Physician] - 1 Week Discharge Medications: New tramadol [Ultram] 50 mg tablet 50 mg PO Q6H PRN (Reason: pain) Qty: 30 RF: 0 Continued ascorbic acid (vitamin C) [Vitamin C] 500 mg Tablet 500 mg PO DAILY RF: 0 polyethylene glycol 3350 [Miralax] 17 gram/dose Powder 17 g PO DAILY PRN (Reason: Constipation) RF: 0 psyllium seed (sugar) Powder 1 tbsp PO BID RF: 0 Nasal Mist 0.9 % Aerosol,[place] 1 spray INTRANASAL ONCE PRN (Reason: NASAL DRYNESS) RF: 0 fluticasone furoate 27.5 mcg/actuation [place],Suspension 1 spray INTRANASAL DAILY RF: 0 loratadine [Clar
== END 2020-06-08 19:25 | disposition home health service (06) | DRG 330 ==
LOC: ANH2MED 15:27
PROVIDERS: Nurse Practitioner Family; Admitting Provider Surgery; PCP Internal Medicine Geriatric Medicine; Visit Provider Surgery
PROC: 0D1E4Z4 Bypass Large Intestine to Cutaneous, Percutaneous Endoscopic Approach (ICD-10-PCS; principal; 2020-06-05 07:30)
DX: K57.20 Diverticulitis of large intestine with perforation and abscess without bleeding (principal); Z68.41 Body mass index [BMI] 40.0-44.9, adult; E87.1 Hypo-osmolality and hyponatremia; E66.01 Morbid (severe) obesity due to excess calories; K66.0 Peritoneal adhesions (postprocedural) (postinfection); I27.20 Pulmonary hypertension, unspecified; I48.0 Paroxysmal atrial fibrillation; D64.9 Anemia, unspecified; I10 Essential (primary) hypertension; K21.9 Gastro-esophageal reflux disease without esophagitis; G47.33 Obstructive sleep apnea (adult) (pediatric); M19.90 Unspecified osteoarthritis, unspecified site; Z96.641 Presence of right artificial hip joint; Z96.653 Presence of artificial knee joint, bilateral; Z79.899 Other long term (current) drug therapy
CPT/HCPCS: 36415; 36430; 80048; 85014; 85018; 85025; 85027; 86850; 86900; 86901; 86923; 97110; 97116; 97161; 97165; 97530; 97535; A9270; C9803; J0131; J0690; J1100; J1170; J1885; J2250; J2370; J2405; J2704; J2710; J3010; J7030; J7050; J7120; P9016; U0003

== ENCOUNTER 2020-06-10 19:55 | Emergency (ER) | payer OTHER, SELFPAY ==
[2020-06-10] VITALS (17 sets, daily range): BP systolic 138–165; BP diastolic 69–79; PULSE 81–90; RESP 12–22; TEMP 36.6; O2SAT 91–98
--- NOTE | ~2020-06-10 | CT_ITS ---
EXAMINATION: CT abdomen pelvis wo con DATE: 06/10/2020 20:49 INDICATION: Abdominal pain and decreased ostomy output, recent colostomy formation. TECHNIQUE: Computed tomography (CT) of the abdomen and pelvis was performed without intravenous contr ast. The dose-length product (DLP) was 1479.02 mGy-cm. Automated exposure control and iterative recon struction technique were employed. COMPARISON: 05/15/2020 FINDINGS: The examination is limited by the absence of intravenous contrast. Minimal dependent atelec tasis is present in the lung bases. The heart size is normal. The liver, spleen, pancreas, gallbladde r, and adrenal glands are normal. There is mild bilateral hydroureteronephrosis of unclear significan ce. There are changes of interval colostomy formation in the left lower quadrant. Gas, edema, and fat stranding in the ventral subcutaneous tissues are consistent with recent surgery. A surgical drain e nters through the right pelvic area and courses into the midabdomen. There are no dilated loops of damaris wel. Evaluation of the pelvis is limited by streak artifact from right total hip arthroplasty. There is severe lumbar spondylosis. IMPRESSION: 1. Findings consistent with recent left lower quadrant colostomy formation. No dilated loops of bowel . Limited examination without intravenous contrast. Reviewed, dictated and finalized at location A. RER PRESTRESSED CONCRETE IMPRESSION: 1. Findings consistent with recent left lower quadrant colostomy formation. No dilated loops of bowel. Limited examination without intravenous contrast.
--- NOTE | 2020-06-10 20:17 | ED.ABDPAIN ---
HPI - Abdominal Pain General Chief Complaint: Abdominal Pain Stated Complaint: recent ostomy, belly pain, not much stool Time Seen by Provider: 06/10/20 20:07 Source: patient Mode of arrival: ambulatory Limitations: no limitations History of Present Illness HPI narrative: 64 years old white female presents with slight distention of the right side of the abdomen and colostomy bag is not filling up as usual. Patient status post colostomy 5 days ago. Patient denies any fever, chills, vomiting. Patient complaining of intermittent nausea. Related Data Home Medications Medication Instructions Recorded Confirmed diltiazem HCl [DILT-XR] PO 06/10/20 erythromycin PO 06/10/20 lisinopril 06/10/20 neomycin 06/10/20 06/10/20 pantoprazole PO 06/10/20 tramadol mg 06/10/20 Allergies Allergy/AdvReac Type Severity Reaction Status Date / Time acetaminophen [From Vicodin] Allergy Difficulty Verified 06/10/20 20:31 Breathing hydrocodone [From Vicodin] Allergy Difficulty Verified 06/10/20 20:31 Breathing iodine Allergy Rash Verified 06/10/20 20:31 latex Allergy Difficulty Verified 06/10/20 20:31 Breathing shellfish derived Allergy Difficulty Verified 06/10/20 20:31 Breathing Review of Systems Review of Systems: Narrative: CONSTITUTIONAL: Denies fever, chills, or sweats. EYES: Denies visual changes, redness, or discharge. ENT: Denies rhinorrhea, congestion, sore throat, or otalgia. CARDIOVASCULAR: Denies chest pain, palpitations, or edema. RESPIRATORY: Denies cough or dyspnea. GASTROINTESTINAL: Denies abdominal pain, nausea, vomiting, or diarrhea. GENITOURINARY: Denies dysuria or hematuria. SKIN: Denies rash or itching. MUSCULOSKELETAL: Denies back pain, joint pain, or myalgia. NEUROLOGIC: Denies headache, numbness, or weakness. PSYCHIATRIC: Denies anxiety or depression. Exam Narrative: Exam Narrative: General appearance: Well-developed, well-nourished Skin: Normal color Head: Normocephalic, nontraumatic Eyes: Clear conjunctiva ENT: Oropharynx normal, ears normal, nose normal Neck: Supple, nontender Chest and respiratory: Airway patent, no respiratory distress, no accessory muscle use Heart: Regular rate/rhythm Abdomen: Soft, colostomy bag contains small amount of dark liquid stool, surgical scar is clean and dry, no organomegaly, quiet bowel sounds Vascular: Normal peripheral pulses, normal capillary refill. Musculoskeletal: Normal range of motion, nontender back Neurologic: Alert and oriented ?3, MALT HOUSE OPERATOR is normal as tested, no gross motor deficit Course Course Emergency Course: Stable Vital Signs Vital signs: Vital Signs Temperature 36.6 C 06/10/20 20:00 Pulse Rate 87 06/10/20 20:00 Respiratory Rate 16 06/10/20 20:00 Blood Pressure 165/74 H 06/10/20 20:00 Pulse Oximetry 97 06/10/20 20:00 Temperature 36.6 C 06/10/20 20:00 Pulse Rate 87 06/10/20 20:00 Respiratory Rate 16 06/10/20 20:00 Blood Pressure 165/74 H 06/10/20 20:00 Pulse Oximetry 97 06/10/20 20:00 MDM - Abdominal Pain MDM Narrative Medical decision making narrative: Patient presents with decreased BM IN THE colostomy bag Differential Diagnosis Differential diagnosis: Likely abdominal pain, constipation and small bowel obstruction Critical Care Time Critical Care Time Critical Care Time: Yes Total Critical Care Time: 40 Discharge Plan Discharge Clinical Impression: Abdominal pain, Urinary tract infection Patient Disposition: Home, Self-Care Condition: Stable Instructions: Urinary Tract Infection in Women (ED), Abdominal Pain (ED) Additional Instructions: Return if symptoms are worsening , call Dr. young
[2020-06-10 20:24] LABS: Basophils Percent Auto 0.2 % (0.2-1.2); Eosinophils Absolute Auto 0.2 K/mm3 (0-0.3); Eosinophils Percent Auto 1.9 % (0-4.4); Hematocrit 28.3 % (37.0-47.0); Hemoglobin 9.1 g/dL (12.0-15.0); Immature Granulocyte Absolute 0.04 K/mm3 (0.00-0.031); Immature Granulocyte Percent A 0.4 % (0-0.5); Lymphocytes Percent Auto 16.6 % (18.3-44.2); Mean Corpuscular HGB Conc 32.2 g/dl (32-36); Mean Corpuscular Hemoglobin 25.6 pg (26-34); Mean Corpuscular Volume 79.7 fl (80-100); Mean Platelet Volume 8.9 fl (7.4-10.4); Monocytes Absolute Auto 1.1 K/mm3 (0.1-0.6); Monocytes Percent Auto 11.2 % (2.6-8.5); Neutrophils Absolute Auto 6.7 K/mm3 (1.3-6.7); Neutrophils Percent Auto 69.7 % (45.5-73.1); Platelet Count Result 347 k/mm3 (150-375); Red Blood Count 3.55 M/mm3 (4.2-5.4); Red Cell Distribution Width 16.1 % (11.5-14.5); White Blood Count 9.6 K/mm3 (4.5-10.0)
[2020-06-10] MEDS: SODIUM CHLORIDE 0.9% IV 1,000 ML 999 ML IV CONT (20:28)
[2020-06-10 20:36] LABS: Alanine Aminotransferase 10 U/L (4-35); Albumin Level 3.2 g/dL (3.5-5.1); Alkaline Phosphatase 97 U/L (38-126); Anion Gap 5 mmol/L (8-16); Aspartate Amino Transferase 18 U/L (14-36); Bilirubin,Total 0.6 mg/dL (0.2-1.3); Blood Urea Nitrogen 9 mg/dL (7-17); Calcium 8.6 mg/dL (8.4-10.2); Carbon Dioxide 32 mmol/L (22-30); Chloride 96 mmol/L (98-107); Estimated CRCL calculation 75 ml/min; Estimated Glomerular Filt Rate > 60; Glucose 128 mg/dL (65-105); Lipase 31 U/L (23-300); Potassium 3.7 mmol/L (3.4-5.0); Sodium 133 mmol/L (137-145)
[2020-06-10 21:16] LABS: Add Urine Microscopic? YES; Appearance Urine Cloudy (Clear); Bacteria Urine 1+ /hpf; Bilirubin Urine Negative (Negative); Blood Urine 3+ (Negative); Color Urine Yellow (Yellow); Glucose Urine UA Negative (Negative); Ketones Urine Negative (Negative); Leukocyte Esterase Ur 3+ LEU/UL (Negative); Mucus Urine Few /lpf; Nitrate Urine Negative (Negative); Protein Urine 1+ mg/dL (Negative); RBC Urine 51-75 /hpf (0-2); Specific Grav Ur 1.012 (1.001-1.035); Squamous Epithelial Cell Urine Few /hpf (Few); Urobilinogen Urine Negative mg/dL (<2.0); WBC Urine >75 /hpf
--- NOTE | 2020-06-10 22:44 | PC.NURSE ---
Patient's colostomy bag changed upon request. Patient educated on proper technique and process on how to change her colostomy bag.
== END 2020-06-10 23:14 | disposition home or self-care (01) ==
PROVIDERS: Emergency Provider Emergency Medicine; PCP Internal Medicine Geriatric Medicine
DX: N39.0 Urinary tract infection, site not specified (principal); Z93.3 Colostomy status
CPT/HCPCS: 36415; 74176; 80053; 81001; 83690; 85025; 87086; 87088; 96361; 96365; 99284; J0696; J7030

== ENCOUNTER 2020-07-21 08:06 | Outpatient (CLI) | payer OTHER, SELFPAY ==
--- NOTE | ~2020-07-21 | XR_ITS ---
EXAMINATION: XR enema water soluble DATE: 07/21/2020 09:13 INDICATION: Sigmoid diverticulitis. TECHNIQUE: A precision inspector radiograph was obtained. A catheter was inserted into the patient's rectum. Contra st was infused by gravity. Fluoroscopic spot images and conventional radiographs were obtained. Fluor oscopy exposure time was 0.2 minutes. The total number of images was 8. COMPARISON: CT abdomen and pelvis 06/10/2020 FINDINGS: There is contrast in the rectum. There is no extraluminal leakage of contrast. There is a r ight hip arthroplasty. IMPRESSION: 1. Normal Anya pouch. Reviewed, dictated and finalized at location A. IMPRESSION: 1. Normal Anya pouch.
== END 2020-07-21 08:07 | disposition home or self-care (01) ==
LOC: ANHIMG 08:08
PROVIDERS: PCP Internal Medicine Geriatric Medicine; Visit Provider Surgery
DX: K57.92 Diverticulitis of intestine, part unspecified, without perforation or abscess without bleeding (principal)
CPT/HCPCS: 74270

== ENCOUNTER 2020-11-03 20:09 | Inpatient (IN) | payer OTHER, SELFPAY ==
--- OUTSIDE RECORDS SUMMARY | 2020-11-03 20:12 | XMS_ITS | Continuity of Care Document ---
:1955 Author Allergies, Adverse Reactions, Alerts Substance Reaction Status Shellfish Active Latex Active Darvocet shortness of Active breath/difficulty breathing Medications Start Date End Date Medication Signa 20200427 traMADol 50 mg oral Take 1 tab(s ) orally tablet every 6 hours as needed for Pain; Pain 20200427 Loratadine 10 mg oral Take 1 tab (s) oral tablet Daily for Allerg ies 20200427 lisinopril 10 mg oral Take 1 tab (s) orally tablet once a day for Hypertension 20200427 DilTIAZem (Eqv-Tiazac) Take 1 ca p(s) orally 180 mg/24 hours oral once a day for Heart capsule, extended release 20200427 ClearLax - oral powder Administe r 17 gm(s) for reconstitution orally once a day for Constipation 20200427 Melatonin 5 mg oral Take 1 cap(s ) orally capsule once a day (at b edtime) as needed for Sl eep; Sleep 20200427 Vitamin D3 5000 intl Take 1 cap( s) orally units oral capsule once a day fo r Vitamin deficiency 20200427
--- OUTSIDE RECORDS SUMMARY | 2020-11-03 20:12 | XMS_ITS | Continuity of Care Document ---
:1955 Author Allergies, Adverse Reactions, Alerts Substance Reaction Status Darvocet shortness of Active breath/difficulty breathing Latex Active Shellfish Active Medications Start Date End Date Medication Signa 20200203 DilTIAZem (Eqv-Tiazac) Take 1 ca p(s) orally 180 mg/24 hours oral once a day for capsule, extended release Hypert ension; High risk 20200203 ferrous sulfate 325 mg Take 1 ta b(s) orally 3 oral tablet times a day 20200203 furosemide 20 mg oral Take 1 tab (s) orally tablet once a day for D iuretic; High risk 20200203 Metoprolol Succinate ER Take 1 t ab(s) orally 25 mg oral tablet, once a day fo r extended release Hypertension; H igh risk 20200203 MiraLax - oral powder for Admini ster 17 gm(s) reconstitution orally once a da y 20200203 bisacodyl 10 mg rectal Administe r 1 suppository suppository(ies) rectally once a day as needed for Const ipation; Constipation 20200203 pantoprazole 40 mg oral Take 1 t ab(s) orally delayed release tablet once a da y for GERD 20200203 Aspirin
--- OUTSIDE RECORDS SUMMARY | 2020-11-03 20:12 | XMS_ITS | Continuity of Care Document ---
:1955 Author Allergies, Adverse Reactions, Alerts Substance Reaction Status Darvocet shortness of Active breath/difficulty breathing Latex Active Shellfish Active Medications Start Date End Date Medication Signa 20200615 TraMADol Hydrochloride 50 Take 1 tab(s) orally mg oral tablet every 6 hours as needed for Pain; Pain 20200615 lisinopril 10 mg oral Take 1 tab (s) orally tablet once a day for Hypertension 20200615 DilTIAZem (Eqv-Cardizem Take 1 c ap(s) orally CD) 180 mg/24 hours oral once a day capsule, extended release 20200615 Metoprolol Succinate ER Take 1 t ab(s) orally 25 mg oral tablet, once (at bedt kevyn) extended release [id number] Pantoprazole 40 mg oral Take 1 t ab(s) orally 2 delayed release tablet times a d ay 20200615 Flonase 50 mcg/inh nasal Adminis ter 1 spray(s) spray intranasally onc e a day 20200615 MiraLax - oral powder for Admini ster 17 gm(s) reconstitution orally once a da y as needed for Constipation [id number]
--- OUTSIDE RECORDS SUMMARY | 2020-11-03 20:13 | XMS_ITS | Encounter Summary ---
:1955 Author Care Team Providers Name Role Phone Dr. Ivan Rhoades Primary Care Provider [phone] Dr. Ivan Rhoades Referring Provider [phone] Reason for Visit cardiac follow up Assessment and Plan 1. Paroxysmal atrial fibrillatio n [id number] score = 2 No NOAC d/t diverticulitis and risk of G I bleed; instructed to restart aspirin 325mg. Rate controlled with Cardizem 180mg and metoprolol 25mg Remains asymptomatic ? electrocardiogram 2. Essential hypertension Controlled on current regimen 3. Preoperative cardiovascular e xamination There is no cardiac contraindi cation for the procedure. The planned procedure would be within acceptable ris k. Patient may stop taking aspirin five (5) days prior to the procedure. Discussion Note Scribed by Suyapa Casas [facility] Patient educational handouts: No information available. Plan of Care Patient Instructions Exercise advised Low cholesterol diet advised Low sodium diet advised Reminders Provider Appointments Established on or Nan lorenzo Patient Detailed around MD Nandini 11/10/2020 Lab None recorded. ? ? Referral None recorded. ? ? Procedures None recorded. ? ? Surgeries None recorded. ? ?
--- OUTSIDE RECORDS SUMMARY | 2020-11-03 20:13 | XMS_ITS ---
:1955 Author Care Team Providers Name Role Phone DR. ARMANDO MACHUCA Primary Care Provider Unavailable DR. ARMANDO MACHUCA Referring Provider Unavailable REYNALDO BYERS Records Management Analyst [phone] Allergies Code Code System Name Reaction Severity Status Onset Latex, Natural ? ? Active ? Rubber Shellfish ? ? Active ? Derived 631726 RxNorm Vicodin ? ? Active ? Zithromax Itching ? Active ? Z-cynthia Medications Name Status Start Date Stop Date ? ? amoxicillin 500 mg capsule Active ? Not a vailable TK 1 C PO Q 8 H FOR 10 DAYS amoxicillin 875 mg-potassium Completed ? 06/2019 clavulanate 125 mg tablet celecoxib 200 mg capsule Active ? Not jed ilable DILT-XR 180 mg capsule, extended Active ? Not available release DOK 100 mg capsule Completed ? 08/04/2019 TK 1 T PO BID PRF CONSTIPATION doxycycline hyclate 100 mg tablet Active ? Not available Flucelvax Quad 3468-9505 (PF) 60 mcg Completed ? 08/04/2019 (15 mcg x 4)/0.5 mL IM syringe Flucelvax Quad (PF) 60 mcg (15 mcg x 4)/0.5 mL IM syri nge Completed ? 05/16/2020 PHARMACIST ADMINISTERED IMMUNIZATION ADMINISTERED AT TIME OF DI SPENSING fluconazole 150 mg tablet Active ? Not av ailable TK 1 T PO 1 TIME furosemide 20 mg tablet Active ? Not avai lable lisinopril 10 mg tablet Active ? Not avai lable metoprolol succinate ER 25 mg tablet,extended re
--- OUTSIDE RECORDS SUMMARY | 2020-11-03 20:13 | XMS_ITS ---
:1955 Author Care Team Providers Name Role Phone Covid Lab Primary Care Provider Unavailable Allergies None recorded. Medications Name Status Start Date Stop Date ? ? amoxicillin 875 mg-potassium clavulanate Active ? Not available 125 mg tablet celecoxib 200 mg capsule Active ? Not jed ilable doxycycline hyclate 100 mg tablet Active ? Not available Flucelvax Quad 6947-4180 (PF) 60 mcg (15 Active ? Not available mcg x 4)/0.5 mL IM syringe lisinopril 10 mg tablet Active ? Not avai lable nitrofurantoin monohydrate/macrocrystals Active ? Not available 100 mg capsule pantoprazole 40 mg tablet,delayed release Active ? Not available Shingrix (PF) 50 mcg/0.5 mL intramuscular Active ? Not available suspension, kit tramadol 50 mg tablet Active ? Not availa ble Problems None recorded. Procedures None recorded. Results Lab Results Date Name Specimen Result Interpretation Description Value Range Status Address ? 12/29/2019 SARS CoV 2 RNA ? Sars - non ? [place] (COVID-19), QL, Cov - 2 detected mL [facility] alemite operator-PCR, PCR (Lab): [address], [place] ? ? ? Covidi ? ? Final [place] [facility] (Lab): [address], [place]
[2020-11-03 22:14] VITALS: BMI 36.3
--- NOTE | 2020-11-03 22:38 | PM.IMHP ---
H&P: HPI History of Present Illness Date/Time: 11/03/20 22:38 Chief Complaint: Debilitation Narrative: 65-year-old woman with a history of diverticulitis, urinary obstruction status post stents, atrial fibrillation, hepatic abscesses, and a recently treated abdominal wall abscess comes to this hospital as a swing admission for rehabilitation and wound treatment. Radames the patient had an aborted attempted sigmoidectomy for diverticulitis after having had drains placed for hepatic abscesses. On 09/14 she underwent bilateral stent placement for bilateral hydronephrosis and open colostomy takedown on 09/28. She initially had some pouching issues but these have resolved. She was treated for UTI on 10/24 and self cathing at home. She was admitted on 10/30 to [facility] for left lower quadrant pain from [facility]. Patient was found to have an abdominal wall abscess and acute kidney injury. On 11/01 her IV antibiotics were DC'd and she was started on Augmentin for soft tissue infection and resumed Macrobid for her UTI. Patient currently has a Junior. She is scheduled to see her surgeon, Kareem Hess, on November 14 for follow-up and her neurologist Dr. Sims on November 14 to switch out her ureteral stents. Review of Systems Review of Systems: All systems reviewed & are unremarkable except as noted in HPI and below Constitutional: Constitutional: Denies anorexia, Denies chills, Denies fever(s) and Reports weakness ENT: Denies otalgia, Denies nasal discharge and Denies sore throat Cardiovascular: Cardiovascular: Denies chest pain, Denies chest pain at rest, Denies rapid heart rate and Denies leg edema Respiratory: Respiratory: Denies cough, Denies hemoptysis, Denies dyspnea and Denies wheezing Gastrointestinal: Gastrointestinal: Denies abdominal pain, Denies hematochezia, Denies nausea, Denies vomiting and Denies hematemesis Genitourinary: Genitourinary: Reports no additional female genitourinary complaints ( Extent indwelling junior) and Denies hematuria Musculoskeletal: Musculoskeletal: Reports myalgias, Denies arthralgias and Denies joint swelling Integumentary/Breasts: Skin/Breast: Denies pruritus, Denies lesions, Denies erythema, Denies rash and Reports wounds ( abdominal wound with dry dressings) Neurologic: Denies Neuro-related abnormal movements, Denies Abnormal speech present, Denies vertigo, Denies dizziness, Denies syncope and Reports weakness Hematologic/Lymphatic: Hematologic/Lymphatic: Denies easy bleeding and Denies easy bruising Allergic/Immunologic: Allergic/Immunologic: Denies urticaria and Denies throat swelling [facility] Past Medical History Medical History (Updated 11/03/20 @ 23:04 by Maximilian Cosby MD) Abdominal wall abscess at site of surgical wound Abscess of liver (~01/2020) Related to sigmoid diverticulitis, requiring percutaneous drainage. Acute diastolic (congestive) heart failure Anemia Dark stools Diverticulitis (~01/2020) Diverticulitis large intestine Diverticulitis large intestine Empyema lung (~01/2020) Gastroesophageal reflux disease Hypertension Liver mass Morbid obesity with BMI of 40.0-44.9, adult Obstructive sleep apnea Osteoarthritis Paroxysmal atrial fibrillation Pulmonary HTN Surgical History Surgical History (Updated 07/25/20 @ 11:28 by Trang Dawson) History of bilateral knee arthroplasty History of bilateral knee replacement History of section History of colon resection 06/05/20 Attempted hand assisted sigmoid colectomy, extensive lysis of adhesions, creation of end descending colostomy History of hernia repair With mesh performed in approximately 1991 History of hip surgery History of right hip replacement History of shoulder surgery History of total right hip arthroplasty Family History Family History (Updated 11/03/20 @ 22:27 by Hamlet Arora RN) Father Diabetes mellitus Cerebrovascular accident Mother Cerebrovascular accident Social H
--- NOTE | 2020-11-03 22:42 | PC.NURSE ---
2024 patient arrives to hospital per personal vehicle after discharge from [facility]. pt went home first to gather belonging. pt registered and brought to 2nd floor , room 204, per this com writer via wheelchair and daughter daniel accompanied. pt alert and oriented. denies pain upon arrival to facility. pt states im just tired, it has been a long day . assessment completed. pt and family oriented to room, call sánchez, tv, phone. encouraged to ring for assistance. pt has colostomy with bag intact. pt has surgical open wound to left lower abdomin that is packed with wet gauze with 2x4 gauze over the top. packing was changed just prior to discharge from [facility]. dressing was removed for assessment per dr kendrick. gauze packing left in place and gauze dressing with microspore tape reapplied after pictures obtained by charge nurse, JONATHAN Milligan. Pt resting comfortably in bed, repositions self in bed.
[2020-11-03] MEDS: GABAPENTIN 300 MG CAPSULE PO (23:04)
[2020-11-03] MEDS: AMOXICILLIN/CLAVULANATE K 875-125 MG TAB 1 TABLET PO (23:04)
[2020-11-03] MEDS: ACETAMINOPHEN 325 MG TABLET 650 MG PO (23:04)
[2020-11-03] MEDS: NITROFURANTOIN MONOHYD MACROCR 100 MG CAP PO (23:31)
[2020-11-04] VITALS: BP 106/58; PULSE 94; RESP 20; TEMP 36.5; O2SAT 98
[2020-11-04 01:12] VITALS: PULSE 94
[2020-11-04] MEDS: METOPROLOL SUCCINATE EXT REL 25 MG TABCR PO ×2 (01:12→20:44)
--- NOTE | 2020-11-04 02:31 | PC.NURSE ---
Pt ambulated to BR gait steady. Colostomy bag leaking loose stool.. Dressing left of of colostomy full of soft stool. Packing in open wound has stool on & in it. Pt removed packing & colostomy bag. Bag had lg amt stool in it. Areas cleansed. Pt assists with this. Back to bed. New dressing, packing to wound. New colostomy bag applied per pt instruction & written instructions. Procedure tolerated well.
--- NOTE | 2020-11-04 02:38 | PC.NURSE ---
Above procedure happened @ 0001.
[2020-11-04 05:29] LABS: Basophils Absolute Auto 0.03 K/mm3 (0.00-0.10); Basophils Percent Auto 0.4 % (0.0-1.0); Eosinophils Absolute Auto 0.21 K/mm3 (0.02-0.50); Hematocrit 26.7 % (35.0-49.0); Hemoglobin 8.4 g/dL (12.0-15.0); Immature Granulocyte Absolute 0.13 K/mm3 (0.00-0.00); Immature Granulocyte Percent A 1.9 % (0.0-0.0); Lymphocytes Absolute Auto 1.71 K/mm3 (1.10-4.50); Lymphocytes Percent Auto 24.7 % (18.0-42.0); Mean Corpuscular HGB Conc 31.5 g/dL (32.0-36.0); Mean Corpuscular Hemoglobin 26.5 pg (27.0-31.0); Mean Corpuscular Volume 84.2 fL (78.0-102.0); Mean Platelet Volume 8.9 fl (9.2-11.8); Monocytes Absolute Auto 0.72 K/mm3 (0.10-0.90); Monocytes Percent Auto 10.4 % (2.0-11.0); Neutrophils Absolute Auto 4.1 K/mm3 (1.7-7.2); Neutrophils Percent Auto 59.6 % (50.0-70.0); Platelet Count Result 356 K/mm3 (150-420); Red Blood Count 3.17 M/mm3 (4.20-5.40); Red Cell Distribution Width 17.1 % (11.6-14.4); White Blood Count 6.9 K/mm3 (4.8-10.8)
[2020-11-04 05:42] LABS: Alanine Aminotransferase 10 U/L (14-59); Albumin Level 2.3 g/dL (3.4-5.0); Alkaline Phosphatase 93 U/L (46-116); Anion Gap 13 mmol/L (8-16); Aspartate Amino Transferase 12 U/L (15-37); Bilirubin,Total 0.1 mg/dL (0.00-1.00); Blood Urea Nitrogen 25 mg/dL (7-18); Calcium 8.8 mg/dL (8.5-10.1); Carbon Dioxide 22 mmol/L (21-32); Chloride 104 mmol/L (98-108); Estimated CRCL calculation 55 ml/min; Estimated Glomerular Filt Rate 55; Glucose 117 mg/dL (70-99); Magnesium 1.3 mg/dL (1.8-2.4); Osmolality Calculated 293 mOsm/kg (285-295); Potassium 4.5 mmol/L (3.5-5.1); Sodium 139 mmol/L (136-145); Total Protein 6.1 g/dL (6.4-8.2)
[2020-11-04 05:50] LABS: Lactic Acid Reflex 1.7 mmol/L (0.4-2.0)
--- NOTE | 2020-11-04 07:54 | PM.EVENT ---
Event Note Event Note Event Note: Hypomagnesemia: 1.3, no IV, Increased MagOxide to BID and will need to monitor. Assessment of abdominal surgical site of drained abscess: granulating well, will need light packing with 1/4 inch packing gauze with dry covering and covered with Tegaderm to prevent ileostomy contents from getting in wound if it leaks.
[2020-11-04 07:57] VITALS: BP 135/69; PULSE 80; RESP 18; TEMP 36.8; O2SAT 99
[2020-11-04] MEDS: PSYLLIUM POWDER PACKET 1 PACKET BY MOUTH ×2 (08:36→17:15)
[2020-11-04] MEDS: CHOLECALCIFEROL 1,000 UNITS TABLET 5000 UNITS PO (08:36)
[2020-11-04] MEDS: FLUTICASONE PROPIONATE 0.05% NA SPR 16 GM BTL (*BKC) 2 SPRAY NASAL (08:36)
[2020-11-04] MEDS: FERROUS GLUCONATE 324 MG TABLET PO ×3 (08:38→17:15)
[2020-11-04] MEDS: PANTOPRAZOLE 40 MG TABLET PO (08:38)
[2020-11-04] MEDS: GABAPENTIN 300 MG CAPSULE PO ×2 (08:39→20:46)
[2020-11-04] MEDS: dilTIAZem HCL CD 180 MG CAP.ER.24H PO (08:39)
[2020-11-04] MEDS: lisinopriL 10 MG TABLET PO (08:39)
[2020-11-04] MEDS: NITROFURANTOIN MONOHYD MACROCR 100 MG CAP PO ×2 (08:39→20:44)
[2020-11-04] MEDS: MULTIVITAMINS THERAPEUTIC TAB (*BKC) 1 TABLET PO (08:40)
[2020-11-04] MEDS: calcium polycarbophiL 625 MG TABLET PO (08:40)
[2020-11-04] MEDS: MAGNESIUM OXIDE 400 MG TABLET PO ×2 (08:40→17:16)
[2020-11-04] MEDS: ASPIRIN 325 MG ENTERIC TABLET PO (08:40)
[2020-11-04] MEDS: CELECOXIB 100 MG CAPSULE 200 MG PO ×2 (08:40→17:16)
[2020-11-04] MEDS: FUROSEMIDE 20 MG TABLET PO (08:40)
[2020-11-04] MEDS: DOXYCYCLINE HYCLATE 100 MG TABLET PO ×2 (08:40→20:44)
[2020-11-04] MEDS: AMOXICILLIN/CLAVULANATE K 875-125 MG TAB 1 TABLET PO ×2 (08:40→20:46)
[2020-11-04] MEDS: ACETAMINOPHEN 325 MG TABLET 650 MG PO ×4 (08:41→20:46)
--- NOTE | 2020-11-04 09:00 | PC.NURSE ---
Ileostomy changed per patient's routine. Abd wound to dressing changed moderate drainage, packed with plain 1 strip packing, covered with gauze and paper tape
[2020-11-04 16:00] VITALS: BP 100/75; PULSE 98; RESP 18; TEMP 36.9; O2SAT 99
[2020-11-04] MEDS: ASCORBIC ACID 500 MG TABLET PO (17:16)
[2020-11-04 20:44] VITALS: PULSE 93
[2020-11-05 00:06] VITALS: BP 96/52; PULSE 100; RESP 20; TEMP 36.6; O2SAT 93
[2020-11-05] MEDS: traMADol HCL (*CRX) 50 MG TABLET PO (01:33)
[2020-11-05 08:00] VITALS: BP 102/66; PULSE 79; RESP 18; TEMP 36.4; O2SAT 99
[2020-11-05] MEDS: FLUTICASONE PROPIONATE 0.05% NA SPR 16 GM BTL (*BKC) 2 SPRAY NASAL (09:37)
[2020-11-05] MEDS: PSYLLIUM POWDER PACKET 1 PACKET BY MOUTH ×2 (09:37→17:01)
[2020-11-05] MEDS: ASPIRIN 325 MG ENTERIC TABLET PO (09:40)
[2020-11-05] MEDS: CHOLECALCIFEROL 1,000 UNITS TABLET 5000 UNITS PO (09:40)
[2020-11-05] MEDS: MAGNESIUM OXIDE 400 MG TABLET PO ×2 (09:41→17:01)
[2020-11-05] MEDS: ACETAMINOPHEN 325 MG TABLET 650 MG PO ×4 (09:41→21:32)
[2020-11-05] MEDS: NITROFURANTOIN MONOHYD MACROCR 100 MG CAP PO (09:41)
[2020-11-05] MEDS: AMOXICILLIN/CLAVULANATE K 875-125 MG TAB 1 TABLET PO ×2 (09:41→21:32)
[2020-11-05] MEDS: MULTIVITAMINS THERAPEUTIC TAB (*BKC) 1 TABLET PO (09:41)
[2020-11-05] MEDS: GABAPENTIN 300 MG CAPSULE PO ×2 (09:42→21:32)
[2020-11-05] MEDS: FERROUS GLUCONATE 324 MG TABLET PO ×3 (09:42→17:02)
[2020-11-05] MEDS: calcium polycarbophiL 625 MG TABLET PO (09:42)
[2020-11-05] MEDS: DOXYCYCLINE HYCLATE 100 MG TABLET PO ×2 (09:42→21:32)
[2020-11-05] MEDS: lisinopriL 10 MG TABLET PO (09:42)
[2020-11-05] MEDS: dilTIAZem HCL CD 180 MG CAP.ER.24H PO (09:42)
[2020-11-05] MEDS: CELECOXIB 100 MG CAPSULE 200 MG PO ×2 (09:42→17:01)
[2020-11-05] MEDS: PANTOPRAZOLE 40 MG TABLET PO (09:42)
[2020-11-05] MEDS: FUROSEMIDE 20 MG TABLET PO (09:42)
--- NOTE | 2020-11-05 10:40 | PC.NURSE ---
Dressing changed per orders. Ileostomy changed due to leakage.
[2020-11-05 16:00] VITALS: BP 105/70; PULSE 88; RESP 18; TEMP 36.9; O2SAT 97
[2020-11-05] MEDS: ASCORBIC ACID 500 MG TABLET PO (17:01)
[2020-11-05] MEDS: ONDANSETRON HCL ODT 4 MG TABLET 8 MG PO (18:20)
[2020-11-05] MEDS: CALCIUM CARBONATE (TUMS) 500 MG (200 MG ELEMENTAL) 400 MG PO (18:21)
[2020-11-05 20:00] VITALS: PULSE 76; RESP 18; O2SAT 97
[2020-11-05 21:32] VITALS: PULSE 76
[2020-11-05] MEDS: METOPROLOL SUCCINATE EXT REL 25 MG TABCR PO (21:32)
--- NOTE | 2020-11-05 22:00 | PCDIET ---
Dressing changed per orders.
--- NOTE | 2020-11-05 23:59 | PC.NURSE ---
Disregard nutrition note, incorrect charting. Abdominal dressing changed per orders @ 2200.
[2020-11-06] VITALS: BP 104/58; PULSE 76; RESP 18; TEMP 36.4; O2SAT 100
[2020-11-06 08:00] VITALS: BP 91/80; PULSE 84; RESP 18; TEMP 36.9; O2SAT 97
[2020-11-06] MEDS: PSYLLIUM POWDER PACKET 1 PACKET BY MOUTH ×2 (09:22→16:15)
[2020-11-06] MEDS: FERROUS GLUCONATE 324 MG TABLET PO ×3 (09:23→16:16)
[2020-11-06] MEDS: dilTIAZem HCL CD 180 MG CAP.ER.24H PO (09:23)
[2020-11-06] MEDS: FUROSEMIDE 20 MG TABLET PO (09:23)
[2020-11-06] MEDS: FLUTICASONE PROPIONATE 0.05% NA SPR 16 GM BTL (*BKC) 2 SPRAY NASAL (09:23)
[2020-11-06] MEDS: MULTIVITAMINS THERAPEUTIC TAB (*BKC) 1 TABLET PO (09:23)
[2020-11-06] MEDS: GABAPENTIN 300 MG CAPSULE PO ×2 (09:23→21:48)
[2020-11-06] MEDS: CELECOXIB 100 MG CAPSULE 200 MG PO ×2 (09:24→16:15)
[2020-11-06] MEDS: ACETAMINOPHEN 325 MG TABLET 650 MG PO ×4 (09:24→21:46)
[2020-11-06] MEDS: AMOXICILLIN/CLAVULANATE K 875-125 MG TAB 1 TABLET PO ×2 (09:24→21:47)
[2020-11-06] MEDS: CHOLECALCIFEROL 1,000 UNITS TABLET 5000 UNITS PO (09:24)
[2020-11-06] MEDS: PANTOPRAZOLE 40 MG TABLET PO (09:24)
[2020-11-06] MEDS: DOXYCYCLINE HYCLATE 100 MG TABLET PO ×2 (09:24→21:47)
[2020-11-06] MEDS: lisinopriL 10 MG TABLET PO (09:24)
[2020-11-06] MEDS: calcium polycarbophiL 625 MG TABLET PO (09:24)
[2020-11-06] MEDS: MAGNESIUM OXIDE 400 MG TABLET PO ×2 (09:24→16:15)
[2020-11-06] MEDS: ASPIRIN 325 MG ENTERIC TABLET PO (09:24)
--- NOTE | 2020-11-06 09:30 | PC.NURSE ---
Dressing changed per order. CD&I. No s/s infection
[2020-11-06 16:00] VITALS: BP 97/70; PULSE 83; RESP 18; TEMP 36.8; O2SAT 100
[2020-11-06] MEDS: ASCORBIC ACID 500 MG TABLET PO (16:15)
[2020-11-06 23:17] VITALS: PULSE 84
[2020-11-06] MEDS: METOPROLOL SUCCINATE EXT REL 25 MG TABCR PO (23:17)
[2020-11-06] MEDS: ONDANSETRON HCL ODT 4 MG TABLET 8 MG PO (23:21)
[2020-11-07 00:30] VITALS: BP 101/58; PULSE 84; RESP 18; TEMP 36.7; O2SAT 95
[2020-11-07 08:00] VITALS: BP 99/63; PULSE 81; RESP 18; TEMP 36.7; O2SAT 98
[2020-11-07] MEDS: ASPIRIN 325 MG ENTERIC TABLET PO (09:13)
[2020-11-07] MEDS: AMOXICILLIN/CLAVULANATE K 875-125 MG TAB 1 TABLET PO ×2 (09:13→20:37)
[2020-11-07] MEDS: GABAPENTIN 300 MG CAPSULE PO ×2 (09:13→20:37)
[2020-11-07] MEDS: ACETAMINOPHEN 325 MG TABLET 650 MG PO ×4 (09:15→20:38)
[2020-11-07] MEDS: MULTIVITAMINS THERAPEUTIC TAB (*BKC) 1 TABLET PO (09:15)
[2020-11-07] MEDS: PANTOPRAZOLE 40 MG TABLET PO (09:15)
[2020-11-07] MEDS: CELECOXIB 100 MG CAPSULE 200 MG PO ×2 (09:17→17:19)
[2020-11-07] MEDS: MAGNESIUM OXIDE 400 MG TABLET PO ×2 (09:18→17:20)
[2020-11-07] MEDS: FUROSEMIDE 20 MG TABLET PO (09:18)
[2020-11-07] MEDS: calcium polycarbophiL 625 MG TABLET PO (09:18)
[2020-11-07] MEDS: CHOLECALCIFEROL 1,000 UNITS TABLET 5000 UNITS PO (09:18)
[2020-11-07] MEDS: DOXYCYCLINE HYCLATE 100 MG TABLET PO ×2 (09:19→20:37)
[2020-11-07] MEDS: FERROUS GLUCONATE 324 MG TABLET PO ×3 (09:19→17:19)
[2020-11-07] MEDS: FLUTICASONE PROPIONATE 0.05% NA SPR 16 GM BTL (*BKC) 2 SPRAY NASAL (09:26)
[2020-11-07] MEDS: PSYLLIUM POWDER PACKET 1 PACKET BY MOUTH ×2 (09:27→17:21)
[2020-11-07 11:18] LABS: Hematocrit 33.1 % (35.0-49.0); Hemoglobin 10.1 g/dL (12.0-15.0); Mean Corpuscular HGB Conc 30.5 g/dL (32.0-36.0); Mean Corpuscular Volume 85.3 fL (78.0-102.0); Mean Platelet Volume 8.8 fl (9.2-11.8); Platelet Count Result 405 K/mm3 (150-420); Red Blood Count 3.88 M/mm3 (4.20-5.40); Red Cell Distribution Width 17.9 % (11.6-14.4); White Blood Count 8.8 K/mm3 (4.8-10.8)
[2020-11-07 11:32] LABS: Alanine Aminotransferase 9 U/L (14-59); Albumin Level 2.9 g/dL (3.4-5.0); Alkaline Phosphatase 117 U/L (46-116); Anion Gap 11 mmol/L (8-16); Aspartate Amino Transferase < 10 U/L (15-37); Bilirubin,Total 0.1 mg/dL (0.00-1.00); Blood Urea Nitrogen 54 mg/dL (7-18); Calcium 9.5 mg/dL (8.5-10.1); Carbon Dioxide 19 mmol/L (21-32); Chloride 100 mmol/L (98-108); Estimated CRCL calculation 40 ml/min; Estimated Glomerular Filt Rate 37; Glucose 116 mg/dL (70-99); Osmolality Calculated 285 mOsm/kg (285-295); Sodium 130 mmol/L (136-145); Total Protein 7.5 g/dL (6.4-8.2)
--- NOTE | 2020-11-07 12:02 | ECG_ITS ---
Measurements Intervals [place] Rate: 83 P: 73 MA: 163 QRS: 23 QRSD: 94 T: 78 QT: 338 QTc: 398 Interpretive Statements SINUS RHYTHM PEAKED T WAVES- CONSIDER HYPERKALEMIA OR ISCHEMIA ABNORMAL ECG Electronically Signed On 11-07-2020 13:27:54 CDT by Afshin Ty D.O.
--- NOTE | 2020-11-07 12:37 | PM.EVENT ---
Event Note Event Note Event Note: Patient with complaints of hypotension medication adjustment made Cardizem 180>120 mg lisinopril 10>5 mg and metoprolol 25> 12.5. Patient's hemoglobin 10.1 which is her baseline no obvious bleeding noted patient WBC within normal limits no obvious infection noted. Patient sodium 130 encouraged to drink more fluids patient's potassium 6.0 patient given Kayexalate EKG completed no change. Hyperkalemia etiology unknown, will continue to monitor
[2020-11-07] MEDS: SODIUM POLYSTYRENE SULFONONATE 15 GM/60 ML BTL PO (13:01)
--- NOTE | 2020-11-07 15:14 | PCOTNOTE ---
On 11/07/20, the student, [ Betsey Cabezas], provided care and completed [facility] documentation on this patient. I have reviewed the student's documentation and agree with the findings.
[2020-11-07 16:00] VITALS: BP 100/49; PULSE 78; RESP 20; TEMP 37.1; O2SAT 99
[2020-11-07] MEDS: SODIUM CHLORIDE 1 GM TABLET PO (17:19)
[2020-11-07] MEDS: ASCORBIC ACID 500 MG TABLET PO (17:20)
[2020-11-08] VITALS: BP 95/55; PULSE 94; RESP 16; TEMP 36.7; O2SAT 97
[2020-11-08 05:50] LABS: Hematocrit 29.7 % (35.0-49.0); Hemoglobin 9.1 g/dL (12.0-15.0); Mean Corpuscular HGB Conc 30.6 g/dL (32.0-36.0); Mean Corpuscular Hemoglobin 25.8 pg (27.0-31.0); Mean Corpuscular Volume 84.1 fL (78.0-102.0); Mean Platelet Volume 8.9 fl (9.2-11.8); Platelet Count Result 360 K/mm3 (150-420); Red Blood Count 3.53 M/mm3 (4.20-5.40); Red Cell Distribution Width 17.9 % (11.6-14.4); White Blood Count 6.6 K/mm3 (4.8-10.8)
[2020-11-08 06:02] LABS: Alanine Aminotransferase 11 U/L (14-59); Albumin Level 2.8 g/dL (3.4-5.0); Alkaline Phosphatase 115 U/L (46-116); Anion Gap 10 mmol/L (8-16); Aspartate Amino Transferase < 10 U/L (15-37); Bilirubin,Total 0.2 mg/dL (0.00-1.00); Blood Urea Nitrogen 54 mg/dL (7-18); Calcium 9.5 mg/dL (8.5-10.1); Carbon Dioxide 20 mmol/L (21-32); Chloride 102 mmol/L (98-108); Estimated CRCL calculation 48 ml/min; Estimated Glomerular Filt Rate 46; Glucose 109 mg/dL (70-99); Osmolality Calculated 289 mOsm/kg (285-295); Potassium 6.3 mmol/L (3.5-5.1); Sodium 132 mmol/L (136-145); Total Protein 6.7 g/dL (6.4-8.2)
[2020-11-08] MEDS: ACETAMINOPHEN 325 MG TABLET 650 MG PO ×2 (06:04→12:13)
--- NOTE | 2020-11-08 06:06 | PC.NURSE ---
Scheduled Tylenol given early per patient request for headache.
[2020-11-08 07:30] VITALS: BP 117/67; PULSE 86; RESP 18; TEMP 36.6; O2SAT 99
--- NOTE | 2020-11-08 07:58 | P.DS_ITS ---
DS: Admitting Diagnosis Admitting Diagnosis Admitting Diagnosis: Generalized weakness and deconditioning with wound care <ABEL Dubois - Last Filed: 11/08/20 13:36> DS: Discharge Diagnosis Discharge Diagnosis (1) Abdominal wall abscess at site of surgical wound: Code(s): T81.49XA - Infection following a procedure, other surgical site, initial encounter <ABEL Dubois - Last Filed: 11/08/20 13:36> Status: Acute <ABEL Dubois - Last Filed: 11/08/20 13:36> Assessment and Plan: * Continue doxy, Macrobid and Augmentin as instructed by outside hospital * I&D completed at [place] * Patient will need to follow-up * Dressing changes as instructed in discharge instructions <ABEL Dubois - Last Filed: 11/08/20 13:36> (2) Hypertension: Qualifiers: Hypertension type: essential hypertension Qualified Code(s): I10 - Essential (primary) hypertension <ABEL Dubois - Last Filed: 11/08/20 13:36> Code(s): I10 - Essential (primary) hypertension <ABEL Dubois - Last Filed: 11/08/20 13:36> Status: Acute <ABEL Dubois - Last Filed: 11/08/20 13:36> Assessment and Plan: * Patient has been hypotensive since her admission * Her blood pressure medication was adjusted . Lisinopril 5 mg p.o. daily metoprolol 12.5 mg daily and Cardizem 120 mg daily <ABEL Dubois - Last Filed: 11/08/20 13:36> (3) Diverticulitis: Code(s): K57.92 - Diverticulitis of intestine, part unspecified, without perforation or abscess without bleeding <ABEL Dubois - Last Filed: 11/08/20 13:36> Status: Acute <ABEL Dubois - Last Filed: 11/08/20 13:36> Assessment and Plan: * Status post colostomy and that that did attempt a sigmoidectomy. Colostomy takedown and DLI on 09/28/2020 * Follow-up with GI <Samuelml AlmaANDREA NailsC - Last Filed: 11/08/20 13:36> (4) Anemia: Code(s): D64.9 - Anemia, unspecified <Sarah MorenoANDREAC - Last Filed: 11/08/20 13:36> Status: Acute <Sarah MorenoANDREAC - Last Filed: 11/08/20 13:36> Assessment and Plan: * Hemoglobin and hematocrit 9.1/29.7 patient at baseline * Continue our medication * Follow-up with PCP * <Samuelml AlmaABEL Nails - Last Filed: 11/08/20 13:36> (5) Gastroesophageal reflux disease: Qualifiers: Esophagitis presence: esophagitis presence not specified Qualified Code(s): K21.9 - Gastro-esophageal reflux disease without esophagitis <Sarah AlmaABEL Nails - Last Filed: 11/08/20 13:36> Code(s): K21.9 - Gastro-esophageal reflux disease without esophagitis <Sarah MarquezMERYL Nails-C - Last Filed: 11/08/20 13:36> Status: Acute <Sarah MorenoANDREAC - Last Filed: 11/08/20 13:36> Assessment and Plan: * Continue home medication <Sarah MarquezANDREA NailsC - Last Filed: 11/08/20 13:36> (6) Acute diastolic (congestive) heart failure: Code(s): I50.31 - Acute diastolic (congestive) heart failure <Samuelml AlmaANDREA NailsC - Last Filed: 11/08/20 13:36> Status: Acute <Sarah MorenoMERYL-C - Last Filed: 11/08/20 13:36> Assessment and Plan: * Patient is prescribed Lasix daily. According to patient her primary care physician told her to only take when she notices her lower extremity swelling, * Follow-up with PCP <ABEL Dubois - Last Filed: 11/08/20 13:36> (7) Urine retention: Code(s): R33.9 - Retention of urine, unspecified
--- NOTE | 2020-11-08 07:58 | PM.DS ---
DS: Admitting Diagnosis Admitting Diagnosis Admitting Diagnosis: Generalized weakness and deconditioning with wound care <ABEL Dubois - Last Filed: 11/08/20 13:36> DS: Discharge Diagnosis Discharge Diagnosis (1) Abdominal wall abscess at site of surgical wound: Code(s): T81.49XA - Infection following a procedure, other surgical site, initial encounter <ABEL Dubois - Last Filed: 11/08/20 13:36> Status: Acute <ABEL Dubois - Last Filed: 11/08/20 13:36> Assessment and Plan: Continue doxy, Macrobid and Augmentin as instructed by [facility] I&D completed at [place] Patient will need to follow-up Dressing changes as instructed in discharge instructions <ABEL Dubois - Last Filed: 11/08/20 13:36> (2) Hypertension: Qualifiers: Hypertension type: essential hypertension Qualified Code(s): I10 - Essential (primary) hypertension <ABEL Dubois - Last Filed: 11/08/20 13:36> Code(s): I10 - Essential (primary) hypertension <ABEL Dubois - Last Filed: 11/08/20 13:36> Status: Acute <ABEL Dubois - Last Filed: 11/08/20 13:36> Assessment and Plan: Patient has been hypotensive since her admission Her blood pressure medication was adjusted . Lisinopril 5 mg p.o. daily metoprolol 12.5 mg daily and Cardizem 120 mg daily <ABEL Dubois - Last Filed: 11/08/20 13:36> (3) Diverticulitis: Code(s): K57.92 - Diverticulitis of intestine, part unspecified, without perforation or abscess without bleeding <ABEL Dubois - Last Filed: 11/08/20 13:36> Status: Acute <ABEL Dubois - Last Filed: 11/08/20 13:36> Assessment and Plan: Status post colostomy and that that did attempt a sigmoidectomy. Colostomy takedown and DLI on 09/28/2020 Follow-up with GI <ANDREA DuboisC - Last Filed: 11/08/20 13:36> (4) Anemia: Code(s): D64.9 - Anemia, unspecified <Samuelml AlmaMERYL Nails-C - Last Filed: 11/08/20 13:36> Status: Acute <Samuelml AlmaMERYL Nails-C - Last Filed: 11/08/20 13:36> Assessment and Plan: Hemoglobin and hematocrit 9.1/29.7 patient at baseline Continue our medication Follow-up with PCP <ANDREA DuboisC - Last Filed: 11/08/20 13:36> (5) Gastroesophageal reflux disease: Qualifiers: Esophagitis presence: esophagitis presence not specified Qualified Code(s): K21.9 - Gastro-esophageal reflux disease without esophagitis <ANDREA DuboisC - Last Filed: 11/08/20 13:36> Code(s): K21.9 - Gastro-esophageal reflux disease without esophagitis <Sarah AlmaMERYL Nails-C - Last Filed: 11/08/20 13:36> Status: Acute <MERYL Dubois-C - Last Filed: 11/08/20 13:36> Assessment and Plan: Continue home medication <ANDREA DuboisC - Last Filed: 11/08/20 13:36> (6) Acute diastolic (congestive) heart failure: Code(s): I50.31 - Acute diastolic (congestive) heart failure <ANDREA DuboisC - Last Filed: 11/08/20 13:36> Status: Acute <MERYL Dubois-C - Last Filed: 11/08/20 13:36> Assessment and Plan: Patient is prescribed Lasix daily. According to patient her primary care physician told her to only take when she notices her lower extremity swelling, Follow-up with PCP <ABEL Dubois - Last Filed: 11/08/20 13:36> (7) Urine retention: Code(s): R33.9 - Retention of urine, unspecified <ANDREA DuboisC - Last Filed: 11/08/20 13:36> Status: Acute <Sarah Moreno, BULLDOZ[employer] ENGINEER-C - Last Filed: 11/08/20 13:36> Assessment and Plan: Followed by urology Patient was found to have residual post void greater than 450. Urine culture with the growth of E. coli and enterococcus faecalis prescribed Macrobid and
[2020-11-08] MEDS: SODIUM POLYSTYRENE SULFONONATE 15 GM/60 ML BTL 30 GM PO (08:46)
[2020-11-08] MEDS: MAGNESIUM OXIDE 400 MG TABLET PO (08:47)
[2020-11-08] MEDS: FERROUS GLUCONATE 324 MG TABLET PO ×2 (08:47→12:13)
[2020-11-08] MEDS: CHOLECALCIFEROL 1,000 UNITS TABLET 5000 UNITS PO (08:47)
[2020-11-08] MEDS: FLUTICASONE PROPIONATE 0.05% NA SPR 16 GM BTL (*BKC) 2 SPRAY NASAL (08:47)
[2020-11-08] MEDS: ASPIRIN 325 MG ENTERIC TABLET PO (08:49)
[2020-11-08] MEDS: GABAPENTIN 300 MG CAPSULE PO (08:49)
[2020-11-08] MEDS: NITROFURANTOIN MONOHYD MACROCR 100 MG CAP PO (08:49)
[2020-11-08] MEDS: CELECOXIB 100 MG CAPSULE 200 MG PO (08:50)
[2020-11-08] MEDS: PANTOPRAZOLE 40 MG TABLET PO (08:50)
[2020-11-08] MEDS: SODIUM CHLORIDE 1 GM TABLET PO (08:50)
[2020-11-08] MEDS: lisinopriL 5 MG TABLET PO (08:50)
[2020-11-08] MEDS: MULTIVITAMINS THERAPEUTIC TAB (*BKC) 1 TABLET PO (08:50)
[2020-11-08] MEDS: FUROSEMIDE 40 MG TABLET PO (08:50)
[2020-11-08] MEDS: DOXYCYCLINE HYCLATE 100 MG TABLET PO (08:50)
[2020-11-08] MEDS: ONDANSETRON HCL ODT 4 MG TABLET 8 MG PO (08:58)
[2020-11-08 09:21] VITALS: PULSE 86
[2020-11-08] MEDS: METOPROLOL SUCCINATE EXT REL 12.5 MG TABCR PO (09:21)
[2020-11-08 13:17] LABS: Alanine Aminotransferase 14 U/L (14-59); Albumin Level 3.1 g/dL (3.4-5.0); Alkaline Phosphatase 115 U/L (46-116); Anion Gap 11 mmol/L (8-16); Aspartate Amino Transferase < 10 U/L (15-37); Bilirubin,Total 0.2 mg/dL (0.00-1.00); Blood Urea Nitrogen 44 mg/dL (7-18); Calcium 9.9 mg/dL (8.5-10.1); Carbon Dioxide 21 mmol/L (21-32); Chloride 102 mmol/L (98-108); Estimated CRCL calculation 49 ml/min; Estimated Glomerular Filt Rate 47; Glucose 138 mg/dL (70-99); Osmolality Calculated 291 mOsm/kg (285-295); Potassium 5.5 mmol/L (3.5-5.1); Sodium 134 mmol/L (136-145); Total Protein 7.7 g/dL (6.4-8.2)
--- NOTE | 2020-11-08 13:35 | PC.NURSE ---
pt discharged in stable condition via wheelchair to personal vehicle, discharge instructions given and verbalized understanding, no further questions or needs at this time.
== END 2020-11-08 13:35 | disposition home health service (06) | DRG 949 ==
PROVIDERS: Nurse Practitioner; Admitting Provider Emergency Medicine; PCP Internal Medicine Geriatric Medicine; Visit Provider Emergency Medicine
DX: T81.49XD Infection following a procedure, other surgical site, subsequent encounter (principal); I48.20 Chronic atrial fibrillation, unspecified; N13.30 Unspecified hydronephrosis; I50.30 Unspecified diastolic (congestive) heart failure; N39.0 Urinary tract infection, site not specified; E87.5 Hyperkalemia; E83.42 Hypomagnesemia; K57.30 Diverticulosis of large intestine without perforation or abscess without bleeding; I11.0 Hypertensive heart disease with heart failure; K21.9 Gastro-esophageal reflux disease without esophagitis; E66.01 Morbid (severe) obesity due to excess calories; G47.33 Obstructive sleep apnea (adult) (pediatric); M19.90 Unspecified osteoarthritis, unspecified site; I48.0 Paroxysmal atrial fibrillation; Z96.653 Presence of artificial knee joint, bilateral; Z96.641 Presence of right artificial hip joint
CPT/HCPCS: 36415; 80053; 83605; 83735; 85025; 85027; 93005; 97110; 97161; 97165; 97530; 97535; A9270

== ENCOUNTER 2023-03-03 10:37 | Emergency (ER) | payer MEDICARE, OTHER, SELFPAY ==
--- NOTE | ~2023-03-03 | CT_ITS ---
EXAMINATION: CT abdomen pelvis wo con DATE: 03/03/2023 11:57 INDICATION: Abdominal pain and low back pain radiating to the abdomen TECHNIQUE: Computed tomography (CT) of the abdomen and pelvis was performed without intravenous contr ast. Automated exposure control and iterative reconstruction technique were employed. The dose-length product was 1178.81 mGy-cm. COMPARISON: 06/10/2020 FINDINGS: Mild pleural parenchymal scarring at the anterolateral right lung base. Small calcified nodule at the apex of the left hemidiaphragm and a few tiny punctate calcifications in the spleen consistent with old granulomatous disease. Heart size is normal. No pericardial or pleural effusion. Small amount of mitral annular calcification. Liver, gallbladder, pancreas, bilateral adrenal glands and kidneys are normal. Moderate-sized right upper quadrant ventral hernia with hernia sac measuring 14.6 x 8.7 x 5.5 similar. The orifice which measures 3.4 x 3.6 cm in diameter is positioned immediately anterior to t he gallbladder fossa. The hernia contains a relatively long loop of nonobstructed small bowel, which is an anastomotic suture line consistent with prior bowel surgery. No dilated loops of bowel to sugge st obstruction. Additional small fat-containing ventral hernia along a midline surgical scar. Right t otal hip arthroplasty which results in prominent streak artifact which obscures portions of the infer ior pelvis. Visualized portion of the bladder is normal. Age-appropriate uterine atrophy. There is so me presacral edema. No free intraperitoneal gas or fluid. No pathologically enlarged abdominal or pel royal lymphadenopathy. Severe lumbar and lower thoracic spondylosis. Severe left hip osteoarthritis. IMPRESSION: 1. Long loop of nonobstructed small bowel extends into a moderate-sized right upper quadrant ventral hernia. Reviewed, dictated and finalized at location A. IMPRESSION: 1. Long loop of nonobstructed small bowel extends into a moderate-sized right u pper quadrant ventral hernia.
[2023-03-03 10:52] VITALS: BP 165/79; PULSE 74; RESP 20; TEMP 37.4; O2SAT 98
[2023-03-03 11:18] LABS: Appearance Urine Clear (Clear); Bilirubin Urine Negative (Negative); Blood Urine 2+ (Negative); Color Urine Light Yellow (Yellow); Glucose Urine UA Negative (Negative); Ketones Urine Trace (Negative); Leukocyte Esterase Ur Trace LEU/UL (Negative); Nitrate Urine Negative (Negative); Protein Urine 1+ (Negative); Specific Grav Ur 1.015 (1.010-1.020); Urobilinogen Urine 0.2 mg/dL (0.2-1.0)
[2023-03-03 11:23] LABS: Add Urine Microscopic? YES; Bacteria Urine Trace /hpf; Squamous Epithelial Cell Urine Few /hpf (Few)
[2023-03-03 11:24] LABS: Mucus Urine Few /lpf
[2023-03-03 11:31] LABS: Basophils Absolute Auto 0.03 K/mm3 (0.00-0.10); Basophils Percent Auto 0.2 % (0.0-1.0); Eosinophils Absolute Auto 0.01 K/mm3 (0.02-0.50); Eosinophils Percent Auto 0.1 % (1.0-6.0); Hematocrit 31.4 % (35.0-42.0); Hemoglobin 9.9 g/dL (11.7-13.8); Immature Granulocyte Absolute 0.07 K/mm3 (0.00-0.00); Immature Granulocyte Percent A 0.6 % (0.0-0.0); Immature Platelet Fraction Pct 3.9 % (1.0-7.0); Lymphocytes Absolute Auto 0.95 K/mm3 (1.10-4.50); Lymphocytes Percent Auto 7.7 % (18.0-42.0); Mean Corpuscular HGB Conc 31.5 g/dL (32.0-36.0); Mean Corpuscular Hemoglobin 23.8 pg (27.0-31.0); Mean Corpuscular Volume 75.5 fL (78.0-102.0); Mean Platelet Volume 10.5 fl (9.2-11.8); Monocytes Absolute Auto 1.11 K/mm3 (0.10-0.90); Neutrophils Absolute Auto 10.2 K/mm3 (1.7-7.2); Neutrophils Percent Auto 82.4 % (50.0-70.0); Platelet Count Result 213 K/mm3 (150-420); Red Blood Count 4.16 M/mm3 (4.20-5.40); Red Cell Distribution Width 19.9 % (11.6-14.4); White Blood Count 12.4 K/mm3 (4.8-10.8)
[2023-03-03] MEDS: KETOROLAC 15 MG/ML VIAL (*BKC) IV PUSH (11:39)
--- NOTE | 2023-03-03 11:48 | ED.GENADULT ---
HPI - General Adult General Chief complaint: Urogenital-Female Stated complaint: UTI Time Seen by Provider: 03/03/23 10:39 History of Present Illness HPI narrative: 67-year-old female presenting with abdominal pain and flank pain. Patient states her symptoms started few days ago. She describes her symptoms as bilateral flank pain that radiates into her abdomen. She denies any recent illnesses or trauma. Related Data Home Medications Medication Instructions Recorded Confirmed loratadine 10 mg tablet (Claritin) 10 mg PO DAILY PRN Allergy Symptoms 01/17/20 11/03/20 cholecalciferol (vitamin D3) 125 125 mcg PO DAILY 04/21/20 11/03/20 mcg (5,000 unit) tablet magnesium oxide 400 mg PO QPM 04/21/20 11/03/20 fluticasone furoate 27.5 1 spray intranasal DAILY 05/29/20 11/03/20 mcg/actuation nasal spray,suspension polyethylene glycol 3350 17 17 g PO DAILY PRN Constipation 05/29/20 11/03/20 gram/dose oral powder (Miralax) psyllium seed (sugar) oral powder 1 tbsp PO BID 05/29/20 11/03/20 sodium chloride 0.9 % nasal spray 1 spray intranasal ONCE PRN NASAL 05/29/20 11/03/20 aerosol (Nasal Mist) DRYNESS acetaminophen 325 mg tablet 650 mg PO QID 11/03/20 11/03/20 ascorbic acid (vitamin C) 500 mg 500 mg PO QPM 11/03/20 11/03/20 tablet aspirin 325 mg tablet 325 mg PO DAILY 11/03/20 11/03/20 calcium carbonate 200 mg calcium 400 mg PO 6XD PRN Heartburn 11/03/20 11/03/20 (500 mg) chewable tablet (Antacid (calcium carbonate)) calcium polycarbophil 500 mg 500 mg PO DAILY 11/03/20 11/03/20 chewable tablet celecoxib 200 mg capsule 200 mg PO BID 11/03/20 11/03/20 ferrous gluconate 324 mg (37.5 mg 324 mg PO TIDWMEAL 11/03/20 11/03/20 iron) tablet gabapentin 300 mg capsule 300 mg PO BID 11/03/20 11/03/20 nystatin 100,000 unit/gram topical 1 applic topical DAILY PRN Skin 11/03/20 11/03/20 powder (Nystop) Irritation oxybutynin chloride 10 mg 10 mg PO DAILY 11/03/20 11/03/20 tablet,extended release 24 hr pantoprazole 40 mg tablet,delayed 40 mg PO DAILY 11/03/20 11/03/20 release pediatric multivitamin no.76 1 tablet PO DAILY 11/03/20 11/03/20 (Flintstones Complete chewable tablet) polyethylene glycol 3350 17 17 g PO DAILY PRN Constipation 11/03/20 11/03/20 gram/dose oral powder (ClearLax) simethicone 80 mg chewable tablet 80 mg PO 6XD PRN Flatulence 11/03/20 11/03/20 tramadol 50 mg tablet (Ultram) 50 mg PO 6XD PRN pain 11/03/20 11/03/20 Allergies Allergy/AdvReac Type Severity Reaction Status Date / Time Iodinated Contrast Media Allergy Severe Anaphylaxis Verified 07/25/20 10:51 Iodine and Iodide Containing Allergy Severe Anaphylaxis Verified 07/25/20 10:51 Produc morphine Allergy Severe Difficulty Verified 07/25/20 10:51 Breathing acetaminophen [From Vicodin] Allergy Difficulty Verified 07/25/20 10:51 Breathing hydrocodone [From Vicodin] Allergy Difficulty Verified 07/25/20 10:51 Breathing iodine Allergy Rash Verified 07/25/20 10:51 latex Allergy Difficulty Verified 07/25/20 10:51 Breathing shellfish derived Allergy Difficulty Verified 07/25/20 10:51 Breathing Contrast Media Allergy Severe ANAPHYLAXIS Uncoded 06/13/20 09:06 [facility] Past Medical History Medical History (Updated 03/03/23 @ 12:54 by Kentrell Fraser, ) Abdominal wall abscess at site of surgical wound Abscess of liver (~01/2020) Related to sigmoid diverticulitis, requiring percutaneous drainage. Acute diastolic (congestive) heart failure Anemia Dark stools Diverticulitis (~01/2020) Diverticulitis large intestine Diverticulitis large intestine Empyema lung (~01/2020) Gastroesophageal reflux disease Hypertension Liver mass Morbid obesity with BMI of 40.0-44.9, adult Obstructive sleep apnea Osteoarthritis Paroxysmal atrial fibrillation Pulmonary HTN Surgical History Surgical History (Updated 07/25/20 @ 11:28 by Trang Dawson) History of bilateral knee arthroplasty History of bilateral knee
[2023-03-03 11:55] LABS: Alanine Aminotransferase 17 U/L (14-59); Albumin Level 2.9 g/dL (3.4-5.0); Alkaline Phosphatase 95 U/L (46-116); Anion Gap 10 mmol/L (8-16); Aspartate Amino Transferase 15 U/L (15-37); Bilirubin,Total 0.5 mg/dL (0.00-1.00); Blood Urea Nitrogen 18 mg/dL (7-18); Calcium 9.3 mg/dL (8.5-10.1); Carbon Dioxide 26 mmol/L (21-32); Chloride 98 mmol/L (98-108); Estimated CRCL calculation 78 ml/min; Estimated Glomerular Filt Rate > 60; Glucose 129 mg/dL (70-99); Lipase 13 U/L (16-77); Osmolality Calculated 281 mOsm/kg (285-295); Potassium 4.1 mmol/L (3.5-5.1); Sodium 134 mmol/L (136-145); Total Protein 7.2 g/dL (6.4-8.2)
[2023-03-03 13:20] VITALS: BP 146/65; PULSE 76; RESP 20; TEMP 36.7; O2SAT 98
--- NOTE | 2023-03-05 13:55 | PC.NURSE ---
FINAL URINE CULTURE RESULTS: MIXED GENITAL SHAWN ISOLATED. NO ACTION NEEDED.
== END 2023-03-03 13:30 | disposition home or self-care (01) ==
PROVIDERS: Emergency Provider Emergency Medicine; PCP Internal Medicine Geriatric Medicine
DX: N30.01 Acute cystitis with hematuria (principal); M54.50 Low back pain, unspecified; J43.9 Emphysema, unspecified; I11.0 Hypertensive heart disease with heart failure; I50.30 Unspecified diastolic (congestive) heart failure; Z87.891 Personal history of nicotine dependence
CPT/HCPCS: 36415; 74176; 80053; 81001; 83690; 85025; 85055; 87086; 87088; 96374; 99284; J1885

== ENCOUNTER 2024-05-01 19:51 | Emergency (ER) | payer MEDICARE, SELFPAY ==
[2024-05-01 19:54] VITALS: BP 160/89; PULSE 76; RESP 20; TEMP 36.1; O2SAT 100
--- NOTE | 2024-05-01 19:57 | ED.FEMALEGU ---
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 Patient had urine examination yesterday which revealed hematuria without any evidence of infection. -- left groin pain. She has had this off and on for months. Today she had acute pain in the left lower quadrant/ inguinal ligament which resolved spontaneously. -- fever with chills. her sister was diagnosed with COVID 1 week ago. MD elicited complaint: dysuria and UTI Pertinent past history: recurrent UTIs and pyelonephritis Onset (ago): day(s) ( One day) Vaginal discharge: none Vaginal bleeding: none Urinary symptoms: Dysuria and Hematuria Exacerbating factors: none Relieving factors: none Associated symptoms: abdominal pain Treatment prior to arrival: none Patient : No Related Data Home Medications Medication Instructions Recorded Confirmed loratadine 10 mg tablet (Claritin) 10 mg PO DAILY PRN Allergy Symptoms 01/17/20 05/01/24 cholecalciferol (vitamin D3) 125 125 mcg PO DAILY 04/21/20 05/01/24 mcg (5,000 unit) tablet magnesium oxide 400 mg PO QPM 04/21/20 05/01/24 psyllium seed (sugar) oral powder 1 tbsp PO BID 05/29/20 05/01/24 sodium chloride 0.9 % nasal spray 1 spray intranasal ONCE PRN NASAL 05/29/20 05/01/24 aerosol (Nasal Mist) DRYNESS aspirin 325 mg tablet 325 mg PO DAILY 11/03/20 05/01/24 calcium carbonate (Antacid 400 mg PO 6XD PRN Heartburn 11/03/20 05/01/24 (calcium carbonate)) calcium polycarbophil 500 mg 500 mg PO DAILY 11/03/20 05/01/24 chewable tablet celecoxib 200 mg capsule 200 mg PO BID 11/03/20 05/01/24 ferrous gluconate 324 mg (37.5 mg 324 mg PO TIDWMEAL 11/03/20 05/01/24 iron) tablet gabapentin 300 mg capsule 300 mg PO BID 11/03/20 05/01/24 pantoprazole 40 mg tablet,delayed 40 mg PO DAILY 11/03/20 05/01/24 release polyethylene glycol 3350 17 17 g PO DAILY PRN Constipation 11/03/20 05/01/24 gram/dose oral powder (ClearLax) simethicone 80 mg chewable tablet 80 mg PO 6XD PRN Flatulence 11/03/20 05/01/24 diltiazem HCl 120 mg capsule,24 120 mg PO DAILY 05/01/24 05/01/24 hr,extended release (Tiadylt ER) Allergies Allergy/AdvReac Type Severity Reaction Status Date / Time Iodinated Contrast Media Allergy Severe Anaphylaxis Verified 05/01/24 20:13 Iodine and Iodide Containing Allergy Severe Anaphylaxis Verified 05/01/24 20:13 Produc morphine Allergy Severe Difficulty Verified 05/01/24 20:13 Breathing acetaminophen [From Vicodin] Allergy Difficulty Verified 05/01/24 20:13 Breathing hydrocodone [From Vicodin] Allergy Difficulty Verified 05/01/24 20:13 Breathing iodine Allergy Rash Verified 05/01/24 20:13 latex Allergy Difficulty Verified 05/01/24 20:13 Breathing shellfish derived Allergy Difficulty Verified 05/01/24 20:13 Breathing Contrast Media Allergy Severe ANAPHYLAXIS Uncoded 05/01/24 20:13 Review of Systems Review of Systems: All systems reviewed & are unremarkable except as noted in HPI and below Constitutional: Constitutional: Reports as per HPI and Reports no additional constitutional complaints Eyes: Eyes: Reports as per HPI and Reports no additional eye complaints ENT: Reports system reviewed and no additional complaints, except as documented and Reports as per HPI Cardiovascular: Cardiovascular: Reports as per HPI and Reports no additional cardiovascular complaints Respiratory: Respiratory: Reports as per HPI and Reports no additional respiratory complaints Gastrointestinal: Gastrointestinal: Reports as per HPI and Reports no additional gastrointestinal complaints Comments: left lower quadrant abdominal pain Genitourinary: Genitourinary: Reports no additional female genitourinary complaints, Reports as per HPI, Reports hematuria and Reports dysuria Musculoskeletal: Musculoskeletal: Reports no additional musculoskeletal complaints, Reports back pain and Reports myalgias Comments: chronic neck and lower back pain Integumentary/Breasts: Skin/Breast: Reports system reviewed and no additional complaints, except as docu and Reports as per HPI Neurologic: Reports system reviewed and no additional complaints, except as documented and Reports as per HPI Psychiatric: Psychiatric: Reports no additional psychiatric complaints and Reports as per HPI Endocrine: Endocrine: Reports no additional endocrine complaints and Reports as per HPI Hematologic/Lymphatic: Hematologic/Lymphatic: Reports no additional hematologic/lymphatic complaints and Reports as per HPI Allergic/Immunologic: Allergic/Immunologic: Reports no additional allergic/immunologic complaints and Reports as per HPI [facility] Past Medical History Medical History Abdominal wall abscess at site of surgical wound Abscess of liver (~01/2020) Related to sigmoid diverticulitis, requiring percutaneous drainage. Acute diastolic (congestive) heart failure Anemia Dark stools Diverticulitis (~01/2020) Diverticulitis large intestine Diverticulitis large intestine Empyema lung (~01/2020) Gastroesophageal reflux disease Hypertension Liver mass Morbid obesity with BMI of 40.0-44.9, adult Obstructive sleep apnea Osteoarthritis Paroxysmal atrial fibrillation Pulmonary HTN Surgical History Surgical History History of bilateral knee arthroplasty History of bilateral knee replacement History of section History of colon resection 06/05/20 Attempted hand assisted sigmoid colectomy, extensive lysis of adhesions, creation of end descending colostomy History of hernia repair With mesh performed in approximately 1991 History of hip surgery History of right hip replacement History of shoulder surgery History of total right hip arthroplasty Family History Family History Father Diabetes mellitus Cerebrovascular accident Mother Cerebrovascular accident Social History Social History Social History: Surrogate decision maker: Raymond Patricia and Mariel Cespedes, daughters. Code status: Full code. Smoking status: Former smoker Tobacco type: cigarettes Second hand tobacco smoke exposure: No Additional smoking assessment comments: pt states only smoke cigarette when drinking when she was younger Alcohol intake: current Drinks per week: 1 Alcohol use details: PT STATES MAYBE 1 DRINK A MONTH Substance use: never Living arrangements: with family Additional living arrangements comments: Lives in [place] with her . 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 Gender identity (if verbalized by the patient): Female Sexual Orientation (if Verbalized by the Patient): Straight or Heterosexual Spiritual care concerns: No Exam Narrative: afebrile. Blood pressure stable. Oxygen saturation of 100% on room air. Const: General: no acute distress Nutritional Appearance: obese Orientation/consciousness: patient oriented x3 Limitations: no limitations HENMT: Head: normal to inspection Ears: external ears normal Face/Nose/Sinus: Normal external nose present Face and sinus: normal facial exam Mouth: Yes Normal oral and palatal mucosa present Throat: posterior oropharynx normal Eyes: Conjunctivae: conjunctivae normal Pupils: Equal, round and reactive pupils present EOM: EOMs intact bilaterally Direct Ophthalmoscopy: no photophobia Neck: Neck: normal visual inspection, no lymphadenopathy and no meningeal signs Chest: Chest palpation & inspection: normal inspection of the chest Resp: Effort & Inspection: normal respiratory effort Auscultation: clear to auscultation bilaterally Cardio: Rate: regular rate Rhythm: regular rhythm GI: GI Palp: Yes Soft to palpation Auscultation: normal bowel sounds Other: No tenderness/ rigidity /rebound. No hernia noted over the left inguinal region. : General: Yes no CVA tenderness Back/Spine/Pelvis: Back: no CVA tenderness Skin: General skin exam: normal color Rashes: no rashes Wounds: no wounds Neuro: General: patient oriented x3, moves all extremities, no meningeal signs, no focal motor deficits and CN's II-XI intact bilaterally Cranial nerves: Yes Nystagmus not present Speech: normal speech Gait exam (Neuro): Normal gait present Extrem: General: normal to inspection and edema Psych: Appearance: grossly normal Mental Status: mental status grossly normal Affect: normal affect Attitude: cooperative Course Course Emergency Course: Dysuria/hematuria-- Urine is positive for urinary tract infection. left lower quadrant abdominal pain / pain over the inguinal ligament-- Abdominal examination is unremarkable. The patient is noted to have a normal white cell count. Febrile illness-- patient tested negative for RSV / influenza /COVID. Patient does not have any respiratory symptoms. Vital Signs Vital signs: Vital Signs Oxygen Delivery Room Air 05/01/24 19:51 Temperature 36.1 C L 05/01/24 19:54 Pulse Rate 76 05/01/24 19:54 Respiratory Rate 20 05/01/24 19:54 Blood Pressure 160/89 H 05/01/24 19:54 Pulse Oximetry 100 05/01/24 19:54 Oxygen Delivery Room Air 05/01/24 19:54 MDM - Female Genitourinary MDM Narrative Medical decision making narrative: Febrile illness UTI abdominal pain Differential Diagnosis Differential diagnosis: Likely urinary tract infection Medical Records Attestation: I reviewed the patient's medical records. Lab Data Attestation: I reviewed the patient's lab results. 05/01/24 22:02 05/01/24 22:02 Labs: Lab Results 05/01/24 05/01/24 Range/Units 20:30 22:02 WBC 6.1 (4.8-10.8) K/mm3 RBC 4.46 (4.20-5.40) M/mm3 Hgb 10.9 L (11.7-13.8) g/dL Hct 34.4 L (35.0-42.0) % MCV 77.1 L (78.0-102.0) fL MCH 24.4 L (27.0-31.0) pg MCHC 31.7 L (32-36) g/dL RDW 19.3 H (11.6-14.4) % Plt Count 275 (150-420) K/mm3 MPV 9.4 (9.2-11.8) fl Immature Gran % (Auto) 0.3 H (0.0-0.0) % Neut % (Auto) 60.6 (50.0-70.0) % Lymph % (Auto) 25.8 (18.0-42.0) % [place] % (Auto) 11.3 H (2.0-11.0) % Eos % (Auto) 1.5 (1.0-6.0) % Baso % (Auto) 0.5 (0.0-1.0) % Lymph # (Auto) 1.58 (1.10-4.50) K/mm3 [place] # (Auto) 0.69 (0.10-0.90) K/mm3 Eos # (Auto) 0.09 (0.02-0.50) K/mm3 Baso # (Auto) 0.03 (0.00-0.10) K/mm3 Abs Immat Gran (auto) 0.02 H (0.00-0.00) K/mm3 Absolute Neuts (auto) 3.71 (1.70-7.20) K/mm3 Absolute Nucleated RBC 0.00 (0.00-0.00) K/mm3 Nucleated RBC % 0.0 (0-0.0) % Sodium 137 (136-145) mmol/L Potassium 3.9 (3.5-5.1) mmol/L Chloride 99 (98-108) mmol/L Carbon Dioxide 29 (21-32) mmol/L Anion Gap 9 (4-12) mmol/L BUN 25 H (7-18) mg/dL Creatinine 0.90 (0.55-1.02) mg/dL Estim Creat Clear Calc 59 ml/min Estimated GFR > 60 (59 - ) Glucose 84 (70-99) mg/dL Calculated Osmolality 287 (285-295) mOsm/kg Lactic Acid 0.8 (0.4-2.0) mmol/L Calcium 9.0 (8.5-10.1) mg/dL Total Bilirubin 0.4 (0.00-1.00) mg/dL AST 16 (15-37) U/L ALT 22 (14-59) U/L Alkaline Phosphatase 116 (46-116) U/L Troponin I 6.1 (0.00-60.4) ng/L Total Protein 6.9 (6.4-8.2) g/dL Albumin 3.1 L (3.4-5.0) g/dL Lipase 17 (16-77) U/L Urine Color Yellow (Yellow) Urine Appearance Sl cloudy A (Clear) Urine pH 5.5 (5.0-8.0) Ur Specific [place] 1.025 H (1.010-1.020) Urine Protein Trace H (Negative) Urine Glucose (UA) Negative (Negative) Urine Ketones Trace H (Negative) Ur Blood (Man) Trace-intact H (Negative) Urine Nitrate Negative (Negative) Urine Bilirubin Negative (Negative) Urine Urobilinogen 1.0 (0.2-1.0) mg/dL Leukocyte Esterase Rfl Trace H (Negative) GAYATRI/UL Urine RBC 3-5 H (0-2) /hpf Urine WBC 4-6 H (0-3) /hpf Ur Squamous Epith Cells Many H (Few) /hpf Amorphous Sediment Heavy H (None) Urine Bacteria 2+ H (None) /hpf Urine Mucus Heavy H /lpf Influenza A (RT-PCR) Negative (Negative) Influenza B (RT-PCR) Negative (Negative) RSV (RT-PCR) Negative (Negative) SARS-CoV-2 RNA (RT-PCR) Negative (Negative) Discharge Plan Discharge Clinical Impression: Urinary tract infection Qualifiers: Urinary tract infection type: acute cystitis Hematuria presence: with hematuria Qualified Code(s): N30.01 - Acute cystitis with hematuria Abdominal pain Qualifiers: Abdominal location: left lower quadrant Qualified Code(s): R10.32 - Left lower quadrant pain Patient Disposition: Home, Self-Care Condition: Stable Instructions: Antibiotic Form, Urinary Tract Infection in Women (DC), Abdominal Pain (ED) Patient Language: Portuguese Prescriptions: New nitrofurantoin monohyd/m-cryst [Macrobid] 100 mg capsule 100 mg PO Q12H 5 Days Qty: 10 0RF Rx Instructions: must administer with a meal/food No Action diltiazem HCl [Tiadylt ER] 120 mg capsule,extended release 24 hr 120 mg PO DAILY aspirin 325 mg Tablet 325 mg PO DAILY celecoxib 200 mg Capsule 200 mg PO BID calcium carbonate [Antacid (calcium carbonate)] 200 mg calcium (500 mg) Tablet,Chewable 400 mg PO 6XD PRN (Reason: Heartburn) gabapentin 300 mg Capsule 300 mg PO BID calcium polycarbophil 500 mg Tablet,Chewable 500 mg PO DAILY polyethylene glycol 3350 [ClearLax] 17 gram/dose Powder 17 g PO DAILY PRN (Reason: Constipation) simethicone 80 mg Tablet,Chewable 80 mg PO 6XD PRN (Reason: Flatulence) ferrous gluconate 324 mg (37.5 mg iron) Tablet 324 mg PO TIDWMEAL pantoprazole 40 mg tablet,delayed release (DR/EC) 40 mg PO DAILY sodium chloride 1 gram Tablet 1 g PO BID Qty: 15 0RF metoprolol succinate [Toprol XL] 25 mg tablet extended release 24 hr 12.5 mg PO HS Qty: 30 0RF (DME) Curity Plain Packing Strip 1/4 X 5 -yard bandage See Rx Instructions .Route Qty: 12 0RF Rx Instructions: As directed (DME) transparent dressings [Tegaderm] 4 X 4 3/4 bandage See Rx Instructions .Route Qty: 10 0RF Rx Instructions: As directed cefuroxime axetil 500 mg tablet 500 mg PO BID 10 Days Qty: 20 0RF ketorolac 10 mg tablet 10 mg PO Q6H PRN (Reason: pain) 2 Days Qty: 7 0RF psyllium seed (sugar) Powder 1 tbsp PO BID Nasal Mist 0.9 % Aerosol,[place] 1 spray INTRANASAL ONCE PRN (Reason: NASAL DRYNESS) loratadine [Claritin] 10 mg Tablet 10 mg PO DAILY PRN (Reason: Allergy Symptoms) cholecalciferol (vitamin D3) 125 mcg (5,000 unit) Tablet 125 mcg PO DAILY magnesium oxide 400 mg magnesium Capsule 400 mg PO QPM Follow-up/Referrals: UNKNOWN,DOCTOR [Non-Staff] - Time of Disposition: 22:58
--- NOTE | 2024-05-01 20:39 | PC.NURSE ---
COVID PCR obtained and taken to lab. lab called for blood work
[2024-05-01 21:45] LABS: Add Urine Microscopic? YES; Bilirubin Urine Negative (Negative); Blood Urine Trace-intact (Negative); Color Urine Yellow (Yellow); Glucose Urine UA Negative (Negative); Ketones Urine Trace (Negative); Leukocyte Esterase Ur Trace LEU/UL (Negative); Nitrate Urine Negative (Negative); Protein Urine Trace (Negative); Specific Grav Ur 1.025 (1.010-1.020); pH Urine 5.5 (5.0-8.0)
[2024-05-01 22:10] LABS: Basophils Absolute Auto 0.03 K/mm3 (0.00-0.10); Basophils Percent Auto 0.5 % (0.0-1.0); Eosinophils Absolute Auto 0.09 K/mm3 (0.02-0.50); Eosinophils Percent Auto 1.5 % (1.0-6.0); Hematocrit 34.4 % (35.0-42.0); Hemoglobin 10.9 g/dL (11.7-13.8); Immature Granulocyte Absolute 0.02 K/mm3 (0.00-0.00); Immature Granulocyte Percent A 0.3 % (0.0-0.0); Lymphocytes Absolute Auto 1.58 K/mm3 (1.10-4.50); Lymphocytes Percent Auto 25.8 % (18.0-42.0); Mean Corpuscular HGB Conc 31.7 g/dL (32-36); Mean Corpuscular Hemoglobin 24.4 pg (27.0-31.0); Mean Corpuscular Volume 77.1 fL (78.0-102.0); Mean Platelet Volume 9.4 fl (9.2-11.8); Monocytes Absolute Auto 0.69 K/mm3 (0.10-0.90); Monocytes Percent Auto 11.3 % (2.0-11.0); Neutrophils Absolute Auto 3.71 K/mm3 (1.70-7.20); Neutrophils Percent Auto 60.6 % (50.0-70.0); Platelet Count Result 275 K/mm3 (150-420); Red Blood Count 4.46 M/mm3 (4.20-5.40); Red Cell Distribution Width 19.3 % (11.6-14.4); White Blood Count 6.1 K/mm3 (4.8-10.8)
[2024-05-01 22:15] LABS: Amorphous Sediment Urine Heavy; Appearance Urine Sl Cloudy (Clear); Bacteria Urine 2+ /hpf; Squamous Epithelial Cell Urine Many /hpf (Few)
[2024-05-01 22:16] LABS: Mucus Urine Heavy /lpf
[2024-05-01 22:21] LABS: SARS-CoV-2 RNA PCR Negative (Negative)
[2024-05-01 22:22] LABS: Influenza A QL RT-PCR Negative (Negative); Influenza B QL RT-PCR Negative (Negative); RSV RNA, RT-PCR Negative (Negative)
[2024-05-01 22:27] LABS: Alanine Aminotransferase 22 U/L (14-59); Albumin Level 3.1 g/dL (3.4-5.0); Alkaline Phosphatase 116 U/L (46-116); Anion Gap 9 mmol/L (4-12); Aspartate Amino Transferase 16 U/L (15-37); Bilirubin,Total 0.4 mg/dL (0.00-1.00); Blood Urea Nitrogen 25 mg/dL (7-18); Carbon Dioxide 29 mmol/L (21-32); Chloride 99 mmol/L (98-108); Estimated CRCL calculation 59 ml/min; Estimated Glomerular Filt Rate > 60; Glucose 84 mg/dL (70-99); Lipase 17 U/L (16-77); Osmolality Calculated 287 mOsm/kg (285-295); Potassium 3.9 mmol/L (3.5-5.1); Sodium 137 mmol/L (136-145); Total Protein 6.9 g/dL (6.4-8.2); Troponin I 6.1 ng/L (0.00-60.4)
[2024-05-01 22:30] LABS: Lactic Acid Reflex 0.8 mmol/L (0.4-2.0)
[2024-05-01] MEDS: NITROFURANTOIN MONOHYD MACROCR 100 MG CAP PO (23:01)
--- NOTE | 2024-05-01 23:05 | PC.NURSE ---
ERP aware of pt's vitals. No new orders.
[2024-05-01 23:10] VITALS: BP 155/85; PULSE 71; RESP 18; TEMP 36.8; O2SAT 99
== END 2024-05-01 23:10 | disposition home or self-care (01) ==
PROVIDERS: Emergency Provider Internal Medicine Critical Care Medicine; PCP Internal Medicine Geriatric Medicine
DX: N30.01 Acute cystitis with hematuria (principal); R10.32 Left lower quadrant pain; J43.9 Emphysema, unspecified; I11.0 Hypertensive heart disease with heart failure; I50.9 Heart failure, unspecified; I48.0 Paroxysmal atrial fibrillation; Z87.891 Personal history of nicotine dependence; Z20.822 Contact with and (suspected) exposure to COVID-19
CPT/HCPCS: 36415; 80053; 81001; 83605; 83690; 84484; 85025; 87637; 99284; A9270

== ENCOUNTER 2024-12-05 14:30 | Emergency (ER) | payer MEDICARE, SELFPAY ==
[2024-12-05 14:30] VITALS: BP 147/73; PULSE 86; RESP 16; TEMP 37.2; O2SAT 96
--- NOTE | 2024-12-05 15:18 | ED.EXTPRO ---
HPI - Extremity Problem General Chief complaint: Extremity Problem,Nontraumatic Stated complaint: left leg swelling Time Seen by Provider: 12/05/24 14:44 Source: patient Mode of arrival: ambulatory Limitations: no limitations History of Present Illness HPI Narrative: Patient is a 69-year-old female with left lower extremity swelling and redness for the past week. She also has right lower extremity swelling. She had a left total hip replacement in the past month. She was treated for cellulitis in the past month as well by the primary doctor. She has been having swelling of the lower extremity bilateral since the surgery more so on the left than the right which is noted today. patient said she has gotten bitten by a spider on her left and right ankle area over the past few weeks as well. She has some wounds near the incision site for review. Surgeon is aware of the incision wounds. MD Complaint: extremity swelling ( Bilateral lower legs) Onset (ago): week(s) ( One) Pain Consistency: constant Location: left, right and lower extremity Severity scale (1-10): 1 Quality: dull Radiation: none Relieving factors: nothing Exacerbating factors: nothing Associated symptoms: denies other symptoms Context: other ( recent left hip replacement and chronic lower extremity edema since the surgery now with some redness of the left lower extremity) Related Data Home Medications ?Medication ?Instructions ?Recorded ?Confirmed ?Last Taken ?Type loratadine 10 mg tablet (Claritin) 10 mg PO DAILY PRN Allergy Symptoms 01/17/20 05/01/24 Unknown History cholecalciferol (vitamin D3) 125 125 mcg PO DAILY 04/21/20 05/01/24 Unknown History mcg (5,000 unit) tablet magnesium oxide 400 mg PO QPM 04/21/20 05/01/24 Unknown History psyllium seed (sugar) oral powder 1 tbsp PO BID 05/29/20 05/01/24 Unknown History sodium chloride 0.9 % nasal spray 1 spray intranasal ONCE PRN NASAL 05/29/20 05/01/24 Unknown History aerosol (Nasal Mist) DRYNESS aspirin 325 mg tablet 325 mg PO DAILY 11/03/20 05/01/24 Unknown History calcium carbonate (Antacid 400 mg PO 6XD PRN Heartburn 11/03/20 05/01/24 Unknown History (calcium carbonate)) calcium polycarbophil 500 mg 500 mg PO DAILY 11/03/20 05/01/24 Unknown History chewable tablet celecoxib 200 mg capsule 200 mg PO BID 11/03/20 05/01/24 Unknown History ferrous gluconate 324 mg (37.5 mg 324 mg PO TIDWMEAL 11/03/20 05/01/24 Unknown History iron) tablet gabapentin 300 mg capsule 300 mg PO BID 11/03/20 05/01/24 Unknown History pantoprazole 40 mg tablet,delayed 40 mg PO DAILY 11/03/20 05/01/24 Unknown History release polyethylene glycol 3350 17 17 g PO DAILY PRN Constipation 11/03/20 05/01/24 Unknown History gram/dose oral powder (ClearLax) simethicone 80 mg chewable tablet 80 mg PO 6XD PRN Flatulence 11/03/20 05/01/24 Unknown History diltiazem HCl 120 mg capsule,24 120 mg PO DAILY 05/01/24 05/01/24 Unknown History hr,extended release (Tiadylt ER) Allergies Allergy/AdvReac Type Severity Reaction Status Date / Time Iodinated Contrast Media Allergy Severe Anaphylaxis Verified 12/05/24 14:54 Iodine and Iodide Containing Allergy Severe Anaphylaxis Verified 12/05/24 14:54 Produc morphine Allergy Severe Difficulty Verified 12/05/24 14:54 Breathing acetaminophen (From Vicodin) Allergy Difficulty Verified 12/05/24 14:54 Breathing hydrocodone (From Vicodin) Allergy Difficulty Verified 12/05/24 14:54 Breathing iodine Allergy Rash Verified 12/05/24 14:54 latex Allergy Difficulty Verified 12/05/24 14:54 Breathing shellfish derived Allergy Difficulty Verified 12/05/24 14:54 Breathing Contrast Media Allergy Severe ANAPHYLAXIS Uncoded 12/05/24 14:54 Review of Systems Review of Systems: All systems reviewed & are unremarkable except as noted in HPI and below Constitutional: Constitutional: Reports no additional constitutional complaints Eyes: Eyes: Reports no additional eye complaints ENT: Reports system reviewed and no additional complaints, except as documented Cardiovascular: Cardiovascular: Reports no additional cardiovascular complaints Respiratory: Respiratory: Reports no additional respiratory complaints Gastrointestinal: Gastrointestinal: Reports no additional gastrointestinal complaints Genitourinary: Genitourinary: Reports no additional female genitourinary complaints Musculoskeletal: Musculoskeletal: Reports no additional musculoskeletal complaints Integumentary/Breasts: Skin/Breast: Reports system reviewed and no additional complaints, except as docu Neurologic: Reports system reviewed and no additional complaints, except as documented Psychiatric: Psychiatric: Reports no additional psychiatric complaints Endocrine: Endocrine: Reports no additional endocrine complaints Hematologic/Lymphatic: Hematologic/Lymphatic: Reports no additional hematologic/lymphatic complaints Allergic/Immunologic: Allergic/Immunologic: Reports no additional allergic/immunologic complaints [facility] Past Medical History Medical History Abdominal wall abscess at site of surgical wound Pulmonary HTN Diverticulitis large intestine Liver mass Dark stools Osteoarthritis Obstructive sleep apnea Gastroesophageal reflux disease Diverticulitis large intestine Morbid obesity with BMI of 40.0-44.9, adult Acute diastolic (congestive) heart failure Empyema lung (~01/2020) Paroxysmal atrial fibrillation Anemia Abscess of liver (~01/2020) Related to sigmoid diverticulitis, requiring percutaneous drainage. Diverticulitis (~01/2020) Hypertension Surgical History Surgical History History of colon resection 06/05/20 Attempted hand assisted sigmoid colectomy, extensive lysis of adhesions, creation of end descending colostomy History of bilateral knee arthroplasty History of total right hip arthroplasty History of shoulder surgery History of section History of hernia repair With mesh performed in approximately 1991 History of hip surgery History of bilateral knee replacement History of right hip replacement Family History Family History Father Diabetes mellitus Cerebrovascular accident Mother Cerebrovascular accident Social History Social History Social History: Surrogate decision maker: Raymond Gomez and Mariel Cespedes, daughters. Code status: Full code. Smoking status: Former smoker Tobacco type: cigarettes Second hand tobacco smoke exposure: No Additional smoking assessment comments: pt states only smoke cigarette when drinking when she was younger Alcohol intake: current Drinks per week: 1 Alcohol use details: PT STATES MAYBE 1 DRINK A MONTH Substance use: never Living arrangements: with family Additional living arrangements comments: Lives in [place] with her . 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 Gender identity (if verbalized by the patient): Female Sexual Orientation (if Verbalized by the Patient): Straight or Heterosexual Spiritual care concerns: No Exam Const: General: healthy appearing Nutritional Appearance: well nourished Orientation/consciousness: patient oriented x3 Limitations: no limitations HENMT: Head: normal to inspection Ears: external ears normal Face/Nose/Sinus: Normal external nose present Eyes: Conjunctivae: conjunctivae normal Pupils: Equal, round and reactive pupils present EOM: EOMs intact bilaterally Neck: Neck: normal visual inspection Chest: Chest palpation & inspection: normal inspection of the chest Resp: Effort & Inspection: normal respiratory effort and not labored Auscultation: clear to auscultation bilaterally and no crackles Cardio: Rate: regular rate Rhythm: regular rhythm Heart sounds: no murmurs GI: Inspection: non-distended GI Palp: Yes Soft to palpation and No Tenderness to palpation present (GI) Auscultation: normal bowel sounds : General: Yes bladder normal to palpation Back/Spine/Pelvis: Back: no CVA tenderness Skin: General skin exam: normal color Rashes: no rashes Wounds: no wounds Other: bilateral lower extremity 2+R/3+L pitting edema which appears to be chronic as well as left lower extremity redness around the lower leg distally but not circumferentially Neuro: General: patient oriented x3, moves all extremities, no meningeal signs, no focal motor deficits and CN's II-XI intact bilaterally Extrem: General: normal to inspection Psych: Mental Status: mental status grossly normal Affect: normal affect Attitude: cooperative Course Vital Signs Vital signs: Vital Signs Temperature 37.2 C 12/05/24 14:30 Pulse Rate 86 12/05/24 14:30 Respiratory Rate 16 12/05/24 14:30 Blood Pressure 147/73 H 12/05/24 14:30 Pulse Oximetry 96 12/05/24 14:30 Oxygen Delivery Room Air 12/05/24 14:30 Temperature 37.2 C 12/05/24 14:30 Pulse Rate 85 12/05/24 15:40 Respiratory Rate 20 12/05/24 15:40 Blood Pressure 141/73 H 12/05/24 15:40 Pulse Oximetry 99 12/05/24 15:40 Oxygen Delivery Room Air 12/05/24 15:40 MDM - Extremity (Nontraumatic) MDM Narrative Medical decision making narrative: patient is a 69-year-old female with lower extremity edema and left lower extremity redness. We will do Rocephin IM. We will have ultrasound bilateral lower extremity tomorrow am. We will do Keflex. She will follow-up with the orthopedic surgeon. Discharge Plan Discharge Clinical Impression: Cellulitis Qualifiers: Site of cellulitis: extremity Site of cellulitis of extremity: lower extremity Laterality: left Qualified Code(s): L03.116 - Cellulitis of left lower limb Edema Qualifiers: Edema type: localized Qualified Code(s): R60.0 - Localized edema Patient Disposition: Home Condition: Stable Instructions: Antibiotic Form, Cellulitis (ED) Additional Instructions: Please come back in the morning to registration at 6:45 a.m. and bring your slip for ultrasound of lower extremities. Patient Language: German Prescriptions: New cephalexin 500 mg capsule 500 mg PO TID 10 Days Qty: 30 0RF No Action diltiazem HCl [Tiadylt ER] 120 mg capsule,extended release 24 hr 120 mg PO DAILY nitrofurantoin monohyd/m-cryst [Macrobid] 100 mg capsule 100 mg PO Q12H 5 Days Qty: 10 0RF Rx Instructions: must administer with a meal/food aspirin 325 mg Tablet 325 mg PO DAILY celecoxib 200 mg Capsule 200 mg PO BID calcium carbonate [Antacid (calcium carbonate)] 200 mg calcium (500 mg) Tablet,Chewable 400 mg PO 6XD PRN (Reason: Heartburn) gabapentin 300 mg Capsule 300 mg PO BID calcium polycarbophil 500 mg Tablet,Chewable 500 mg PO DAILY polyethylene glycol 3350 [ClearLax] 17 gram/dose Powder 17 g PO DAILY PRN (Reason: Constipation) simethicone 80 mg Tablet,Chewable 80 mg PO 6XD PRN (Reason: Flatulence) ferrous gluconate 324 mg (37.5 mg iron) Tablet 324 mg PO TIDWMEAL pantoprazole 40 mg tablet,delayed release (DR/EC) 40 mg PO DAILY sodium chloride 1 gram Tablet 1 g PO BID Qty: 15 0RF metoprolol succinate [Toprol XL] 25 mg tablet extended release 24 hr 12.5 mg PO HS Qty: 30 0RF (DME) Curity Plain Packing Strip 1/4 X 5 -yard bandage See Rx Instructions .Route Qty: 12 0RF Rx Instructions: As directed (DME) transparent dressings [Tegaderm] 4 X 4 3/4 bandage See Rx Instructions .Route Qty: 10 0RF Rx Instructions: As directed cefuroxime axetil 500 mg tablet 500 mg PO BID 10 Days Qty: 20 0RF ketorolac 10 mg tablet 10 mg PO Q6H PRN (Reason: pain) 2 Days Qty: 7 0RF psyllium seed (sugar) Powder 1 tbsp PO BID Nasal Mist 0.9 % Aerosol,[place] 1 spray INTRANASAL ONCE PRN (Reason: NASAL DRYNESS) loratadine [Claritin] 10 mg Tablet 10 mg PO DAILY PRN (Reason: Allergy Symptoms) cholecalciferol (vitamin D3) 125 mcg (5,000 unit) Tablet 125 mcg PO DAILY magnesium oxide 400 mg magnesium Capsule 400 mg PO QPM Other Ambulatory Orders: US venous doppler LE BI (Routine) Timeframe: 1 Day Location: Determined by Patient Ordered By: Edgard Paul Follow-up/Referrals: Emmanuel,Ivan Hein MD [Primary Care Provider] - Time of Disposition: 15:14
[2024-12-05] MEDS: cefTRIAXone 1 GM, LIDOCAINE 1% LOCAL INJ 2.1 ML IM (15:25)
[2024-12-05 15:40] VITALS: BP 141/73; PULSE 85; RESP 20; O2SAT 99
== END 2024-12-05 15:40 | disposition home or self-care (01) ==
PROVIDERS: Emergency Provider Emergency Medicine; PCP Internal Medicine Geriatric Medicine
DX: L03.116 Cellulitis of left lower limb (principal); R60.0 Localized edema; I48.0 Paroxysmal atrial fibrillation; I11.0 Hypertensive heart disease with heart failure; I50.9 Heart failure, unspecified; Z87.891 Personal history of nicotine dependence
CPT/HCPCS: 96372; 99283; J0696; J2003

== ENCOUNTER 2024-12-06 07:29 | Outpatient (CLI) | payer MEDICARE, SELFPAY ==
--- NOTE | ~2024-12-06 | US_ITS ---
BILATERAL LOWER EXTREMITY VENOUS ULTRASOUND Ordering provider: Edgard Paul MD History: . R60.9 - Edema, unspecified . Comparison: None. FINDINGS: RIGHT LOWER EXTREMITY VEINS: --COMMON FEMORAL: Patent and free of thrombus. Normal compressibility, phasic flow and augmentation. --PROXIMAL SUPERFICIAL FEMORAL: Patent and free of thrombus. Normal compressibility, phasic flow and augmentation. --DISTAL SUPERFICIAL FEMORAL: Patent and free of thrombus. Normal compressibility, phasic flow and au gmentation. --POPLITEAL: Patent and free of thrombus. Normal compressibility, phasic flow and augmentation. --POSTERIOR TIBIAL: Patent and free of thrombus. Normal compressibility, phasic flow and augmentation . LEFT LOWER EXTREMITY VEINS: --COMMON FEMORAL: Patent and free of thrombus. Normal compressibility, phasic flow and augmentation. --PROXIMAL SUPERFICIAL FEMORAL: Patent and free of thrombus. Normal compressibility, phasic flow and augmentation. --DISTAL SUPERFICIAL FEMORAL: Patent and free of thrombus. Normal compressibility, phasic flow and au gmentation. --POPLITEAL: Patent and free of thrombus. Normal compressibility, phasic flow and augmentation. --POSTERIOR TIBIAL: Patent and free of thrombus. Normal compressibility, phasic flow and augmentation .. IMPRESSION: Negative bilateral lower extremity venous US. No deep vein thrombosis. Reviewed, dictated and finalized at location A.
== END 2024-12-06 07:30 | disposition home or self-care (01) ==
PROVIDERS: PCP Internal Medicine Geriatric Medicine; Visit Provider Emergency Medicine
DX: R60.9 Edema, unspecified (principal)
CPT/HCPCS: 93970